=== PATIENT | male | born 1930 | race Caucasian/White ===

== ENCOUNTER 2016-08-09 13:00 | Emergency (ER) | payer MEDICARE, OTHER ==
--- NOTE | 2016-08-09 13:49 | EKG REPORT ---
SEVERITY:- ABNORMAL ECG - SINUS RHYTHM FIRST DEGREE AV BLOCK BORDERLINE LEFT AXIS DEVIATION BORDERLINE T ABNORMALITIES, ANT-LAT LEADS : Confirmed by: Annie Lazar 09-Aug-2016 13:49:11
--- NOTE | 2016-08-09 14:48 | ER Document Report ---
ED General - General Chief Complaint: Black/Tarry Stools Stated Complaint: FLANK PAIN Mode of Arrival: Medic Information source: Patient, Emergency Med Personnel Notes: 86-year-old male presents with complaints of left lower quadrant abdominal pain as well as dorsal wrist. Patient notes the dorsal segment been ongoing now for 3 weeks. Denies any nausea vomiting. Patient notes he had a history of a GI bleed a few years ago. Denies any fevers chills TRAVEL OUTSIDE OF THE [place] IN LAST 30 DAYS: No - HPI Onset: Other Onset/Duration: Persistent Quality of pain: Achy Severity: Mild Pain Level: 1 Associated symptoms: Other Exacerbated by: Denies Relieved by: Denies Similar symptoms previously: No Recently seen / treated by doctor: No - Related Data Allergies/Adverse Reactions: No Known Allergies Allergy (Verified 02/18/15 05:29) Past Medical History - Social History Smoking Status: Never Smoker Cigarette use (# per day): No Chew tobacco use (# tins/day): No Smoking Education Provided: No Family History: Reviewed & Not Pertinent - Past Medical History Cardiac Medical History: Reports: Hx Coronary Artery Disease, Hx Hypercholesterolemia Pulmonary Medical History: Reports: Hx COPD Neurological Medical History: Reports: Hx Seizures Musculoskeltal Medical History: Reports Hx Arthritis Psychiatric Medical History: Denies: Hx Depression Past Surgical History: Reports: Hx Cardiac Surgery - Triple Bypass 1999 - Immunizations Hx Diphtheria, Pertussis, Tetanus Vaccination: Yes Hx Pneumococcal Vaccination: 05/04/09 Review of Systems - Review of Systems Notes: REVIEW OF SYSTEMS: CONSTITUTIONAL : Denies fever, chills, or sweats. Denies recent illness. EENT: Denies eye, ear, throat, or mouth pain or symptoms. Denies nasal or sinus congestion or discharge. Denies throat, tongue, or mouth swelling or difficulty swallowing. CARDIOVASCULAR: Denies chest pain. Denies palpitations or racing or irregular heart beat. Denies ankle edema. RESPIRATORY: Denies cough, cold, or chest congestion. Denies shortness of breath, difficulty breathing, or wheezing. GASTROINTESTINAL: Admits to dark stools mild soreness in the left lower quadrant GENITOURINARY: Denies difficulty urinating, painful urination, burning, frequency, blood in urine, or discharge. MUSCULOSKELETAL: Denies back or neck pain or stiffness. Denies joint pain or swelling. SKIN: Denies rash, lesions or sores. HEMATOLOGIC : Denies easy bruising or bleeding. LYMPHATIC: Denies swollen, enlarged glands. NEUROLOGICAL: Denies confusion or altered mental status. Denies passing out or loss of consciousness. Denies dizziness or lightheadedness. Denies headache. Denies weakness or paralysis or loss of use of either side. Denies problems with gait or speech. Denies sensory loss, numbness, or tingling. Denies seizures. PSYCHIATRIC: Denies anxiety or stress. Denies depression, suicidal ideation, or homicidal ideation. ALL OTHER SYSTEMS REVIEWED AND NEGATIVE. Dictation was performed using [employer] recognition software PHYSICAL EXAMINATION: GENERAL: Well-appearing, well-nourished and in no acute distress. HEAD: Atraumatic, normocephalic. EYES: Pupils equal round and reactive to light, extraocular movements intact, sclera anicteric, conjunctiva are normal. ENT: Nares patent, oropharynx clear without exudates. Moist mucous membranes. NECK: Normal range of motion, supple without lymphadenopathy LUNGS: Breath sounds clear to auscultation bilaterally and equal. No wheezes rales or rhonchi. HEART: Regular rate and rhythm without murmurs ABDOMEN: Soft, tender left lower quadrant no rebound or guarding noted patient notes it is only sore to touch black tarry stool Musculoskeletal: Normal range of motion, no pitting or edema. No cyanosis. NEUROLOGICAL: Cranial nerves grossly intact. Normal speech, normal gait. Normal sensory, motor exams PSYCH: Normal mood, normal affect. SKIN: Warm, Dry, normal turgor, no rashes or lesions noted. Physical Exam - Vital signs Vitals: Resp 15 08/09/16 13:16 Course - Re-evaluation Re-evalutation: 08/09/16 14:48 Patient has probable GI bleed, he has been type and screen lab work is pending at this time 08/09/16 20:00 Patient was evaluated by , he decompacted patient , noted large prostate but no concerns for gi bleed I spoke cal cano who will have the patient follolw up in his office for further testing for evaluation Given the patient now denies any complaints denies any abdominal pain I believe he is stable for discharge After performing a Medical Screening Examination, I estimate there is LOW risk for ACUTE APPENDICITIS, BOWEL OBSTRUCTION, ACUTE CHOLECYSTITIS, PERFORATED DIVERTICULITIS, INCARCERATED HERNIA, PANCREATITIS, or PERFORATED ULCER, thus I consider the discharge disposition reasonable. Also, there is no evidence or peritonitis, sepsis, or toxicity. The patient and I have discussed the diagnosis and risks, and we agree with discharging home with close follow-up with the understanding that symptoms and presentations can change. We also discussed returning to the Emergency Department immediately if new or worsening symptoms occur. We have discussed the symptoms which are most concerning (e.g., bloody stool, fever, changing or worsening pain, intractable vomiting - standard verbal up date) that necessitate immediate return. - Vital Signs Vital signs: Temp Pulse Resp BP Pulse Ox 98.2 F 14 151/69 H 99 08/09/16 13:41 08/09/16 19:01 08/09/16 19:01 08/09/16 19:01 - Laboratory Result Diagrams: 08/09/16 13:20 08/09/16 13:20 Laboratory results interpreted by me: 08/09/16 08/09/16 13:20 13:20 RBC 4.34 L Hgb 13.0 L RDW 14.9 H Plt Count 144 L Eosinophils % 6.4 H BUN 29 H Total Protein 5.6 L Albumin 3.4 L - Diagnostic Test Radiology reviewed: Image reviewed, Reports reviewed Discharge - Discharge Clinical Impression: SMA stenosis Abdominal pain Qualifiers: Abdominal location: left lower quadrant Qualified Code(s): R10.32 - Left lower quadrant pain Condition: Stable Disposition: HOME, SELF-CARE Instructions: Abdominal Pain ([facility]) Additional Instructions: Please follow-up with the specialist at [facility], they will be contacting you for an appointment Referrals: ARON FRAUSTO DO [Primary Care Provider] - Follow up tomorrow
[2016-08-09 14:51] LABS: ABSOLUTE BASOPHILS # (AUTO) 0.1 10^3/uL (0.0-0.2); ABSOLUTE EOSINOPHILS # (AUTO) 0.5 10^3/uL (0.0-0.6); ABSOLUTE LYMPHOCYTES (AUTO) 1.1 10^3/uL (0.5-4.7); ABSOLUTE MONOCYTES (AUTO) 0.6 10^3/uL (0.1-1.4); ABSOLUTE NEUT (AUTO) 4.8 10^3/uL (1.7-8.2); BASOPHILS % (AUTO) 0.8 % (0-2); EOSINOPHILS % (AUTO) 6.4 % (0-6); HEMATOCRIT 38.6 % (37.9-51.0); HGB HCT DIFFERENCE 0.4; LYMPHOCYTES % (AUTO) 16.2 % (13-45); MEAN CORPUSCULAR HEMOGLOBIN 30.1 pg (27.0-33.4); MEAN CORPUSCULAR HGB CONC 33.8 g/dL (32.0-36.0); MEAN CORPUSCULAR VOLUME 89 fl (80-97); MONOCYTES % (AUTO) 8.4 % (3-13); RED BLOOD COUNT 4.34 10^6/uL (4.35-5.55); RED CELL DISTRIBUTION WIDTH 14.9 % (11.5-14.0); SEGMENTED NEUTROPHILS % (AUTO) 68.2 % (42-78)
[2016-08-09 14:53] LABS: ALANINE AMINOTRANSFERASE 37 U/L (21-72); ALBUMIN 3.4 g/dL (3.5-5.0); ALKALINE PHOSPHATASE 73 U/L (38-126); ANION GAP 10 (5-19); ASPARTATE AMINO TRANSFERASE 19 U/L (17-59); BILIRUBIN,TOTAL 0.5 mg/dL (0.2-1.3); BLOOD UREA NITROGEN 29 mg/dL (7-20); CALCIUM 9.3 mg/dL (8.4-10.2); CARBON DIOXIDE 30 mmol/L (22-30); CHLORIDE 105 mmol/L (98-107); GLUCOSE 98 mg/dL (75-110); POTASSIUM 3.9 mmol/L (3.6-5.0); SODIUM 144.8 mmol/L (137-145); TOTAL PROTEIN 5.6 g/dL (6.3-8.2)
[2016-08-09 15:17] LABS: APPEARANCE,URINE CLEAR; BILIRUBIN,URINE NEGATIVE (NEGATIVE); GLUCOSE, URINE NEGATIVE (NEGATIVE); KETONES,URINE NEGATIVE (NEGATIVE); LEUKOCYTE ESTERASE,URINE NEGATIVE (NEGATIVE); NITRITE,URINE NEGATIVE (NEGATIVE); PROTEIN,URINE NEGATIVE (NEGATIVE); URINE SPECIFIC GRAVITY 1.019; UROBILINOGEN,URINE NEGATIVE mg/dL (<2.0)
[2016-08-09] MEDS ORDERED: NORMAL SALINE 1000 ML 1,000 ML IV ONE (16:08)
[2016-08-09 21:49] VITALS: BP 133/63
--- NOTE | 2016-08-10 11:52 | PDOC CONSULTATION ---
Consultation Consult Date: 08/09/16 Consult reason:: Dark stools History of Present Illness Admission Date/PCP: ARON FRAUSTO DO History of Present Illness: MARISSA DAVID is a 86 year old male with multiple comorbidities. Patient currently lives in a senior living. Patient is unable to provide a history so the history is entirely from the nurse and the medical record. The patient, per the chart, was living with his until May 2016. He has a history of neurological deficits including left-sided weakness, instability and innumerable falls since surgery for a brain tumor in 2005. He also has coronary artery disease with a coronary artery bypass graft, 3 vessel in 1999. Other comorbidities include anemia, chronic kidney disease, atrial fibrillation , glaucoma, hyperlipidemia, seizures, arthritis. Per the senior living staff the patient had multiple dark stools and left lower quadrant pain. The occult blood stool test done by the emergency room provider was negative. Surgery was consulted. A CT scan of the abdomen and pelvis was done which showed a large prostate, thickened bladder castaneda, stenosis of the SMA and celiac arteries. I reviewed the scans as well as the radiologist reports. Although there is stenosis at the ostia of both the celiac trunk and the SMA, there is good flow of contrast distal to these areas of stenosis. Past Medical History Cardiac Medical History: Reports: Atrial Fibrillation, Coronary Artery Disease, Hyperlipidema EENT Medical History: Reports: Eyes - Glaucoma Neurological Medical History: Reports: Seizures, Other - Brain tumor removal in 2005. Now with dementia, instability, left-sided weakness, multiple falls. Renal/ Medical History: Reports: Chronic Kidney Disease Musculoskeltal Medical History: Reports: Arthritis Psychiatric Medical History: Denies: Depression Hematology: Reports: Anemia Past Surgical History Past Surgical History: Reports: Coronary Artery Bypass Graft - Three-vessel, 1999., Other - Brain surgery, 2005. Social History Information Source: [facility] Records Lives with: [facility] Smoking Status: Never Smoker Frequency of Alcohol Use: None Hx Recreational Drug Use: No Hx Prescription Drug Abuse: No Family History Family History: Reviewed & Not Pertinent Parental Family History Reviewed: No Children Family History Reviewed: No Sibling(s) Family History Reviewed.: No Medication/Allergy Home Medications: Levetiracetam [Keppra] 750 mg PO BID 09/04/11 Rosuvastatin Calcium [Crestor 20 mg Tablet] 20 mg PO DAILY 01/04/15 Brimonidine Tartrate/Timolol [Combigan 0.2%-0.5% Eye Drops] 1 drop OS Q12 Latanoprost [Xalatan 0.005% Oph Soln 2.5 ml] 1 drop OS QHS 08/08/14 Ranolazine [Ranexa 500 mg Tab.sr] 500 mg PO BID 08/08/14 Cyclosporine 0.05% Oph Emulsio [Restasis 0.05% Oph Emulsion Pf 0.4 ml] 1 drop OU BID PRN 03/13/16 Fluticasone/Salmeterol [Advair 100-50 Diskus] 1 puff PO BID 03/13/16 Mirabegron [Myrbetriq] 50 mg PO DAILY 03/13/16 Montelukast Sodium 10 mg PO DAILY 03/13/16 Tamsulosin HCl 0.4 mg PO DAILY 03/13/16 Alprazolam [Xanax 0.5 mg Tablet] 0.5 mg PO Q6HP PRN #30 tablet 03/19/16 Aspirin/Dipyridamole [Aggrenox 25 mg/200 mg Capsule SA] 1 cap.sr PO Q12 #60 cpmp.12hr 03/19/16 Fluticasone Propionate [Flonase Nasal [place] 50 Mcg/[place] 16 gm] 2 spray NASL DAILY@1200 30 Days 03/19/16 Furosemide [Lasix 40 mg Tablet] 40 mg PO DAILY #30 tablet 03/19/16 Ipratropium Ethel [Atrovent 0.02% Neb 0.5 mg/2.5 ml Ampul] 0.5 mg NEB RTQ4 30 Days 03/19/16 Levalbuterol HCl [Xopenex Neb 1.25 mg/3 ml Ampul] 1.25 mg NEB RTQ4 30 Days 03/19 Metoprolol Tartrate [Lopressor 50 mg Tablet] 75 mg PO Q12 30 Days 03/19/16 Prednisone [Deltasone 20 mg Tablet] 40 mg PO DAILY #21 tablet 03/19/16 Ramipril [Altace 2.5 mg Capsule] 2.5 mg PO Q12 #30 capsule 03/19/16 Allergies/Adverse Reactions: No Known Allergies Allergy (Verified 02/18/15 05:29) Review of Systems ROS unobtainable: Due to mental status Physical Exam Vital Signs: Temp Pulse Resp BP Pulse Ox 98.2 F 16 133/63 H 100 08/09/16 13:41 08/09/16 21:01 08/09/16 21:01 08/09/16 20:02 Intake & Output 08/09/16 08/10/16 08/11/16 06:59 06:59 06:59 Weight 101.605 kg General appearance: PRESENT: no acute distress Head exam: PRESENT: normocephalic Eye exam: PRESENT: EOMI Mouth exam: PRESENT: tongue midline Neck exam: ABSENT: JVD, lymphadenopathy, tenderness, thyromegaly Respiratory exam: PRESENT: unlabored GI/Abdominal exam: PRESENT: normal bowel sounds, soft. ABSENT: distended, guarding, rebound, tenderness Rectal exam: PRESENT: prostate enlargement, other - Patient was disimpacted of a large volume of very dark, blue-black, but nonbloody stool. The stool had no maroon color, no tarry-ness, no classic odor. It was very dark, bluish black but clearly fecal and not bloody material. The prostate was extremely large and seemed nodular.. ABSENT: bloody stool, mass Gentrourinary exam: PRESENT: other - Bloody urethral discharge Extremities exam: ABSENT: tenderness Musculoskeletal exam: ABSENT: deformity Neurological exam: PRESENT: awake, motor sensory deficit. ABSENT: CN II-XII grossly intact Skin exam: PRESENT: normal color. ABSENT: jaundice, pallor, rash Results Laboratory Results: 08/09/16 13:20 08/09/16 13:20 08/09/16 08/09/16 08/09/16 13:20 13:20 14:20 WBC 7.0 RBC 4.34 L Hgb 13.0 L Hct 38.6 MCV 89 MCH 30.1 MCHC 33.8 RDW 14.9 H Plt Count 144 L Seg Neutrophils % 68.2 Lymphocytes % 16.2 Monocytes % 8.4 Eosinophils % 6.4 H Basophils % 0.8 Absolute Neutrophils 4.8 Absolute Lymphocytes 1.1 Absolute Monocytes 0.6 Absolute Eosinophils 0.5 Absolute Basophils 0.1 Sodium 144.8 Potassium 3.9 Chloride 105 Carbon Dioxide 30 Anion Gap 10 BUN 29 H Creatinine 0.90 Est GFR ( Amer) > 60 Est GFR (Non-Af Amer) > 60 Glucose 98 Calcium 9.3 Total Bilirubin 0.5 AST 19 ALT 37 Alkaline Phosphatase 73 Total Protein 5.6 L Albumin 3.4 L Urine Color Urine Appearance Urine pH Ur Specific [place] Urine Protein Urine Glucose (UA) Urine Ketones Urine Blood Urine Nitrite Ur Leukocyte Esterase Urine WBC (Auto) Urine RBC (Auto) Stool Occult Blood NEGATIVE Blood Type Antibody Screen 08/09/16 08/09/16 14:40 15:00 WBC RBC Hgb Hct MCV MCH MCHC RDW Plt Count Seg Neutrophils % Lymphocytes % Monocytes % Eosinophils % Basophils % Absolute Neutrophils Absolute Lymphocytes Absolute Monocytes Absolute Eosinophils Absolute Basophils Sodium Potassium Chloride Carbon Dioxide Anion Gap BUN Creatinine Est GFR ( Amer) Est GFR (Non-Af Amer) Glucose Calcium Total Bilirubin AST ALT Alkaline Phosphatase Total Protein Albumin Urine Color YELLOW Urine Appearance CLEAR Urine pH 5.0 Ur Specific [place] 1.019 Urine Protein NEGATIVE Urine Glucose (UA) NEGATIVE Urine Ketones NEGATIVE Urine Blood NEGATIVE Urine Nitrite NEGATIVE Ur Leukocyte Esterase NEGATIVE Urine WBC (Auto) 2 Urine RBC (Auto) 2 Stool Occult Blood Blood Type B POSITIVE Antibody Screen NEGATIVE Impressions: Abdomen/Pelvis CT 08/09/16 14:57 IMPRESSION: No free intraperitoneal air or fluid. No CT signs of bowel obstruction or acute diverticular disease. There is significant SMA stenosis at its origin from atherosclerotic disease. Status: Image reviewed by me Assessment & Plan - Diagnosis (1) Bloody urethral discharge in male Is this a current diagnosis for this admission?: YesPlan: Bloody urethral discharge. Large nodular prostate. Prostate enlarged on CT with thickened bladder wall on CT as well. Recommended urology consultation. Discussed recommendations with the ER doctor. (2) Fecal impaction in rectum Is this a current diagnosis for this admission?: YesPlan: Patient was disimpacted. No bloody stools. No abdominal pain. No clear reason for dark, bluish black stools. Stable vitals. Good labs. Recommend outpatient GI workup. Discussed recommendations with ER provider. (3) H/O craniotomy Is this a current diagnosis for this admission?: Yes (4) Hemiparesis, left Is this a current diagnosis for this admission?: Yes (5) SMA stenosis Is this a current diagnosis for this admission?: YesPlan: SMA and celiac trunk stenosis at the origins. Good flow of contrast distal to the stenosis. No abdominal pain. No GI bleed. No indication or history of food fear or weight loss. Recommend outpatient GI/vascular follow-up. Discussed with ER doctor. (6) CAD (coronary artery disease) Qualifiers: Coronary Disease-Associated Artery/Lesion type: bypass graft [place] vs. transplanted heart: [place] heart Is this a current diagnosis for this admission?: Yes
== END 2016-08-09 21:49 | disposition home or self-care (01) ==
LOC: ER 13:00
DX: K55.1 Chronic vascular disorders of intestine (principal); N40.0 Benign prostatic hyperplasia without lower urinary tract symptoms; R10.32 Left lower quadrant pain; M25.539 Pain in unspecified wrist; I25.10 Atherosclerotic heart disease of native coronary artery without angina pectoris; J44.9 Chronic obstructive pulmonary disease, unspecified; Z95.1 Presence of aortocoronary bypass graft; Z87.19 Personal history of other diseases of the digestive system
CPT/HCPCS: 93005; 99284; 96360; 86900; 86901; 36415; 86850; 85025; 82272; 80053; 81001; 74177; 93010; J7030

== ENCOUNTER 2016-09-02 11:36 | Inpatient (IN) | payer MEDICARE, OTHER ==
[2016-09-02 12:37] LABS: ABSOLUTE EOSINOPHILS # (AUTO) 0.1 10^3/uL (0.0-0.6); ABSOLUTE LYMPHOCYTES (AUTO) 0.9 10^3/uL (0.5-4.7); ABSOLUTE NEUT (AUTO) 4.7 10^3/uL (1.7-8.2); BASOPHILS % (AUTO) 0.4 % (0-2); EOSINOPHILS % (AUTO) 1.7 % (0-6); HEMOGLOBIN 12.6 g/dL (13.5-17.0); HGB HCT DIFFERENCE -0.2; LYMPHOCYTES % (AUTO) 13.5 % (13-45); MEAN CORPUSCULAR HEMOGLOBIN 30.1 pg (27.0-33.4); MEAN CORPUSCULAR HGB CONC 33.3 g/dL (32.0-36.0); MEAN CORPUSCULAR VOLUME 90 fl (80-97); MONOCYTES % (AUTO) 14.2 % (3-13); RED CELL DISTRIBUTION WIDTH 15.4 % (11.5-14.0); SEGMENTED NEUTROPHILS % (AUTO) 70.2 % (42-78); WHITE BLOOD COUNT 6.7 10^3/uL (4.0-10.5)
[2016-09-02 12:43] LABS: ALANINE AMINOTRANSFERASE 23 U/L (21-72); ALBUMIN 3.5 g/dL (3.5-5.0); ALKALINE PHOSPHATASE 78 U/L (38-126); ANION GAP 10 (5-19); ASPARTATE AMINO TRANSFERASE 19 U/L (17-59); BILIRUBIN,TOTAL 0.7 mg/dL (0.2-1.3); BLOOD UREA NITROGEN 35 mg/dL (7-20); CALCIUM 8.9 mg/dL (8.4-10.2); CARBON DIOXIDE 27 mmol/L (22-30); CHLORIDE 107 mmol/L (98-107); CREATINE KINASE 29 U/L (55-170); CREATININE RESULT 1.02 mg/dL (0.52-1.25); GLUCOSE 86 mg/dL (75-110); POTASSIUM 3.9 mmol/L (3.6-5.0); SODIUM 143.8 mmol/L (137-145); TOTAL PROTEIN 5.7 g/dL (6.3-8.2)
[2016-09-02 12:54] LABS: CREATINE KINASE MB 0.63 ng/mL (<4.55); TROPONIN I < 0.012 ng/mL
--- NOTE | 2016-09-02 13:58 | ER Document Report ---
ED General - General Chief Complaint: Shortness Of Breath Stated Complaint: DIFFICULTY BREATHING Time seen by provider: 13:57 Mode of Arrival: Ambulatory Information source: Patient Notes: This is an 86-year-old man with a history of CVA (left-sided weakness), coronary artery disease, COPD, peripheral vascular disease, chronic kidney disease. Patient presents to the emergency room with shortness of breath for the past week, dyspnea on exertion, nonproductive cough. TRAVEL OUTSIDE OF THE [place] IN LAST 30 DAYS: No - HPI Onset: Last week Onset/Duration: Gradual Quality of pain: No pain Severity: None Pain Level: Denies Associated symptoms: Productive cough, Shortness of breath. denies: Chills, Fever Exacerbated by: Denies Relieved by: Denies Similar symptoms previously: Yes Recently seen / treated by doctor: Yes - Related Data Allergies/Adverse Reactions: No Known Allergies Allergy (Verified 02/18/15 05:29) Home Medications: Current Home Medications Aspirin [Aspirin EC] 81 mg PO DAILY 09/02/16 [History] Cholecalciferol (Vitamin D3) [Vitamin D3 5000 unit Capsule] 5,000 unit PO DAILY 09/02/16 [History] Levetiracetam [Keppra 500 mg Tablet] 500 mg PO Q12 09/02/16 [History] Metoprolol Tartrate [Lopressor 50 mg Tablet] 50 mg PO Q12 09/02/16 [History] Mirabegron [Myrbetriq] 50 mg PO DAILY 09/02/16 [History] Montelukast Sodium [Singulair 10 mg Tablet] 10 mg PO DAILY 09/02/16 [History] Ranolazine [Ranexa] 500 mg PO Q12 09/02/16 [History] Rosuvastatin Calcium [Crestor 20 mg Tablet] 20 mg PO DAILY 09/02/16 [History] Tamsulosin HCl [Flomax 0.4 mg Cap.sr] 0.4 mg PO DAILY 09/02/16 [History] Past Medical History - General Information source: Patient - Social History Smoking Status: Never Smoker Chew tobacco use (# tins/day): No Frequency of alcohol use: None Drug Abuse: None Lives with: Family Family History: Reviewed & Not Pertinent Patient has suicidal ideation: No Patient has homicidal ideation: No - Past Medical History Cardiac Medical History: Reports: Hx Atrial Fibrillation, Hx Coronary Artery Disease, Hx Hypercholesterolemia Pulmonary Medical History: Reports: Hx COPD Neurological Medical History: Reports: Hx Seizures Renal/ Medical History: Denies: Hx Peritoneal Dialysis Musculoskeltal Medical History: Reports Hx Arthritis Psychiatric Medical History: Denies: Hx Depression Past Surgical History: Reports: Hx Cardiac Surgery - Triple Bypass 1999, Hx Coronary Artery Bypass Graft - Three-vessel, 1999., Other - Brain surgery, 2005. - Immunizations Hx Diphtheria, Pertussis, Tetanus Vaccination: Yes Hx Pneumococcal Vaccination: 05/04/09 Review of Systems - Review of Systems Constitutional: denies: Chills, Fever EENT: No symptoms reported Cardiovascular: No symptoms reported Respiratory: See HPI Gastrointestinal: No symptoms reported Genitourinary: No symptoms reported Male Genitourinary: No symptoms reported Musculoskeletal: No symptoms reported Skin: No symptoms reported Hematologic/Lymphatic: No symptoms reported Neurological/Psychological: No symptoms reported Physical Exam - Vital signs Vitals: Resp Pulse Ox 16 96 09/02/16 11:52 09/02/16 11:52 Notes: Physical exam: GENERAL: 86-year-old man, alert and oriented 3, mild respiratory distress HEAD: Atraumatic, normocephalic. EYES: Pupils equal round and reactive to light, extraocular movements intact, sclera anicteric, conjunctiva are normal. ENT: TMs normal, nares patent, oropharynx clear without exudates. Dry mucous membranes. NECK: Normal range of motion, supple without lymphadenopathy or JVD. LUNGS: Bilateral wheezing and rhonchi, decreased breath sounds at the bases. HEART: Regular rate and rhythm without murmurs, rubs or gallops. ABDOMEN: Soft, nontender, normoactive bowel sounds. No guarding, no rebound. No masses appreciated. EXTREMITIES: Normal range of motion, no pitting or edema. No clubbing or cyanosis. NEUROLOGICAL: Cranial nerves II through XII grossly intact. Normal speech, moving all extremities, gait not assessed. PSYCH: Normal mood, normal affect. SKIN: Warm, Dry, normal turgor, no rashes or lesions noted. Course - Vital Signs Vital signs: Temp Pulse Resp BP Pulse Ox 97.5 F 70 16 142/55 H 94 09/02/16 18:14 09/02/16 18:14 09/02/16 18:14 09/02/16 18:14 01/30/17 18:14 - Laboratory Result Diagrams: 09/02/16 12:00 09/02/16 12:00 Laboratory results interpreted by me: 09/02/16 09/02/16 09/02/16 12:00 12:00 12:00 RBC 4.20 L Hgb 12.6 L RDW 15.4 H Plt Count 112 L Monocytes % 14.2 H BUN 35 H Creatine Kinase 29 L NT-Pro-B Natriuret Pep 2040 H Total Protein 5.7 L - Diagnostic Test Radiology reviewed: Image reviewed, Reports reviewed - No obvious infiltrates - EKG Interpretation by Me Rate: Normal - EKG shows normal sinus rhythm with a ventricular rate of 67, nonspecific T changes. Rhythm: NSR Discharge - Discharge Clinical Impression: acute COPD exacerbation Condition: Stable Disposition: ADMITTED INPATIENT Admitting Provider: Hospitalist - Dr. Segovia on Unit Admitted: Telemetry
[2016-09-02] MEDS ORDERED: IPRATROPIUM/ALBUTEROL 0.5-2.5 MG/3 ML AMPUL NEB ONE (13:59)
[2016-09-02] MEDS ORDERED: LEVOFLOXACIN 500 MG/D5W RTU 100 ML IV ONE (14:00)
[2016-09-02] MEDS ORDERED: METHYLPREDNISOLONE INJ 125 MG/2 ML SDV IV ONE (14:00)
[2016-09-02] MEDS ORDERED: CYCLOSPORINE 0.05% OPH EMULSIO 0.4 ML DROPERETTE OU PRN (15:53)
[2016-09-02] MEDS ORDERED: ALPRAZOLAM 0.5 MG TABLET PO PRN (15:53)
[2016-09-02] MEDS ORDERED: ACETAMINOPHEN 325 MG TABLET PO PRN (15:56)
[2016-09-02] MEDS ORDERED: ALBUTEROL SULFATE 0.083% NEB 2.5 MG/3 ML AMPUL NEB PRN (15:56)
[2016-09-02] MEDS ORDERED: ONDANSETRON HCL INJ/PF 4 MG/2 ML SDV IV PRN (15:56)
--- NOTE | 2016-09-02 16:22 | PDOC H&P ---
[id number]: Shortness of breath and wheezing History of Present Illness: MARISSA DAVID is a 86 year old male, with underlying COPD, coronary artery disease, seizure disorder, atrial fibrillation, prior stroke, bedbound brought to the emergency room because of one day duration of increasing shortness of breath and wheezing. There is associated coughing with scanty phlegm. No chills or fever reported. Patient denies any sinus congestion or sore throat. However he denies feeling short of breath. He is a very poor historian. The patient has been dealing with debility probably quite a while. He has difficulty getting up in bed and trying to move around. He was noted by the caregiver to be coughing a lot last night with increasing shortness of breath and wheezing. His noted it this morning as well. He was then brought to the emergency room for evaluation. He was then referred for admission. The patient is unreliable due to underlying dementia. Information provided by the family who is at bedside. Past Medical History Past Medical History: Medication reconciliation pending verification from the patient's pharmacist. Cardiac Medical History: Reports: Atrial Fibrillation, Coronary Artery Disease, Hyperlipidema Pulmonary Medical History: Reports: Chronic Obstructive Pulmonary Disease (COPD) Neurological Medical History: Reports: Seizures Musculoskeltal Medical History: Reports: Arthritis Psychiatric Medical History: Denies: Depression Hematology: Reports: Anemia Past Surgical History Past Surgical History: Reports: Coronary Artery Bypass Graft - Three-vessel, 1999., Other - Brain surgery, 2005. Social History Information Source: Relative Lives with: Family Smoking Status: Never Smoker Frequency of Alcohol Use: None Hx Recreational Drug Use: No Drugs: None Hx Prescription Drug Abuse: No Family History Family History: CAD, Hypertension Parental Family History Reviewed: Yes Children Family History Reviewed: Yes Sibling(s) Family History Reviewed.: Yes Medication/Allergy Home Medications: Aspirin [Aspirin EC] 81 mg PO DAILY 09/02/16 Cholecalciferol (Vitamin D3) [Vitamin D3 5000 unit Capsule] 5,000 unit PO DAILY 09/02/16 Levetiracetam [Keppra 500 mg Tablet] 500 mg PO Q12 09/02/16 Metoprolol Tartrate [Lopressor 50 mg Tablet] 50 mg PO Q12 09/02/16 Mirabegron [Myrbetriq] 50 mg PO DAILY 09/02/16 Montelukast Sodium [Singulair 10 mg Tablet] 10 mg PO DAILY 09/02/16 Ranolazine [Ranexa] 500 mg PO Q12 09/02/16 Rosuvastatin Calcium [Crestor 20 mg Tablet] 20 mg PO DAILY 09/02/16 Tamsulosin HCl [Flomax 0.4 mg Cap.sr] 0.4 mg PO DAILY 09/02/16 Allergies/Adverse Reactions: No Known Allergies Allergy (Verified 02/18/15 05:29) Review of Systems ROS unobtainable: Due to mental status - Other than stated by the spouse on the history, no other reported symptoms. Physical Exam Vital Signs: Temp Pulse Resp BP Pulse Ox 98.8 F 64 25 H 132/81 H 95 09/02/16 12:26 09/02/16 12:26 09/02/16 12:26 09/02/16 12:26 09/02/16 12:26 General appearance: PRESENT: no acute distress, cooperative, obese Head exam: PRESENT: atraumatic, normocephalic Eye exam: PRESENT: conjunctiva pink, EOMI, PERRLA - Sluggish. ABSENT: scleral icterus Ear exam: PRESENT: normal external ear exam. ABSENT: drainage Mouth exam: PRESENT: moist, neck supple, tongue midline Throat exam: ABSENT: post pharyngeal erythema, tonsillar erythema Neck exam: ABSENT: carotid bruit, JVD, lymphadenopathy, thyromegaly Respiratory exam: PRESENT: rhonchi - Few bilateral, unlabored, wheezes - Mild bilateral Cardiovascular exam: PRESENT: irregular rhythm, +S1, +S2. ABSENT: diastolic murmur, gallop, rubs, systolic murmur Pulses: PRESENT: normal dorsalis pedis pul Vascular exam: PRESENT: normal capillary refill GI/Abdominal exam: PRESENT: normal bowel sounds, soft. ABSENT: distended, guarding, mass, organolmegaly, rebound, tenderness Rectal exam: PRESENT: deferred Extremities exam: PRESENT: full ROM. ABSENT: calf tenderness, clubbing, pedal edema Neurological exam: PRESENT: alert, awake, oriented to person, other - Left- sided weakness 4 -/5, 4+/5 on R Psychiatric exam: PRESENT: appropriate affect, normal mood. ABSENT: agitated, homicidal ideation, suicidal ideation Focused psych exam: ABSENT: restlessness Skin exam: PRESENT: dry, warm. ABSENT: cyanosis, rash Results Impressions: Chest X-Ray 09/02/16 12:27 IMPRESSION: Cardiomegaly. Clearing of the lung manzano since prior study. Assessment & Plan - Diagnosis (1) COPD exacerbation Is this a current diagnosis for this admission?: Yes (2) Hyperlipidemia Qualifiers: Hyperlipidemia type: unspecified Qualified Code(s): E78.5 - Hyperlipidemia, unspecified Is this a current diagnosis for this admission?: Yes (3) CAD (coronary artery disease) Qualifiers: Coronary Disease-Associated Artery/Lesion type: unspecified vessel or lesion type [place] vs. transplanted heart: [place] heart Associated angina: without angina Qualified Code(s): I25.10 - Atherosclerotic heart disease of [place] coronary artery without angina pectoris Is this a current diagnosis for this admission?: Yes (4) Stroke Qualifiers: CVA mechanism: unspecified Qualified Code(s): I63.9 - Cerebral infarction, unspecified Is this a current diagnosis for this admission?: Yes (5) Carotid stenosis Qualifiers: Laterality: bilateral Qualified Code(s): I65.23 - Occlusion and stenosis of bilateral carotid arteries Is this a current diagnosis for this admission?: Yes (6) Glaucoma Qualifiers: Glaucoma type: unspecified type Laterality: unspecified laterality Qualified Code(s): H40.9 - Unspecified glaucoma Is this a current diagnosis for this admission?: Yes (7) Chronic kidney disease, stage II (mild) Is this a current diagnosis for this admission?: Yes (8) Seizure Is this a current diagnosis for this admission?: Yes (9) Encephalomalacia Is this a current diagnosis for this admission?: Yes (10) Dementia Qualifiers: Dementia type: unspecified type Dementia behavioral disturbance: without behavioral disturbance Qualified Code(s): F03.90 - Unspecified dementia without behavioral disturbance Is this a current diagnosis for this admission?: Yes (11) Atrial fibrillation Qualifiers: Atrial fibrillation type: chronic Qualified Code(s): I48.2 - Chronic atrial fibrillation Is this a current diagnosis for this admission?: Yes - Time Time Spent: 30 to 50 Minutes Anticipated discharge: Home with Homehealth Within: within 72 hours - Inpatient Certification Based on my medical assessment, after consideration of the patient's comorbidities, presenting symptoms, or acuity I expect that the services needed warrant INPATIENT care.: Yes I certify that my determination is in accordance with my understanding of Medicare's requirements for reasonable and necessary INPATIENT services [42 CFR 412.3e].: Yes Medical Necessity: Significant Comorbidiites Make Outpatient Treatment Too Risky , Need Close Monitoring Due to Risk of Patient Decompensation, Need for Nebulizer Therapy and Monitoring of Response 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 I am going to gently hydrate the patient with saline and consult physical therapy. Give supplemental oxygen. DVT prophylaxis with Lovenox. Start scheduled and as needed bronchodilators and intravenous steroids. I will continue his antiplatelet therapy. Further testing depends on initial evaluation and response to treatment as outlined above.
[2016-09-02] MEDS ORDERED: RANOLAZINE 500 MG TAB.SR.12H PO SCH (18:00)
[2016-09-02] MEDS ORDERED: (PENDING PHARMACY ID) (Levetiracetam [Keppra] 750 MG) PO SCH (18:00)
[2016-09-02] MEDS ORDERED: TAMSULOSIN HCL 0.4 MG CAP.SR.24H PO SCH (18:00)
[2016-09-02] MEDS ORDERED: LEVETIRACETAM 500 MG TABLET PO SCH (18:00)
[2016-09-02] MEDS: NORMAL SALINE 1000 ML 1,000 ML IV PRN (20:13)
[2016-09-02] MEDS: IPRATROPIUM/ALBUTEROL 0.5-2.5 MG/3 ML AMPUL NEB SCH (20:21)
[2016-09-02] MEDS: METHYLPREDNISOLONE INJ 125 MG/2 ML SDV IV SCH (21:37)
[2016-09-02] MEDS: ASPIRIN/DIPYRIDAMOLE 25-200 MG 1 CAP.SR CPMP.12HR PO SCH (21:38)
[2016-09-02] MEDS ORDERED: ATORVASTATIN CALCIUM 40 MG TABLET PO SCH (22:00)
[2016-09-02] MEDS ORDERED: RAMIPRIL 2.5 MG CAPSULE PO SCH (22:00)
[2016-09-02] MEDS ORDERED: LATANOPROST 0.005% OPH SOLN 2.5 ML OS SCH (22:00)
[2016-09-02] MEDS ORDERED: METOPROLOL TARTRATE 50 MG TABLET PO SCH (22:00)
[2016-09-02] MEDS ORDERED: INFLUENZA ADLT QUAD (36MOS+) 2016-17 VAC 0.5 ML SYR IM PRN (23:41)
--- NOTE | 2016-09-03 00:07 | EKG REPORT ---
SEVERITY:- ABNORMAL ECG - SINUS RHYTHM ATRIAL PREMATURE COMPLEX ABNRM R PROG, CONSIDER ASMI OR LEAD PLACEMENT : Confirmed by: Annie Lazar 03-Sep-2016 00:07:06
[2016-09-03] MEDS: IPRATROPIUM/ALBUTEROL 0.5-2.5 MG/3 ML AMPUL NEB SCH ×4 (01:43→21:15)
[2016-09-03] MEDS: LANSOPRAZOLE 30 MG TAB.RAP.DR PO SCH (05:30)
[2016-09-03] MEDS: METHYLPREDNISOLONE INJ 125 MG/2 ML SDV IV SCH ×3 (05:54→22:21)
[2016-09-03 07:19] LABS: ANION GAP 11 (5-19); BLOOD UREA NITROGEN 38 mg/dL (7-20); CALCIUM 8.8 mg/dL (8.4-10.2); CARBON DIOXIDE 25 mmol/L (22-30); CHLORIDE 107 mmol/L (98-107); CREATININE RESULT 0.85 mg/dL (0.52-1.25); GLUCOSE 156 mg/dL (75-110); MAGNESIUM 1.7 mg/dL (1.6-2.3); PHOSPHORUS 3.1 mg/dL (2.5-4.5); POTASSIUM 3.8 mmol/L (3.6-5.0); SODIUM 143.4 mmol/L (137-145)
[2016-09-03] MEDS: ENOXAPARIN SODIUM INJ 40 MG/0.4 ML DISP.SYRIN SUBCUT SCH (07:42)
[2016-09-03] MEDS: ASPIRIN/DIPYRIDAMOLE 25-200 MG 1 CAP.SR CPMP.12HR PO SCH ×2 (09:42→22:21)
[2016-09-03] MEDS ORDERED: FUROSEMIDE 40 MG TABLET PO SCH (10:00)
[2016-09-03] MEDS ORDERED: (PENDING PHARMACY ID) (Rosuvastatin Calcium [Crestor 20 Mg Tablet] 20 MG) PO SCH (10:00)
[2016-09-03] MEDS ORDERED: (PENDING PHARMACY ID) (Mirabegron [Myrbetriq] 50 MG) PO SCH (10:00)
[2016-09-03] MEDS: NORMAL SALINE 1000 ML 1,000 ML IV PRN (11:41)
--- NOTE | 2016-09-03 12:15 | Physician Advisory Note ---
Physician Advisor ProgressNote .: [facility], I have reviewed the medical record for this patient. Physician Advisor Statement: Great job documenting Afib is chronic Afib. Possible documentation opportunities if attending agrees: 1. "chronic Lt hemiparesis due to ____" [CVA? or brain surg for mass?] 2. "Dementia of ____ type" [?multi-infarct, Alzheimer's, ...?] 3. Medical necessity - see bolded points below. 4. ? developing "Acute Hypoxemic Resp Failure"? (can call it if pt with increased work of breathing at same time as hypoxemia) As always, if concerned about any unstable VS or abnormal labs, please comment on them & note what doing about them, & please document each day the potential clinical problems you are concerned could occur if pt not kept in hospital for tx at this time. 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 note but no home O2 - presented 1/30 PM to ED w/SOB, ROPER, cough, "mild respiratory distress", bilat wheezing/rhonchi, dcreased breath sounds in bases. ED gave Levaquin IV x1. (+) RR16-25, NJ54w-253g, BP 142/55, O2 sat 96%, 94% on RA initially, WBC 6.7, Hgb 12.8, BUN 35, Cr 1.02, BNP 0 (was 1730 in 03/2016) Attending ordered tele, cardiac enzymes, IVF @65, PT eval, O2, nebs q6h + PRN, IV Solumedrol 125 q8h, continued antiplt tx. Status: COPD exacerbation pts are most appropriately brought in as Outpt Obs initially, until they show they don't improve sufficiently for safe d/c the next day - unless the H&P clearly & explicitly states why THIS pt is fully expected to require >1MN of hospital care & monitoring (& clicking on generic phrases for medical necessity is not sufficient - need to 'paint the picture' for non- physician reviewers). However, if this pt is not yet clinically safe for d/c today, please document reasons why ongoing tx in inpatient hospital setting is medically reasonable & necessary to protect pt's health, safety, & medical condition, & then may keep Inpatient status appropriately. Points worth documenting if attending agrees they are accurate in this case: This AM, pt has documented O2 sat of 87% on RA, then only 92% on 1L O2, then 100 % on 1L, with HR 45 & RR19. At 06:30, he has still not voided overnight, with bladder scan finding 309ml urine in bladder. BUN remains elevated, & even more so, concerning for continued intravascular volume depletion, despite IVF given. IVF need to be given cautiously given underlying diastolic dysfunction noted on ECHO in March (with EF >60%, mild-mod pulm HTN). This AM, despite aggressive tx with IV steroids & nebs, pt still quite SOB with sitting up & walking 10ft w/PT assistance, needing to pursed-lip breathe. He is currently unable to fully sit up straight, which will make it harder for him to clear his lungs of secretions & oxygenate well. Hypoxemia is certainly likely to stress his heart & brain, which already have impaired blood supply of O2, increasing risks of further cerebral ischemia/infarction & cardiac morbidity. Thanks for your help with documentation accuracy/specificity improvement! Hailey Mcconnell MD [facility] Physician Advisor, Fellow of Hospital Medicine
--- NOTE | 2016-09-03 14:19 | PDOC PROGRESS REPORT ---
Subjective Progress Note for:: 09/03/16 Subjective:: Continues to complain of shortness of breath but feels slightly improved. His oxygen saturations were 87% this morning on room air. Physical Exam Vital Signs: Temp Pulse Resp BP Pulse Ox 98.1 F 78 22 H 139/66 H 95 09/03/16 12:00 09/03/16 12:00 09/03/16 12:00 09/03/16 12:00 09/03/16 12:00 Intake & Output 09/02/16 09/03/16 09/04/16 06:59 06:59 06:59 Intake Total 870 Output Total 0 Balance 870 Weight 103.6 kg General appearance: PRESENT: no acute distress Eye exam: PRESENT: conjunctiva pink. ABSENT: scleral icterus Ear exam: PRESENT: normal external ear exam Mouth exam: PRESENT: moist, tongue midline Neck exam: ABSENT: JVD Respiratory exam: PRESENT: wheezes - Bilateral expiratory wheezes. GI/Abdominal exam: PRESENT: normal bowel sounds, soft. ABSENT: distended, guarding, mass, organolmegaly, rebound, tenderness Extremities exam: ABSENT: calf tenderness, clubbing, pedal edema Neurological exam: PRESENT: alert, awake, oriented to person, oriented to place , oriented to time, oriented to situation, CN II-XII grossly intact. ABSENT: motor sensory deficit Psychiatric exam: PRESENT: appropriate affect Skin exam: PRESENT: dry, intact, warm. ABSENT: cyanosis, rash Results Laboratory Results: 09/03/16 06:30 09/03/16 06:30 Sodium 143.4 Potassium 3.8 Chloride 107 Carbon Dioxide 25 Anion Gap 11 BUN 38 H Creatinine 0.85 Est GFR ( Amer) > 60 Est GFR (Non-Af Amer) > 60 Glucose 156 H Calcium 8.8 Phosphorus 3.1 Magnesium 1.7 09/02/16 16:28 Troponin I < 0.012 Impressions: Chest X-Ray 09/02/16 12:27 IMPRESSION: Cardiomegaly. Clearing of the lung manzano since prior study. Assessment & Plan - Diagnosis (1) COPD exacerbation Is this a current diagnosis for this admission?: YesPlan: Patient has improved but still has wheezing and needs continued IV steroids for at least another 24 hours. Patient does have a component of acute respiratory failure given his hypoxia with O2 sat of 87%. (2) Atrial fibrillation Qualifiers: Atrial fibrillation type: chronic Qualified Code(s): I48.2 - Chronic atrial fibrillation Is this a current diagnosis for this admission?: YesPlan: Patient is rate controlled at this time. (3) Chronic kidney disease, stage II (mild) Is this a current diagnosis for this admission?: YesPlan: Stable (4) Dementia Qualifiers: Dementia type: unspecified type Dementia behavioral disturbance: without behavioral disturbance Qualified Code(s): F03.90 - Unspecified dementia without behavioral disturbance Is this a current diagnosis for this admission?: Yes (5) Encephalomalacia Is this a current diagnosis for this admission?: Yes (6) Hyperlipidemia Qualifiers: Hyperlipidemia type: unspecified Qualified Code(s): E78.5 - Hyperlipidemia, unspecified Is this a current diagnosis for this admission?: Yes (7) SHARON (obstructive sleep apnea) Is this a current diagnosis for this admission?: Yes (8) CAD (coronary artery disease) Qualifiers: Coronary Disease-Associated Artery/Lesion type: unspecified vessel or lesion type [place] vs. transplanted heart: [place] heart Associated angina: without angina Qualified Code(s): I25.10 - Atherosclerotic heart disease of [place] coronary artery without angina pectoris Is this a current diagnosis for this admission?: YesPlan: Denies any chest pain - Time Time Spent with patient: 25-34 minutes - Inpatient Certification Medical Necessity: Need for Nebulizer Therapy and Monitoring of Response - Plan Summary Plan Summary: Patient needs continued hospitalization because of the need for IV steroids. If he continues to improve hopefully we can discharge home tomorrow.
[2016-09-03] MEDS ORDERED: (PENDING PHARMACY ID) (Ketotifen Fumarate [Refresh] 5 ML) OU PRN ×2 (17:03→20:15)
[2016-09-03] MEDS ORDERED: METOPROLOL TARTRATE 25 MG TABLET PO SCH (22:15)
[2016-09-03] MEDS: CYCLOSPORINE 0.05% OPH EMULSIO 0.4 ML DROPERETTE OU SCH (22:21)
[2016-09-03 22:31] LABS: ANION GAP 14 (5-19); BLOOD UREA NITROGEN 41 mg/dL (7-20); CALCIUM 9.2 mg/dL (8.4-10.2); CARBON DIOXIDE 22 mmol/L (22-30); CHLORIDE 108 mmol/L (98-107); CREATININE RESULT 1.18 mg/dL (0.52-1.25); GLUCOSE 208 mg/dL (75-110); MAGNESIUM 1.8 mg/dL (1.6-2.3); POTASSIUM 3.4 mmol/L (3.6-5.0); SODIUM 144.2 mmol/L (137-145)
[2016-09-03] MEDS ORDERED: METOPROLOL TARTRATE 25 MG TABLET PO ONE (23:00)
[2016-09-04] MEDS: POTASSI CL 20 MEQ/50 ML RIDER 50 ML IV SCH ×2 (00:12→04:28)
[2016-09-04] MEDS: IPRATROPIUM/ALBUTEROL 0.5-2.5 MG/3 ML AMPUL NEB SCH ×4 (02:07→19:56)
[2016-09-04] MEDS ORDERED: METOPROLOL TARTRATE PF/INJ 5 MG/5 ML SDV IV ONE (03:09)
[2016-09-04] MEDS ORDERED: NORMAL SALINE 1000 ML 1,000 ML IV ONE (03:16)
[2016-09-04] MEDS ORDERED: MAGNESIUM SULFATE/D5W 100 ML IV SCH (03:30)
[2016-09-04 04:37] LABS: CREATINE KINASE MB 7.48 ng/mL (<4.55); TROPONIN I 0.022 ng/mL
[2016-09-04] MEDS: LANSOPRAZOLE 30 MG TAB.RAP.DR PO SCH (06:03)
[2016-09-04] MEDS: METHYLPREDNISOLONE INJ 125 MG/2 ML SDV IV SCH ×3 (06:03→22:10)
[2016-09-04] MEDS ORDERED: MAGNESIUM SULFATE/D5W 1 GM/100 ML RTUPB IV SCH (07:00)
[2016-09-04] MEDS ORDERED: CARBOXYMETHYLCELLULOSE SOD 0.5% 0.4 ML DROPERETTE OU PRN (07:59)
[2016-09-04] MEDS: ENOXAPARIN SODIUM INJ 40 MG/0.4 ML DISP.SYRIN SUBCUT SCH (09:09)
[2016-09-04] MEDS: CYCLOSPORINE 0.05% OPH EMULSIO 0.4 ML DROPERETTE OU SCH ×2 (09:09→22:13)
[2016-09-04] MEDS: METOPROLOL TARTRATE 25 MG TABLET PO SCH ×2 (09:09→22:31)
[2016-09-04] MEDS: ASPIRIN/DIPYRIDAMOLE 25-200 MG 1 CAP.SR CPMP.12HR PO SCH ×2 (09:09→22:09)
--- NOTE | 2016-09-04 09:24 | EKG REPORT ---
SEVERITY:- OTHERWISE NORMAL ECG - SINUS RHYTHM BORDERLINE LEFT AXIS DEVIATION : Confirmed by: Annie Lazar 04-Sep-2016 09:22:28
--- NOTE | 2016-09-04 11:02 | PDOC PROGRESS REPORT ---
Subjective Progress Note for:: 09/04/16 Subjective:: Denies any complaints currently. Last night he had an episode of wide-complex tachycardia concerning for ventricular tachycardia. He also has had what appears to be atrial fibrillation with episodes of tachycardia and bradycardia. Physical Exam Vital Signs: Temp Pulse Resp BP Pulse Ox 97.7 F 61 18 119/74 97 09/04/16 03:06 09/04/16 07:59 09/04/16 07:59 09/04/16 07:25 09/04/16 07:25 Intake & Output 09/03/16 09/04/16 09/05/16 06:59 06:59 06:59 Intake Total 870 3619 Output Total 0 Balance 870 3619 Weight 103.6 kg 106.3 kg General appearance: PRESENT: no acute distress Eye exam: PRESENT: conjunctiva pink. ABSENT: scleral icterus Mouth exam: PRESENT: moist, tongue midline Neck exam: ABSENT: JVD Respiratory exam: PRESENT: clear to auscultation charu. ABSENT: rales, rhonchi, wheezes Cardiovascular exam: PRESENT: irregular rhythm GI/Abdominal exam: PRESENT: normal bowel sounds, soft. ABSENT: distended, guarding, mass, organolmegaly, rebound, tenderness Extremities exam: PRESENT: pedal edema - Trace pedal edema.. ABSENT: calf tenderness, clubbing Neurological exam: PRESENT: alert, awake, oriented to person, oriented to place , oriented to time Psychiatric exam: PRESENT: appropriate affect Skin exam: PRESENT: dry, intact, warm. ABSENT: cyanosis, rash Results Laboratory Results: 09/03/16 22:10 09/03/16 22:10 Sodium 144.2 Potassium 3.4 L Chloride 108 H Carbon Dioxide 22 Anion Gap 14 BUN 41 H Creatinine 1.18 Est GFR ( Amer) > 60 Est GFR (Non-Af Amer) 59 L Glucose 208 H Calcium 9.2 Magnesium 1.8 09/03/16 00:00 Nasophary (Mrsa Only) MRSA Surveillance Culture - Final NO MRSA RECOVERED 09/02/16 09/04/16 09/04/16 16:28 03:36 03:36 Creatine Kinase 149 CK-MB (CK-2) 7.48 H Troponin I < 0.012 0.022 Impressions: Chest X-Ray 09/02/16 12:27 IMPRESSION: Cardiomegaly. Clearing of the lung manzano since prior study. Assessment & Plan - Diagnosis (1) COPD exacerbation Is this a current diagnosis for this admission?: YesPlan: Patient has improved from COPD point of view. We will change him to by mouth steroids. Patient does have a component of acute respiratory failure given his hypoxia with O2 sat of 87%. (2) Atrial fibrillation Qualifiers: Atrial fibrillation type: chronic Qualified Code(s): I48.2 - Chronic atrial fibrillation Is this a current diagnosis for this admission?: YesPlan: Last evening the patient had an episode of wide-complex tachycardia. This is concerning for the possibility of ventricular tachycardia. He was given an extra dose of beta birgit last night. Patient also was having episodes of tachycardia and bradycardia concerning for the possibility of sick sinus syndrome. Will consult cardiology for their evaluation and consideration of whether this patient needs a pacemaker and an electrophysiology study. (3) Chronic kidney disease, stage II (mild) Is this a current diagnosis for this admission?: YesPlan: Stable (4) Dementia Qualifiers: Dementia type: unspecified type Dementia behavioral disturbance: without behavioral disturbance Qualified Code(s): F03.90 - Unspecified dementia without behavioral disturbance Is this a current diagnosis for this admission?: Yes (5) Encephalomalacia Is this a current diagnosis for this admission?: Yes (6) Hyperlipidemia Qualifiers: Hyperlipidemia type: unspecified Qualified Code(s): E78.5 - Hyperlipidemia, unspecified Is this a current diagnosis for this admission?: Yes (7) SHARON (obstructive sleep apnea) Is this a current diagnosis for this admission?: Yes (8) CAD (coronary artery disease) Qualifiers: Coronary Disease-Associated Artery/Lesion type: unspecified vessel or lesion type [place] vs. transplanted heart: [place] heart Associated angina: without angina Qualified Code(s): I25.10 - Atherosclerotic heart disease of [place] coronary artery without angina pectoris Is this a current diagnosis for this admission?: YesPlan: Denies any chest pain - Time Time Spent with patient: 25-34 minutes - Inpatient Certification Medical Necessity: Need Close Monitoring Due to Risk of Patient Decompensation - Plan Summary Plan Summary: Will await cardiology evaluation regarding decision of whether the patient is to be transferred or not.
[2016-09-04 11:54] LABS: CREATINE KINASE MB 6.63 ng/mL (<4.55)
[2016-09-04 11:58] LABS: TROPONIN I 0.042 ng/mL
--- NOTE | 2016-09-04 18:07 | PDOC CONSULTATION ---
Consultation Consult Date: 09/04/16 Attending physician:: ARPIT CÁRDENAS Consult reason:: Cardiac dysrhythmia History of Present Illness Admission Date/PCP: 09/02/16 15:56 Patient complains of: Shortness of breath History of Present Illness: MARISSA DAVID is a 86 year old male, with underlying COPD, coronary artery disease, seizure disorder, atrial fibrillation, prior stroke, bedbound brought to the emergency room because of one day duration of increasing shortness of breath and wheezing. There is associated coughing with scanty phlegm. No chills or fever reported. Patient denies any sinus congestion or sore throat. He is a very poor historian. The patient has been dealing with debility probably quite a while. He has difficulty getting up in bed and trying to move around. He was noted by the caregiver to be coughing a lot last night with increasing shortness of breath and wheezing. His noted it this morning as well. He was then brought to the emergency room for evaluation. He was then referred for admission. The patient is unreliable due to underlying dementia. Information provided by the family who is at bedside. While patient being treated as an inpatient, he was placed on director advanced. He was noted to have bradycardia, a short run of wide-complex tachycardia. Review of rhythm strips show significant artifacts. Patient on questioning denied any overt syncope or near syncope. As noted above, patient is a poor historian. Past Medical History Cardiac Medical History: Reports: Atrial Fibrillation, Coronary Artery Disease, Hyperlipidema Pulmonary Medical History: Reports: Chronic Obstructive Pulmonary Disease (COPD) Neurological Medical History: Reports: Seizures Musculoskeltal Medical History: Reports: Arthritis Psychiatric Medical History: Denies: Depression Hematology: Reports: Anemia Past Surgical History Past Surgical History: Reports: Coronary Artery Bypass Graft - Three-vessel, 1999., Other - Brain surgery, 2005. Social History Information Source: [facility] Records Lives with: Family Smoking Status: Never Smoker Frequency of Alcohol Use: None Hx Recreational Drug Use: No Drugs: None Hx Prescription Drug Abuse: No - Advance Directive Resuscitation Status: Full Code Family History Family History: Reviewed & Not Pertinent Parental Family History Reviewed: Yes Children Family History Reviewed: Yes Sibling(s) Family History Reviewed.: Yes Medication/Allergy Home Medications: Aspirin [Aspirin EC] 81 mg PO DAILY 09/02/16 Cholecalciferol (Vitamin D3) [Vitamin D3 5000 unit Capsule] 5,000 unit PO DAILY 09/02/16 Levetiracetam [Keppra 500 mg Tablet] 500 mg PO Q12 09/02/16 Metoprolol Tartrate [Lopressor 50 mg Tablet] 50 mg PO Q12 09/02/16 Mirabegron [Myrbetriq] 50 mg PO DAILY 09/02/16 Montelukast Sodium [Singulair 10 mg Tablet] 10 mg PO DAILY 09/02/16 Ranolazine [Ranexa] 500 mg PO Q12 09/02/16 Rosuvastatin Calcium [Crestor 20 mg Tablet] 20 mg PO DAILY 09/02/16 Tamsulosin HCl [Flomax 0.4 mg Cap.sr] 0.4 mg PO DAILY 09/02/16 Brimonidine Tartrate/Timolol [Combigan 0.2%-0.5% Eye Drops] 1 drop OS BID Cyclosporine 0.05% Oph Emulsio [Restasis 0.05% Opthalmic Droperette] 1 drop OU BID 09/03/16 Ketotifen Fumarate [Refresh] 5 ml OU DAILY PRN 09/03/16 Allergies/Adverse Reactions: No Known Allergies Allergy (Verified 02/18/15 05:29) Review of Systems Review of Systems: Patient noted to be confused. System review is therefore limited. Patient on questioning denied any chest pain, syncope, near syncope. He denied shortness of breath but is noted to be somewhat dyspneic. Patient noted to be currently nonambulatory. Physical Exam Vital Signs: Temp Pulse Resp BP Pulse Ox 97.8 F 65 20 127/58 H 99 09/04/16 15:16 09/04/16 15:16 09/04/16 15:16 09/04/16 15:16 09/04/16 15:16 Intake & Output 09/03/16 09/04/16 09/05/16 06:59 06:59 06:59 Intake Total 870 3619 700 Output Total 0 Balance 870 3619 700 Weight 103.6 kg 106.3 kg Exam: GENERAL: well-nourished and in no acute distress. Patient is alert but not oriented to time but seems oriented to place and person. HEAD: Atraumatic, normocephalic. EYES: Pupils equal round and reactive to light, extraocular movements intact, sclera anicteric, conjunctiva are normal. ENT: TMs normal, nares patent, oropharynx clear without exudates. Moist mucous membranes. No oral ulcerations or bleeding gums noted NECK: supple without lymphadenopathy or JVD. Trachea is central. No cervical or axillary lymphadenopathy noted. Carotids are 2+ LUNGS: Breath sounds bibasilar fine crackles at bases. Mild bilateral wheezing noted. No significant dullness noted. CHEST: Palpation of chest wall shows no significant chest wall tenderness. 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 ABDOMEN: Soft, no significant tenderness appreciated, normoactive bowel sounds. No guarding, no rebound. No rigidity noted . No masses appreciated. EXTREMITIES: Pedal pulses are 1-2+, no calf tenderness noted, 1+ pedal edema noted. No clubbing or cyanosis. NEUROLOGICAL: Patient is alert but is not able to fully participate in neurological exam. Patient follows commands rather poorly. He is able to move all 4 extremities but seems generally very weak. PSYCH: Patient cannot participate in a neurologic and psych exam because of the patient's current mental status and being not able to comprehend very well. SKIN: No significant ecchymosis, rash, ulcerations or signs of pruritus noted. MUSCULOSKELETAL EXAM: No significant joint swelling noted. Results Laboratory Results: 09/03/16 22:10 09/03/16 22:10 Sodium 144.2 Potassium 3.4 L Chloride 108 H Carbon Dioxide 22 Anion Gap 14 BUN 41 H Creatinine 1.18 Est GFR ( Amer) > 60 Est GFR (Non-Af Amer) 59 L Glucose 208 H Calcium 9.2 Magnesium 1.8 09/03/16 00:00 Nasophary (Mrsa Only) MRSA Surveillance Culture - Final NO MRSA RECOVERED 09/02/16 09/04/16 09/04/16 16:28 03:36 03:36 Creatine Kinase 149 CK-MB (CK-2) 7.48 H Troponin I < 0.012 0.022 09/04/16 09/04/16 11:20 11:20 Creatine Kinase 137 CK-MB (CK-2) 6.63 H Troponin I 0.042 EKG Comments: Sinus rhythm, APCs, no acute ST-T wave changes noted Impressions: Chest X-Ray 09/02/16 12:27 IMPRESSION: Cardiomegaly. Clearing of the lung manzano since prior study. Assessment & Plan - Diagnosis (1) Paroxysmal atrial fibrillation Is this a current diagnosis for this admission?: Yes (2) Diastolic CHF Is this a current diagnosis for this admission?: Yes (3) Hyperlipidemia Qualifiers: Hyperlipidemia type: unspecified Qualified Code(s): E78.5 - Hyperlipidemia, unspecified Is this a current diagnosis for this admission?: Yes (4) SHARON (obstructive sleep apnea) Is this a current diagnosis for this admission?: Yes (5) CAD (coronary artery disease) Qualifiers: Coronary Disease-Associated Artery/Lesion type: unspecified vessel or lesion type [place] vs. transplanted heart: [place] heart Associated angina: without angina Qualified Code(s): I25.10 - Atherosclerotic heart disease of [place] coronary artery without angina pectoris Is this a current diagnosis for this admission?: Yes (6) Bradycardia Is this a current diagnosis for this admission?: Yes (7) Cardiac dysrhythmia, unspecified Qualifiers: Arrhythmia type: unspecified cardiac arrhythmia Qualified Code(s): I49.9 - Cardiac arrhythmia, unspecified Is this a current diagnosis for this admission?: Yes (8) COPD exacerbation Is this a current diagnosis for this admission?: Yes - Notes Notes: Cardiac dysrhythmia: Rhythm strips were reviewed. Patient is noted to have intermittent sinus bradycardia but on talking to the nurses, patient has been noted to be rather asymptomatic when these rhythm abnormalities are happening. I have looked through the rhythm strips. I noted significant artifacts. Doubt patient having any ventricular tachycardia episodes. Previous echocardiogram report was reviewed. At this point would recommend maintaining electrolytes within normal range. Check TSH. Agree with holding beta birgit in view of predominantly bradycardic rhythm. COPD with acute exacervation: Patient seems to be mainly having COPD exacervation. Continue treatment of this condition. As regards coronary artery disease: Patient seems stable. Patient seems to have obstructive sleep apnea: However benefit at patient age with therapy for this condition is probably limited. Congestive heart failure: Clinically seems compensated. Continue baseline diuretic therapy. BNP was noted to be mildly elevated but chest x-ray shows no pulmonary congestion. Sinus bradycardia: Mild sinus bradycardia noted. Possibly related to underlying sick sinus syndrome. Could be related to increased vagal tone from sleep apnea syndrome. Continue to observe. Document symptomatic episodes if noted. Paroxysmal atrial fibrillation: Currently maintaining sinus rhythm. Patient has prior history of stroke. Currently on Lovenox therapy. Benefit of chronic anticoagulation probably limited but would leave this decision to the primary care M.D. Dr. Jackman has seen the patient in the past and will be on case from tomorrow hopefully. - Time Time Spent: 30 to 50 Minutes - CODE STATUS was discussed, patient remains full code. Multiple medical problems were addressed.More than 50% of the time spent coordinating care, discussing management plans with involved caregivers. Management plans discussed with involved personnels. Medical decision making was of moderate complexity.
[2016-09-04 20:45] LABS: CREATINE KINASE MB 5.26 ng/mL (<4.55); TROPONIN I 0.042 ng/mL
[2016-09-04] MEDS: NORMAL SALINE 1000 ML 1,000 ML IV PRN (22:07)
[2016-09-05] MEDS: IPRATROPIUM/ALBUTEROL 0.5-2.5 MG/3 ML AMPUL NEB SCH ×3 (01:48→14:08)
[2016-09-05] MEDS: METHYLPREDNISOLONE INJ 125 MG/2 ML SDV IV SCH (05:18)
[2016-09-05] MEDS: LANSOPRAZOLE 30 MG TAB.RAP.DR PO SCH (05:19)
[2016-09-05 06:21] LABS: HEMATOCRIT 32.6 % (37.9-51.0); HEMOGLOBIN 11.1 g/dL (13.5-17.0); HGB HCT DIFFERENCE 0.7; MEAN CORPUSCULAR HEMOGLOBIN 30.5 pg (27.0-33.4); MEAN CORPUSCULAR HGB CONC 34.1 g/dL (32.0-36.0); MEAN CORPUSCULAR VOLUME 90 fl (80-97); RED BLOOD COUNT 3.64 10^6/uL (4.35-5.55); RED CELL DISTRIBUTION WIDTH 15.3 % (11.5-14.0)
[2016-09-05 06:38] LABS: ANION GAP 10 (5-19); BLOOD UREA NITROGEN 43 mg/dL (7-20); CALCIUM 8.9 mg/dL (8.4-10.2); CARBON DIOXIDE 22 mmol/L (22-30); CHLORIDE 112 mmol/L (98-107); CREATININE RESULT 0.95 mg/dL (0.52-1.25); GLUCOSE 165 mg/dL (75-110); MAGNESIUM 2.2 mg/dL (1.6-2.3); POTASSIUM 4.4 mmol/L (3.6-5.0); SODIUM 143.6 mmol/L (137-145)
[2016-09-05 06:39] LABS: BASOPHILS % (MANUAL) 0 % (0-2); EOSINOPHILS % (MANUAL) 0 % (0-6); LYMPHOCYTES % (MANUAL) 4 % (13-45); TOTAL CELLS COUNTED 100
[2016-09-05 06:48] LABS: ANISOCYTOSIS 1+; BURR CELLS SLIGHT; OVALOCYTES SLIGHT; POIKILOCYTOSIS 1+; POLYCHROMASIA SLIGHT; TEAR DROP CELLS SLIGHT; TOXIC GRANULATION SLIGHT
[2016-09-05] MEDS: ENOXAPARIN SODIUM INJ 40 MG/0.4 ML DISP.SYRIN SUBCUT SCH (08:03)
[2016-09-05] MEDS: CYCLOSPORINE 0.05% OPH EMULSIO 0.4 ML DROPERETTE OU SCH (09:39)
[2016-09-05] MEDS: ASPIRIN/DIPYRIDAMOLE 25-200 MG 1 CAP.SR CPMP.12HR PO SCH (09:41)
[2016-09-05] MEDS: METOPROLOL TARTRATE 25 MG TABLET PO SCH (09:42)
[2016-09-05] MEDS ORDERED: TIMOLOL MALEATE 0.5% OPH SOLN 5 ML OS SCH (10:00)
[2016-09-05] MEDS ORDERED: BRIMONIDINE TARTRATE 0.2% OPH SOLN 5 ML OS SCH (10:00)
--- NOTE | 2016-09-05 11:26 | EKG REPORT ---
SEVERITY:- OTHERWISE NORMAL ECG - SINUS RHYTHM ATRIAL PREMATURE COMPLEX : Confirmed by: Annie Lazar 05-Sep-2016 11:25:14
[2016-09-05 14:38] VITALS: BP 124/61
--- NOTE | 2016-09-05 15:01 | PDOC DISCHARGE SUMMARY ---
General - Admit/Disc Date/PCP Admission Date/Primary Care Provider: 09/02/16 15:56 Discharge Date: 09/05/16 - Discharge Diagnosis (1) COPD exacerbation Is this a current diagnosis for this admission?: Yes (2) Atrial fibrillation Is this a current diagnosis for this admission?: YesSummary: Patient had episodes of tachycardia rate of 110 and low down to into the 30s. His beta birgit dose was decreased. Was concerned that he may have had an episode of ventricular tachycardia given the wide complex tachycardia. Patient was asymptomatic with this and he was evaluated by cardiology who felt this did not represent ventricular tachycardia. (3) Chronic kidney disease, stage II (mild) Is this a current diagnosis for this admission?: Yes (4) Dementia Is this a current diagnosis for this admission?: Yes (5) Encephalomalacia Is this a current diagnosis for this admission?: Yes (6) Hyperlipidemia Is this a current diagnosis for this admission?: Yes (7) SHARON (obstructive sleep apnea) Is this a current diagnosis for this admission?: Yes (8) CAD (coronary artery disease) Is this a current diagnosis for this admission?: Yes - Additional Information Resuscitation Status: Full Code Discharge Diet: Cardiac Discharge Activity: Activity As Tolerated Home Medications: Aspirin [Aspirin EC] 81 mg PO DAILY 09/02/16 Cholecalciferol (Vitamin D3) [Vitamin D3 5000 unit Capsule] 5,000 unit PO DAILY 09/02/16 Levetiracetam [Keppra 500 mg Tablet] 500 mg PO Q12 09/02/16 Mirabegron [Myrbetriq] 50 mg PO DAILY 09/02/16 Montelukast Sodium [Singulair 10 mg Tablet] 10 mg PO DAILY 09/02/16 Ranolazine [Ranexa] 500 mg PO Q12 09/02/16 Rosuvastatin Calcium [Crestor 20 mg Tablet] 20 mg PO DAILY 09/02/16 Tamsulosin HCl [Flomax 0.4 mg Cap.sr] 0.4 mg PO DAILY 09/02/16 Brimonidine Tartrate/Timolol [Combigan 0.2%-0.5% Eye Drops] 1 drop OS BID Cyclosporine 0.05% Oph Emulsio [Restasis 0.05% Oph Emulsion Pf 0.4 ml] 1 drop OU BID 09/03/16 Ketotifen Fumarate [Refresh] 5 ml OU DAILY PRN 09/03/16 Aspirin/Dipyridamole [Aggrenox 25 mg/200 mg Capsule SA] 1 cap.sr PO Q12 #60 cpmp.12hr 09/05/16 Metoprolol Tartrate [Lopressor 25 mg Tablet] 25 mg PO Q12 #60 tablet 09/05/16 Prednisone 10 mg PO DAILY #39 tablet 09/05/16 History of Present Illness History of Present Illness: MARISSA DAVID is a 86 year old male who presented to emergency room with a 2 day history of shortness of breath cough and wheezing. The patient has had worsening dyspnea on exertion. Patient however did not have any fevers or chills. He was found to have an acute COPD exacerbation. Hospital Course Hospital Course: 86-year-old gentleman who presented with an acute COPD exacerbation treated with IV steroids and nebulizers. The patient had improvement in his respiratory status and the day of discharge he was no longer having wheezing. He does have some upper airway stridor occasionally but no evidence for any wheezing. He has been on IV steroids and was switched over to oral steroids for home taper. While hospitalized the patient had episodes of bradycardia and tachycardia. His heart rate dropped into the 30s and he went up to size 110. The patient did have one episode of wide-complex tachycardia. He was evaluated by cardiology and this was felt not to be ventricular tachycardia. The patient' s beta birgit dose was decreased because the bradycardia and he can follow-up as outpatient he continues to have problems. His other medical problems all were stable during this hospitalization. Physical Exam Vital Signs: Temp Pulse Resp BP Pulse Ox 97.8 F 65 20 124/61 92 09/05/16 14:04 09/05/16 14:10 09/05/16 14:10 09/05/16 14:04 09/05/16 14:10 Intake & Output 09/04/16 09/05/16 09/06/16 06:59 06:59 06:59 Intake Total 3616 7300 Balance 3612 2470 Weight 106.3 kg 106.5 kg General appearance: PRESENT: no acute distress Eye exam: PRESENT: conjunctiva pink. ABSENT: scleral icterus Neck exam: ABSENT: JVD Respiratory exam: PRESENT: clear to auscultation charu. ABSENT: rales, rhonchi, wheezes Cardiovascular exam: PRESENT: irregular rhythm. ABSENT: diastolic murmur, rubs , systolic murmur GI/Abdominal exam: PRESENT: normal bowel sounds, soft. ABSENT: distended, guarding, mass, organolmegaly, rebound, tenderness Extremities exam: ABSENT: calf tenderness, clubbing, pedal edema Neurological exam: PRESENT: awake, oriented to person, oriented to place. ABSENT: oriented to time, oriented to situation Psychiatric exam: PRESENT: appropriate affect Skin exam: PRESENT: dry, intact, warm. ABSENT: cyanosis, rash Results Laboratory Results: 09/05/16 06:00 09/05/16 06:00 09/05/16 09/05/16 06:00 06:00 WBC 11.0 H RBC 3.64 L Hgb 11.1 L Hct 32.6 L MCV 90 MCH 30.5 MCHC 34.1 RDW 15.3 H Plt Count 122 L Seg Neutrophils % Not Reportable Lymphocytes % Not Reportable Monocytes % Not Reportable Eosinophils % Not Reportable Basophils % Not Reportable Absolute Neutrophils Not Reportable Absolute Lymphocytes Not Reportable Absolute Monocytes Not Reportable Absolute Eosinophils Not Reportable Absolute Basophils Not Reportable Sodium 143.6 Potassium 4.4 Chloride 112 H Carbon Dioxide 22 Anion Gap 10 BUN 43 H Creatinine 0.95 Est GFR ( Amer) > 60 Est GFR (Non-Af Amer) > 60 Glucose 165 H Calcium 8.9 Magnesium 2.2 09/03/16 00:00 Nasophary (Mrsa Only) MRSA Surveillance Culture - Final NO MRSA RECOVERED 09/02/16 09/04/16 09/04/16 16:28 03:36 03:36 Creatine Kinase 149 CK-MB (CK-2) 7.48 H Troponin I < 0.012 0.022 09/04/16 09/04/16 09/04/16 11:20 11:20 20:13 Creatine Kinase 137 81 CK-MB (CK-2) 6.63 H Troponin I 0.042 09/04/16 20:13 Creatine Kinase CK-MB (CK-2) 5.26 H Troponin I 0.042 Impressions: Chest X-Ray 09/02/16 12:27 IMPRESSION: Cardiomegaly. Clearing of the lung manzano since prior study. Qualifiers PATEINT BEING DISCHARGED WITH ANY OF THE FOLLOWING DIAGNOSIS?: No Plan Discharge Plan: Patient was discharged home in stable condition. Time Spent: Greater than 30 Minutes
--- NOTE | 2016-09-06 12:47 | PDOC PROGRESS REPORT ---
Subjective Progress Note for:: 09/05/16 Subjective:: Patient seems to be doing better with gradual improvement. Patient is more alert today. Pt is denying any chest arm or neck discomfort. Patient denying any PND, orthopnea. Patient denied any sustained palpitations, dizziness, syncope, near syncope. Patient denying any fever chills. Patient denying any other significant discomfort. Patient is maintaining sinus rhythm. The strip shows intermittent bradycardia but asymptomatic. 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 Review of systems: Rest review of systems negative. Medications: Medications have been reviewed. Physical Exam Vital Signs: Temp Pulse Resp BP Pulse Ox 97.8 F 65 20 124/61 92 09/05/16 14:04 09/05/16 14:10 09/05/16 14:10 09/05/16 14:04 09/05/16 14:10 Intake & Output 09/04/16 09/05/16 09/06/16 06:59 06:59 06:59 Intake Total 3619 2470 Balance 3619 2470 Weight 106.3 kg 106.5 kg Exam: GENERAL: well-nourished and in no acute distress. Alert and oriented 2 HEAD: Atraumatic, normocephalic. EYES: Pupils equal round and reactive to light, extraocular movements intact, sclera anicteric, conjunctiva are normal. ENT: TMs normal, nares patent, oropharynx clear without exudates. Moist mucous membranes. No oral ulcerations or bleeding gums noted NECK: supple without lymphadenopathy. Trachea is central. No cervical or axillary lymphadenopathy noted. Carotids are 2+, JVD WNL LUNGS: Respiration seems nonlabored, no significant accessory muscle action noted. Breath sounds clear to auscultation bilaterally and equal. No wheezes rales or rhonchi. No significant dullness noted on percussion. CHEST: Palpation of the chest wall shows no significant chest wall tenderness or abnormalities. 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 ABDOMEN: Soft, no significant tenderness appreciated, normoactive bowel sounds. No guarding, no rebound. No rigidity noted . No masses appreciated. EXTREMITIES: Pedal pulses are 1-2+, no calf tenderness noted. No clubbing or cyanosis.1+ pedal edema noted NEUROLOGICAL: Focused neurological exam showed no significant neurologic deficit. Normal speech, no focal weakness appreciated, except for generalized muscular weakness grade 4. PSYCH: Normal mood, normal affect. Judgment and insight could not be checked because of altered orientation. SKIN: No significant ecchymosis, rash, ulcerations or signs of pruritus noted. MUSCULOSKELETAL EXAM: No significant joint swelling noted. Results Laboratory Results: 09/05/16 06:00 09/05/16 06:00 09/05/16 09/05/16 06:00 06:00 WBC 11.0 H RBC 3.64 L Hgb 11.1 L Hct 32.6 L MCV 90 MCH 30.5 MCHC 34.1 RDW 15.3 H Plt Count 122 L Seg Neutrophils % Not Reportable Lymphocytes % Not Reportable Monocytes % Not Reportable Eosinophils % Not Reportable Basophils % Not Reportable Absolute Neutrophils Not Reportable Absolute Lymphocytes Not Reportable Absolute Monocytes Not Reportable Absolute Eosinophils Not Reportable Absolute Basophils Not Reportable Sodium 143.6 Potassium 4.4 Chloride 112 H Carbon Dioxide 22 Anion Gap 10 BUN 43 H Creatinine 0.95 Est GFR ( Amer) > 60 Est GFR (Non-Af Amer) > 60 Glucose 165 H Calcium 8.9 Magnesium 2.2 09/02/16 09/04/16 09/04/16 16:28 03:36 03:36 Creatine Kinase 149 CK-MB (CK-2) 7.48 H Troponin I < 0.012 0.022 09/04/16 09/04/16 09/04/16 11:20 11:20 20:13 Creatine Kinase 137 81 CK-MB (CK-2) 6.63 H Troponin I 0.042 09/04/16 20:13 Creatine Kinase CK-MB (CK-2) 5.26 H Troponin I 0.042 Impressions: Chest X-Ray 09/02/16 12:27 IMPRESSION: Cardiomegaly. Clearing of the lung manzano since prior study. Assessment & Plan - Diagnosis (1) Paroxysmal atrial fibrillation Is this a current diagnosis for this admission?: Yes (2) Diastolic CHF Is this a current diagnosis for this admission?: Yes (3) Hyperlipidemia Qualifiers: Hyperlipidemia type: unspecified Qualified Code(s): E78.5 - Hyperlipidemia, unspecified Is this a current diagnosis for this admission?: Yes (4) SHARON (obstructive sleep apnea) Is this a current diagnosis for this admission?: Yes (5) CAD (coronary artery disease) Qualifiers: Coronary Disease-Associated Artery/Lesion type: unspecified vessel or lesion type [place] vs. transplanted heart: [place] heart Associated angina: without angina Qualified Code(s): I25.10 - Atherosclerotic heart disease of [place] coronary artery without angina pectoris Is this a current diagnosis for this admission?: Yes (6) Bradycardia Is this a current diagnosis for this admission?: Yes (7) Cardiac dysrhythmia, unspecified Qualifiers: Arrhythmia type: unspecified cardiac arrhythmia Qualified Code(s): I49.9 - Cardiac arrhythmia, unspecified Is this a current diagnosis for this admission?: Yes (8) COPD exacerbation Is this a current diagnosis for this admission?: Yes - Notes Notes: Patient today more alert. He is maintaining sinus rhythm. Intermittent bradycardia noted. Patient without any significant symptoms of chest pain or shortness of breath. COPD exacerbation seems to be improving. Patient felt to be stable from cardiac standpoint. At this point agree to stopping the beta birgit. This is because of underlying sinus bradycardia. Would recommend a event monitor as an outpatient. Discussed with Dr. bell. - Time Time with patient: 15-25 minutes Medications reviewed and adjusted accordingly: Yes
== END 2016-09-05 14:40 | disposition home health service (06) | DRG 191 ==
LOC: ER 11:36 → EH 15:27 → UNDOADMIN 15:27 → EH 15:56 → 5 17:27
DX: J44.1 Chronic obstructive pulmonary disease with (acute) exacerbation (principal); I50.32 Chronic diastolic (congestive) heart failure; I25.10 Atherosclerotic heart disease of native coronary artery without angina pectoris; I48.2 Chronic atrial fibrillation; N18.2 Chronic kidney disease, stage 2 (mild); E78.5 Hyperlipidemia, unspecified; F03.90 Unspecified dementia, unspecified severity, without behavioral disturbance, psychotic disturbance, mood disturbance, and anxiety; I73.9 Peripheral vascular disease, unspecified; G93.89 Other specified disorders of brain; G47.33 Obstructive sleep apnea (adult) (pediatric); G40.909 Epilepsy, unspecified, not intractable, without status epilepticus; H40.9 Unspecified glaucoma; M19.90 Unspecified osteoarthritis, unspecified site
CPT/HCPCS: 36415; 71010; 80048; 80053; 82550; 82553; 83735; 83880; 84100; 84484; 85025; 87040; 87804; 93005; 93010; 94640; 96365; 96375; 99285; G8978-GP; G8979-GP; J1650; J1956; J2930; J3475; J3480; J3490; J7030; J7620

== ENCOUNTER 2017-04-02 09:46 | Observation (INO) | payer OTHER, MEDICARE ==
[2017-04-02] MEDS ORDERED: IPRATROPIUM/ALBUTEROL 0.5-2.5 MG/3 ML AMPUL NEB ONE (10:08)
[2017-04-02 10:25] LABS: ABSOLUTE EOSINOPHILS # (AUTO) 0.7 10^3/uL (0.0-0.6); ABSOLUTE LYMPHOCYTES (AUTO) 1.3 10^3/uL (0.5-4.7); ABSOLUTE MONOCYTES (AUTO) 0.5 10^3/uL (0.1-1.4); ABSOLUTE NEUT (AUTO) 5.6 10^3/uL (1.7-8.2); BASOPHILS % (AUTO) 0.5 % (0-2); EOSINOPHILS % (AUTO) 8.1 % (0-6); HEMATOCRIT 35.3 % (37.9-51.0); HEMOGLOBIN 12.1 g/dL (13.5-17.0); MEAN CORPUSCULAR HEMOGLOBIN 31.2 pg (27.0-33.4); MEAN CORPUSCULAR HGB CONC 34.4 g/dL (32.0-36.0); MEAN CORPUSCULAR VOLUME 91 fl (80-97); MONOCYTES % (AUTO) 6.6 % (3-13); RED BLOOD COUNT 3.89 10^6/uL (4.35-5.55); RED CELL DISTRIBUTION WIDTH 15.2 % (11.5-14.0); SEGMENTED NEUTROPHILS % (AUTO) 68.8 % (42-78); WHITE BLOOD COUNT 8.1 10^3/uL (4.0-10.5)
--- NOTE | 2017-04-02 10:41 | RADIOLOGY REPORT (SQ) ---
EXAM DESCRIPTION: CHEST SINGLE VIEW COMPLETED DATE/TIME: 04/02/2017 10:27 am REASON FOR STUDY: confusion, wheezing COMPARISON: 09/02/2016 NUMBER OF VIEWS: One view. TECHNIQUE: Single frontal radiographic view of the chest acquired. LIMITATIONS: None. FINDINGS: LUNGS AND PLEURA: No opacities, masses or pneumothorax. No pleural effusion. MEDIASTINUM AND HILAR STRUCTURES: Stable postoperative appearance. HEART AND VASCULAR STRUCTURES: Heart stable. No overt CHF. BONES: No acute findings. HARDWARE: Wire sutures mediastinum. OTHER: No other significant finding. IMPRESSION: Nothing acute. TECHNICAL DOCUMENTATION: JOB ID: [id number] [employer]- All Rights Reserved
[2017-04-02 10:43] LABS: PROTHROMBIN TIME 13.6 SEC (11.4-15.4)
[2017-04-02 10:44] LABS: PARTIAL THROMBOPLASTIN TIME 29.4 SEC (23.5-35.8)
[2017-04-02 10:45] LABS: ALANINE AMINOTRANSFERASE 20 U/L (21-72); ALBUMIN 3.1 g/dL (3.5-5.0); ALKALINE PHOSPHATASE 96 U/L (38-126); ANION GAP 9 (5-19); ASPARTATE AMINO TRANSFERASE 17 U/L (17-59); BILIRUBIN,DIRECT 0.4 mg/dL (0.0-0.4); BILIRUBIN,TOTAL 0.5 mg/dL (0.2-1.3); BLOOD UREA NITROGEN 28 mg/dL (7-20); CALCIUM 9.1 mg/dL (8.4-10.2); CARBON DIOXIDE 31 mmol/L (22-30); CHLORIDE 101 mmol/L (98-107); CREATININE RESULT 0.79 mg/dL (0.52-1.25); GLUCOSE 113 mg/dL (75-110); POTASSIUM 4.3 mmol/L (3.6-5.0); SODIUM 140.8 mmol/L (137-145); TOTAL PROTEIN 5.2 g/dL (6.3-8.2)
--- NOTE | 2017-04-02 10:46 | RADIOLOGY REPORT (SQ) ---
EXAM DESCRIPTION: CT HEAD WITHOUT COMPLETED DATE/TIME: 04/02/2017 10:21 am REASON FOR STUDY: confusion, wheezing COMPARISON: [address] brain exams since 01/04/2007, most recently 03/13/2016 MRI brain 03/13/2016 TECHNIQUE: Axial images acquired through the brain without intravenous contrast. Images reviewed wi th bone, brain and subdural windows. Images stored on PACS. All CT scanners at this facility use dose modulation, iterative reconstruction, and/or weight based d osing when appropriate to reduce radiation dose to as low as reasonably achievable (ALARA). [facility]: Dose Right [facility]: CareDose [facility]: Dose Right [facility]: Teradose 4D [facility]: [employer] Technologies RADIATION DOSE: Up-to-date CT equipment and radiation dose reduction techniques were employed. CTDIv ol: 64.3 mGy. DLP: 1163 mGy-cm. mGy. LIMITATIONS: Motion artifact FINDINGS: On images without motion artifact, there is no gross acute large territory ischemic change , intracranial hemorrhage, or mass effect/midline shift. Old lacunar infarcts in the bilateral basal ganglia. Old right posterior temporal cortical and subco rtical white matter infarct. Patient has had a right parietal/posterior frontal craniotomy with stable encephalomalacia in the pos terior right frontal lobe deep to the craniotomy flap. This is unchanged since 2006 IMPRESSION: Motion artifact. No acute findings COMMENT: Quality ID # [id number]: Final reports with documentation of one or more dose reduction techniques (e.g., Automated exposure control, adjustment of the mA and/or kV according to patient size, use of iterative reconstruction technique) TECHNICAL DOCUMENTATION: JOB ID: [id number] [employer]- All Rights Reserved
[2017-04-02 10:48] LABS: CREATINE KINASE < 20 U/L (55-170)
[2017-04-02 10:57] LABS: CREATINE KINASE MB 0.41 ng/mL (<4.55)
[2017-04-02 10:58] LABS: TROPONIN I < 0.012 ng/mL
[2017-04-02 11:09] LABS: APPEARANCE,URINE CLEAR; BILIRUBIN,URINE NEGATIVE (NEGATIVE); GLUCOSE, URINE NEGATIVE (NEGATIVE); KETONES,URINE NEGATIVE (NEGATIVE); LEUKOCYTE ESTERASE,URINE NEGATIVE (NEGATIVE); NITRITE,URINE NEGATIVE (NEGATIVE); PROTEIN,URINE NEGATIVE (NEGATIVE); URINE SPECIFIC GRAVITY 1.018; UROBILINOGEN,URINE NEGATIVE mg/dL (<2.0)
--- NOTE | 2017-04-02 11:51 | EKG REPORT ---
SEVERITY:- ABNORMAL ECG - SINUS RHYTHM FIRST DEGREE AV BLOCK LOW VOLTAGE IN FRONTAL LEADS : Confirmed by: Annie Lazar 02-Apr-2017 11:50:34
--- NOTE | 2017-04-02 12:18 | ER Document Report ---
ED Neuro Symptoms/Deficit - General Chief Complaint: Altered Mental Status Stated Complaint: ALTERED MENTAL STATUS Time Seen by Provider: 04/02/17 10:01 Mode of Arrival: Medic Information source: Patient Notes: Patient is an 86-year-old male with a history of a brain tumor, craniotomy and stroke with left-sided weakness who presents to the ER today via EMS after waking up confused per . Patient did not know who he was or where he was, stating that he was chasing a dog whenever he woke up this morning. Patient thought it was 2 PM when he woke up. states that this is abnormal. He is on aspirin and EMS states that he had it this morning. He denies any symptoms at this time and is now able to tell us who he is, where he is and what day it is appropriately. TRAVEL OUTSIDE OF THE [place] IN LAST 30 DAYS: No - Related Data Allergies/Adverse Reactions: No Known Allergies Allergy (Verified 04/02/17 09:58) Past Medical History - General Information source: Patient, Emergency Med Personnel - Social History Smoking Status: Never Smoker Chew tobacco use (# tins/day): No Frequency of alcohol use: None Drug Abuse: None Family History: Reviewed & Not Pertinent - Past Medical History Cardiac Medical History: Reports: Hx Atrial Fibrillation, Hx Coronary Artery Disease, Hx Hypercholesterolemia Pulmonary Medical History: Reports: Hx COPD Neurological Medical History: Reports: Hx Seizures Renal/ Medical History: Denies: Hx Peritoneal Dialysis Musculoskeltal Medical History: Reports Hx Arthritis Psychiatric Medical History: Denies: Hx Depression Past Surgical History: Reports: Hx Cardiac Surgery - Triple Bypass 1999, Hx Coronary Artery Bypass Graft - Three-vessel, 1999., Other - Brain surgery, 2005. - Immunizations Hx Diphtheria, Pertussis, Tetanus Vaccination: Yes Hx Pneumococcal Vaccination: 05/04/09 Review of Systems - Review of Systems Constitutional: No symptoms reported EENT: No symptoms reported Cardiovascular: No symptoms reported Respiratory: No symptoms reported Gastrointestinal: No symptoms reported Genitourinary: No symptoms reported Male Genitourinary: No symptoms reported Musculoskeletal: No symptoms reported Skin: No symptoms reported Hematologic/Lymphatic: No symptoms reported Neurological/Psychological: See HPI Physical Exam - Vital signs Vitals: Resp 20 04/02/17 09:59 - Notes Notes: PHYSICAL EXAMINATION: GENERAL: Chronically ill-appearing, but in no acute distress. HEAD: Atraumatic, normocephalic. EYES: Pupils equal round and reactive to light, extraocular movements intact, sclera anicteric, conjunctiva are normal. ENT: ear canals without erythema or foreign body, TMs pearly rosales with good bony landmarks, nares patent, oropharynx clear without exudates. Moist mucous membranes. Airway patent NECK: Normal range of motion, supple without lymphadenopathy LUNGS: Moderate in all lung manzano, no wheezes rales or rhonchi. HEART: Regular rate and rhythm without murmurs ABDOMEN: Soft, no tenderness. No guarding, no rebound BACK: no vertebral tenderness, normal ROM GI/: no CVA tenderness EXTREMITIES: Normal range of motion, no pitting edema. No cyanosis. NEUROLOGICAL: Left-sided weakness, consistent with chronic history, no new weakness PSYCH: Normal mood, normal affect. SKIN: Warm, Dry, normal turgor, no rashes or lesions noted Course - Re-evaluation Re-evalutation: 04/02/17 12:23 Lab work is unremarkable including normal cardiac enzymes, CT of the head and chest x-ray were also normal. Patient was giving 1 of his breathing treatments here as he does have COPD and was quite wheezy. He usually takes DuoNeb at home. Patient is back to his baseline and states that he feels fine now. Dr. Peters, hospitalist accepts admission for probable TIA at this time. - Vital Signs Vital signs: Temp Pulse Resp BP Pulse Ox 98.2 F 85 21 H 122/54 L 93 04/02/17 10:16 04/02/17 10:16 04/02/17 11:01 04/02/17 11:01 04/02/17 11:00 - Laboratory Result Diagrams: 04/02/17 10:15 04/02/17 10:15 Laboratory results interpreted by me: 04/02/17 04/02/17 10:15 10:15 RBC 3.89 L Hgb 12.1 L Hct 35.3 L RDW 15.2 H Plt Count 138 L Eosinophils % 8.1 H Absolute Eosinophils 0.7 H Carbon Dioxide 31 H BUN 28 H Glucose 113 H ALT 20 L Creatine Kinase < 20 L Total Protein 5.2 L Albumin 3.1 L Discharge - Discharge Clinical Impression: TIA (transient ischemic attack) Qualifiers: Transient cerebral ischemia type: unspecified Qualified Code(s): G45.9 - Transient cerebral ischemic attack, unspecified Condition: Stable Disposition: ADMITTED OBSERVATION Admitting Provider: Hospitalist Unit Admitted: IMCU Referrals: ARON FRAUSTO DO [Primary Care Provider] - Follow up as needed
[2017-04-02] MEDS ORDERED: ACETAMINOPHEN 325 MG TABLET PO PRN (12:50)
[2017-04-02] MEDS ORDERED: LABETALOL HCL INJ 20 MG/4 ML DISP.SYRIN IV PRN (12:50)
[2017-04-02] MEDS ORDERED: DOCUSATE SODIUM 100 MG CAPSULE PO PRN (12:50)
[2017-04-02] MEDS ORDERED: ASPIRIN 81 MG TABLET, CHEWABLE PO ONE (12:50)
[2017-04-02] MEDS ORDERED: ASPIRIN 300 MG SUPP, RECTAL PR ONE ×2 (14:00→17:00)
[2017-04-02] MEDS ORDERED: DEXTROSE 40% GEL 15 GM TUBE PO PRN ×2 (14:13)
[2017-04-02] MEDS ORDERED: DEXTROSE 50%-WATER 25 GM/50 ML DISP.SYRIN IV PRN ×2 (14:13)
[2017-04-02] MEDS ORDERED: GLUCAGON,HUMAN RECOMB 1 MG INJ SUBCUT PRN (14:13)
[2017-04-02] MEDS ORDERED: DEXTROSE 5%-1/2 NORMAL SALINE 1,000 ML IV PRN (14:14)
[2017-04-02] MEDS ORDERED: LEVETIRACETAM 500 MG/NACL-ISO 500 MG/100 ML RTUPB IV ONE ×2 (14:30→17:00)
--- NOTE | 2017-04-02 14:41 | PDOC H&P ---
History of Present Illness Admission Date/PCP: 04/02/17 12:50 ARON FRAUSTO DO History of Present Illness: MARISSA DAVID is a 86 year old male with past medical history of coronary artery disease, previous CVA with left hemiparesis, prior brain tumor with resection, seizure disorder, atrial fibrillation paroxysmal, hypertension, hyperlipidemia, COPD, obstructive sleep apnea on CPAP who presents to the emergency department in the company of his with complaints of confusion and slurred speech. She reports that after their paid caregiver left this morning at around 5 AM that he had his right arm up and was shaking his hand and had some slurred speech. She reports that he was weak on this side and not making any sense. Patient did wake up this way. She also reports he has been more forgetful lately than normal. He does admit to having a cough but denies that it is productive of any sputum. Patient is nonambulatory at baseline and therefore shortness of breath is difficult to ascertain. He reports that he is currently not dyspneic. He is referred to hospital service for TIA Past Medical History Cardiac Medical History: Reports: Atrial Fibrillation, Coronary Artery Disease, Myocardial Infarction, Hyperlipidema, Hypertension Pulmonary Medical History: Reports: Chronic Obstructive Pulmonary Disease (COPD) , Sleep Apnea EENT Medical History: Reports: Cataracts Neurological Medical History: Reports: Ischemic CVA, Seizures Endocrine Medical History: Reports: Obesity Malignancy Medical History: Reports: Brain Cancer Musculoskeltal Medical History: Reports: Arthritis Psychiatric Medical History: Denies: Depression Hematology: Reports: Anemia Past Surgical History Past Surgical History: Reports: Coronary Artery Bypass Graft - Three-vessel, 1999., Other - Brain surgery, 2005. Social History Smoking Status: Former Smoker Frequency of Alcohol Use: None Hx Recreational Drug Use: No Drugs: None Hx Prescription Drug Abuse: No - Advance Directive Resuscitation Status: Full Code Surrogate healthcare decision maker:: Family History Family History: CAD Parental Family History Reviewed: Yes Children Family History Reviewed: Yes Sibling(s) Family History Reviewed.: Yes Medication/Allergy Home Medications: Aspirin [Aspirin EC] 81 mg PO DAILY 09/02/16 Cholecalciferol (Vitamin D3) [Vitamin D3 5000 unit Capsule] 5,000 unit PO DAILY 09/02/16 Levetiracetam [Keppra 500 mg Tablet] 500 mg PO Q12 09/02/16 Montelukast Sodium [Singulair 10 mg Tablet] 10 mg PO DAILY 09/02/16 Ranolazine [Ranexa] 500 mg PO Q12 09/02/16 Rosuvastatin Calcium [Crestor 20 mg Tablet] 20 mg PO DAILY 09/02/16 Tamsulosin HCl [Flomax 0.4 mg Cap.sr] 0.4 mg PO DAILY 09/02/16 Metoprolol Tartrate [Lopressor 25 mg Tablet] 25 mg PO Q12 #60 tablet 09/05/16 Allergies/Adverse Reactions: No Known Allergies Allergy (Verified 04/02/17 09:58) Review of Systems ROS unobtainable: Other - obtained from at bedside Constitutional: ABSENT: chills, fever(s), headache(s), weight gain, weight loss Eyes: PRESENT: visual disturbances - chronic vision loss R eye Ears: PRESENT: hearing changes - FALSE PASS Cardiovascular: ABSENT: chest pain, dyspnea on exertion, edema, orthropnea, palpitations Respiratory: PRESENT: cough, dyspnea. ABSENT: hemoptysis Gastrointestinal: ABSENT: abdominal pain, constipation, diarrhea, hematemesis, hematochezia, melena, nausea, vomiting Genitourinary: ABSENT: dysuria, hematuria Musculoskeletal: ABSENT: joint swelling Integumentary: ABSENT: rash, wounds Neurological: PRESENT: abnormal speech, confusion, focal weakness - chronic L sdied hemiparesis, memory loss, paresthesias. ABSENT: abnormal gait, dizziness , syncope Psychiatric: ABSENT: anxiety, depression, homidical ideation, suicidal ideation Endocrine: ABSENT: cold intolerance, heat intolerance, polydipsia, polyuria Hematologic/Lymphatic: ABSENT: easy bleeding, easy bruising Physical Exam Vital Signs: Temp Pulse Resp BP Pulse Ox 98.2 F 85 22 H 123/58 L 94 04/02/17 10:16 04/02/17 10:16 04/02/17 13:01 04/02/17 13:01 04/02/17 13:01 General appearance: PRESENT: no acute distress, morbidly obese, well-developed, well-nourished Head exam: PRESENT: other - Prior craniotomy scar Eye exam: PRESENT: conjunctival injection, conjunctiva pink, PERRLA. ABSENT: EOMI - Unable to look inferiorly, difficulty seeing out of right eye, scleral icterus Ear exam: PRESENT: normal external ear exam Mouth exam: PRESENT: dry mucosa, tongue midline Neck exam: ABSENT: carotid bruit, JVD, lymphadenopathy, thyromegaly, tracheal deviation Respiratory exam: PRESENT: clear to auscultation charu, symmetrical, unlabored. ABSENT: accessory muscle use, prolonged expiratory phas, rales, rhonchi, tachypnea, wheezes Cardiovascular exam: PRESENT: RRR, +S1, +S2. ABSENT: diastolic murmur, rubs, systolic murmur Pulses: PRESENT: normal dorsalis pedis pul Vascular exam: PRESENT: normal capillary refill GI/Abdominal exam: PRESENT: normal bowel sounds, soft. ABSENT: distended, firm , guarding, mass, Edwards's sign, organolmegaly, rebound, rigid, tenderness Rectal exam: PRESENT: deferred Extremities exam: PRESENT: full ROM. ABSENT: calf tenderness, clubbing, pedal edema Neurological exam: PRESENT: alert, awake, oriented to person, oriented to place , other - + FTN,. ABSENT: oriented to time, oriented to situation, abnormal gait - unable to assess, L hemiparesis, CN II-XII grossly intact, motor sensory deficit Psychiatric exam: PRESENT: appropriate affect, normal mood. ABSENT: homicidal ideation, suicidal ideation Skin exam: PRESENT: dry, intact, warm. ABSENT: cyanosis, rash Results Laboratory Results: 04/02/17 04/02/17 04/02/17 09:45 10:15 10:15 WBC 8.1 Hgb 12.1 L Hct 35.3 L Plt Count 138 L INR 0.97 Sodium Potassium Chloride Carbon Dioxide BUN Creatinine Glucose Calcium Total Bilirubin Direct Bilirubin AST ALT Alkaline Phosphatase Creatine Kinase Troponin I Total Protein Albumin Ur Specific [place] 1.018 Ur Leukocyte Esterase NEGATIVE Urine WBC (Auto) 1 Urine RBC (Auto) 2 Urine Mucus (Auto) RARE 04/02/17 04/02/17 10:15 10:15 WBC Hgb Hct Plt Count INR Sodium 140.8 Potassium 4.3 Chloride 101 Carbon Dioxide 31 H BUN 28 H Creatinine 0.79 Glucose 113 H Calcium 9.1 Total Bilirubin 0.5 Direct Bilirubin 0.4 AST 17 ALT 20 L Alkaline Phosphatase 96 Creatine Kinase < 20 L Troponin I < 0.012 Total Protein 5.2 L Albumin 3.1 L Ur Specific [place] Ur Leukocyte Esterase Urine WBC (Auto) Urine RBC (Auto) Urine Mucus (Auto) Impressions: Chest X-Ray 04/02/17 10:08 IMPRESSION: Nothing acute. Head CT 04/02/17 10:08 IMPRESSION: Motion artifact. No acute findings Status: Imported from PACS Assessment & Plan - Diagnosis (1) CVA (cerebral infarction) Qualifiers: Cerebral infarction mechanism: unspecified mechanism Qualified Code(s): I63.9 - Cerebral infarction, unspecified Is this a current diagnosis for this admission?: Yes Plan: Patient had prior CVA with residual hemiparesis. Currently with TIA. Place patient on aspirin, and allow for permissive hypertension for the first 24 hours. Concern for recurrence of CVA. Consult physical therapy and Occupational Therapy. Patient failed nursing swallow evaluation. Will consult speech therapy. Allow for permissive hypertension. Labetalol for SBP greater than 180. Due to patient's profound comorbidities I would recommend that he is a DNR. I have discussed this with at length and she will consider it. (2) Acute focal neurological deficit Is this a current diagnosis for this admission?: Yes Plan: Concern for new CVA. Patient is a poor candidate for any intervention. PTOT (3) Carotid stenosis Qualifiers: Laterality: bilateral Qualified Code(s): I65.23 - Occlusion and stenosis of bilateral carotid arteries Is this a current diagnosis for this admission?: Yes Plan: Repeat carotid Doppler (4) Chronic kidney disease, stage II (mild) Is this a current diagnosis for this admission?: Yes (5) Dementia Qualifiers: Dementia type: vascular dementia Dementia behavioral disturbance: without behavioral disturbance Qualified Code(s): F01.50 - Vascular dementia without behavioral disturbance Is this a current diagnosis for this admission?: Yes (6) Encephalomalacia Is this a current diagnosis for this admission?: Yes (7) Glaucoma Qualifiers: Glaucoma type: unspecified Laterality: right Qualified Code(s): H40.9 - Unspecified glaucoma Is this a current diagnosis for this admission?: Yes Plan: Patient reports losing vision in his right eye secondary to this (8) Paroxysmal atrial fibrillation Is this a current diagnosis for this admission?: Yes Plan: Currently in sinus. On metoprolol and aspirin daily. Will consult patient's radio talk show host for clarification on his anticoagulation regimen (9) Seizure Is this a current diagnosis for this admission?: Yes Plan: Keppra IV twice daily until he is able to take p.o. seizure precautions (10) CAD (coronary artery disease) Qualifiers: Coronary Disease-Associated Artery/Lesion type: unspecified vessel or lesion type [place] vs. transplanted heart: [place] heart Associated angina: without angina Qualified Code(s): I25.10 - Atherosclerotic heart disease of [place] coronary artery without angina pectoris Is this a current diagnosis for this admission?: Yes Plan: Patient has had prior CABG. He is seen regularly by Dr. Jackman cardiology we will ask for clarification on some medications. (11) Diastolic CHF Qualifiers: Congestive heart failure chronicity: chronic Qualified Code(s): I50.32 - Chronic diastolic (congestive) heart failure Is this a current diagnosis for this admission?: Yes (12) H/O craniotomy Is this a current diagnosis for this admission?: Yes (13) Hemiparesis, left Is this a current diagnosis for this admission?: Yes Plan: This is chronic from prior CVA (14) Hyperlipidemia Qualifiers: Hyperlipidemia type: unspecified Qualified Code(s): E78.5 - Hyperlipidemia , unspecified Is this a current diagnosis for this admission?: Yes (15) SHARON (obstructive sleep apnea) Is this a current diagnosis for this admission?: Yes Plan: May use home CPAP - Time Time Spent: 50 to 70 Minutes Medications reviewed and adjusted accordingly: Yes - Inpatient Certification Based on my medical assessment, after consideration of the patient's comorbidities, presenting symptoms, or acuity I expect that the services needed warrant INPATIENT care.: No I certify that my determination is in accordance with my understanding of Medicare's requirements for reasonable and necessary INPATIENT services [42 CFR 412.3e].: No Medical Necessity: Need For Continuous Telemetry Monitoring Post Hospital Care: D/C Color Card Maker Documentation
--- NOTE | 2017-04-02 15:58 | RADIOLOGY REPORT (SQ) ---
EXAM DESCRIPTION: CAROTID DOPPLER COMPLETED DATE/TIME: 04/02/2017 2:39 pm REASON FOR STUDY: tia COMPARISON: Carotid Doppler 03/13/2016, 08/08/2014 CT brain 04/02/2017 TECHNIQUE: Grayscale ultrasound, Doppler velocity and spectra, and color Doppler images acquired of the extra-cranial carotid and vertebral arteries. Images stored on PACS. LIMITATIONS: None. FINDINGS: RIGHT CAROTID CCA Velocities: Within normal limits. ICA Velocities Peak systolic: 2.2 m/s. End diastolic 0.52 m/s. Proximal ICA/CCA peak systolic ratio 4.1. Calcific plaque at the right carotid bifurcation. This partly shadows the proximal right ICA. By ve locity criteria, greater than 70% diameter stenosis of the proximal right ICA is suspected. Turbulen t flow. LEFT CAROTID CCA Velocities: Within normal limits. ICA Velocities Peak systolic 2.95 m/s. End diastolic 0.83 m/s. Proximal ICA/CCA peak systolic ratio 5.4. Calcific plaque at the left carotid bifurcation. This partly shadows the origin of the left ICA. By velocity criteria, greater than 70% diameter stenosis of the proximal left ICA is suspected. Turbul ent flow VERTEBRAL ARTERIES: Antegrade flow. Normal waveforms. SUBCLAVIAN ARTERIES: Not evaluated. OTHER: No other significant finding. IMPRESSION: Bilateral flow significant stenosis, with greater than 70% stenosis of the right and lef t proximal internal carotid artery. These findings are similar compared to carotid Doppler 03/13/2016 COMMENT: Quality ID #[id number]: Velocity criteria are extrapolated from the diameter data as defined by [place] [employer] in Ultrasound Consensus Conference. Radiology 2003: 229; 340-346. TECHNICAL DOCUMENTATION: JOB ID: [id number] [employer]- All Rights Reserved
[2017-04-02 16:30] LABS: CREATINE KINASE MB 0.34 ng/mL (<4.55)
[2017-04-02] MEDS: HEPARIN SOD (PORCINE) 5,000 UNIT/ML 1 ML SYRINGE SUBCUT SCH ×2 (16:30→22:05)
[2017-04-02 16:34] LABS: TROPONIN I < 0.012 ng/mL
--- NOTE | 2017-04-02 18:25 | RADIOLOGY REPORT (SQ) ---
EXAM DESCRIPTION: MRI HEAD WITHOUT COMPLETED DATE/TIME: 04/02/2017 6:04 pm REASON FOR STUDY: tia COMPARISON: 03/13/2016 TECHNIQUE: Multiplanar imaging includes non-contrasted T1, T2, FLAIR, and diffusion with ADC map seq uences. Images stored on PACS. LIMITATIONS: None. FINDINGS: ANATOMY: No anomalies. Normal vascular flow voids. Pituitary fossa normal. CSF SPACES: Atrophy induced prominence of ventricles and CSF spaces. CEREBRUM: High signal intensity lesions scattered throughout the white matter on FLAIR imaging with d istribution consistent with prior ischemic changes. No evidence of hemorrhage, mass, or extraaxial f luid collection. POSTERIOR FOSSA: No signal alteration. No hemorrhage. No edema, masses or mass effect. Internal rea tory canals, cerebello-pontine angles, mastoids normal. DIFFUSION IMAGING: Negative for acute or sub-acute infarction. ORBITS: No masses. Globes normal. PARANASAL SINUSES: No fluid levels. Mucosa normal. OTHER: No other significant finding. IMPRESSION: Negative for acute or sub-acute infarction.ATROPHY AND CHRONIC MICRO-VASCULAR ISCHEMIC C HANGES. EVIDENCE OF ACUTE STROKE: NO. TECHNICAL DOCUMENTATION: JOB ID: [id number] [employer]- All Rights Reserved
--- NOTE | 2017-04-02 20:00 | PDOC CONSULTATION ---
Consultation Consult Date: 04/02/17 Attending physician:: JOELLE RAJAN Consult reason:: Cerebrovascular accident versus TIA History of Present Illness Admission Date/PCP: 04/02/17 12:50 ARON FRAUSTO DO Patient complains of: Left-sided weakness and new stroke affecting left side History of Present Illness: MARISSA DAVID is a 86 year old male with past medical history of coronary artery disease, previous CVA with left hemiparesis, prior brain tumor with resection, seizure disorder, atrial fibrillation paroxysmal, hypertension, hyperlipidemia, COPD, obstructive sleep apnea on CPAP who presents to the emergency department in the company of his with complaints of confusion and slurred speech. She reports that after their paid caregiver left this morning at around 5 AM that he had his right arm up and was shaking his hand and had some slurred speech. She reports that he was weak on this side and not making any sense. Patient did wake up this way. She also reports he has been more forgetful lately than normal. He does admit to having a cough but denies that it is productive of any sputum. Patient is nonambulatory at baseline and therefore shortness of breath is difficult to ascertain. He reports that he is currently not dyspneic. He is referred to hospital service for TIA. This history was confirmed. Patient's and daughter in the in the room. Patient does have bilateral carotid stenosis but apparently they have seen a neurologist in [place] and medical management was advised at that time. Patient not on chronic anticoagulation. He does have history of atrial fibrillation. But EKG this morning shows sinus rhythm with sinus bradycardia. Past Medical History Cardiac Medical History: Reports: Atrial Fibrillation, Coronary Artery Disease, Myocardial Infarction, Hyperlipidema, Hypertension Pulmonary Medical History: Reports: Chronic Obstructive Pulmonary Disease (COPD) , Sleep Apnea EENT Medical History: Reports: Cataracts Neurological Medical History: Reports: Ischemic CVA, Seizures Endocrine Medical History: Reports: Obesity Malignancy Medical History: Reports: Brain Cancer Musculoskeltal Medical History: Reports: Arthritis Psychiatric Medical History: Denies: Depression Hematology: Reports: Anemia Past Surgical History Past Surgical History: Reports: Coronary Artery Bypass Graft - Three-vessel, 1999., Other - Brain surgery, 2005. Social History Information Source: Patient Smoking Status: Former Smoker Frequency of Alcohol Use: None Hx Recreational Drug Use: No Drugs: None Hx Prescription Drug Abuse: No - Advance Directive Resuscitation Status: Full Code Surrogate healthcare decision maker:: Patient is the surrogate decision-maker Family History Family History: CAD Parental Family History Reviewed: Yes Children Family History Reviewed: Yes Sibling(s) Family History Reviewed.: Yes Medication/Allergy Home Medications: Aspirin [Aspirin EC] 81 mg PO DAILY 09/02/16 Cholecalciferol (Vitamin D3) [Vitamin D3 5000 unit Capsule] 5,000 unit PO DAILY 09/02/16 Levetiracetam [Keppra 500 mg Tablet] 500 mg PO Q12 09/02/16 Montelukast Sodium [Singulair 10 mg Tablet] 10 mg PO DAILY 09/02/16 Ranolazine [Ranexa] 500 mg PO Q12 09/02/16 Rosuvastatin Calcium [Crestor 20 mg Tablet] 20 mg PO DAILY 09/02/16 Tamsulosin HCl [Flomax 0.4 mg Cap.sr] 0.4 mg PO DAILY 09/02/16 Metoprolol Tartrate [Lopressor 25 mg Tablet] 25 mg PO Q12 #60 tablet 09/05/16 Allergies/Adverse Reactions: No Known Allergies Allergy (Verified 04/02/17 09:58) Review of Systems Review of Systems: Please see history of present illness and past medical history as wall. Constitutional: No fever or chills reported. Head : No recent chronic headaches, recent head injury. Eyes: No recent eye pain, diplopia, redness, discharge, acute visual changes. Ears: No recent chronic ear pain, acute hearing loss, ear discharge. Oral cavity: No recent ulcerations, bleeding, oral cavity discomfort. Neck: No recent acute neck pain reported. Hematologic: No recent easy bruising or bleeding or hematologic malignancy reported. Lymphatic: No recent lymphatic malignancy, chronic lymphadenopathy reported yet Cardiovascular system review: See history of present illness. Respiratory system review: No recent chronic cough, hemoptysis, blood clots in the lungs reported. Mild Shortness of breath on exertion Gastrointestinal system review: Negative for any recent acute or chronic abdominal pain, hematemesis, melena, recent change in bowel habits. Genitourinary system review: No recent acute or chronic hematuria, flank pain, UTI etc. reported. Skin system review: Negative for any recent abnormal bruising, no rash, no pruritus reported. Neurologic: History of left-sided weakness and seizure disorder. Psychologic: No history of major psychosis or major depression reported. Musculoskeletal: Minor aches and pains reported. No acute joint swelling reported. Endocrine: No recent polyuria, polydipsia, recent heat or cold intolerance. Physical Exam Vital Signs: Temp Pulse Resp BP Pulse Ox 97.6 F 57 L 18 129/64 H 98 04/02/17 15:18 04/02/17 16:00 04/02/17 16:00 04/02/17 16:00 04/02/17 16:00 Intake & Output 04/01/17 04/02/17 04/03/17 06:59 06:59 06:59 Intake Total 500 Balance 500 Weight 99 kg Exam: GENERAL: well-nourished and in no acute distress. Alert and oriented x3 HEAD: Atraumatic, normocephalic. EYES: Pupils equal round and reactive to light, extraocular movements intact, sclera anicteric, conjunctiva are normal. ENT: TMs normal, nares patent, oropharynx clear without exudates. Moist mucous membranes. No oral ulcerations or bleeding gums noted NECK: supple without lymphadenopathy. Trachea is central. No cervical or axillary lymphadenopathy noted. Carotids are 2+, JVD WNL LUNGS: Respiration seems nonlabored, no significant accessory muscle action noted. Breath sounds clear to auscultation bilaterally and equal noted. No wheezes rales or rhonchi noted. No significant dullness noted on percussion. CHEST: Palpation of the chest wall shows no significant chest wall tenderness. No other significant abnormalities noted. 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 ABDOMEN: Soft, no significant tenderness appreciated, normoactive bowel sounds. No guarding, no rebound. No rigidity noted . No masses appreciated. EXTREMITIES: Pedal pulses are 1-2+, no calf tenderness noted. No clubbing or cyanosis.trace to 1+ pedal edema noted NEUROLOGICAL: Focused neurological exam showed chronic left-sided weakness. PSYCH: Normal mood, normal affect. Judgment and insight within normal limits. SKIN: No significant ecchymosis, rash, ulcerations or signs of pruritus noted. MUSCULOSKELETAL EXAM: No significant joint swelling noted. Results Laboratory Results: 04/02/17 04/02/17 15:52 15:52 Creatine Kinase < 20 L CK-MB (CK-2) 0.34 Troponin I < 0.012 EKG Comments: Sinus bradycardia, no acute ST-T wave changes noted. Impressions: Head MRI 04/02/17 00:00 IMPRESSION: Negative for acute or sub-acute infarction.ATROPHY AND CHRONIC MICRO-VASCULAR ISCHEMIC CHANGES. EVIDENCE OF ACUTE STROKE: NO. Chest X-Ray 04/02/17 10:08 IMPRESSION: Nothing acute. Head CT 04/02/17 10:08 IMPRESSION: Motion artifact. No acute findings Carotid Doppler Study 04/02/17 12:53 IMPRESSION: Bilateral flow significant stenosis, with greater than 70% stenosis of the right and left proximal internal carotid artery. These findings are similar compared to carotid Doppler 03/13/2016 Assessment & Plan - Diagnosis (1) TIA (transient ischemic attack) Qualifiers: Transient cerebral ischemia type: unspecified Qualified Code(s): G45.9 - Transient cerebral ischemic attack, unspecified Is this a current diagnosis for this admission?: Yes (2) Paroxysmal atrial fibrillation Is this a current diagnosis for this admission?: Yes (3) CAD (coronary artery disease) Qualifiers: Coronary Disease-Associated Artery/Lesion type: unspecified vessel or lesion type [place] vs. transplanted heart: [place] heart Associated angina: without angina Qualified Code(s): I25.10 - Atherosclerotic heart disease of [place] coronary artery without angina pectoris Is this a current diagnosis for this admission?: Yes (4) SHARON (obstructive sleep apnea) Is this a current diagnosis for this admission?: Yes - Notes Notes: Transient ischemic attack: Cannot rule out seizure. Patient has bilateral carotid artery stenosis at approximately 70%. Would recommend switch from aspirin to Plavix as Plavix has better data. Other option would be to switch to Aggrenox. Paroxysmal atrial fibrillation: Currently patient is maintaining sinus rhythm. Patient has not been on chronic anticoagulation. Patient advised to talk with primary care finish repairer, Dr. Brody/Gasper Reyna regarding feasibility of being on chronic anticoagulation. Coronary artery disease: Patient is status post CABG in the past. Currently stable without any angina or angina equivalent symptom. Obstructive sleep apnea: I believe patient follows up with me for that, will check my outpatient records. Patient did bring his CPAP machine therefore was advised to continue with CPAP therapy while in hospital at home setting. Patient may benefit from physical therapy. - Time Time Spent: 50 to 70 Minutes - CODE STATUS was discussed, patient remains full code. Surrogate decision-maker unchanged. Multiple medical problems were addressed. More than 50% of the time spent coordinating care, discussing management plans with involved caregivers. Management plans discussed with involved personnels. Medical decision making was of moderate to high complexity , patient's has multiple comorbidities. Medications reviewed and adjusted accordingly: Yes
[2017-04-02] MEDS ORDERED: CARBOXYMETHYLCELLULOSE SOD 0.5% 0.4 ML DROPERETTE OU PRN (21:18)
[2017-04-02] MEDS ORDERED: LEVETIRACETAM 500 MG TABLET PO SCH (22:00)
[2017-04-02] MEDS ORDERED: LEVETIRACETAM 500 MG/NACL-ISO 500 MG/100 ML RTUPB IV SCH (22:00)
[2017-04-02] MEDS ORDERED: ATORVASTATIN CALCIUM 80 MG TABLET PO SCH (22:00)
[2017-04-02] MEDS: LEVETIRACETAM 500 MG/NACL-ISO 500 MG/100 ML RTUPB IV SCH (22:02)
[2017-04-02] MEDS: METOPROLOL TARTRATE 25 MG TABLET PO SCH (22:05)
[2017-04-02] MEDS: RANOLAZINE 500 MG TAB.SR.12H PO SCH (22:05)
[2017-04-02 22:48] LABS: TROPONIN I < 0.012 ng/mL
[2017-04-03 05:22] LABS: CHOLESTEROL 147.44 mg/dL (0-200); Direct HDL 29 mg/dL (>40); TRIGLYCERIDES 144 mg/dL (<150)
[2017-04-03 05:33] LABS: DIRECT LDL 88 mg/dL (<100)
[2017-04-03 05:34] LABS: CREATINE KINASE MB 0.33 ng/mL (<4.55)
[2017-04-03 05:53] LABS: TROPONIN I < 0.012 ng/mL
[2017-04-03] MEDS: HEPARIN SOD (PORCINE) 5,000 UNIT/ML 1 ML SYRINGE SUBCUT SCH (05:54)
[2017-04-03] MEDS ORDERED: (PENDING PHARMACY ID) (Polyvinyl Alcohol/Povidone/Pf [Refresh Classic Eye Drops] 1 DROP) BTH_EYE PRN (07:21)
[2017-04-03] MEDS ORDERED: CHOLECALCIFEROL (D3) 1,000 UNIT TABLET PO SCH (10:00)
[2017-04-03] MEDS ORDERED: ASPIRIN 325 MG TABLET, ENT COATED PO SCH (10:00)
[2017-04-03] MEDS ORDERED: TAMSULOSIN HCL 0.4 MG CAP.SR.24H PO SCH (10:00)
[2017-04-03] MEDS ORDERED: MONTELUKAST SODIUM 10 MG TABLET PO SCH (10:00)
[2017-04-03] MEDS: METOPROLOL TARTRATE 25 MG TABLET PO SCH (10:30)
[2017-04-03] MEDS: RANOLAZINE 500 MG TAB.SR.12H PO SCH (10:30)
[2017-04-03] MEDS: LEVETIRACETAM 500 MG/NACL-ISO 500 MG/100 ML RTUPB IV SCH (10:31)
[2017-04-03 13:10] VITALS: BP 146/64
--- NOTE | 2017-04-03 13:17 | PDOC DISCHARGE SUMMARY ---
General - Admit/Disc Date/PCP Admission Date/Primary Care Provider: 04/02/17 12:50 ARON FRAUSTO, Discharge Date: 04/03/17 - Discharge Diagnosis (1) TIA (transient ischemic attack) Is this a current diagnosis for this admission?: Yes (2) CVA (cerebral infarction) Is this a current diagnosis for this admission?: Yes (3) Acute focal neurological deficit Is this a current diagnosis for this admission?: Yes (4) Carotid stenosis Is this a current diagnosis for this admission?: Yes (5) Chronic kidney disease, stage II (mild) Is this a current diagnosis for this admission?: Yes (6) Dementia Is this a current diagnosis for this admission?: Yes (7) Encephalomalacia Is this a current diagnosis for this admission?: Yes (8) Glaucoma Is this a current diagnosis for this admission?: Yes (9) Paroxysmal atrial fibrillation Is this a current diagnosis for this admission?: Yes (10) Seizure Is this a current diagnosis for this admission?: Yes (11) CAD (coronary artery disease) Is this a current diagnosis for this admission?: Yes (12) Diastolic CHF Is this a current diagnosis for this admission?: Yes (13) H/O craniotomy Is this a current diagnosis for this admission?: Yes (14) Hemiparesis, left Is this a current diagnosis for this admission?: Yes (15) Hyperlipidemia Is this a current diagnosis for this admission?: Yes (16) SHARON (obstructive sleep apnea) Is this a current diagnosis for this admission?: Yes - Additional Information Resuscitation Status: Full Code Discharge Diet: Other (Comments) - honey thickened liquids, mechanical soft ground meats Discharge Activity: Activity As Tolerated, Balance Activity w/Rest, Supervised Activity Home Medications: Cholecalciferol (Vitamin D3) [Vitamin D3 5000 unit Capsule] 5,000 unit PO DAILY 09/02/16 Levetiracetam [Keppra 500 mg Tablet] 500 mg PO Q12 09/02/16 Montelukast Sodium [Singulair 10 mg Tablet] 10 mg PO DAILY 09/02/16 Ranolazine [Ranexa] 500 mg PO Q12 09/02/16 Rosuvastatin Calcium [Crestor 20 mg Tablet] 20 mg PO DAILY 09/02/16 Tamsulosin HCl [Flomax 0.4 mg Cap.sr] 0.4 mg PO DAILY 09/02/16 Metoprolol Tartrate [Lopressor 25 mg Tablet] 25 mg PO Q12 #60 tablet 09/05/16 Polyvinyl Alcohol/Povidone/Pf [Refresh Classic Eye Drops] 1 drop BTH_EYE Q4 PRN 04/02/17 Aspirin [Ecotrin 325 mg EC Tablet] 325 mg PO DAILY #90 tabec 04/03/17 Clopidogrel Bisulfate [Plavix 75 mg Tablet] 75 mg PO DAILY #30 tablet 04/03/17 Maltodextrin/Xanthan Gum [Thicken Up Clear Powder] 125 gm PO ASDIR PRN #1 pkg History of Present Illness History of Present Illness: MARISSA DAVID is a 86 year old male with past medical history of coronary artery disease, previous CVA with left hemiparesis, prior brain tumor with resection, seizure disorder, atrial fibrillation paroxysmal, hypertension, hyperlipidemia, COPD, obstructive sleep apnea on CPAP who presents to the emergency department in the company of his with complaints of confusion and slurred speech. She reports that after their paid caregiver left this morning at around 5 AM that he had his right arm up and was shaking his hand and had some slurred speech. She reports that he was weak on this side and not making any sense. Patient did wake up this way. She also reports he has been more forgetful lately than normal. He does admit to having a cough but denies that it is productive of any sputum. Patient is nonambulatory at baseline and therefore shortness of breath is difficult to ascertain. He reports that he is currently not dyspneic. He is referred to hospital service for TIA Hospital Course Hospital Course: Patient was observed on telemetry and no arrhythmia was seen. Patient continued to improve symptomatically. He was seen by speech, physical therapy, and occupational therapy and speech recommended a modified diet of mechanical soft with ground meats and honey thickened liquids. Patient underwent an MRI which did not reveal any acute CVA. Patient underwent carotid Doppler which revealed a 70% stenosis of both bilateral internal carotids. This is unchanged from prior carotid Doppler. Patient's family was informed of these results. Cardiology was consulted for his paroxysmal atrial fibrillation and lack of anticoagulation as he was their primary patient, and they agreed to aspirin and Plavix. Family was unable to recall why he was not on any blood thinners. At this time, after discussion with them they do agree to a DNR. A portable DNR is provided and a palliative care consultation is recommended as an outpatient. The remainder of his course is unremarkable patient is feeling well. Patient is to be discharged in stable condition. The remainder of his course is unremarkable. All questions were answered to the best of my ability and patient family satisfaction. Physical Exam Vital Signs: Temp Pulse Resp BP Pulse Ox 97.7 F 59 L 16 142/57 H 92 04/03/17 11:06 04/03/17 11:06 04/03/17 11:06 04/03/17 11:06 04/03/17 11:06 Intake & Output 04/02/17 04/03/17 04/04/17 06:59 06:59 06:59 Intake Total 1216 Balance 1216 Weight 99 kg Exam: General: Awake alert and oriented x3, no acute respiratory distress HEENT: AT/NC, PERRL, EOMI, oropharynx is moist, pink, no scleral icterus, no conjunctival injection Neck: No JVD, trachea midline Chest: Clear to auscultation bilaterally, no wheezes rhonchi or rales CV: Regular rate and rhythm, normal S1 and S2, no rub, or gallop Abdomen: Soft, nontender to palpation, nondistended, active bowel sounds; no rebound, rigidity, or guarding Extremities: No cyanosis, clubbing or edema Neuro: mild left facial droop, left hemiparesis, RUE 4+/5 RLE 4/5 Psych: Normal mood and affect Results Laboratory Results: 04/03/17 04:04 Triglycerides 144 Cholesterol 147.44 LDL Cholesterol Direct 88 VLDL Cholesterol 29.0 HDL Cholesterol 29 L 04/02/17 04/02/17 04/02/17 15:52 15:52 21:55 Creatine Kinase < 20 L < 20 L CK-MB (CK-2) 0.34 Troponin I < 0.012 04/02/17 04/03/17 04/03/17 21:55 04:04 04:04 Creatine Kinase < 20 L CK-MB (CK-2) 0.40 0.33 Troponin I < 0.012 < 0.012 Impressions: Head MRI 04/02/17 00:00 IMPRESSION: Negative for acute or sub-acute infarction.ATROPHY AND CHRONIC MICRO-VASCULAR ISCHEMIC CHANGES. EVIDENCE OF ACUTE STROKE: NO. Chest X-Ray 04/02/17 10:08 IMPRESSION: Nothing acute. Head CT 04/02/17 10:08 IMPRESSION: Motion artifact. No acute findings Carotid Doppler Study 04/02/17 12:53 IMPRESSION: Bilateral flow significant stenosis, with greater than 70% stenosis of the right and left proximal internal carotid artery. These findings are similar compared to carotid Doppler 03/13/2016 Qualifiers PATEINT BEING DISCHARGED WITH ANY OF THE FOLLOWING DIAGNOSIS?: No Plan Time Spent: Less than 30 Minutes
--- NOTE | 2017-04-03 15:38 | EKG REPORT ---
SEVERITY:- ABNORMAL ECG - SINUS BRADYCARDIA RHYTHM : Confirmed by: Annie Lazar 03-Apr-2017 15:37:06
--- NOTE | 2017-04-03 20:42 | PDOC PROGRESS REPORT ---
Subjective Progress Note for:: 04/03/17 Subjective:: stable Physical Exam Vital Signs: Temp Pulse Resp BP Pulse Ox 97.7 F 59 L 16 146/64 H 92 04/03/17 13:08 04/03/17 13:08 04/03/17 13:08 04/03/17 13:08 04/03/17 13:08 Intake & Output 04/02/17 04/03/17 04/04/17 06:59 06:59 06:59 Intake Total 1216 0 Balance 1216 0 Weight 99 kg Results Laboratory Results: 04/03/17 04:04 Triglycerides 144 Cholesterol 147.44 LDL Cholesterol Direct 88 VLDL Cholesterol 29.0 HDL Cholesterol 29 L 04/02/17 04/02/17 04/02/17 15:52 15:52 21:55 Creatine Kinase < 20 L < 20 L CK-MB (CK-2) 0.34 Troponin I < 0.012 04/02/17 04/03/17 04/03/17 21:55 04:04 04:04 Creatine Kinase < 20 L CK-MB (CK-2) 0.40 0.33 Troponin I < 0.012 < 0.012 Impressions: Head MRI 04/02/17 00:00 IMPRESSION: Negative for acute or sub-acute infarction.ATROPHY AND CHRONIC MICRO-VASCULAR ISCHEMIC CHANGES. EVIDENCE OF ACUTE STROKE: NO. Chest X-Ray 04/02/17 10:08 IMPRESSION: Nothing acute. Head CT 04/02/17 10:08 IMPRESSION: Motion artifact. No acute findings Carotid Doppler Study 04/02/17 12:53 IMPRESSION: Bilateral flow significant stenosis, with greater than 70% stenosis of the right and left proximal internal carotid artery. These findings are similar compared to carotid Doppler 03/13/2016 Assessment & Plan - Diagnosis (1) TIA (transient ischemic attack) Qualifiers: Transient cerebral ischemia type: unspecified Qualified Code(s): G45.9 - Transient cerebral ischemic attack, unspecified Is this a current diagnosis for this admission?: Yes (2) Paroxysmal atrial fibrillation Is this a current diagnosis for this admission?: Yes (3) CAD (coronary artery disease) Qualifiers: Coronary Disease-Associated Artery/Lesion type: unspecified vessel or lesion type [place] vs. transplanted heart: [place] heart Associated angina: without angina Qualified Code(s): I25.10 - Atherosclerotic heart disease of [place] coronary artery without angina pectoris Is this a current diagnosis for this admission?: Yes (4) SHARON (obstructive sleep apnea) Is this a current diagnosis for this admission?: Yes
== END 2017-04-03 13:52 | disposition home health service (06) ==
LOC: ER 09:46 → EH 12:50 → UNDOADMOB 12:53 → 3W 14:53
PROVIDERS: ADMIT Family Medicine; ATTEND Family Medicine
PROC: 3E0F7GC Introduction of Other Therapeutic Substance into Respiratory Tract, Via Natural or Artificial Opening (ICD-10-PCS; principal; 2017-04-02)
PROC: 5A09357 Assistance with Respiratory Ventilation, Less than 24 Consecutive Hours, Continuous Positive Airway Pressure (ICD-10-PCS; 2017-04-02)
DX: G45.9 Transient cerebral ischemic attack, unspecified (principal); R29.818 Other symptoms and signs involving the nervous system; I69.354 Hemiplegia and hemiparesis following cerebral infarction affecting left non-dominant side; I65.23 Occlusion and stenosis of bilateral carotid arteries; J44.9 Chronic obstructive pulmonary disease, unspecified; G47.33 Obstructive sleep apnea (adult) (pediatric); G40.909 Epilepsy, unspecified, not intractable, without status epilepticus; I13.0 Hypertensive heart and chronic kidney disease with heart failure and stage 1 through stage 4 chronic kidney disease, or unspecified chronic kidney disease; N18.2 Chronic kidney disease, stage 2 (mild); I50.32 Chronic diastolic (congestive) heart failure; E78.5 Hyperlipidemia, unspecified; I25.10 Atherosclerotic heart disease of native coronary artery without angina pectoris; I48.0 Paroxysmal atrial fibrillation; F01.50 Vascular dementia, unspecified severity, without behavioral disturbance, psychotic disturbance, mood disturbance, and anxiety; H40.9 Unspecified glaucoma; H54.61 Unqualified visual loss, right eye, normal vision left eye; G93.89 Other specified disorders of brain; E66.01 Morbid (severe) obesity due to excess calories; I25.2 Old myocardial infarction; R00.1 Bradycardia, unspecified; R05 Cough; R29.810 Facial weakness; Z66 Do not resuscitate; Z95.1 Presence of aortocoronary bypass graft; Z85.841 Personal history of malignant neoplasm of brain; Z98.890 Other specified postprocedural states; Z79.82 Long term (current) use of aspirin; Z82.49 Family history of ischemic heart disease and other diseases of the circulatory system; Z87.891 Personal history of nicotine dependence; Z68.35 Body mass index [BMI] 35.0-35.9, adult
CPT/HCPCS: 93005 ×2; 94640; 99285; 36415 ×2; 82553 ×2; 82962 ×2; 82550 ×2; 85025; 85610; 85730; 80053; 81001; 84484 ×2; 80061; 93880; 70551; 71010; 70450; 93010 ×2; 94660 ×2; 97163; 92610; 97167; G0378 ×3; J3490 ×2; J1644 ×2; J1953 ×2; J7620; G8978; G8979; G8980; G8996; G8997; G8987; G8988; G8989

== ENCOUNTER 2017-06-25 15:00 | Inpatient (IN) | payer OTHER, MEDICARE ==
[2017-06-25] MEDS ORDERED: IPRATROPIUM/ALBUTEROL 0.5-2.5 MG/3 ML AMPUL NEB ONE (15:12)
[2017-06-25] MEDS ORDERED: NORMAL SALINE 1000 ML 1,000 ML IV ONE (15:12)
[2017-06-25 15:38] LABS: ABSOLUTE EOSINOPHILS # (AUTO) 0.3 10^3/uL (0.0-0.6); ABSOLUTE LYMPHOCYTES (AUTO) 1.1 10^3/uL (0.5-4.7); ABSOLUTE MONOCYTES (AUTO) 0.7 10^3/uL (0.1-1.4); ABSOLUTE NEUT (AUTO) 4.5 10^3/uL (1.7-8.2); BASOPHILS % (AUTO) 0.6 % (0-2); EOSINOPHILS % (AUTO) 3.8 % (0-6); HEMOGLOBIN 11.4 g/dL (13.5-17.0); HGB HCT DIFFERENCE 1.2; LYMPHOCYTES % (AUTO) 16.6 % (13-45); MEAN CORPUSCULAR HEMOGLOBIN 30.7 pg (27.0-33.4); MEAN CORPUSCULAR HGB CONC 34.7 g/dL (32.0-36.0); MEAN CORPUSCULAR VOLUME 89 fl (80-97); MONOCYTES % (AUTO) 10.9 % (3-13); RED BLOOD COUNT 3.73 10^6/uL (4.35-5.55); RED CELL DISTRIBUTION WIDTH 15.3 % (11.5-14.0); SEGMENTED NEUTROPHILS % (AUTO) 68.1 % (42-78); VENOUS BLOOD BASE EXCESS 3.5 mmol/L; VENOUS BLOOD HCO3 30.8 mmol/L (20-32); VENOUS BLOOD PCO2 59.1 mmHg (35-63); VENOUS BLOOD PH 7.34 (7.30-7.42); WHITE BLOOD COUNT 6.6 10^3/uL (4.0-10.5)
[2017-06-25 15:44] LABS: PROTHROMBIN TIME 14.9 SEC (11.4-15.4)
[2017-06-25 15:58] LABS: ALBUMIN 2.7 g/dL (3.5-5.0); ANION GAP 8 (5-19); BLOOD UREA NITROGEN 26 mg/dL (7-20); CALCIUM 8.5 mg/dL (8.4-10.2); CARBON DIOXIDE 32 mmol/L (22-30); CHLORIDE 103 mmol/L (98-107); CREATININE RESULT 0.74 mg/dL (0.52-1.25); GLUCOSE 108 mg/dL (75-110); POTASSIUM 3.7 mmol/L (3.6-5.0); SODIUM 142.7 mmol/L (137-145); TOTAL PROTEIN 4.9 g/dL (6.3-8.2)
[2017-06-25 15:59] LABS: ALANINE AMINOTRANSFERASE 33 U/L (21-72); ALKALINE PHOSPHATASE 73 U/L (38-126); ASPARTATE AMINO TRANSFERASE 17 U/L (17-59); BILIRUBIN,DIRECT 0.7 mg/dL (0.0-0.4); BILIRUBIN,TOTAL 0.9 mg/dL (0.2-1.3); MAGNESIUM 1.4 mg/dL (1.6-2.3)
--- NOTE | 2017-06-25 16:19 | RADIOLOGY REPORT (SQ) ---
EXAM DESCRIPTION: CHEST SINGLE VIEW COMPLETED DATE/TIME: 06/25/2017 4:03 pm REASON FOR STUDY: sob COMPARISON: Chest films 09/02/2016, 04/02/2017, 05/16/2017, 05/22/2017 EXAM PARAMETERS: NUMBER OF VIEWS: One view. TECHNIQUE: Single frontal radiographic view of the chest acquired. RADIATION DOSE: NA LIMITATIONS: None. FINDINGS: LUNGS AND PLEURA: Patchy bilateral airspace disease is present, edema versus pneumonia. No pleural effusions. No pneumothorax. MEDIASTINUM AND HILAR STRUCTURES: No masses. Contour normal. HEART AND VASCULAR STRUCTURES: Old sternotomy for CABG. No cardiomegaly. BONES: No acute findings. HARDWARE: None in the chest. OTHER: No other significant finding. IMPRESSION: Patchy bilateral airspace disease, edema versus pneumonia. Old sternotomy and CABG. TECHNICAL DOCUMENTATION: JOB ID: [id number] [employer]- All Rights Reserved
[2017-06-25] MEDS ORDERED: LEVOFLOXACIN 500 MG/D5W RTU 500 MG/100 ML RTUPB IV ONE (16:30)
[2017-06-25] MEDS ORDERED: ONDANSETRON HCL INJ/PF 4 MG/2 ML SDV IV PRN (17:24)
[2017-06-25] MEDS ORDERED: ACETAMINOPHEN 325 MG TABLET PO PRN (17:24)
--- NOTE | 2017-06-25 17:26 | ER Document Report ---
ED General - General Chief Complaint: Flu Symptoms Stated Complaint: POSSIBLE RESPIRATORY DIFFICULTY Time Seen by Provider: 06/25/17 15:06 TRAVEL OUTSIDE OF THE [place] IN LAST 30 DAYS: No - HPI Patient complains to provider of: Shortness of breath difficulty breathing Notes: Patient coming in for evaluation shortness of breath difficulty breathing. Patient coming from home does have a history of dementia however is able to answer some simple questions. Patient states he has no pain has had shortness of breath report from EMS was that has been ongoing for the last 3 days patient reports for the last week. Denies any fever states productive cough. Patient has a history significant for coronary artery disease COPD. Patient upon my evaluation is hypoxic with SPO2 approximately 87. Patient was found with a room air saturation of 84. Patient was placed on 2 L nasal cannula. Otherwise patient is to be in no obvious distress. - Related Data Allergies/Adverse Reactions: No Known Allergies Allergy (Verified 04/02/17 09:58) Home Medications: Current Home Medications Albuterol Sulfate [Albuterol Sulfate 2.5mg/3 mL] 1 vial IH RTTIDP PRN 06/25/17 [ History] Aspirin [Ecotrin 325 mg EC Tablet] 325 mg PO DAILY 06/25/17 [History] Cetirizine HCl [Zyrtec 10 mg Tablet] 1 tab PO DAILY 06/25/17 [History] Cholecalciferol (Vitamin D3) [Vitamin D3 5000 unit Capsule] 5,000 unit PO DAILY 06/25/17 [History] Clopidogrel Bisulfate [Plavix 75 mg Tablet] 75 mg PO DAILY 06/25/17 [History] Esomeprazole Magnesium [Nexium] 20 mg PO Q6AM 06/25/17 [History] Fluticasone/Salmeterol [Advair 250-50 Diskus 28 dose] 1 inh IH Q12 06/25/17 [ History] Latanoprost [Xalatan 0.005% Oph Soln 2.5 ml] 1 drop OU QHS 06/25/17 [History] Levetiracetam [Keppra] 750 mg PO Q12 06/25/17 [History] Metoprolol Tartrate [Lopressor 50 mg Tablet] 50 mg PO Q12 06/25/17 [History] Montelukast Sodium [Singulair 10 mg Tablet] 10 mg PO QHS 06/25/17 [History] Polyvinyl Alcohol/Povidone/Pf [Refresh Classic Eye Drops] 1 each OU BID [History] Rosuvastatin Calcium [Crestor 10 mg Tablet] 10 mg PO DAILY 06/25/17 [History] Tamsulosin HCl [Flomax] 0.4 mg PO DAILY 06/25/17 [History] Past Medical History - Social History Smoking Status: Former Smoker Chew tobacco use (# tins/day): No Frequency of alcohol use: None Drug Abuse: None Family History: Reviewed & Not Pertinent Patient has suicidal ideation: No Patient has homicidal ideation: No - Past Medical History Cardiac Medical History: Reports: Hx Atrial Fibrillation, Hx Congestive Heart Failure, Hx Coronary Artery Disease, Hx Heart Attack, Hx Hypercholesterolemia, Hx Hypertension Pulmonary Medical History: Reports: Hx COPD - no o2, Bipap at night, Hx Sleep Apnea Neurological Medical History: Reports: Hx Seizures Renal/ Medical History: Denies: Hx Peritoneal Dialysis Malignancy Medical History: Reports Hx Brain Cancer Musculoskeltal Medical History: Reports Hx Arthritis Psychiatric Medical History: Reports: Hx Dementia Denies: Hx Depression Past Surgical History: Reports: Hx Cardiac Surgery - Triple Bypass 1999, Hx Coronary Artery Bypass Graft - Three-vessel, 1999., Other - Brain surgery, 2005. - Immunizations Hx Diphtheria, Pertussis, Tetanus Vaccination: Yes Hx Pneumococcal Vaccination: 05/04/09 Review of Systems - Review of Systems Constitutional: No symptoms reported EENT: No symptoms reported Cardiovascular: No symptoms reported Respiratory: Cough, Short of breath Gastrointestinal: No symptoms reported Genitourinary: No symptoms reported Male Genitourinary: No symptoms reported Musculoskeletal: No symptoms reported Skin: No symptoms reported Hematologic/Lymphatic: No symptoms reported Neurological/Psychological: No symptoms reported Physical Exam - Vital signs Vitals: Temp Resp BP Pulse Ox 99.1 F 22 H 153/72 H 89 L 06/25/17 15:09 06/25/17 15:09 06/25/17 15:09 06/25/17 15:09 Interpretation: Hypoxic - General General appearance: Appears well, Alert - HEENT Head: Normocephalic, Atraumatic Eyes: Normal Pupils: PERRL - Respiratory Respiratory status: No respiratory distress Chest status: Nontender Breath sounds: Wheezing Chest palpation: Normal - Cardiovascular Rhythm: Regular Heart sounds: Normal auscultation Murmur: No - Abdominal Inspection: Normal Distension: No distension Bowel sounds: Normal Tenderness: Nontender Organomegaly: No organomegaly - Back Back: Normal, Nontender - Extremities General upper extremity: Normal inspection, Nontender, Normal color General lower extremity: Normal inspection, Nontender, Normal color - Neurological Neuro grossly intact: Yes Cognition: Normal Orientation: AAOx4 Hankinson Coma Scale Eye Opening: Spontaneous Hankinson Coma Scale Verbal: Oriented Nikhil Coma Scale Motor: Obeys Commands Nikhil Coma Scale Total: 15 Speech: Normal Sensory: Normal - Psychological Associated symptoms: Normal affect, Normal mood - Skin Skin Temperature: Warm Skin Moisture: Dry Skin Color: Normal Course - Re-evaluation Re-evalutation: 06/25/17 20:32 Chest x-ray shows pneumonia. Oxygenation improved after nasal cannula and breathing treatment. Will start patient on Levaquin and referred to hospitalist for further evaluation - Vital Signs Vital signs: Temp Pulse Resp BP Pulse Ox 99.1 F 22 H 138/74 H 97 06/25/17 15:09 06/25/17 20:01 06/25/17 20:01 06/25/17 20:01 - Laboratory Result Diagrams: 06/25/17 15:21 06/25/17 15:21 Laboratory results interpreted by me: 06/25/17 06/25/17 15:21 15:21 RBC 3.73 L Hgb 11.4 L Hct 33.0 L RDW 15.3 H Plt Count 149 L Carbon Dioxide 32 H BUN 26 H Magnesium 1.4 L Direct Bilirubin 0.7 H Total Protein 4.9 L Albumin 2.7 L Discharge - Discharge Clinical Impression: COPD exacerbation, hypoxia resolved Pneumonia Qualifiers: Pneumonia type: due to unspecified organism Laterality: bilateral Lung location : unspecified part of lung Qualified Code(s): J18.9 - Pneumonia, unspecified organism Condition: Stable Disposition: ADMITTED INPATIENT Admitting Provider: Nikki [facility] Admitted: [facility]
[2017-06-25] MEDS ORDERED: PHARMACY COMMUNICATION ORDER MC SCH (17:30)
[2017-06-25] MEDS ORDERED: VANCOMYCIN HCL 0 MG in DEXTROSE 5%-WATER 250 ML IV NR (17:45)
--- NOTE | 2017-06-25 17:47 | PDOC H&P ---
History of Present Illness Admission Date/PCP: ARON FRAUSTO DO History of Present Illness: MARISSA DAVID is a 86 year old male with past medical history of coronary artery disease, previous CVA with left hemiparesis, prior brain tumor with resection, seizure disorder, atrial fibrillation paroxysmal, hypertension, hyperlipidemia, COPD, obstructive sleep apnea on CPAP who presents to the emergency department with a one-week history of difficulty breathing. Currently , he is unaccompanied. The history was obtained from the emergency department physician. Due to his cognitive impairment, he is not a very good historian. He reports having a cough, and what sounds like an upper respiratory tract infection. Past Medical History Cardiac Medical History: Reports: Atrial Fibrillation, Congestive Heart Failure , Coronary Artery Disease, Myocardial Infarction, Hyperlipidema, Hypertension Pulmonary Medical History: Reports: Chronic Obstructive Pulmonary Disease (COPD ) - no o2, Bipap at night, Sleep Apnea Neurological Medical History: Reports: Seizures Malignancy Medical History: Reports: Brain Cancer Musculoskeltal Medical History: Reports: Arthritis Psychiatric Medical History: Reports: Dementia Denies: Depression Hematology: Reports: Anemia Past Surgical History Past Surgical History: Reports: Coronary Artery Bypass Graft - Three-vessel, 1999., Other - Brain surgery, 2005. Social History Information Source: Emergency Med Personnel Lives with: Family Smoking Status: Former Smoker Frequency of Alcohol Use: None Hx Recreational Drug Use: No Drugs: None Hx Prescription Drug Abuse: No - Advance Directive Resuscitation Status: Do Not Resuscitate Family History Family History: Reviewed & Not Pertinent Parental Family History Reviewed: No Children Family History Reviewed: No Sibling(s) Family History Reviewed.: No Medication/Allergy Home Medications: Montelukast Sodium [Singulair 10 mg Tablet] 10 mg PO DAILY 09/02/16 Tamsulosin HCl [Flomax 0.4 mg Cap.sr] 0.4 mg PO DAILY 09/02/16 Polyvinyl Alcohol/Povidone/Pf [Refresh Classic Eye Drops] 1 drop OU Q12 Aspirin [Ecotrin 325 mg EC Tablet] 325 mg PO DAILY #90 tabec 04/03/17 Cetirizine HCl [Zyrtec] 10 mg PO DAILY 05/16/17 Cholecalciferol (Vitamin D3) [Vitamin D3 5000 unit Capsule] 1 tab PO DAILY 05/16 Clopidogrel Bisulfate [Plavix 75 mg Tablet] 75 mg PO DAILY 05/16/17 Latanoprost [Xalatan 0.005% Oph Soln 2.5 ml] 1 drop OU QHS 05/16/17 Levetiracetam [Keppra] 750 mg PO Q12 05/16/17 Metoprolol Tartrate [Lopressor 50 mg Tablet] 50 mg PO Q12 05/16/17 Ipratropium/Albuterol Sulfate [Duoneb 3 ml Ampul] 3 ml NEB [id number] PRN #60 vial.neb 05/26/17 Levofloxacin [Levaquin 750 mg Tablet] 750 mg PO DAILY #4 tablet 05/26/17 Prednisone [Sterapred Ds] 1 pkg PO ASDIR PRN 12 Days tab.ds.pk 05/26/17 Allergies/Adverse Reactions: No Known Allergies Allergy (Verified 04/02/17 09:58) Review of Systems ROS unobtainable: Due to mental status Physical Exam Vital Signs: Temp Pulse Resp BP Pulse Ox 99.1 F 28 H 137/63 H 94 06/25/17 15:09 06/25/17 16:01 06/25/17 16:01 06/25/17 16:01 General appearance: PRESENT: no acute distress, hard of hearing, morbidly obese Head exam: PRESENT: atraumatic, normocephalic Eye exam: PRESENT: conjunctiva pink, EOMI, PERRLA Mouth exam: PRESENT: dry mucosa, neck supple Teeth exam: PRESENT: edentulous - Partially Neck exam: PRESENT: full ROM Respiratory exam: PRESENT: decreased breath sounds, unlabored. ABSENT: accessory muscle use Cardiovascular exam: PRESENT: RRR. ABSENT: diastolic murmur, rubs, systolic murmur GI/Abdominal exam: PRESENT: normal bowel sounds, soft. ABSENT: distended, guarding, mass, organolmegaly, rebound, tenderness Extremities exam: ABSENT: pedal edema Musculoskeletal exam: ABSENT: ambulatory Neurological exam: PRESENT: awake, oriented to person Skin exam: PRESENT: dry, intact, warm. ABSENT: cyanosis, rash Results Laboratory Results: 06/25/17 15:21 06/25/17 15:21 06/25/17 06/25/17 06/25/17 15:21 15:21 15:21 WBC 6.6 RBC 3.73 L Hgb 11.4 L Hct 33.0 L MCV 89 MCH 30.7 MCHC 34.7 RDW 15.3 H Plt Count 149 L Seg Neutrophils % 68.1 Lymphocytes % 16.6 Monocytes % 10.9 Eosinophils % 3.8 Basophils % 0.6 Absolute Neutrophils 4.5 Absolute Lymphocytes 1.1 Absolute Monocytes 0.7 Absolute Eosinophils 0.3 Absolute Basophils 0.0 VBG pH VBG pCO2 VBG HCO3 VBG Base Excess Sodium 142.7 Potassium 3.7 Chloride 103 Carbon Dioxide 32 H Anion Gap 8 BUN 26 H Creatinine 0.74 Est GFR ( Amer) > 60 Est GFR (Non-Af Amer) > 60 Glucose 108 Lactic Acid 0.7 Calcium 8.5 Magnesium 1.4 L Total Bilirubin 0.9 AST 17 ALT 33 Alkaline Phosphatase 73 Total Protein 4.9 L Albumin 2.7 L 06/25/17 15:21 WBC RBC Hgb Hct MCV MCH MCHC RDW Plt Count Seg Neutrophils % Lymphocytes % Monocytes % Eosinophils % Basophils % Absolute Neutrophils Absolute Lymphocytes Absolute Monocytes Absolute Eosinophils Absolute Basophils VBG pH 7.34 VBG pCO2 59.1 VBG HCO3 30.8 VBG Base Excess 3.5 Sodium Potassium Chloride Carbon Dioxide Anion Gap BUN Creatinine Est GFR ( Amer) Est GFR (Non-Af Amer) Glucose Lactic Acid Calcium Magnesium Total Bilirubin AST ALT Alkaline Phosphatase Total Protein Albumin Impressions: Chest X-Ray 06/25/17 15:26 IMPRESSION: Patchy bilateral airspace disease, edema versus pneumonia. Old sternotomy and CABG. Assessment & Plan - Diagnosis (1) Pneumonia Qualifiers: Pneumonia type: due to unspecified organism Laterality: bilateral Lung location: unspecified part of lung Qualified Code(s): J18.9 - Pneumonia, unspecified organism Is this a current diagnosis for this admission?: Yes Plan: Since he was hospitalized within the last 90 days, I will treat him in for a hospital associated infection. Furthermore he has a history of MRSA, so I will cover him with vancomycin. There is a possibility that his chest x-ray represents interstitial edema, so IV Lasix has been ordered as well. A follow- up chest x-ray may be warranted. However, at this time I would watch him clinically. He has been DNR during the last 2 hospitalizations. I will continue that this time. (2) Paroxysmal atrial fibrillation Is this a current diagnosis for this admission?: Yes Plan: Currently, his rate is controlled. (3) CVA (cerebral infarction) Qualifiers: Cerebral infarction mechanism: unspecified mechanism Is this a current diagnosis for this admission?: Yes Plan: He has a history of a stroke with left-sided hemiparesis. He does not have any new neurologic findings. (4) Debility Is this a current diagnosis for this admission?: Yes Plan: He is bedbound. He requires total care. (5) SHARON (obstructive sleep apnea) Is this a current diagnosis for this admission?: Yes Plan: CPAP at bedtime, when sleeping (6) COPD (chronic obstructive pulmonary disease) Qualifiers: COPD type: unspecified COPD Qualified Code(s): J44.9 - Chronic obstructive pulmonary disease, unspecified Is this a current diagnosis for this admission?: Yes (7) DNR (do not resuscitate) Is this a current diagnosis for this admission?: Yes (8) Seizure Is this a current diagnosis for this admission?: Yes Plan: Currently he is seizure-free. - Time Time Spent: Greater than 70 Minutes Medications reviewed and adjusted accordingly: Yes Anticipated discharge: Home - Inpatient Certification Based on my medical assessment, after consideration of the patient's comorbidities, presenting symptoms, or acuity I expect that the services needed warrant INPATIENT care.: Yes I certify that my determination is in accordance with my understanding of Medicare's requirements for reasonable and necessary INPATIENT services [42 CFR 412.3e].: Yes Medical Necessity: Significant Comorbidiites Make Outpatient Treatment Too Risky , Need Close Monitoring Due to Risk of Patient Decompensation, Need for Nebulizer Therapy and Monitoring of Response, Need for IV Antibiotics
--- NOTE | 2017-06-25 19:40 | EKG REPORT ---
SEVERITY:- ABNORMAL ECG - SINUS RHYTHM SUPRAVENTRICULAR BIGEMINY : Confirmed by: Princess Jackman MD 25-Jun-2017 19:39:52
[2017-06-25] MEDS: MAGNESIUM SULFATE/D5W 1 GM/100 ML RTUPB IV SCH ×2 (19:56→23:05)
[2017-06-25] MEDS ORDERED: FUROSEMIDE INJ/PF 40 MG/4 ML SDV IV ONE (20:00)
[2017-06-25] MEDS ORDERED: VANCOMYCIN HCL 1,250 MG in DEXTROSE 5%-WATER 250 ML IV ONE (20:00)
[2017-06-25] MEDS: IPRATROPIUM/ALBUTEROL 0.5-2.5 MG/3 ML AMPUL NEB SCH (21:16)
[2017-06-25] MEDS: GUAIFENESIN 600 MG TABLET.SA PO SCH (21:36)
[2017-06-25] MEDS: DOCUSATE SODIUM 100 MG CAPSULE PO SCH (21:37)
[2017-06-26] MEDS: CEFEPIME 2 GM/D5W RTU 2 GM/50 ML RTUPB IV SCH ×3 (00:25→22:23)
[2017-06-26 04:14] LABS: APPEARANCE,URINE CLEAR; BILIRUBIN,URINE NEGATIVE (NEGATIVE); GLUCOSE, URINE NEGATIVE (NEGATIVE); KETONES,URINE NEGATIVE (NEGATIVE); LEUKOCYTE ESTERASE,URINE NEGATIVE (NEGATIVE); NITRITE,URINE NEGATIVE (NEGATIVE); PROTEIN,URINE NEGATIVE (NEGATIVE); URINE SPECIFIC GRAVITY 1.008; UROBILINOGEN,URINE NEGATIVE mg/dL (<2.0)
[2017-06-26] MEDS: VANCOMYCIN HCL 1,250 MG in DEXTROSE 5%-WATER 250 ML IV SCH ×2 (05:27→18:54)
[2017-06-26 06:20] LABS: HEMOGLOBIN 11.4 g/dL (13.5-17.0); HGB HCT DIFFERENCE 1.2; MEAN CORPUSCULAR HEMOGLOBIN 30.4 pg (27.0-33.4); MEAN CORPUSCULAR HGB CONC 34.6 g/dL (32.0-36.0); MEAN CORPUSCULAR VOLUME 88 fl (80-97); RED BLOOD COUNT 3.75 10^6/uL (4.35-5.55); RED CELL DISTRIBUTION WIDTH 15.3 % (11.5-14.0); WHITE BLOOD COUNT 7.3 10^3/uL (4.0-10.5)
[2017-06-26 06:38] LABS: ANION GAP 10 (5-19); BLOOD UREA NITROGEN 25 mg/dL (7-20); CALCIUM 8.5 mg/dL (8.4-10.2); CARBON DIOXIDE 30 mmol/L (22-30); CHLORIDE 100 mmol/L (98-107); CREATININE RESULT 0.67 mg/dL (0.52-1.25); GLUCOSE 102 mg/dL (75-110); MAGNESIUM 1.9 mg/dL (1.6-2.3); PHOSPHORUS 3.3 mg/dL (2.5-4.5); POTASSIUM 3.6 mmol/L (3.6-5.0); SODIUM 140.2 mmol/L (137-145)
[2017-06-26] MEDS: IPRATROPIUM/ALBUTEROL 0.5-2.5 MG/3 ML AMPUL NEB SCH ×3 (08:05→20:22)
[2017-06-26] MEDS: GUAIFENESIN 600 MG TABLET.SA PO SCH ×2 (09:40→22:23)
[2017-06-26] MEDS: ENOXAPARIN SODIUM INJ 40 MG/0.4 ML DISP.SYRIN SUBCUT SCH (09:41)
[2017-06-26] MEDS: DOCUSATE SODIUM 100 MG CAPSULE PO SCH ×2 (09:41→22:23)
--- NOTE | 2017-06-26 15:13 | PROGRESS NOTE E ---
Progress Note NAME: MARISSA DAVID : 1930 AGE: 86Y DATE: 06/26/2017 ROOM: 433 SUBJECTIVE: The patient is an 86-year-old male who has a past medical history of coronary artery disease, previous CVA, left hemiparesis, brain tumor status post resection, seizure disorder, COPD, hyperlipidemia. The patient admitted with pneumonia, getting IV antibiotics. He is feeling better. OBJECTIVE: GENERAL: The patient is lying in bed, comfortable, not in distress. VITAL SIGNS: Blood pressure 124/54, temperature 98.9, heart rate 72, respiratory rate 24. HEENT: Head normocephalic, atraumatic. Pupils round, reactive to light and accommodation bilaterally. Extraocular movements intact. Ears: Tympanic membranes intact bilaterally. No discharge from the ear. No discharge from the nose. NECK: Supple, no increased JVD, no thyromegaly, no lymphadenopathy. CARDIOVASCULAR: Normal S1, S2. Regular rate and rhythm. No murmur, no gallops. RESPIRATORY: Lungs clear. ABDOMEN: Soft, nontender. MUSCULOSKELETAL: No edema. NEUROLOGIC: Awake, alert. SKIN: No rash. LABORATORY DATA: White blood count 7.3, hemoglobin 11.4, hematocrit 33. Sodium 140, potassium 3.6, creatinine 0.6. ASSESSMENT: 1. PNEUMONIA. Continue IV antibiotics. 2. ATRIAL FIBRILLATION, RATE CONTROLLED. 3. CVA. 4. DEBILITY. 5. SEIZURE DISORDER. TIME SPENT: Twenty-five minutes. MEDICAL NECESSITY: The patient has a significant comorbidity and he will need rehabilitation and skilled nursing placement. DICTATING PHYSICIAN: RUBÉN CURTIS M.D. [id number] ALFRED#: [id number] ID: [id number] JOB#: [id number] ACCT: [id number] cc: >
[2017-06-26] MEDS: LEVOFLOXACIN 750 MG/D5W RTU 750 MG/150 ML RTUPB IV SCH (17:08)
[2017-06-26] MEDS ORDERED: POLYVINYL ALCOHOL 1.4% OPH SOLN 15 ML ONE (18:36)
[2017-06-26] MEDS: POLYVINYL ALCOHOL 1.4% OPH SOLN 15 ML OU SCH (22:23)
[2017-06-27] MEDS: VANCOMYCIN HCL 1,250 MG in DEXTROSE 5%-WATER 250 ML IV SCH ×2 (06:15→18:56)
[2017-06-27] MEDS: IPRATROPIUM/ALBUTEROL 0.5-2.5 MG/3 ML AMPUL NEB SCH ×3 (08:49→19:56)
[2017-06-27] MEDS: CEFEPIME 2 GM/D5W RTU 2 GM/50 ML RTUPB IV SCH ×2 (09:31→21:51)
[2017-06-27] MEDS: DOCUSATE SODIUM 100 MG CAPSULE PO SCH ×2 (09:32→21:51)
[2017-06-27] MEDS: GUAIFENESIN 600 MG TABLET.SA PO SCH ×2 (09:32→21:51)
[2017-06-27] MEDS: ENOXAPARIN SODIUM INJ 40 MG/0.4 ML DISP.SYRIN SUBCUT SCH (09:32)
[2017-06-27] MEDS: POLYVINYL ALCOHOL 1.4% OPH SOLN 15 ML OU SCH ×2 (09:33→21:51)
--- NOTE | 2017-06-27 10:58 | PROGRESS NOTE E ---
Progress Note NAME: MARISSA DAVID : 1930 AGE: 86Y DATE: 06/27/2017 ROOM: 433 SUBJECTIVE: The patient is an 86-year-old male who has a past medical history of coronary artery disease, previous CVA, left hemiparesis, brain tumor status post resection, seizure disorder, COPD, hyperlipidemia. He was admitted with pneumonia and getting IV antibiotics, cefepime and vancomycin. He has difficulty breathing today, complaining of more shortness of breath. OBJECTIVE: GENERAL: Patient lying in bed, comfortable, not in distress. VITAL SIGNS: Blood pressure is 132/73, saturation of 93% on CPAP, heart rate 93. HEENT: Head normocephalic, atraumatic. Pupils round, reactive to the light and accommodation bilaterally. Extraocular movements intact. Ears: Tympanic membranes intact bilaterally. No discharge from the ears. No discharge from the nose. NECK: Supple. No increased JVD. No thyromegaly. No lymphadenopathy. CARDIOVASCULAR: Normal S1, S2. Regular rate and rhythm. No murmur, no gallops. RESPIRATORY: Lungs clear, bilateral crackles. ABDOMEN: Soft, nontender. MUSCULOSKELETAL: No edema. NEUROLOGICAL EXAM: Awake, alert. SKIN: No rash. LABORATORY: White blood count 7.3, hemoglobin 11.4, hematocrit 33. Sodium 140, potassium 3.6. ASSESSMENT: 1. [id number] HYPOXIC RESPIRATORY FAILURE SECONDARY TO PNEUMONIA. 2. PNEUMONIA 3. ATRIAL FIBRILLATION, rate controlled. 4. CVA. 5. DEBILITY. 6. SEIZURE DISORDER. 7. VOLUME OVERLOAD. PLAN: 1. Will continue IV antibiotics. 2. Will start him on Lasix 40 mg p.o. b.i.d. MEDICAL NECESSITY: IV antibiotics. DICTATING PHYSICIAN: RUBÉN CURTIS M.D. [id number] PHY#: [id number] ID: [id number] JOB#: [id number] ACCT: [id number] cc: > MTDD
[2017-06-27] MEDS: LEVOFLOXACIN 750 MG/D5W RTU 750 MG/150 ML RTUPB IV SCH (17:29)
[2017-06-27] MEDS: FUROSEMIDE 40 MG TABLET PO SCH (17:29)
[2017-06-28] MEDS: VANCOMYCIN HCL 1,250 MG in DEXTROSE 5%-WATER 250 ML IV SCH ×2 (05:29→18:35)
[2017-06-28] MEDS: IPRATROPIUM/ALBUTEROL 0.5-2.5 MG/3 ML AMPUL NEB SCH ×3 (07:45→19:55)
--- NOTE | 2017-06-28 10:53 | PROGRESS NOTE E ---
Progress Note NAME: MARISSA DAVID : 1930 AGE: 86Y DATE: 06/28/2017 ROOM: 433 SUBJECTIVE: The patient is a pleasant 86-year-old male who has a past medical history of coronary artery disease, CVA with left hemiparesis, brain tumor status post resection, seizure disorder, COPD, hyperlipidemia. He was admitted with pneumonia, getting IV antibiotics, cefepime, vancomycin and Levaquin. He had difficulty breathing and he is doing better now. OBJECTIVE: GENERAL: Patient lying in bed, comfortable, not in distress. VITAL SIGNS: Temperature 99.3, heart rate 82, respiratory 18, blood pressure 131/51, saturation is 89% room air. HEENT: Head normocephalic, atraumatic. Pupils round, reactive to the light and accommodation bilaterally. Extraocular movements intact. Ears: Tympanic membranes intact bilaterally. No discharge from the ears. No discharge from the nose. NECK: Supple. No increased JVD. No thyromegaly. No lymphadenopathy. CARDIOVASCULAR: Normal S1, S2. Regular rate and rhythm. RESPIRATORY: Bilateral crackles. ABDOMEN: Soft, nontender, obese. MUSCULOSKELETAL: No edema. LABORATORY: White blood count 7.3, hemoglobin 11.4. Sodium 140, potassium 3.6, creatinine 0.6. ASSESSMENT: 1. [id number] HYPOXIC RESPIRATORY FAILURE SECONDARY TO PNEUMONIA. 2. PNEUMONIA. 3. ATRIAL FIBRILLATION. 4. CEREBROVASCULAR ACCIDENT. 5. DEBILITY. 6. SEIZURE DISORDER. 7. VOLUME OVERLOAD. PLAN: 1. Continue IV antibiotics. He is on Levaquin, cefepime and vancomycin. 2. Continue Lasix 40 mg p.o. twice a day. 3. We will petition care home. MEDICAL NECESSITY: He is on IV antibiotics and waiting for placement. DICTATING PHYSICIAN: RUBÉN CURTIS M.D. [id number] PHY#: [id number] ID: [id number] JOB#: [id number] ACCT: [id number] cc: >
[2017-06-28] MEDS: GUAIFENESIN 600 MG TABLET.SA PO SCH ×2 (11:02→21:55)
[2017-06-28] MEDS: ENOXAPARIN SODIUM INJ 40 MG/0.4 ML DISP.SYRIN SUBCUT SCH (11:03)
[2017-06-28] MEDS: FUROSEMIDE 40 MG TABLET PO SCH ×2 (11:03→17:25)
[2017-06-28] MEDS: POLYVINYL ALCOHOL 1.4% OPH SOLN 15 ML OU SCH ×2 (11:03→21:55)
[2017-06-28] MEDS: DOCUSATE SODIUM 100 MG CAPSULE PO SCH ×2 (11:04→21:55)
[2017-06-28] MEDS: CEFEPIME 2 GM/D5W RTU 2 GM/50 ML RTUPB IV SCH ×2 (11:04→21:55)
[2017-06-28] MEDS: LEVOFLOXACIN 750 MG/D5W RTU 750 MG/150 ML RTUPB IV SCH (17:25)
--- NOTE | 2017-06-28 17:33 | RADIOLOGY REPORT (SQ) ---
EXAM DESCRIPTION: CHEST SINGLE VIEW COMPLETED DATE/TIME: 06/28/2017 5:15 pm REASON FOR STUDY: central line placement COMPARISON: 06/25/2017 EXAM PARAMETERS: NUMBER OF VIEWS: One view. TECHNIQUE: Single frontal radiographic view of the chest acquired. RADIATION DOSE: NA LIMITATIONS: None. FINDINGS: LUNGS AND PLEURA: Re- demonstration of Wilmot a focal patchy airspace opacities involving pr edominantly the left lower lung. No new focal consolidation. No pneumothorax. A small left-sided p leural effusion may be present. MEDIASTINUM AND HILAR STRUCTURES: Stable. HEART AND VASCULAR STRUCTURES: Stable. BONES: No acute findings. HARDWARE: Interval placement of a right sided central vascular access catheter which terminates in th e region of the right atrium. Stable midline surgical changes. OTHER: No other significant finding. IMPRESSION: Interval placement of a right central vascular access catheter which terminates in the r egion of the right atrium. Otherwise stable radiographic appearance of the chest. TECHNICAL DOCUMENTATION: JOB ID: [id number] [employer]- All Rights Reserved
--- NOTE | 2017-06-28 17:43 | OPERATIVE REPORT E ---
Operative Report NAME: MARISSA DAVID : 1930 AGE: 86Y DATE OF SURGERY: 06/28/2017 ROOM: 433 PREOPERATIVE DIAGNOSIS: An 86-year-old gentleman in need of central venous access for monitoring and also for intravenous multiple medication administration due to the poor access and dehydration. PREOPERATIVE DIAGNOSIS: An 86-year-old gentleman in need of central venous access for monitoring and also for intravenous multiple medication administration due to the poor access and dehydration. OPERATION: Insertion of a triple lumen central venous catheter through the right internal jugular vein under ultrasound guidance. SURGEON: GAURI POOL M.D. ANESTHESIA: Local anesthesia 1% lidocaine. ESTIMATED BLOOD LOSS: Less than 10 mL. SPECIMENS: None. INDICATION: The patient is an elderly gentleman who needed to have this access because of the poor access ability and need for multiple medication administration. It was explained to the patient and the patient's family about indications, risks, benefits and complications including, but not limited to, infection, bleeding, pain, and possibility of pneumothorax. It was done at the bedside. DESCRIPTION OF PROCEDURE: The patient was placed in the Trendelenburg position. Anterior chest wall and neck cleaned and draped for a sterile field. Intraoperative ultrasound was performed with a sterile technique. The right internal jugular vein was accessed by using the Seldinger technique through the middle. A guidewire was passed into the superior vena cava without any resistance and then tract was dilated. Now over a guidewire, a triple-lumen catheter inserted over the guidewire into the superior vena cava. Excellent venous flow and then all the venous catheter lumens were flushed with heparin saline. Then the catheter was secured to the skin with stitches and dressings were applied. The patient tolerated the procedure very well. DICTATING PHYSICIAN: GAURI POOL M.D. [id number] PHY#: [id number] ID: [id number] JOB#: [id number] ACCT: [id number] cc:GAURI POOL M.D. > [facility]
[2017-06-28] MEDS: NORMAL SALINE INJ/PF 0.9% 10 ML SDV IV PRN (21:55)
[2017-06-29] MEDS: VANCOMYCIN HCL 1,250 MG in DEXTROSE 5%-WATER 250 ML IV SCH ×2 (05:58→18:22)
[2017-06-29] MEDS: NORMAL SALINE INJ/PF 0.9% 10 ML SDV IV PRN (05:58)
[2017-06-29 06:18] LABS: ABSOLUTE EOSINOPHILS # (AUTO) 0.3 10^3/uL (0.0-0.6); ABSOLUTE LYMPHOCYTES (AUTO) 1.1 10^3/uL (0.5-4.7); ABSOLUTE MONOCYTES (AUTO) 1.2 10^3/uL (0.1-1.4); ABSOLUTE NEUT (AUTO) 5.8 10^3/uL (1.7-8.2); BASOPHILS % (AUTO) 0.5 % (0-2); EOSINOPHILS % (AUTO) 3.7 % (0-6); HEMATOCRIT 30.4 % (37.9-51.0); HEMOGLOBIN 10.9 g/dL (13.5-17.0); HGB HCT DIFFERENCE 2.3; LYMPHOCYTES % (AUTO) 12.9 % (13-45); MEAN CORPUSCULAR HEMOGLOBIN 30.7 pg (27.0-33.4); MEAN CORPUSCULAR HGB CONC 35.7 g/dL (32.0-36.0); MEAN CORPUSCULAR VOLUME 86 fl (80-97); MONOCYTES % (AUTO) 14.5 % (3-13); RED BLOOD COUNT 3.54 10^6/uL (4.35-5.55); RED CELL DISTRIBUTION WIDTH 15.5 % (11.5-14.0); SEGMENTED NEUTROPHILS % (AUTO) 68.4 % (42-78); WHITE BLOOD COUNT 8.5 10^3/uL (4.0-10.5)
[2017-06-29 06:37] LABS: ALBUMIN 2.6 g/dL (3.5-5.0); ANION GAP 8 (5-19); BLOOD UREA NITROGEN 17 mg/dL (7-20); CALCIUM 8.3 mg/dL (8.4-10.2); CARBON DIOXIDE 37 mmol/L (22-30); CHLORIDE 92 mmol/L (98-107); GLUCOSE 126 mg/dL (75-110); PHOSPHORUS 2.9 mg/dL (2.5-4.5); SODIUM 136.6 mmol/L (137-145)
[2017-06-29] MEDS: IPRATROPIUM/ALBUTEROL 0.5-2.5 MG/3 ML AMPUL NEB SCH ×3 (07:46→19:48)
[2017-06-29] MEDS: DOCUSATE SODIUM 100 MG CAPSULE PO SCH ×2 (09:41→21:20)
[2017-06-29] MEDS: CEFEPIME 2 GM/D5W RTU 2 GM/50 ML RTUPB IV SCH ×2 (09:41→21:20)
[2017-06-29] MEDS: FUROSEMIDE 40 MG TABLET PO SCH (09:41)
[2017-06-29] MEDS: POLYVINYL ALCOHOL 1.4% OPH SOLN 15 ML OU SCH ×2 (09:41→21:20)
[2017-06-29] MEDS: ENOXAPARIN SODIUM INJ 40 MG/0.4 ML DISP.SYRIN SUBCUT SCH (09:41)
[2017-06-29] MEDS: GUAIFENESIN 600 MG TABLET.SA PO SCH ×2 (09:41→21:20)
[2017-06-29] MEDS ORDERED: FUROSEMIDE 40 MG TABLET PO SCH (10:44)
[2017-06-29] MEDS ORDERED: POTASSIUM CHLORIDE 10 MEQ TABLET.SA PO ONE (11:15)
--- NOTE | 2017-06-29 13:21 | PDOC PROGRESS REPORT ---
Subjective Progress Note for:: 06/29/17 Subjective:: f/u: pna, afib, prior CVA with residual def's, diastolic HF, hypokalemia admitted for pneumonia, has some underlying memory loss likely related to his stroke and no family around so ROS is suspect though he is in good spirits and reports his breathing better but not back to "where he wants it to be". ROS: suspect given his memory loss Physical Exam Vital Signs: Temp Pulse Resp BP Pulse Ox 98.8 F 108 H 18 111/69 97 06/29/17 07:59 06/29/17 07:59 06/29/17 07:59 06/29/17 07:59 06/29/17 07:59 Intake & Output 06/28/17 06/29/17 06/30/17 06:59 06:59 06:59 Intake Total 1080 1740 Balance 1080 1740 Weight 104.2 kg 104.6 kg General appearance: PRESENT: no acute distress, obese Head exam: PRESENT: atraumatic Eye exam: ABSENT: conjunctival injection, scleral icterus Mouth exam: PRESENT: moist, neck supple Neck exam: PRESENT: full ROM. ABSENT: tenderness, tracheal deviation Respiratory exam: PRESENT: crackles - bases, unlabored. ABSENT: accessory muscle use, wheezes Cardiovascular exam: PRESENT: irregular rhythm. ABSENT: systolic murmur, tachycardia GI/Abdominal exam: PRESENT: normal bowel sounds, soft. ABSENT: tenderness Extremities exam: PRESENT: pedal edema - trace bilat Neurological exam: PRESENT: alert, awake, oriented to person, oriented to place , other - left hemiparesis. ABSENT: oriented to time, oriented to situation Psychiatric exam: PRESENT: appropriate affect, normal mood Skin exam: PRESENT: dry, warm Results Laboratory Results: 06/29/17 05:58 06/29/17 05:58 06/29/17 06/29/17 05:58 05:58 WBC 8.5 RBC 3.54 L Hgb 10.9 L Hct 30.4 L MCV 86 MCH 30.7 MCHC 35.7 RDW 15.5 H Plt Count 199 Seg Neutrophils % 68.4 Lymphocytes % 12.9 L Monocytes % 14.5 H Eosinophils % 3.7 Basophils % 0.5 Absolute Neutrophils 5.8 Absolute Lymphocytes 1.1 Absolute Monocytes 1.2 Absolute Eosinophils 0.3 Absolute Basophils 0.0 Sodium 136.6 L Potassium 3.0 L* Chloride 92 L Carbon Dioxide 37 H Anion Gap 8 BUN 17 Creatinine 0.70 Est GFR ( Amer) > 60 Est GFR (Non-Af Amer) > 60 Glucose 126 H Calcium 8.3 L Phosphorus 2.9 Albumin 2.6 L 06/26/17 02:50 Clean Catch Midstream Urine Culture - Final NO GROWTH 2 DAYS Impressions: Chest X-Ray 06/28/17 00:00 IMPRESSION: Interval placement of a right central vascular access catheter which terminates in the region of the right atrium. Otherwise stable radiographic appearance of the chest. Assessment & Plan - Diagnosis (1) Pneumonia Qualifiers: Pneumonia type: due to unspecified organism Laterality: bilateral Lung location: unspecified part of lung Qualified Code(s): J18.9 - Pneumonia, unspecified organism Is this a current diagnosis for this admission?: Yes Plan: continue a longer than usual course of IV abx due to his overall condition and risks. improving (2) CVA (cerebral infarction) Qualifiers: Cerebral infarction mechanism: unspecified mechanism Is this a current diagnosis for this admission?: Yes Plan: chronic dense left hemiparesis (3) Paroxysmal atrial fibrillation Is this a current diagnosis for this admission?: Yes Plan: rate controlled; on plavix and ASA at home (4) Diastolic CHF Qualifiers: Congestive heart failure chronicity: acute on chronic Qualified Code(s): I50.33 - Acute on chronic diastolic (congestive) heart failure Is this a current diagnosis for this admission?: Yes Plan: improved with diuretic, will continue another day and monitor (5) Hemiparesis, left Is this a current diagnosis for this admission?: Yes Plan: stable - Time Time Spent with patient: 35 or more minutes Medications reviewed and adjusted accordingly: Yes - Plan Summary Plan Summary: may need placement for short course
[2017-06-29] MEDS: FUROSEMIDE 20 MG TABLET PO SCH (17:13)
[2017-06-29] MEDS: LEVOFLOXACIN 750 MG/D5W RTU 750 MG/150 ML RTUPB IV SCH (17:13)
[2017-06-29] MEDS: POTASSIUM CHLORIDE 10 MEQ TABLET.SA PO SCH (21:20)
[2017-06-30] MEDS: VANCOMYCIN HCL 1,250 MG in DEXTROSE 5%-WATER 250 ML IV SCH ×2 (05:33→17:19)
[2017-06-30 06:14] LABS: ANION GAP 8 (5-19); BLOOD UREA NITROGEN 19 mg/dL (7-20); CALCIUM 8.7 mg/dL (8.4-10.2); CARBON DIOXIDE 37 mmol/L (22-30); CHLORIDE 91 mmol/L (98-107); CREATININE RESULT 0.75 mg/dL (0.52-1.25); GLUCOSE 130 mg/dL (75-110); MAGNESIUM 1.5 mg/dL (1.6-2.3); POTASSIUM 3.6 mmol/L (3.6-5.0); SODIUM 135.8 mmol/L (137-145)
[2017-06-30] MEDS: IPRATROPIUM/ALBUTEROL 0.5-2.5 MG/3 ML AMPUL NEB SCH ×3 (08:11→21:01)
[2017-06-30] MEDS: MAGNESIUM SULFATE/D5W 1 GM/100 ML RTUPB IV SCH ×2 (09:18→11:41)
[2017-06-30] MEDS: ENOXAPARIN SODIUM INJ 40 MG/0.4 ML DISP.SYRIN SUBCUT SCH (09:19)
[2017-06-30] MEDS: POTASSIUM CHLORIDE 10 MEQ TABLET.SA PO SCH ×2 (09:19→23:00)
[2017-06-30] MEDS: DOCUSATE SODIUM 100 MG CAPSULE PO SCH ×2 (09:19→23:00)
[2017-06-30] MEDS: FUROSEMIDE 20 MG TABLET PO SCH ×2 (09:19→17:20)
[2017-06-30] MEDS: GUAIFENESIN 600 MG TABLET.SA PO SCH ×2 (09:20→23:01)
[2017-06-30] MEDS: POLYVINYL ALCOHOL 1.4% OPH SOLN 15 ML OU SCH ×2 (09:20→22:59)
[2017-06-30] MEDS: CEFEPIME 2 GM/D5W RTU 2 GM/50 ML RTUPB IV SCH ×2 (09:20→23:09)
--- NOTE | 2017-06-30 12:00 | PDOC PROGRESS REPORT ---
Subjective Subjective:: f/u: pna, afib, prior CVA with residual def's, diastolic HF, hypokalemia admitted for pneumonia, has some underlying memory loss likely related to his stroke and no family around so ROS is suspect though he is in good spirits and reports his breathing better but not back to "where he wants it to be". ROS: suspect given his memory loss Physical Exam Vital Signs: Temp Pulse Resp BP Pulse Ox 97.3 F 98 16 113/65 90 L 06/30/17 07:48 06/30/17 08:10 06/30/17 08:10 06/30/17 07:48 06/30/17 08:10 Intake & Output 06/29/17 06/30/17 07/01/17 06:59 06:59 06:59 Intake Total 1739 1959 Balance 1739 1959 Weight 104.6 kg 104.6 kg General appearance: PRESENT: no acute distress, obese Head exam: PRESENT: atraumatic Eye exam: ABSENT: conjunctival injection, scleral icterus Mouth exam: PRESENT: moist, neck supple Neck exam: PRESENT: full ROM. RIJ central line in place, c/d/i ABSENT: tenderness, tracheal deviation Respiratory exam: PRESENT: crackles - bases, unlabored, faint end exp wheezes bilat ABSENT: accessory muscle use Cardiovascular exam: PRESENT: irregular rhythm. ABSENT: systolic murmur, tachycardia GI/Abdominal exam: PRESENT: normal bowel sounds, soft. ABSENT: tenderness Extremities exam: PRESENT: pedal edema - trace bilat Neurological exam: PRESENT: alert, awake, oriented to person, oriented to place , other - left hemiparesis persists ABSENT: oriented to time, oriented to situation Psychiatric exam: PRESENT: appropriate affect, normal mood Skin exam: PRESENT: dry, warm Results Laboratory Results: 06/29/17 05:58 06/30/17 05:20 06/30/17 05:20 Sodium 135.8 L Potassium 3.6 Chloride 91 L Carbon Dioxide 37 H Anion Gap 8 BUN 19 Creatinine 0.75 Est GFR ( Amer) > 60 Est GFR (Non-Af Amer) > 60 Glucose 130 H Calcium 8.7 Magnesium 1.5 L Assessment & Plan - Diagnosis (1) Pneumonia Qualifiers: Pneumonia type: due to unspecified organism Laterality: bilateral Lung location: unspecified part of lung Qualified Code(s): J18.9 - Pneumonia, unspecified organism Is this a current diagnosis for this admission?: Yes Plan: continue a longer than usual course of IV abx due to his overall condition and risks. improving (2) CVA (cerebral infarction) Qualifiers: Cerebral infarction mechanism: unspecified mechanism Is this a current diagnosis for this admission?: Yes Plan: chronic dense left hemiparesis (3) Paroxysmal atrial fibrillation Is this a current diagnosis for this admission?: Yes Plan: rate controlled; on plavix and ASA at home (4) Diastolic CHF Qualifiers: Congestive heart failure chronicity: acute on chronic Qualified Code(s): I50.33 - Acute on chronic diastolic (congestive) heart failure Is this a current diagnosis for this admission?: Yes Plan: improved with diuretic, will continue another day and monitor (5) Hemiparesis, left Is this a current diagnosis for this admission?: Yes Plan: stable - Time Time Spent with patient: 35 or more minutes Medications reviewed and adjusted accordingly: Yes
[2017-06-30] MEDS ORDERED: ONDANSETRON HCL INJ/PF 4 MG/2 ML SDV IV PRN (15:30)
[2017-06-30] MEDS: LEVOFLOXACIN 750 MG/D5W RTU 750 MG/150 ML RTUPB IV SCH (17:20)
[2017-07-01] MEDS: VANCOMYCIN HCL 1,250 MG in DEXTROSE 5%-WATER 250 ML IV SCH ×2 (05:08→18:38)
[2017-07-01 07:35] LABS: ANION GAP 8 (5-19); BLOOD UREA NITROGEN 23 mg/dL (7-20); CALCIUM 8.8 mg/dL (8.4-10.2); CARBON DIOXIDE 36 mmol/L (22-30); CHLORIDE 91 mmol/L (98-107); CREATININE RESULT 0.78 mg/dL (0.52-1.25); GLUCOSE 152 mg/dL (75-110); MAGNESIUM 1.9 mg/dL (1.6-2.3); POTASSIUM 3.7 mmol/L (3.6-5.0); SODIUM 134.9 mmol/L (137-145)
[2017-07-01] MEDS: IPRATROPIUM/ALBUTEROL 0.5-2.5 MG/3 ML AMPUL NEB SCH ×3 (07:44→20:42)
[2017-07-01] MEDS: FUROSEMIDE 20 MG TABLET PO SCH ×2 (09:48→18:37)
[2017-07-01] MEDS: POTASSIUM CHLORIDE 10 MEQ TABLET.SA PO SCH ×2 (09:48→22:08)
[2017-07-01] MEDS: GUAIFENESIN 600 MG TABLET.SA PO SCH ×2 (09:49→22:08)
[2017-07-01] MEDS: CEFEPIME 2 GM/D5W RTU 2 GM/50 ML RTUPB IV SCH ×2 (09:49→22:08)
[2017-07-01] MEDS: DOCUSATE SODIUM 100 MG CAPSULE PO SCH ×2 (09:49→22:08)
[2017-07-01] MEDS: POLYVINYL ALCOHOL 1.4% OPH SOLN 15 ML OU SCH ×2 (09:50→22:08)
[2017-07-01] MEDS: ENOXAPARIN SODIUM INJ 40 MG/0.4 ML DISP.SYRIN SUBCUT SCH (09:51)
[2017-07-01] MEDS: LEVOFLOXACIN 750 MG TABLET PO SCH (18:38)
--- NOTE | 2017-07-01 19:18 | PDOC PROGRESS REPORT ---
Subjective Progress Note for:: 07/01/17 Subjective:: He feels his bretaing is better, close to normal. No CP, no nausea vomiting and no diarrhea, no fever or chills. He is coughing but not coughing up any sputum. No hemoptysis. Eating and drinking well. Feeling weak but that is improving. Reason For Visit: PNEUMONIA Physical Exam Vital Signs: Temp Pulse Resp BP Pulse Ox 98.3 F 79 18 114/79 98 07/01/17 11:35 07/01/17 14:39 07/01/17 14:39 07/01/17 11:35 07/01/17 14:39 Intake & Output 06/30/17 07/01/17 07/02/17 06:59 06:59 06:59 Intake Total 1960 1400 Balance 1960 1400 Weight 104.6 kg 105.3 kg General appearance: PRESENT: no acute distress, obese Head exam: PRESENT: atraumatic, normocephalic Ear exam: PRESENT: normal external ear exam Mouth exam: PRESENT: dry mucosa Neck exam: ABSENT: lymphadenopathy Respiratory exam: PRESENT: decreased breath sounds. ABSENT: accessory muscle use, rales, tachypnea, unlabored, wheezes Cardiovascular exam: PRESENT: RRR GI/Abdominal exam: PRESENT: normal bowel sounds, soft. ABSENT: distended, guarding, mass, organolmegaly, rebound, tenderness Extremities exam: PRESENT: +1 edema Musculoskeletal exam: ABSENT: deformity Neurological exam: PRESENT: alert, awake, oriented to person, oriented to place , oriented to situation Psychiatric exam: PRESENT: appropriate affect, normal mood Skin exam: PRESENT: other - Chronic venous stasis changes distal legs Results Laboratory Results: 06/29/17 05:58 07/01/17 06:45 07/01/17 06:45 Sodium 134.9 L Potassium 3.7 Chloride 91 L Carbon Dioxide 36 H Anion Gap 8 BUN 23 H Creatinine 0.78 Est GFR ( Amer) > 60 Est GFR (Non-Af Amer) > 60 Glucose 152 H Calcium 8.8 Magnesium 1.9 Impressions: Chest X-Ray 06/28/17 00:00 IMPRESSION: Interval placement of a right central vascular access catheter which terminates in the region of the right atrium. Otherwise stable radiographic appearance of the chest. Assessment & Plan - Diagnosis (1) Pneumonia Qualifiers: Pneumonia type: due to unspecified organism Laterality: bilateral Lung location: unspecified part of lung Qualified Code(s): J18.9 - Pneumonia, unspecified organism Is this a current diagnosis for this admission?: Yes Plan: Cefepime Levaquin and Vanco continue, recent hospitalization qualifying him for healthcare associated pneumonia. Patient is overall improving on this regimen. (2) Atrial fibrillation Qualifiers: Atrial fibrillation type: chronic Qualified Code(s): I48.2 - Chronic atrial fibrillation Plan: Stable, rate controlled (3) CVA (cerebral infarction) Qualifiers: Cerebral infarction mechanism: unspecified mechanism Qualified Code(s): I63.9 - Cerebral infarction, unspecified Is this a current diagnosis for this admission?: Yes (4) Diastolic CHF Qualifiers: Congestive heart failure chronicity: acute on chronic Qualified Code(s): I50.33 - Acute on chronic diastolic (congestive) heart failure Is this a current diagnosis for this admission?: Yes Plan: Stable, improved with diuresis, continue to monitor electrolytes while diuresing (5) Hemiparesis, left Is this a current diagnosis for this admission?: Yes - Time Time Spent with patient: 25-34 minutes
[2017-07-01 20:13] LABS: ANION GAP 7 (5-19); BLOOD UREA NITROGEN 25 mg/dL (7-20); CALCIUM 8.4 mg/dL (8.4-10.2); CARBON DIOXIDE 35 mmol/L (22-30); CHLORIDE 92 mmol/L (98-107); CREATININE RESULT 1.08 mg/dL (0.52-1.25); GLUCOSE 191 mg/dL (75-110); POTASSIUM 3.8 mmol/L (3.6-5.0); SODIUM 133.9 mmol/L (137-145)
[2017-07-01] MEDS: NORMAL SALINE INJ/PF 0.9% 10 ML SDV IV PRN (22:08)
[2017-07-02 05:04] LABS: CREATININE RESULT 0.98 mg/dL (0.52-1.25)
[2017-07-02 06:27] LABS: ANION GAP 8 (5-19); BLOOD UREA NITROGEN 25 mg/dL (7-20); CALCIUM 8.9 mg/dL (8.4-10.2); CARBON DIOXIDE 35 mmol/L (22-30); CHLORIDE 92 mmol/L (98-107); CREATININE RESULT 1.02 mg/dL (0.52-1.25); GLUCOSE 121 mg/dL (75-110); SODIUM 135.4 mmol/L (137-145)
[2017-07-02] MEDS: NORMAL SALINE INJ/PF 0.9% 10 ML SDV IV PRN ×2 (06:48→22:18)
[2017-07-02] MEDS: IPRATROPIUM/ALBUTEROL 0.5-2.5 MG/3 ML AMPUL NEB SCH ×3 (07:47→20:16)
[2017-07-02] MEDS: VANCOMYCIN HCL 1,250 MG in DEXTROSE 5%-WATER 250 ML IV SCH (08:58)
[2017-07-02] MEDS: ENOXAPARIN SODIUM INJ 40 MG/0.4 ML DISP.SYRIN SUBCUT SCH (11:10)
[2017-07-02] MEDS: DOCUSATE SODIUM 100 MG CAPSULE PO SCH ×2 (11:11→22:17)
[2017-07-02] MEDS: GUAIFENESIN 600 MG TABLET.SA PO SCH ×2 (11:11→22:18)
[2017-07-02] MEDS: POTASSIUM CHLORIDE 10 MEQ TABLET.SA PO SCH ×2 (11:11→22:17)
[2017-07-02] MEDS: CEFEPIME 2 GM/D5W RTU 2 GM/50 ML RTUPB IV SCH (11:11)
[2017-07-02] MEDS: FUROSEMIDE 20 MG TABLET PO SCH ×2 (11:12→17:08)
[2017-07-02] MEDS: POLYVINYL ALCOHOL 1.4% OPH SOLN 15 ML OU SCH ×2 (11:12→22:18)
[2017-07-02] MEDS: LEVOFLOXACIN 750 MG TABLET PO SCH (17:07)
--- NOTE | 2017-07-02 19:51 | PDOC PROGRESS REPORT ---
Subjective Progress Note for:: 07/02/17 Subjective:: Patient is feeling better today. He is coughing but does not remember if he is producing sputum. He does not think he has had a fever. He thinks he is eating and drinking well. He has not gotten out of bed today. Is expecting his to visit soon looks forward to that. Patient clearly has memory impairment and some degree of dementia. Do not know how accurate this subjective part of the exam is. Reason For Visit: PNEUMONIA Physical Exam Vital Signs: Temp Pulse Resp BP Pulse Ox 98.7 F 81 20 109/84 97 07/02/17 16:00 07/02/17 16:00 07/02/17 16:00 07/02/17 16:00 07/02/17 16:00 Intake & Output 07/01/17 07/02/17 07/03/17 06:59 06:59 06:59 Intake Total 1400 910 290 Balance 1400 910 290 Weight 105.3 kg 106.5 kg General appearance: PRESENT: no acute distress, cooperative, disheveled, obese Eye exam: PRESENT: conjunctiva pink. ABSENT: scleral icterus Ear exam: PRESENT: normal external ear exam Mouth exam: PRESENT: neck supple Respiratory exam: PRESENT: clear to auscultation charu. ABSENT: rales, rhonchi, wheezes Cardiovascular exam: PRESENT: RRR, systolic murmur Pulses: PRESENT: normal radial pulses GI/Abdominal exam: PRESENT: normal bowel sounds, soft. ABSENT: distended, guarding, mass, organolmegaly, rebound, tenderness Rectal exam: PRESENT: deferred Psychiatric exam: PRESENT: appropriate affect Skin exam: PRESENT: dry, warm. ABSENT: rash, skin tears Results Laboratory Results: 06/29/17 05:58 07/02/17 04:36 07/01/17 07/02/17 07/02/17 19:40 04:36 04:36 Sodium 133.9 L 135.4 L Potassium 3.8 4.0 Chloride 92 L 92 L Carbon Dioxide 35 H 35 H Anion Gap 7 8 BUN 25 H 25 H Creatinine 1.08 0.98 1.02 Est GFR ( Amer) > 60 > 60 > 60 Est GFR (Non-Af Amer) > 60 > 60 > 60 Glucose 191 H 121 H Calcium 8.4 8.9 Impressions: Chest X-Ray 06/28/17 00:00 IMPRESSION: Interval placement of a right central vascular access catheter which terminates in the region of the right atrium. Otherwise stable radiographic appearance of the chest. Assessment & Plan - Diagnosis (1) Pneumonia Qualifiers: Pneumonia type: due to unspecified organism Laterality: bilateral Lung location: unspecified part of lung Qualified Code(s): J18.9 - Pneumonia, unspecified organism Is this a current diagnosis for this admission?: Yes Plan: Patient has been on Vanco cefepime and Levaquin since admission on 112. There is no evidence of staph infection at this time and today Vanco trough was high in the 30s so I will go ahead and discontinue the vancomycin. Continue remainder of the antibiotics for a total of 10 days repeat chest x-ray tomorrow. Patient is improving. (2) Atrial fibrillation Qualifiers: Atrial fibrillation type: chronic Qualified Code(s): I48.2 - Chronic atrial fibrillation Plan: Stable, no changes (3) CVA (cerebral infarction) Qualifiers: Cerebral infarction mechanism: unspecified mechanism Qualified Code(s): I63.9 - Cerebral infarction, unspecified Is this a current diagnosis for this admission?: Yes (4) Diastolic CHF Qualifiers: Congestive heart failure chronicity: acute on chronic Qualified Code(s): I50.33 - Acute on chronic diastolic (congestive) heart failure Is this a current diagnosis for this admission?: Yes Plan: Stable, no changes (5) Hemiparesis, left Is this a current diagnosis for this admission?: Yes - Time Time Spent with patient: 15-24 minutes
[2017-07-03] MEDS: NORMAL SALINE INJ/PF 0.9% 10 ML SDV IV PRN ×2 (05:50→22:52)
[2017-07-03] MEDS ORDERED: VANCOMYCIN HCL 1,500 MG in DEXTROSE 5%-WATER 250 ML IV SCH (06:00)
--- NOTE | 2017-07-03 08:18 | RADIOLOGY REPORT (SQ) ---
EXAM DESCRIPTION: CHEST PA/LAT COMPLETED DATE/TIME: 07/03/2017 7:56 am REASON FOR STUDY: pneumonia COMPARISON: 06/28/2017 EXAM PARAMETERS: NUMBER OF VIEWS: two views TECHNIQUE: Digital Frontal and Lateral radiographic views of the chest acquired. RADIATION DOSE: NA LIMITATIONS: none FINDINGS: LUNGS AND PLEURA: There is some minimal increased density in the left perihilar region whi ch I cannot exclude as a minimal infiltrate. Remaining lung manzano are clear. No pleural effusions are identified. MEDIASTINUM AND HILAR STRUCTURES: No masses or contour abnormalities. HEART AND VASCULAR STRUCTURES: Cardiac silhouette remains enlarged and is unchanged in configuration. BONES: No acute findings. HARDWARE: Patient is status post median sternotomy. Central line is seen with its tip at the approxi mate junction of SVC and right atrium. OTHER: Intramedullary calcifications are identified in the proximal left humerus. IMPRESSION: Minimal increased density in the left perihilar region which I cannot exclude as a minim al infiltrate. Other findings as noted above TECHNICAL DOCUMENTATION: JOB ID: [id number] [employer]- All Rights Reserved
[2017-07-03] MEDS: IPRATROPIUM/ALBUTEROL 0.5-2.5 MG/3 ML AMPUL NEB SCH ×3 (09:06→20:22)
[2017-07-03] MEDS: ENOXAPARIN SODIUM INJ 40 MG/0.4 ML DISP.SYRIN SUBCUT SCH (09:35)
[2017-07-03] MEDS: POTASSIUM CHLORIDE 10 MEQ TABLET.SA PO SCH ×2 (09:38→22:51)
[2017-07-03] MEDS: GUAIFENESIN 600 MG TABLET.SA PO SCH ×2 (09:38→22:51)
[2017-07-03] MEDS: FUROSEMIDE 20 MG TABLET PO SCH ×2 (09:39→20:15)
[2017-07-03] MEDS: DOCUSATE SODIUM 100 MG CAPSULE PO SCH ×2 (09:39→22:51)
[2017-07-03] MEDS: POLYVINYL ALCOHOL 1.4% OPH SOLN 15 ML OU SCH ×2 (09:40→22:52)
--- NOTE | 2017-07-03 17:22 | PDOC PROGRESS REPORT ---
Subjective Progress Note for:: 07/03/17 Subjective:: Patient is demented. He tells me that he feels fine today. Pro positive review of systems. No pain no difficulty breathing no bowel or bladder problems today. Not know how reliable this is. is not present at bedside. Per nursing staff he is doing okay today. Reason For Visit: PNEUMONIA Physical Exam Vital Signs: Temp Pulse Resp BP Pulse Ox 98.8 F 63 18 113/69 97 07/03/17 16:00 07/03/17 16:00 07/03/17 16:00 07/03/17 16:00 07/03/17 16:00 Intake & Output 07/02/17 07/03/17 07/04/17 06:59 06:59 06:59 Intake Total 910 660 Balance 910 660 Weight 106.5 kg 105.3 kg General appearance: PRESENT: no acute distress, cooperative, disheveled Eye exam: PRESENT: conjunctiva pink. ABSENT: scleral icterus Ear exam: PRESENT: normal external ear exam Respiratory exam: PRESENT: clear to auscultation charu, unlabored. ABSENT: wheezes Cardiovascular exam: PRESENT: RRR. ABSENT: systolic murmur Pulses: PRESENT: normal radial pulses GI/Abdominal exam: PRESENT: normal bowel sounds, soft. ABSENT: distended, guarding, mass, organolmegaly, rebound, tenderness Musculoskeletal exam: PRESENT: normal inspection Neurological exam: PRESENT: alert, awake, oriented to person Psychiatric exam: ABSENT: agitated, anxious Skin exam: PRESENT: dry, intact, warm Results Laboratory Results: 06/29/17 05:58 07/02/17 04:36 Impressions: Chest X-Ray 07/03/17 08:00 IMPRESSION: Minimal increased density in the left perihilar region which I cannot exclude as a minimal infiltrate. Other findings as noted above Assessment & Plan - Diagnosis (1) Pneumonia Qualifiers: Pneumonia type: due to unspecified organism Laterality: bilateral Lung location: unspecified part of lung Qualified Code(s): J18.9 - Pneumonia, unspecified organism Is this a current diagnosis for this admission?: Yes Plan: Patient was recently hospitalized and therefore on admission was placed on treatment for healthcare associated pneumonia. He continues on Levaquin and cefepime. Have stopped vancomycin as his trough was in the 30s yesterday and there is no sign of staph. Pharmacy is following troughs. (2) Atrial fibrillation Qualifiers: Atrial fibrillation type: chronic Qualified Code(s): I48.2 - Chronic atrial fibrillation Plan: Stable no changes today (3) CVA (cerebral infarction) Qualifiers: Cerebral infarction mechanism: unspecified mechanism Qualified Code(s): I63.9 - Cerebral infarction, unspecified Is this a current diagnosis for this admission?: Yes Plan: Stable, patient is reliant upon others for all ADLs (4) Diastolic CHF Qualifiers: Congestive heart failure chronicity: acute on chronic Qualified Code(s): I50.33 - Acute on chronic diastolic (congestive) heart failure Is this a current diagnosis for this admission?: Yes Plan: Stable, no changes today (5) Hemiparesis, left Is this a current diagnosis for this admission?: Yes - Time Time Spent with patient: 25-34 minutes - Chest x-ray today showed minimal change in the left lung which could be new infiltrate. We will continue to watch patient slowly on the current antibiotic regimen. If he improves hopefully we can transition him to orals soon and discharge him. If he worsens we will have to reassess antibiotic regimen.
[2017-07-04] MEDS: NORMAL SALINE INJ/PF 0.9% 10 ML SDV IV PRN (06:13)
[2017-07-04 06:52] LABS: ANION GAP 6 (5-19); BLOOD UREA NITROGEN 29 mg/dL (7-20); CALCIUM 9.2 mg/dL (8.4-10.2); CARBON DIOXIDE 37 mmol/L (22-30); CHLORIDE 95 mmol/L (98-107); CREATININE RESULT 0.86 mg/dL (0.52-1.25); GLUCOSE 113 mg/dL (75-110); SODIUM 137.7 mmol/L (137-145)
[2017-07-04] MEDS: IPRATROPIUM/ALBUTEROL 0.5-2.5 MG/3 ML AMPUL NEB SCH ×3 (07:31→20:15)
[2017-07-04] MEDS: ENOXAPARIN SODIUM INJ 40 MG/0.4 ML DISP.SYRIN SUBCUT SCH (11:26)
[2017-07-04] MEDS: FUROSEMIDE 20 MG TABLET PO SCH ×2 (11:26→17:26)
[2017-07-04] MEDS: GUAIFENESIN 600 MG TABLET.SA PO SCH ×2 (11:27→23:36)
[2017-07-04] MEDS: POTASSIUM CHLORIDE 10 MEQ TABLET.SA PO SCH ×2 (11:27→23:37)
[2017-07-04] MEDS: DOCUSATE SODIUM 100 MG CAPSULE PO SCH ×2 (11:29→23:36)
[2017-07-04] MEDS: POLYVINYL ALCOHOL 1.4% OPH SOLN 15 ML OU SCH ×2 (11:31→23:36)
--- NOTE | 2017-07-04 17:55 | PDOC PROGRESS REPORT ---
Subjective Progress Note for:: 07/04/17 Subjective:: No complaints ROS All organ systems evaluated and negative All laboratories and significant diagnostics have been reviewed Reason For Visit: PNEUMONIA Physical Exam Vital Signs: Temp Pulse Resp BP Pulse Ox 98.7 F 75 16 154/52 H 92 07/04/17 00:04 07/04/17 07:31 07/04/17 07:31 07/04/17 00:04 07/04/17 07:31 Intake & Output 07/03/17 07/04/17 07/05/17 06:59 06:59 06:59 Intake Total 660 360 Balance 660 360 Weight 105.3 kg 106.2 kg General appearance: PRESENT: no acute distress, cooperative, obese Head exam: PRESENT: atraumatic, normocephalic Eye exam: PRESENT: EOMI, PERRLA Ear exam: PRESENT: normal external ear exam Mouth exam: PRESENT: moist, neck supple Neck exam: PRESENT: full ROM. ABSENT: JVD, tenderness Respiratory exam: PRESENT: clear to auscultation charu. ABSENT: crackles, rhonchi Cardiovascular exam: PRESENT: irregular rhythm. ABSENT: diastolic murmur, RRR, systolic murmur GI/Abdominal exam: PRESENT: normal bowel sounds, soft. ABSENT: tenderness Neurological exam: PRESENT: alert, oriented to person, oriented to place Psychiatric exam: PRESENT: appropriate affect Results Laboratory Results: 06/29/17 05:58 07/04/17 06:10 07/04/17 06:10 Sodium 137.7 Potassium 4.0 Chloride 95 L Carbon Dioxide 37 H Anion Gap 6 BUN 29 H Creatinine 0.86 Est GFR ( Amer) > 60 Est GFR (Non-Af Amer) > 60 Glucose 113 H Calcium 9.2 Impressions: Chest X-Ray 07/03/17 08:00 IMPRESSION: Minimal increased density in the left perihilar region which I cannot exclude as a minimal infiltrate. Other findings as noted above Assessment & Plan - Diagnosis (1) Debility Is this a current diagnosis for this admission?: Yes Plan: Patient may benefit from physical therapy (2) Pneumonia Qualifiers: Pneumonia type: due to unspecified organism Laterality: bilateral Lung location: unspecified part of lung Qualified Code(s): J18.9 - Pneumonia, unspecified organism Is this a current diagnosis for this admission?: Yes Plan: Continue present management (3) Atrial fibrillation Qualifiers: Atrial fibrillation type: chronic Qualified Code(s): I48.2 - Chronic atrial fibrillation Plan: Stable - Time Time Spent with patient: 15-24 minutes Medications reviewed and adjusted accordingly: Yes Anticipated discharge: Home Within: within 24 hours - Inpatient Certification Based on my medical assessment, after consideration of the patient's comorbidities, presenting symptoms, or acuity I expect that the services needed warrant INPATIENT care.: Yes I certify that my determination is in accordance with my understanding of Medicare's requirements for reasonable and necessary INPATIENT services [42 CFR 412.3e].: Yes Medical Necessity: Need for Neurological Checks, Need for IV Antibiotics
[2017-07-05 06:48] LABS: ANION GAP 7 (5-19); BLOOD UREA NITROGEN 30 mg/dL (7-20); CALCIUM 9.4 mg/dL (8.4-10.2); CARBON DIOXIDE 37 mmol/L (22-30); CHLORIDE 94 mmol/L (98-107); CREATININE RESULT 0.93 mg/dL (0.52-1.25); GLUCOSE 105 mg/dL (75-110); MAGNESIUM 1.9 mg/dL (1.6-2.3); POTASSIUM 4.1 mmol/L (3.6-5.0); SODIUM 137.9 mmol/L (137-145)
[2017-07-05] MEDS: IPRATROPIUM/ALBUTEROL 0.5-2.5 MG/3 ML AMPUL NEB SCH ×3 (07:56→20:16)
[2017-07-05] MEDS: DOCUSATE SODIUM 100 MG CAPSULE PO SCH ×2 (10:25→22:16)
[2017-07-05] MEDS: FUROSEMIDE 20 MG TABLET PO SCH ×2 (10:25→17:52)
[2017-07-05] MEDS: POLYVINYL ALCOHOL 1.4% OPH SOLN 15 ML OU SCH ×2 (10:25→22:16)
[2017-07-05] MEDS: GUAIFENESIN 600 MG TABLET.SA PO SCH ×2 (10:25→22:17)
[2017-07-05] MEDS: POTASSIUM CHLORIDE 10 MEQ TABLET.SA PO SCH ×2 (10:26→22:17)
[2017-07-05] MEDS: ENOXAPARIN SODIUM INJ 40 MG/0.4 ML DISP.SYRIN SUBCUT SCH (10:26)
[2017-07-05] MEDS: PREDNISONE 20 MG TABLET PO SCH (11:55)
[2017-07-05] MEDS: LEVETIRACETAM ORAL SOLN 500 MG/5 ML UDCUP PO SCH (22:17)
[2017-07-05] MEDS: FLUTICASONE/SALMETEROL DISKUS 250-50 MCG/DOSE IH SCH (22:17)
--- NOTE | 2017-07-06 03:41 | PDOC PROGRESS REPORT ---
Subjective Progress Note for:: 07/05/17 Subjective:: No complaints. Daughter to bedsdie and updated about his medical condition ROS All organ systems evaluated and negative All laboratories and significant diagnostics have been reviewed Reason For Visit: PNEUMONIA Physical Exam Vital Signs: Temp Pulse Resp BP Pulse Ox 98.4 F 76 16 138/70 H 95 07/04/17 19:29 07/04/17 20:15 07/04/17 20:15 07/04/17 19:29 07/05/17 04:24 Intake & Output 07/03/17 07/04/17 07/05/17 06:59 06:59 06:59 Intake Total 660 360 240 Balance 660 360 240 Weight 105.3 kg 106.2 kg General appearance: PRESENT: no acute distress, cooperative, morbidly obese Head exam: PRESENT: atraumatic, normocephalic Eye exam: PRESENT: EOMI, PERRLA Mouth exam: PRESENT: moist, neck supple Neck exam: PRESENT: full ROM. ABSENT: JVD Respiratory exam: PRESENT: clear to auscultation charu Cardiovascular exam: PRESENT: irregular rhythm. ABSENT: diastolic murmur, systolic murmur Vascular exam: PRESENT: normal capillary refill GI/Abdominal exam: PRESENT: normal bowel sounds, soft. ABSENT: tenderness Extremities exam: PRESENT: pedal edema Neurological exam: PRESENT: alert, oriented to person, oriented to place, oriented to time Psychiatric exam: PRESENT: appropriate affect, normal mood Results Laboratory Results: 06/29/17 05:58 07/04/17 06:10 07/04/17 06:10 Sodium 137.7 Potassium 4.0 Chloride 95 L Carbon Dioxide 37 H Anion Gap 6 BUN 29 H Creatinine 0.86 Est GFR ( Amer) > 60 Est GFR (Non-Af Amer) > 60 Glucose 113 H Calcium 9.2 Impressions: Chest X-Ray 07/03/17 08:00 IMPRESSION: Minimal increased density in the left perihilar region which I cannot exclude as a minimal infiltrate. Other findings as noted above Assessment & Plan - Diagnosis (1) Debility Is this a current diagnosis for this admission?: Yes Plan: Patient mostly wheelchair bound. Daughter relates has painful bad back (2) Pneumonia Qualifiers: Pneumonia type: due to unspecified organism Laterality: bilateral Lung location: unspecified part of lung Qualified Code(s): J18.9 - Pneumonia, unspecified organism Is this a current diagnosis for this admission?: Yes Plan: Treated and resolved (3) Atrial fibrillation Qualifiers: Atrial fibrillation type: chronic Qualified Code(s): I48.2 - Chronic atrial fibrillation Is this a current diagnosis for this admission?: Yes Plan: Stable (4) CHF (congestive heart failure) Qualifiers: Congestive heart failure type: unspecified congestive heart failure type Congestive heart failure chronicity: acute Qualified Code(s): I50.9 - Heart failure, unspecified Is this a current diagnosis for this admission?: Yes Plan: Order echocardiogram to determine systolic vs diastolic. Continue present treatment - Time Time Spent with patient: 15-24 minutes Medications reviewed and adjusted accordingly: Yes Anticipated discharge: Home Within: within 48 hours - Inpatient Certification Based on my medical assessment, after consideration of the patient's comorbidities, presenting symptoms, or acuity I expect that the services needed warrant INPATIENT care.: Yes I certify that my determination is in accordance with my understanding of Medicare's requirements for reasonable and necessary INPATIENT services [42 CFR 412.3e].: Yes Medical Necessity: Need Close Monitoring Due to Risk of Patient Decompensation, Need For Continuous Telemetry Monitoring
[2017-07-06] MEDS: IPRATROPIUM/ALBUTEROL 0.5-2.5 MG/3 ML AMPUL NEB SCH ×3 (08:00→20:24)
[2017-07-06] MEDS: FLUTICASONE/SALMETEROL DISKUS 250-50 MCG/DOSE IH SCH ×2 (09:25→22:40)
[2017-07-06] MEDS: FUROSEMIDE 20 MG TABLET PO SCH ×2 (09:25→17:13)
[2017-07-06] MEDS: POTASSIUM CHLORIDE 10 MEQ TABLET.SA PO SCH ×2 (09:26→22:40)
[2017-07-06] MEDS: LEVETIRACETAM ORAL SOLN 500 MG/5 ML UDCUP PO SCH ×2 (09:26→22:40)
[2017-07-06] MEDS: POLYVINYL ALCOHOL 1.4% OPH SOLN 15 ML OU SCH ×2 (09:26→22:40)
[2017-07-06] MEDS: GUAIFENESIN 600 MG TABLET.SA PO SCH ×2 (09:26→22:40)
[2017-07-06] MEDS: DOCUSATE SODIUM 100 MG CAPSULE PO SCH ×2 (09:26→22:40)
[2017-07-06] MEDS: ENOXAPARIN SODIUM INJ 40 MG/0.4 ML DISP.SYRIN SUBCUT SCH (09:27)
[2017-07-06] MEDS: PREDNISONE 20 MG TABLET PO SCH (11:30)
--- NOTE | 2017-07-06 16:40 | PDOC PROGRESS REPORT ---
Subjective Progress Note for:: 07/06/17 Subjective:: No complaints. ROS All organ systems evaluated and negative All laboratories and significant diagnostics have been reviewed Reason For Visit: PNEUMONIA Physical Exam Vital Signs: Temp Pulse Resp BP Pulse Ox 98.9 F 90 18 135/67 H 95 07/06/17 00:16 07/06/17 00:16 07/06/17 00:16 07/06/17 00:16 07/06/17 00:16 Intake & Output 07/05/17 07/06/17 07/07/17 06:59 06:59 06:59 Intake Total 531 540 Balance 531 540 Weight 99.3 kg General appearance: PRESENT: no acute distress, cooperative, morbidly obese Head exam: PRESENT: atraumatic, normocephalic Eye exam: PRESENT: EOMI, PERRLA Ear exam: PRESENT: normal external ear exam Mouth exam: PRESENT: moist, neck supple Neck exam: PRESENT: full ROM. ABSENT: JVD, meningismus, tenderness Respiratory exam: PRESENT: clear to auscultation charu. ABSENT: crackles, rhonchi Cardiovascular exam: PRESENT: irregular rhythm. ABSENT: diastolic murmur, systolic murmur Vascular exam: PRESENT: normal capillary refill GI/Abdominal exam: PRESENT: normal bowel sounds, soft. ABSENT: distended, tenderness Neurological exam: PRESENT: alert, awake, oriented to person, oriented to place Psychiatric exam: PRESENT: appropriate affect, normal mood Results Laboratory Results: 06/29/17 05:58 07/05/17 06:00 07/05/17 06:00 NT-Pro-B Natriuret Pep 419 Impressions: Chest X-Ray 07/03/17 08:00 IMPRESSION: Minimal increased density in the left perihilar region which I cannot exclude as a minimal infiltrate. Other findings as noted above Assessment & Plan - Diagnosis (1) Debility Is this a current diagnosis for this admission?: Yes Plan: Patient mostly wheelchair bound due painful bad back (2) Pneumonia Qualifiers: Pneumonia type: due to unspecified organism Laterality: bilateral Lung location: unspecified part of lung Qualified Code(s): J18.9 - Pneumonia, unspecified organism Is this a current diagnosis for this admission?: Yes Plan: Treated and resolved (3) Atrial fibrillation Qualifiers: Atrial fibrillation type: chronic Qualified Code(s): I48.2 - Chronic atrial fibrillation Is this a current diagnosis for this admission?: Yes Plan: Stable (4) CHF (congestive heart failure) Qualifiers: Congestive heart failure type: unspecified congestive heart failure type Congestive heart failure chronicity: acute Qualified Code(s): I50.9 - Heart failure, unspecified Is this a current diagnosis for this admission?: Yes Plan: Echocardiogram ordered to determine systolic vs diastolic. Continue present treatment - Time Time Spent with patient: Less than 15 minutes Medications reviewed and adjusted accordingly: Yes Anticipated discharge: Home Within: within 48 hours - Inpatient Certification Based on my medical assessment, after consideration of the patient's comorbidities, presenting symptoms, or acuity I expect that the services needed warrant INPATIENT care.: Yes I certify that my determination is in accordance with my understanding of Medicare's requirements for reasonable and necessary INPATIENT services [42 CFR 412.3e].: Yes Medical Necessity: Significant Comorbidiites Make Outpatient Treatment Too Risky
[2017-07-07] MEDS: IPRATROPIUM/ALBUTEROL 0.5-2.5 MG/3 ML AMPUL NEB SCH ×3 (07:42→21:00)
[2017-07-07] MEDS: POTASSIUM CHLORIDE 10 MEQ TABLET.SA PO SCH ×2 (10:02→22:19)
[2017-07-07] MEDS: DOCUSATE SODIUM 100 MG CAPSULE PO SCH ×2 (10:04→22:19)
[2017-07-07] MEDS: FUROSEMIDE 20 MG TABLET PO SCH ×2 (10:04→18:36)
[2017-07-07] MEDS: GUAIFENESIN 600 MG TABLET.SA PO SCH ×2 (10:04→22:19)
[2017-07-07] MEDS: ENOXAPARIN SODIUM INJ 40 MG/0.4 ML DISP.SYRIN SUBCUT SCH (10:04)
[2017-07-07] MEDS: LEVETIRACETAM ORAL SOLN 500 MG/5 ML UDCUP PO SCH ×2 (10:04→22:19)
[2017-07-07] MEDS: POLYVINYL ALCOHOL 1.4% OPH SOLN 15 ML OU SCH ×2 (10:05→22:19)
[2017-07-07] MEDS: FLUTICASONE/SALMETEROL DISKUS 250-50 MCG/DOSE IH SCH ×2 (10:05→22:19)
[2017-07-07] MEDS ORDERED: LISINOPRIL 10 MG TABLET PO ONE (11:30)
[2017-07-07] MEDS ORDERED: METOPROLOL SUCCINATE 25 MG TAB.SR.24H PO ONE (11:30)
[2017-07-07] MEDS: NORMAL SALINE INJ/PF 0.9% 10 ML SDV IV PRN ×2 (16:35→22:19)
--- NOTE | 2017-07-07 19:01 | PDOC PROGRESS REPORT ---
Subjective Progress Note for:: 07/07/17 Subjective:: No complaints. ROS All organ systems evaluated and negative All laboratories and significant diagnostics have been reviewed Reason For Visit: PNEUMONIA Physical Exam Vital Signs: Temp Pulse Resp BP Pulse Ox 98.7 F 86 17 112/68 94 07/06/17 23:56 07/06/17 23:56 07/06/17 23:56 07/06/17 23:56 07/06/17 23:56 Intake & Output 07/05/17 07/06/17 07/07/17 06:59 06:59 06:59 Intake Total 335 393 4242 Balance 994 786 4580 Weight 99.3 kg General appearance: PRESENT: no acute distress, cooperative, morbidly obese Head exam: PRESENT: atraumatic, normocephalic Eye exam: PRESENT: EOMI, PERRLA Ear exam: PRESENT: normal external ear exam Mouth exam: PRESENT: moist, neck supple Neck exam: PRESENT: full ROM. ABSENT: JVD, meningismus, tenderness Respiratory exam: PRESENT: clear to auscultation charu. ABSENT: crackles, rhonchi Cardiovascular exam: PRESENT: irregular rhythm. ABSENT: diastolic murmur, systolic murmur Vascular exam: PRESENT: normal capillary refill GI/Abdominal exam: PRESENT: normal bowel sounds, soft. ABSENT: tenderness Extremities exam: PRESENT: pedal edema. ABSENT: joint swelling Neurological exam: PRESENT: alert, oriented to person, oriented to place, oriented to time Psychiatric exam: PRESENT: appropriate affect, normal mood Skin exam: PRESENT: normal color Results Laboratory Results: 06/29/17 05:58 07/05/17 06:00 07/05/17 06:00 NT-Pro-B Natriuret Pep 419 Impressions: Chest X-Ray 07/03/17 08:00 IMPRESSION: Minimal increased density in the left perihilar region which I cannot exclude as a minimal infiltrate. Other findings as noted above Assessment & Plan - Diagnosis (1) Debility Is this a current diagnosis for this admission?: Yes Plan: Patient mostly wheelchair bound due painful bad back (2) Pneumonia Qualifiers: Pneumonia type: due to unspecified organism Laterality: bilateral Lung location: unspecified part of lung Qualified Code(s): J18.9 - Pneumonia, unspecified organism Is this a current diagnosis for this admission?: Yes Plan: Treated and resolved (3) Atrial fibrillation Qualifiers: Atrial fibrillation type: chronic Qualified Code(s): I48.2 - Chronic atrial fibrillation Is this a current diagnosis for this admission?: Yes Plan: Stable (4) CHF (congestive heart failure) Qualifiers: Congestive heart failure type: unspecified congestive heart failure type Congestive heart failure chronicity: acute Qualified Code(s): I50.9 - Heart failure, unspecified Is this a current diagnosis for this admission?: Yes Plan: Echocardiogram ordered to determine systolic vs diastolic. Add low dose lisinopril and beta-birgit - Time Time Spent with patient: Less than 15 minutes Medications reviewed and adjusted accordingly: Yes Anticipated discharge: Home Within: within 24 hours - Inpatient Certification Based on my medical assessment, after consideration of the patient's comorbidities, presenting symptoms, or acuity I expect that the services needed warrant INPATIENT care.: Yes I certify that my determination is in accordance with my understanding of Medicare's requirements for reasonable and necessary INPATIENT services [42 CFR 412.3e].: Yes Medical Necessity: Need Close Monitoring Due to Risk of Patient Decompensation
[2017-07-08] MEDS: NORMAL SALINE INJ/PF 0.9% 10 ML SDV IV PRN ×2 (05:18→22:50)
[2017-07-08 06:02] LABS: ALANINE AMINOTRANSFERASE 47 U/L (21-72); ALKALINE PHOSPHATASE 94 U/L (38-126); ANION GAP 10 (5-19); ASPARTATE AMINO TRANSFERASE 36 U/L (17-59); BILIRUBIN,DIRECT 0.3 mg/dL (0.0-0.4); BILIRUBIN,TOTAL 0.4 mg/dL (0.2-1.3); BLOOD UREA NITROGEN 57 mg/dL (7-20); CALCIUM 9.4 mg/dL (8.4-10.2); CARBON DIOXIDE 34 mmol/L (22-30); CHLORIDE 99 mmol/L (98-107); CREATININE RESULT 1.33 mg/dL (0.52-1.25); GLUCOSE 115 mg/dL (75-110); POTASSIUM 4.3 mmol/L (3.6-5.0); SODIUM 142.9 mmol/L (137-145); TOTAL PROTEIN 4.9 g/dL (6.3-8.2)
[2017-07-08 06:12] LABS: HEMATOCRIT 30.9 % (37.9-51.0); HEMOGLOBIN 10.3 g/dL (13.5-17.0); MEAN CORPUSCULAR HEMOGLOBIN 29.9 pg (27.0-33.4); MEAN CORPUSCULAR HGB CONC 33.5 g/dL (32.0-36.0); MEAN CORPUSCULAR VOLUME 89 fl (80-97); RED BLOOD COUNT 3.46 10^6/uL (4.35-5.55); WHITE BLOOD COUNT 13.9 10^3/uL (4.0-10.5)
[2017-07-08 06:57] LABS: BAND NEUTROPHILS % (MANUAL) 2 % (3-5); BASOPHILS % (MANUAL) 0 % (0-2); EOSINOPHILS % (MANUAL) 0 % (0-6); LYMPHOCYTES % (MANUAL) 10 % (13-45); TOTAL CELLS COUNTED 100
[2017-07-08 06:59] LABS: ANISOCYTOSIS 1+; HYPOCHROMASIA SLIGHT; OVALOCYTES SLIGHT; POIKILOCYTOSIS 1+; POLYCHROMASIA SLIGHT; TEAR DROP CELLS SLIGHT; TOXIC GRANULATION SLIGHT
[2017-07-08] MEDS: IPRATROPIUM/ALBUTEROL 0.5-2.5 MG/3 ML AMPUL NEB SCH ×3 (07:56→20:11)
[2017-07-08] MEDS ORDERED: LISINOPRIL 10 MG TABLET PO SCH (10:00)
--- NOTE | 2017-07-08 10:48 | PDOC PROGRESS REPORT ---
Subjective Progress Note for:: 07/08/17 Subjective:: Complaints of cough and chest congestion ROS All organ systems evaluated and negative All laboratories and significant diagnostics have been reviewed Reason For Visit: PNEUMONIA Physical Exam Vital Signs: Temp Pulse Resp BP Pulse Ox 98.1 F 67 18 107/50 L 94 07/08/17 08:00 07/08/17 08:00 07/08/17 08:00 07/08/17 08:00 07/08/17 08:00 Intake & Output 07/07/17 07/08/17 07/09/17 06:59 06:59 06:59 Intake Total 1664 480 Output Total 1 Balance 1664 479 Weight 100.1 kg 101.7 kg General appearance: PRESENT: no acute distress, morbidly obese Head exam: PRESENT: atraumatic, normocephalic Eye exam: PRESENT: EOMI, PERRLA Ear exam: PRESENT: normal external ear exam, TM's normal bilaterally Mouth exam: PRESENT: moist Neck exam: PRESENT: full ROM. ABSENT: JVD, tenderness, thyromegaly Respiratory exam: PRESENT: decreased breath sounds, rhonchi Cardiovascular exam: PRESENT: irregular rhythm. ABSENT: diastolic murmur, systolic murmur Vascular exam: PRESENT: normal capillary refill GI/Abdominal exam: PRESENT: normal bowel sounds, soft. ABSENT: tenderness Extremities exam: PRESENT: pedal edema. ABSENT: joint swelling Neurological exam: PRESENT: alert, awake, oriented to person, oriented to place Psychiatric exam: PRESENT: appropriate affect, normal mood Results Laboratory Results: 07/08/17 05:13 07/08/17 05:13 07/08/17 07/08/17 05:13 05:13 WBC 13.9 H RBC 3.46 L Hgb 10.3 L Hct 30.9 L MCV 89 MCH 29.9 MCHC 33.5 RDW 16.0 H Plt Count 230 Seg Neutrophils % Not Reportable Lymphocytes % Not Reportable Monocytes % Not Reportable Eosinophils % Not Reportable Basophils % Not Reportable Absolute Neutrophils Not Reportable Absolute Lymphocytes Not Reportable Absolute Monocytes Not Reportable Absolute Eosinophils Not Reportable Absolute Basophils Not Reportable Sodium 142.9 Potassium 4.3 Chloride 99 Carbon Dioxide 34 H Anion Gap 10 BUN 57 H Creatinine 1.33 H Est GFR ( Amer) > 60 Est GFR (Non-Af Amer) 51 L Glucose 115 H Calcium 9.4 Magnesium 2.0 Total Bilirubin 0.4 AST 36 ALT 47 Alkaline Phosphatase 94 Total Protein 4.9 L Albumin 3.0 L 07/05/17 06:00 NT-Pro-B Natriuret Pep 419 Impressions: Chest X-Ray 07/03/17 08:00 IMPRESSION: Minimal increased density in the left perihilar region which I cannot exclude as a minimal infiltrate. Other findings as noted above Assessment & Plan - Diagnosis (1) Debility Is this a current diagnosis for this admission?: Yes Plan: Patient mostly wheelchair bound due painful bad back (2) Pneumonia Qualifiers: Pneumonia type: due to unspecified organism Laterality: bilateral Lung location: unspecified part of lung Qualified Code(s): J18.9 - Pneumonia, unspecified organism Is this a current diagnosis for this admission?: Yes Plan: Repeat chest x-ray since complaining of chest congestion (3) Atrial fibrillation Qualifiers: Atrial fibrillation type: chronic Qualified Code(s): I48.2 - Chronic atrial fibrillation Is this a current diagnosis for this admission?: Yes Plan: Stable (4) CHF (congestive heart failure) Qualifiers: Congestive heart failure type: unspecified congestive heart failure type Congestive heart failure chronicity: acute Qualified Code(s): I50.9 - Heart failure, unspecified Is this a current diagnosis for this admission?: Yes Plan: Echocardiogram Result still pending. Continue present management (5) COPD exacerbation Is this a current diagnosis for this admission?: Yes Plan: Add Singulair and will place on oral steroids. Repeat chest x-ray - Time Time Spent with patient: 15-24 minutes Medications reviewed and adjusted accordingly: Yes Anticipated discharge: Home with Homehealth Within: within 48 hours - Inpatient Certification Based on my medical assessment, after consideration of the patient's comorbidities, presenting symptoms, or acuity I expect that the services needed warrant INPATIENT care.: Yes I certify that my determination is in accordance with my understanding of Medicare's requirements for reasonable and necessary INPATIENT services [42 CFR 412.3e].: Yes Medical Necessity: Need Close Monitoring Due to Risk of Patient Decompensation
[2017-07-08] MEDS: FUROSEMIDE 20 MG TABLET PO SCH ×2 (11:14→17:56)
[2017-07-08] MEDS: POTASSIUM CHLORIDE 10 MEQ TABLET.SA PO SCH ×2 (11:15→22:49)
[2017-07-08] MEDS: METOPROLOL SUCCINATE 25 MG TAB.SR.24H PO SCH (11:15)
[2017-07-08] MEDS: GUAIFENESIN 600 MG TABLET.SA PO SCH ×2 (11:15→22:49)
[2017-07-08] MEDS: DOCUSATE SODIUM 100 MG CAPSULE PO SCH ×2 (11:15→22:49)
[2017-07-08] MEDS ORDERED: PREDNISONE 20 MG TABLET PO ONE (11:15)
[2017-07-08] MEDS: LEVETIRACETAM ORAL SOLN 500 MG/5 ML UDCUP PO SCH ×2 (11:16→22:49)
[2017-07-08] MEDS: FLUTICASONE/SALMETEROL DISKUS 250-50 MCG/DOSE IH SCH ×2 (11:16→22:49)
[2017-07-08] MEDS: POLYVINYL ALCOHOL 1.4% OPH SOLN 15 ML OU SCH ×2 (11:17→22:49)
[2017-07-08] MEDS: ENOXAPARIN SODIUM INJ 40 MG/0.4 ML DISP.SYRIN SUBCUT SCH (11:19)
--- NOTE | 2017-07-08 15:18 | RADIOLOGY REPORT (SQ) ---
EXAM DESCRIPTION: CHEST SINGLE VIEW COMPLETED DATE/TIME: 07/08/2017 2:00 pm REASON FOR STUDY: chest congestion COMPARISON: 07/03/2017 EXAM PARAMETERS: NUMBER OF VIEWS: One view. TECHNIQUE: Single frontal radiographic view of the chest acquired. RADIATION DOSE: NA LIMITATIONS: None. FINDINGS: LUNGS AND PLEURA: Low lung volumes. Chronic interstitial changes. Slightly increased opa cification left base. The left hemidiaphragm remains well-defined, however. MEDIASTINUM AND HILAR STRUCTURES: No masses. Contour normal. HEART AND VASCULAR STRUCTURES: Heart normal in size. Normal vasculature. BONES: No acute findings. HARDWARE: Right internal jugular catheter with tip in superior vena cava. Sternotomy wires and graft markers OTHER: No other significant finding. IMPRESSION: Cannot exclude limited infiltrate in the left base. TECHNICAL DOCUMENTATION: JOB ID: [id number] [employer]- All Rights Reserved
[2017-07-08] MEDS: MONTELUKAST SODIUM 10 MG TABLET PO SCH (22:49)
[2017-07-09] MEDS: NORMAL SALINE INJ/PF 0.9% 10 ML SDV IV PRN (06:16)
[2017-07-09] MEDS: IPRATROPIUM/ALBUTEROL 0.5-2.5 MG/3 ML AMPUL NEB SCH ×3 (08:23→20:31)
[2017-07-09] MEDS ORDERED: LEVOFLOXACIN 750 MG TABLET PO SCH ×2 (10:00→13:00)
[2017-07-09] MEDS ORDERED: PREDNISONE 20 MG TABLET PO SCH (10:00)
[2017-07-09] MEDS: POLYVINYL ALCOHOL 1.4% OPH SOLN 15 ML OU SCH ×2 (11:03→22:32)
[2017-07-09] MEDS: ENOXAPARIN SODIUM INJ 40 MG/0.4 ML DISP.SYRIN SUBCUT SCH (11:03)
[2017-07-09] MEDS: METOPROLOL SUCCINATE 25 MG TAB.SR.24H PO SCH (11:04)
[2017-07-09] MEDS: FLUTICASONE/SALMETEROL DISKUS 250-50 MCG/DOSE IH SCH ×2 (11:04→22:33)
[2017-07-09] MEDS: GUAIFENESIN 600 MG TABLET.SA PO SCH ×2 (11:04→22:32)
[2017-07-09] MEDS: DOCUSATE SODIUM 100 MG CAPSULE PO SCH ×2 (11:05→22:33)
[2017-07-09] MEDS: LEVETIRACETAM ORAL SOLN 500 MG/5 ML UDCUP PO SCH ×2 (11:07→22:33)
[2017-07-09] MEDS ORDERED: LEVOFLOXACIN 500 MG TABLET PO ONE (11:30)
[2017-07-09] MEDS ORDERED: BISACODYL 10 MG SUPP.RECT PR ONE (11:45)
[2017-07-09] MEDS: NYSTATIN TOPICAL POWDER 15 GM TP SCH (19:17)
[2017-07-09] MEDS: MONTELUKAST SODIUM 10 MG TABLET PO SCH (22:32)
--- NOTE | 2017-07-10 04:08 | PDOC PROGRESS REPORT ---
Subjective Progress Note for:: 07/09/17 Subjective:: Still with cough and chest congestion ROS All organ systems evaluated and negative All laboratories and significant diagnostics have been reviewed Reason For Visit: PNEUMONIA Physical Exam Vital Signs: Temp Pulse Resp BP Pulse Ox 97.5 F 72 18 118/69 96 07/09/17 20:10 07/09/17 20:30 07/09/17 20:30 07/09/17 20:10 07/09/17 20:10 Intake & Output 07/08/17 07/09/17 07/10/17 06:59 06:59 06:59 Intake Total 480 386 0 Output Total 1 Balance 479 386 0 Weight 101.7 kg 99.2 kg General appearance: PRESENT: no acute distress, cooperative, obese Head exam: PRESENT: atraumatic, normocephalic Eye exam: PRESENT: EOMI, PERRLA Ear exam: PRESENT: TM's normal bilaterally Mouth exam: PRESENT: moist, neck supple Neck exam: PRESENT: full ROM. ABSENT: JVD Respiratory exam: PRESENT: clear to auscultation charu Cardiovascular exam: PRESENT: irregular rhythm. ABSENT: diastolic murmur, systolic murmur Vascular exam: PRESENT: normal capillary refill GI/Abdominal exam: PRESENT: normal bowel sounds, soft. ABSENT: guarding Extremities exam: PRESENT: pedal edema, tenderness. ABSENT: joint swelling Musculoskeletal exam: PRESENT: other - bed bound Neurological exam: PRESENT: alert, awake, oriented to person, oriented to place Psychiatric exam: PRESENT: normal mood Skin exam: PRESENT: normal color Results Laboratory Results: 07/08/17 05:13 07/08/17 05:13 07/05/17 06:00 NT-Pro-B Natriuret Pep 419 Impressions: Chest X-Ray 07/08/17 00:00 IMPRESSION: Cannot exclude limited infiltrate in the left base. Assessment & Plan - Diagnosis (1) Debility Is this a current diagnosis for this admission?: Yes Plan: Patient mostly wheelchair bound due painful bad back (2) Pneumonia Qualifiers: Pneumonia type: due to unspecified organism Laterality: bilateral Lung location: unspecified part of lung Qualified Code(s): J18.9 - Pneumonia, unspecified organism Is this a current diagnosis for this admission?: Yes Plan: WBC elevated. Noted cxr result. To place on levaquin (3) Atrial fibrillation Qualifiers: Atrial fibrillation type: chronic Qualified Code(s): I48.2 - Chronic atrial fibrillation Is this a current diagnosis for this admission?: Yes Plan: Stable (4) CHF (congestive heart failure) Qualifiers: Congestive heart failure type: unspecified congestive heart failure type Congestive heart failure chronicity: acute Qualified Code(s): I50.9 - Heart failure, unspecified Is this a current diagnosis for this admission?: Yes Plan: Echocardiogram result still pending. Adjust beta birgit and lisinopril (5) COPD exacerbation Is this a current diagnosis for this admission?: Yes Plan: Continue present treatment. - Time Time Spent with patient: 15-24 minutes Medications reviewed and adjusted accordingly: Yes Anticipated discharge: Home with Homehealth Within: within 48 hours - Inpatient Certification Based on my medical assessment, after consideration of the patient's comorbidities, presenting symptoms, or acuity I expect that the services needed warrant INPATIENT care.: Yes I certify that my determination is in accordance with my understanding of Medicare's requirements for reasonable and necessary INPATIENT services [42 CFR 412.3e].: Yes Medical Necessity: Need Close Monitoring Due to Risk of Patient Decompensation
[2017-07-10] MEDS ORDERED: BENZONATATE 100 MG CAPSULE PO ONE (04:15)
[2017-07-10 06:38] LABS: HEMATOCRIT 31.5 % (37.9-51.0); HEMOGLOBIN 10.5 g/dL (13.5-17.0); MEAN CORPUSCULAR HEMOGLOBIN 29.8 pg (27.0-33.4); MEAN CORPUSCULAR HGB CONC 33.2 g/dL (32.0-36.0); MEAN CORPUSCULAR VOLUME 90 fl (80-97); RED BLOOD COUNT 3.51 10^6/uL (4.35-5.55); RED CELL DISTRIBUTION WIDTH 16.1 % (11.5-14.0); WHITE BLOOD COUNT 11.4 10^3/uL (4.0-10.5)
[2017-07-10 06:54] LABS: ANION GAP 7 (5-19); BLOOD UREA NITROGEN 60 mg/dL (7-20); CALCIUM 9.6 mg/dL (8.4-10.2); CARBON DIOXIDE 31 mmol/L (22-30); CHLORIDE 102 mmol/L (98-107); CREATININE RESULT 0.91 mg/dL (0.52-1.25); GLUCOSE 90 mg/dL (75-110); POTASSIUM 4.1 mmol/L (3.6-5.0); SODIUM 139.9 mmol/L (137-145)
[2017-07-10 07:32] LABS: ABSOLUTE EOSINOPHILS# (MANUAL) 0.1 10^3/uL (0.0-0.6); BASOPHILS % (MANUAL) 0 % (0-2); EOSINOPHILS % (MANUAL) 1 % (0-6); LYMPHOCYTES % (MANUAL) 10 % (13-45); TOTAL CELLS COUNTED 100
[2017-07-10 07:34] LABS: OVALOCYTES SLIGHT; POIKILOCYTOSIS SLIGHT; POLYCHROMASIA SLIGHT
[2017-07-10] MEDS: IPRATROPIUM/ALBUTEROL 0.5-2.5 MG/3 ML AMPUL NEB SCH ×2 (08:01→13:40)
[2017-07-10] MEDS ORDERED: LEVOFLOXACIN 250 MG TABLET PO SCH (10:00)
[2017-07-10] MEDS: METOPROLOL SUCCINATE 25 MG TAB.SR.24H PO SCH (10:49)
[2017-07-10] MEDS: GUAIFENESIN 600 MG TABLET.SA PO SCH (10:50)
[2017-07-10] MEDS: FLUTICASONE/SALMETEROL DISKUS 250-50 MCG/DOSE IH SCH (10:50)
[2017-07-10] MEDS: LEVETIRACETAM ORAL SOLN 500 MG/5 ML UDCUP PO SCH (10:50)
[2017-07-10] MEDS: POLYVINYL ALCOHOL 1.4% OPH SOLN 15 ML OU SCH (10:50)
[2017-07-10] MEDS: DOCUSATE SODIUM 100 MG CAPSULE PO SCH (10:50)
[2017-07-10] MEDS: ENOXAPARIN SODIUM INJ 40 MG/0.4 ML DISP.SYRIN SUBCUT SCH (10:51)
[2017-07-10] MEDS: NYSTATIN TOPICAL POWDER 15 GM TP SCH ×2 (10:52→17:19)
[2017-07-10] MEDS ORDERED: BENZONATATE 100 MG CAPSULE PO SCH (14:00)
[2017-07-10 14:26] VITALS: BP 129/47
--- NOTE | 2017-07-12 13:28 | XCELERA REPORT ---
[address] [address] Transthoracic Echocardiogram Report Name: MARISSA DAVID Age: 86 yrs Gender: Male : 1930 Patient Status: Inpatient Patient Location: [address] [place] [address] Study Date: 07/07/2017 10:36 AM Height: 67 in Weight: 218 lb BSA: 2.1 m2 Procedure: A two-dimensional transthoracic echocardiogram with color flow and Doppler was performed. Study Quality: Technically suboptimal. The study was technically difficult with many images being suboptimal in quality. Images were not obtained from all of the standard acoustic windows due to the limited scope of the study. Reason For Study: chf History: CHF. Ordering Physician: BROWN TOMLINSON Performed By: Wilma Keita Interpretation Summary The left ventricle is grossly normal size. There is mild concentric left ventricular hypertrophy. No True 2 chamber apical views obtained.Hence cannot comment on the apical and basal anterior castaneda, and the apical and basal inferior castaneda.The mid anterior and the mid inferior and the rest of the castaneda contract normally.LVEF 60%. Doppler measurements suggest impaired left ventricular relaxation, which is associated with grade I/IV or mild diastolic dysfunction The right ventricle is not well visualized secondary to technical limitations The left atrial size is normal. There is no evidence of mitral valve prolapse. There is no aortic valvular vegetation. There is no LVOT obstruction. There is no aortic valve stenosis No aortic regurgitation is present. There is no tricuspid stenosis. There is a mild amount of tricuspid regurgitation There is mild to moderate pulmonary hypertension by echo RVSP is 48 mm of Hg , with RA mean of 10. There is no pericardial effusion. MMode/2D Measurements & Calculations RVDd: 3.8 cm LVIDd: 2.8 cm FS: 35.5 % Ao root diam: 2.8 cm IVSd: 1.2 cm LVIDs: 1.8 cm EDV(Teich): 30.2 ml LVPWd: 1.2 cm ESV(Teich): 10.0 ml Ao root area: 6.2 cm2 EF(Teich): 66.8 % LA dimension: 3.7 cm Doppler Measurements & Calculations MV E max gabrielle: MV P1/2t max gabrielle: Ao V2 max: LV V1 max P.9 cm/sec 50.8 cm/sec 129.0 cm/sec 1.7 mmHg MV A max gabrielle: MV P1/2t: 85.0 msec Ao max PG: LV V1 max: 75.0 cm/sec 6.7 mmHg 65.6 cm/sec MV E/A: 0.66 MVA(P1/2t): 2.6 cm2 MV dec slope: 175.2 cm/sec2 PA V2 max: TR max gabrielle: 87.9 cm/sec 308.1 cm/sec PA max PG: TR max P.0 mmHg 3.1 mmHg Left Ventricle The left ventricle is grossly normal size. There is mild concentric left ventricular hypertrophy. No True 2 chamber apical views obtained.Hence cannot comment on the apical and basal anterior castaneda, and the apical and basal inferior castaneda.The mid anterior and the mid inferior and the rest of the castaneda contract normally.LVEF 60%. Doppler measurements suggest impaired left ventricular relaxation, which is associated with grade I/IV or mild diastolic dysfunction. There is no thrombus. Right Ventricle The right ventricle is not well visualized secondary to technical limitations. Atria Right atrium not well visualized secondary to technical limitations. The left atrial size is normal. Mitral Valve There is no evidence of mitral valve prolapse. There is no vegetation seen on the mitral valve. There is no mitral valve stenosis. There is no mitral regurgitation noted. Aortic Valve There is no aortic valvular vegetation. There is no aortic valve stenosis. There is no LVOT obstruction. No aortic regurgitation is present. Tricuspid Valve There is no tricuspid stenosis. There is a mild amount of tricuspid regurgitation. There is mild to moderate pulmonary hypertension by echo. RVSP is 48 mm of Hg , with RA mean of 10. Pulmonic Valve There is no pulmonic valvular stenosis. There is no pulmonic valvular regurgitation. Great Vessels The aortic root is not well visualized but is probably normal size. Effusions There is no pericardial effusion. : BROWN TOMLINSON > Princess Jackman
--- NOTE | 2017-07-12 19:08 | PDOC DISCHARGE SUMMARY ---
General - Admit/Disc Date/PCP Admission Date/Primary Care Provider: 06/25/17 17:48 ARON FRAUSTO, DO Discharge Date: 07/10/17 - Discharge Diagnosis (1) Pneumonia Is this a current diagnosis for this admission?: Yes (2) CHF (congestive heart failure) Is this a current diagnosis for this admission?: Yes (3) Debility Is this a current diagnosis for this admission?: Yes (4) Atrial fibrillation Is this a current diagnosis for this admission?: Yes (5) COPD exacerbation Is this a current diagnosis for this admission?: Yes (6) History of CVA with residual deficit Is this a current diagnosis for this admission?: Yes (7) Sleep apnea Is this a current diagnosis for this admission?: Yes - Additional Information Resuscitation Status: Do Not Resuscitate Discharge Activity: Activity As Tolerated, Balance Activity w/Rest, Weigh Daily Home Medications: Albuterol Sulfate [Albuterol Sulfate 2.5mg/3 mL] 1 vial IH RTTIDP PRN 06/25/17 Aspirin [Ecotrin 325 mg EC Tablet] 325 mg PO DAILY 06/25/17 Cetirizine HCl [Zyrtec 10 mg Tablet] 1 tab PO DAILY 06/25/17 Cholecalciferol (Vitamin D3) [Vitamin D3 5000 unit Capsule] 5,000 unit PO DAILY 06/25/17 Clopidogrel Bisulfate [Plavix 75 mg Tablet] 75 mg PO DAILY 06/25/17 Esomeprazole Magnesium [Nexium] 20 mg PO Q6AM 06/25/17 Fluticasone/Salmeterol [Advair 250-50 Diskus 28 dose] 1 inh IH Q12 06/25/17 Latanoprost [Xalatan 0.005% Oph Soln 2.5 ml] 1 drop OU QHS 06/25/17 Levetiracetam [Keppra] 750 mg PO Q12 06/25/17 Montelukast Sodium [Singulair 10 mg Tablet] 10 mg PO QHS 06/25/17 Polyvinyl Alcohol/Povidone/Pf [Refresh Classic Eye Drops] 1 each OU BID Rosuvastatin Calcium [Crestor 10 mg Tablet] 10 mg PO DAILY 06/25/17 Tamsulosin HCl [Flomax] 0.4 mg PO DAILY 06/25/17 Benzonatate [Tessalon Perles 100 mg Capsule] 100 mg PO Q8 #60 capsule 07/10/17 Fluticasone/Salmeterol [Advair 250-50 Diskus 14 Dose/Diskus] 1 inh IH Q12 #60 inhaler 07/10/17 Guaifenesin [Mucinex Sr 600 mg Tablet.sa] 600 mg PO Q12 #60 tablet.sa 07/10/17 Levofloxacin [Levaquin 750 mg Tablet] 750 mg PO Q2D@1300 #7 tablet 07/10/17 Metoprolol Succinate [Toprol Xl 25 mg Tab.sr] 25 mg PO DAILY 30 Days tab.sr.24h 07/10/17 Montelukast Sodium [Singulair 10 mg Tablet] 10 mg PO QHS tablet 07/10/17 Tiotropium [place] [Spiriva] 18 mcg IH DAILY #30 cap.w.dev 07/10/17 History of Present Illness History of Present Illness: SANTANA DAVID is a 86 year old male with past medical history of coronary artery disease, previous CVA with left hemiparesis, prior brain tumor with resection, seizure disorder, atrial fibrillation paroxysmal, hypertension, hyperlipidemia, COPD, obstructive sleep apnea on CPAP who presented to the emergency department with a one-week history of difficulty breathing. The history was obtained from the emergency department physician. Due to his cognitive impairment, he is not a very good historian. He reported having a cough, and what sounds like an upper respiratory tract infection. Patient was referred to the hospitalist service since chest xray was concerning about a pneumonic process. Hospital Course Hospital Course: Patient was placed on IV antibiotic with further clearing of the chest x-ray. Since had an upward trend of leukocytes opted to place patient on Levaquin and on discharge he is to take Levaquin 750 mg 1 p.o. daily for 5 days. We followed through and there was trending downward. Recommend primary care provider to follow-up in this regard. BNP was elevated and he was deemed that patient was undergoing acute on chronic diastolic congestive heart failure. On discharge Lasix, Toprol-XL and lisinopril have been added to his outpatient regimen. An issue of concern is that patient suffers from sleep apnea however he does not use CPAP. Daughter stated that he gets claustrophobic. Permanent atrial fibrillation remained stable while hospitalized. Patient was discharged on Advair and Spiriva. Patient suffers from cough and I am concerned that he may be having laryngo-esophageal reflux. Recommend primary care provider if deemed needed to refer patient to ENT to evaluate in this regard Patient does have a history of CVA and since then has been debilitated. He is discharged on Plavix. This medication has been listed as outpatient recommend primary care provider to verify if this medication belongs to patient's outpatient regimen Patient had improvement and had achieved maximum benefit of hospitalization stay and prompted to discharge under stable condition. Physical Exam Vital Signs: Temp Pulse Resp BP Pulse Ox 97.5 F 72 18 118/69 96 07/09/17 20:10 07/09/17 20:30 07/09/17 20:30 07/09/17 20:10 07/09/17 20:10 Intake & Output 07/08/17 07/09/17 07/10/17 06:59 06:59 06:59 Intake Total 480 386 0 Output Total 1 Balance 479 386 0 Weight 101.7 kg 99.2 kg General appearance: PRESENT: no acute distress, cooperative, morbidly obese Head exam: PRESENT: atraumatic, normocephalic Eye exam: PRESENT: EOMI, PERRLA Ear exam: PRESENT: normal external ear exam, TM's normal bilaterally Mouth exam: PRESENT: moist, neck supple Neck exam: PRESENT: full ROM. ABSENT: JVD, tenderness Respiratory exam: PRESENT: clear to auscultation charu Cardiovascular exam: PRESENT: irregular rhythm. ABSENT: diastolic murmur, systolic murmur Vascular exam: PRESENT: normal capillary refill GI/Abdominal exam: PRESENT: normal bowel sounds, soft. ABSENT: ascites, distended, tenderness Extremities exam: PRESENT: pedal edema Musculoskeletal exam: PRESENT: other - Bedbound Neurological exam: PRESENT: alert, oriented to person, oriented to place Psychiatric exam: PRESENT: appropriate affect, normal mood Skin exam: PRESENT: normal color Results Laboratory Results: 07/08/17 05:13 07/08/17 05:13 07/05/17 06:00 NT-Pro-B Natriuret Pep 419 Impressions: Chest X-Ray 07/08/17 00:00 IMPRESSION: Cannot exclude limited infiltrate in the left base. Plan Discharge Plan: Discharge home with home health Time Spent: Greater than 30 Minutes
== END 2017-07-10 17:15 | disposition home health service (06) | DRG 193 ==
LOC: ER 15:00 → EH 17:48 → UNDOADMIN 17:48 → 4S 21:04
PROVIDERS: ADMIT Internal Medicine; ATTEND Internal Medicine
PROC: 5A09557 Assistance with Respiratory Ventilation, Greater than 96 Consecutive Hours, Continuous Positive Airway Pressure (ICD-10-PCS; 2017-06-25)
PROC: 02HV33Z Insertion of Infusion Device into Superior Vena Cava, Percutaneous Approach (ICD-10-PCS; principal; 2017-06-28)
PROC: B548ZZA Ultrasonography of Superior Vena Cava, Guidance (ICD-10-PCS; 2017-06-28)
DX: J18.9 Pneumonia, unspecified organism (principal); J96.21 Acute and chronic respiratory failure with hypoxia; I50.33 Acute on chronic diastolic (congestive) heart failure; J44.0 Chronic obstructive pulmonary disease with (acute) lower respiratory infection; J44.1 Chronic obstructive pulmonary disease with (acute) exacerbation; I69.354 Hemiplegia and hemiparesis following cerebral infarction affecting left non-dominant side; I48.2 Chronic atrial fibrillation; I25.10 Atherosclerotic heart disease of native coronary artery without angina pectoris; M19.90 Unspecified osteoarthritis, unspecified site; E78.5 Hyperlipidemia, unspecified; G47.33 Obstructive sleep apnea (adult) (pediatric); F03.90 Unspecified dementia, unspecified severity, without behavioral disturbance, psychotic disturbance, mood disturbance, and anxiety; Z66 Do not resuscitate; I11.0 Hypertensive heart disease with heart failure; G40.909 Epilepsy, unspecified, not intractable, without status epilepticus; E86.0 Dehydration; M54.9 Dorsalgia, unspecified; I87.2 Venous insufficiency (chronic) (peripheral); E87.6 Hypokalemia; Z86.14 Personal history of Methicillin resistant Staphylococcus aureus infection; Z79.82 Long term (current) use of aspirin; I25.2 Old myocardial infarction; Z95.1 Presence of aortocoronary bypass graft; Z87.891 Personal history of nicotine dependence; Z85.841 Personal history of malignant neoplasm of brain; I69.311 Memory deficit following cerebral infarction; Z99.3 Dependence on wheelchair; Z79.02 Long term (current) use of antithrombotics/antiplatelets; Z79.899 Other long term (current) drug therapy
CPT/HCPCS: 36415; 71010; 71020; 80048; 80053; 80069; 80202; 81001; 82565; 82803; 82962; 83605; 83735; 83880; 84100; 85025; 85027; 85610; 87040; 87086; 87804; 93005; 93010; 93306; 94640; 94660; 96361; 96365; 99285; C1751; J0692; J1642; J1650; J1940; J1956; J3370; J3475; J3490; J7030; J7060; J7512; J7620

== ENCOUNTER 2017-08-14 15:39 | Inpatient (IN) | payer OTHER, MEDICARE ==
--- NOTE | 2017-08-14 16:20 | ER Document Report ---
ED General - General Chief Complaint: Cough Stated Complaint: COUGH Time Seen by Provider: 08/14/17 16:19 Notes: 87-year-old male past medical history COPD here with daughter who states that he has had a progressively worsening cough over the past 5-7 days. The cough was initially dry however over the past day or 2 he is bringing up yellow sputum. Daughter denies any fevers chills. states he does not wear oxygen at home. He has a history of pneumonia and was admitted to the hospital June for pneumonia. TRAVEL OUTSIDE OF THE [place] IN LAST 30 DAYS: No - Related Data Allergies/Adverse Reactions: No Known Allergies Allergy (Verified 08/14/17 17:04) Home Medications: Current Home Medications Aspirin [Aspirin 325 mg Tablet] 325 mg PO DAILY 08/14/17 [History] Cetirizine HCl [Zyrtec 10 mg Tablet] 10 mg PO DAILY 08/14/17 [History] Cholecalciferol (Vitamin D3) [Vitamin D3] 5,000 unit PO DAILY 08/14/17 [History] Ipratropium [place] [Atrovent 0.02% Neb 0.5 mg/2.5 ml Ampul] 0.5 mg NEB RTQ6HP PRN 08/14/17 [History] Latanoprost [Xalatan 0.005% Oph Soln 2.5 ml] 1 drop OU QHS 08/14/17 [History] Metoprolol Succinate [Toprol Xl 25 mg Tab.sr] 25 mg PO DAILY 08/14/17 [History] Montelukast Sodium [Singulair 10 mg Tablet] 10 mg PO QHS 08/14/17 [History] Polyvinyl Alcohol/Povidone/Pf [Refresh Classic Eye Drops] 1 each OU DAILY [History] Rosuvastatin Calcium [Crestor 10 mg Tablet] 10 mg PO QHS 08/14/17 [History] Tamsulosin HCl [Flomax 0.4 mg Cap.sr] 0.4 mg PO DAILY 08/14/17 [History] Tiotropium [place] [Spiriva Handihaler 18 mcg/dose (30 Dose)] 1 cap IH DAILY 06/21 [History] Past Medical History - Social History Smoking Status: Smoker,Current Status Unk Family History: Reviewed & Not Pertinent - Past Medical History Cardiac Medical History: Reports: Hx Atrial Fibrillation, Hx Congestive Heart Failure, Hx Coronary Artery Disease, Hx Heart Attack, Hx Hypercholesterolemia, Hx Hypertension Pulmonary Medical History: Reports: Hx COPD - no o2, Bipap at night, Hx Sleep Apnea Neurological Medical History: Reports: Hx Seizures Renal/ Medical History: Denies: Hx Peritoneal Dialysis Malignancy Medical History: Reports Hx Brain Cancer Musculoskeltal Medical History: Reports Hx Arthritis Psychiatric Medical History: Reports: Hx Dementia Denies: Hx Depression Past Surgical History: Reports: Hx Cardiac Surgery - Triple Bypass 1999, Hx Coronary Artery Bypass Graft - Three-vessel, 1999., Other - Brain surgery, 2005. - Immunizations Hx Diphtheria, Pertussis, Tetanus Vaccination: Yes Hx Pneumococcal Vaccination: 05/04/09 Review of Systems - Review of Systems Notes: See history of present illness for pertinent positive review of systems; otherwise all review of systems have been reviewed and are negative Physical Exam - Vital signs Vitals: Temp Pulse BP Pulse Ox 98.3 F 124 H 127/65 H 92 08/14/17 15:48 08/14/17 15:48 08/14/17 15:48 08/14/17 15:48 - Notes Notes: PHYSICAL EXAMINATION: GENERAL: Nontoxic-appearing s. HEAD: Atraumatic, normocephalic. EYES: Pupils equal round and reactive to light, extraocular movements intact, sclera anicteric, conjunctiva are normal. ENT: nares patent, oropharynx clear without exudates. Moist mucous membranes. NECK: Normal range of motion, supple without lymphadenopathy LUNGS: Minimal and expiratory wheezes with normal aeration HEART: Regular rate and irregularly irregular rhythm without murmurs ABDOMEN: Soft, no tenderness. No guarding, no rebound EXTREMITIES: Normal range of motion, no pitting edema. No cyanosis. NEUROLOGICAL: Left-sided hemiplegia (from prior stroke) PSYCH: Normal mood, normal affect. SKIN: Warm, Dry, normal turgor, no rashes or lesions noted Course - Re-evaluation Re-evalutation: 08/14/17 16:37 MEDICAL DECISION MAKING: Concern for pneumonia versus bronchitis versus upper respiratory infection Will obtain workup and go from there Patient understands and agrees to the plan of care 08/14/17 19:04 Results reviewed there is no leukocytosis hemoglobin is minimally decreased normal lactic acid chest x-ray does show left basilar opacity concerning for pneumonia; vancomycin and Zosyn has been ordered for the patient and since patient has a new oxygen requirement and was just hospitalized recently for pneumonia, I will be calling the hospitalist for admission 08/14/17 19:32 I have spoken to Dr. Peters of the hospitalist service who has accepted the patient for admission I have informed the patient of his impending admission however family has left - Vital Signs Vital signs: Temp Pulse Resp BP Pulse Ox 98.3 F 124 H 24 H 118/57 L 97 08/14/17 15:48 08/14/17 15:48 08/14/17 23:41 08/14/17 23:41 08/14/17 23:41 - Laboratory Result Diagrams: 08/14/17 17:20 08/14/17 17:20 Laboratory results interpreted by me: 08/14/17 08/14/17 17:20 17:20 RBC 3.91 L Hgb 11.7 L Hct 34.5 L RDW 16.3 H Carbon Dioxide 31 H Discharge - Discharge Clinical Impression: HCAP (healthcare-associated pneumonia) Condition: Fair Disposition: ADMITTED INPATIENT Admitting Provider: Hospitalist - Dr Peters Unit Admitted: Telemetry
[2017-08-14 17:47] LABS: ABSOLUTE EOSINOPHILS # (AUTO) 0.1 10^3/uL (0.0-0.6); ABSOLUTE LYMPHOCYTES (AUTO) 0.9 10^3/uL (0.5-4.7); ABSOLUTE MONOCYTES (AUTO) 0.7 10^3/uL (0.1-1.4); ABSOLUTE NEUT (AUTO) 4.3 10^3/uL (1.7-8.2); BASOPHILS % (AUTO) 0.4 % (0-2); EOSINOPHILS % (AUTO) 2.3 % (0-6); HEMATOCRIT 34.5 % (37.9-51.0); HEMOGLOBIN 11.7 g/dL (13.5-17.0); LYMPHOCYTES % (AUTO) 15.4 % (13-45); MEAN CORPUSCULAR HEMOGLOBIN 29.8 pg (27.0-33.4); MEAN CORPUSCULAR HGB CONC 33.8 g/dL (32.0-36.0); MEAN CORPUSCULAR VOLUME 88 fl (80-97); MONOCYTES % (AUTO) 11.8 % (3-13); PLATELET COUNT 179 10^3/uL (150-450); RED BLOOD COUNT 3.91 10^6/uL (4.35-5.55); RED CELL DISTRIBUTION WIDTH 16.3 % (11.5-14.0); SEGMENTED NEUTROPHILS % (AUTO) 70.1 % (42-78); TOTAL CELLS COUNTED % (AUTO) 100 %; WHITE BLOOD COUNT 6.1 10^3/uL (4.0-10.5)
--- NOTE | 2017-08-14 17:58 | RADIOLOGY REPORT (SQ) ---
EXAM DESCRIPTION: CHEST PA/LAT COMPLETED DATE/TIME: 08/14/2017 5:48 pm REASON FOR STUDY: cough; eval for pneumonia COMPARISON: 07/08/2017 EXAM PARAMETERS: NUMBER OF VIEWS: two views TECHNIQUE: Digital Frontal and Lateral radiographic views of the chest acquired. RADIATION DOSE: NA LIMITATIONS: none FINDINGS: LUNGS AND PLEURA: Slight increased opacity at the left base. Right lung is clear. MEDIASTINUM AND HILAR STRUCTURES: No masses or contour abnormalities. HEART AND VASCULAR STRUCTURES: CABG hardware. BONES: No acute findings. HARDWARE: None in the chest. OTHER: No other significant finding. IMPRESSION: Left basilar pneumonitis. TECHNICAL DOCUMENTATION: JOB ID: [id number] [employer]- All Rights Reserved
[2017-08-14 18:10] LABS: ANION GAP 9 (5-19); BLOOD UREA NITROGEN 18 mg/dL (7-20); CALCIUM 8.8 mg/dL (8.4-10.2); CARBON DIOXIDE 31 mmol/L (22-30); CHLORIDE 102 mmol/L (98-107); GLUCOSE 99 mg/dL (75-110); POTASSIUM 3.6 mmol/L (3.6-5.0); SODIUM 141.7 mmol/L (137-145)
--- NOTE | 2017-08-14 18:50 | EKG REPORT ---
SEVERITY:- ABNORMAL ECG - SINUS TACHYCARDIA MULTIFORM VENTRICULAR PREMATURE COMPLEXES FIRST DEGREE AV BLOCK BORDERLINE LEFT AXIS DEVIATION : Confirmed by: Ramakrishna Chavez MD 14-Aug-2017 18:49:14
[2017-08-14] MEDS ORDERED: PIPERACILLIN/TAZOBACTAM 3.375 GM VIAL IV ONE (18:59)
[2017-08-14] MEDS ORDERED: VANCOMYCIN HCL INJ 1000 MG VIAL IV ONE (18:59)
[2017-08-14] MEDS ORDERED: IPRATROPIUM/ALBUTEROL 0.5-2.5 MG/3 ML AMPUL NEB ONE (19:02)
[2017-08-14] MEDS ORDERED: ACETAMINOPHEN 325 MG TABLET PO PRN (19:42)
[2017-08-14] MEDS ORDERED: LEVALBUTEROL HCL NEB 1.25 MG/3 ML AMPUL NEB PRN (19:42)
[2017-08-14] MEDS ORDERED: GUAIFENESIN SYRP 200 MG/10 ML UDC PO PRN (19:42)
[2017-08-14] MEDS ORDERED: NORMAL SALINE 1000 ML 1,000 ML IV PRN ×2 (19:42→21:04)
[2017-08-14] MEDS ORDERED: VANCOMYCIN HCL 0 MG in DEXTROSE 5%-WATER 250 ML IV NR (19:45)
[2017-08-14] MEDS ORDERED: PHARMACY COMMUNICATION ORDER MC NR (20:00)
[2017-08-14] MEDS: IPRATROPIUM/ALBUTEROL 0.5-2.5 MG/3 ML AMPUL NEB SCH (20:32)
[2017-08-14] MEDS ORDERED: METOPROLOL TARTRATE PF/INJ 5 MG/5 ML SDV IV ONE ×2 (20:46→21:30)
[2017-08-14] MEDS ORDERED: POTASSIUM CHLORIDE 10 MEQ TABLET.SA PO ONE (20:46)
[2017-08-14] MEDS ORDERED: POLYETHYLENE GLYCOL 3350 POWDER 17 GM/1 PACKET PO PRN (20:59)
[2017-08-14] MEDS ORDERED: MONTELUKAST SODIUM 10 MG TABLET PO SCH (22:00)
[2017-08-14] MEDS: FLUTICASONE/SALMETEROL DISKUS 250-50 MCG/DOSE IH SCH (23:02)
[2017-08-14] MEDS: GUAIFENESIN 600 MG TABLET.SA PO SCH (23:02)
[2017-08-14] MEDS: LEVETIRACETAM 500 MG TABLET PO SCH (23:03)
[2017-08-14] MEDS: METHYLPREDNISOLONE INJ 40 MG/1 ML SDV IV SCH (23:04)
[2017-08-14] MEDS: SENNOSIDES/DOCUSATE 8.6-50 MG 1 EACH TABLET PO SCH (23:04)
[2017-08-14] MEDS: HEPARIN SOD (PORCINE) 5,000 UNIT/ML 1 ML SYRINGE SUBCUT SCH (23:06)
[2017-08-15] MEDS ORDERED: VANCOMYCIN HCL 1,000 MG in DEXTROSE 5%-WATER 250 ML IV ONE (01:00)
[2017-08-15] MEDS: PIPERACILLIN SODIUM/TAZOBACTAM 4.5 GM in NORMAL SALINE 100 ML IV SCH ×4 (01:05→18:34)
[2017-08-15] MEDS ORDERED: VANCOMYCIN HCL INJ 1000 MG VIAL ONE (02:04)
[2017-08-15 05:32] LABS: ABSOLUTE LYMPHOCYTES (AUTO) 0.7 10^3/uL (0.5-4.7); ABSOLUTE MONOCYTES (AUTO) 0.1 10^3/uL (0.1-1.4); ABSOLUTE NEUT (AUTO) 7.9 10^3/uL (1.7-8.2); BASOPHILS % (AUTO) 0.2 % (0-2); EOSINOPHILS % (AUTO) 0.1 % (0-6); HEMATOCRIT 33.4 % (37.9-51.0); HEMOGLOBIN 11.1 g/dL (13.5-17.0); LYMPHOCYTES % (AUTO) 8.5 % (13-45); MEAN CORPUSCULAR HEMOGLOBIN 29.5 pg (27.0-33.4); MEAN CORPUSCULAR HGB CONC 33.3 g/dL (32.0-36.0); MEAN CORPUSCULAR VOLUME 89 fl (80-97); MONOCYTES % (AUTO) 1.7 % (3-13); PLATELET COUNT 163 10^3/uL (150-450); RED BLOOD COUNT 3.76 10^6/uL (4.35-5.55); RED CELL DISTRIBUTION WIDTH 16.2 % (11.5-14.0); SEGMENTED NEUTROPHILS % (AUTO) 89.5 % (42-78); TOTAL CELLS COUNTED % (AUTO) 100 %; WHITE BLOOD COUNT 8.8 10^3/uL (4.0-10.5)
[2017-08-15 05:50] LABS: ANION GAP 11 (5-19); BLOOD UREA NITROGEN 21 mg/dL (7-20); CALCIUM 8.6 mg/dL (8.4-10.2); CARBON DIOXIDE 25 mmol/L (22-30); CHLORIDE 105 mmol/L (98-107); GLUCOSE 145 mg/dL (75-110); SODIUM 140.9 mmol/L (137-145)
[2017-08-15 06:00] LABS: POTASSIUM 4.7 mmol/L (3.6-5.0)
[2017-08-15] MEDS: HEPARIN SOD (PORCINE) 5,000 UNIT/ML 1 ML SYRINGE SUBCUT SCH ×3 (06:33→22:34)
[2017-08-15] MEDS: METHYLPREDNISOLONE INJ 40 MG/1 ML SDV IV SCH (06:34)
--- NOTE | 2017-08-15 07:52 | PDOC H&P ---
History of Present Illness Admission Date/PCP: 08/14/17 19:35 ARON FRAUSTO DO History of Present Illness: MARISSA DAVID is a 87 year old male with past medical history of CAD, prior CVA with left-sided hemiparesis, prior brain tumor with resection, seizure disorder, paroxysmal atrial fibrillation, hypertension, hyperlipidemia, COPD, obstructive sleep apnea, bilateral carotid stenosis who presents to the emergency department with cough and shortness of breath. Patient is found on chest x-ray to have pneumonia and he is admitted to the hospital service for healthcare associated pneumonia. In the emergency department, patient developed several minutes of stable V. tach which improved with the administration of IV metoprolol. Past Medical History Cardiac Medical History: Reports: Atrial Fibrillation, Congestive Heart Failure , Coronary Artery Disease, Myocardial Infarction, Hyperlipidema, Hypertension Pulmonary Medical History: Reports: Chronic Obstructive Pulmonary Disease (COPD ) - no o2, Bipap at night, Sleep Apnea Neurological Medical History: Reports: Seizures Malignancy Medical History: Reports: Brain Cancer Musculoskeltal Medical History: Reports: Arthritis Psychiatric Medical History: Reports: Dementia Denies: Depression Hematology: Reports: Anemia Past Surgical History Past Surgical History: Reports: Coronary Artery Bypass Graft - Three-vessel, 1999., Other - Brain surgery, 2005. Social History Smoking Status: Former Smoker Frequency of Alcohol Use: None Hx Recreational Drug Use: No Drugs: None Hx Prescription Drug Abuse: No - Advance Directive Resuscitation Status: Do Not Resuscitate Surrogate healthcare decision maker:: Family History Family History: Reviewed & Not Pertinent Parental Family History Reviewed: No Children Family History Reviewed: No Sibling(s) Family History Reviewed.: No Medication/Allergy Home Medications: Aspirin [Aspirin 325 mg Tablet] 325 mg PO DAILY 08/14/17 Cetirizine HCl [Zyrtec 10 mg Tablet] 10 mg PO DAILY 08/14/17 Cholecalciferol (Vitamin D3) [Vitamin D3] 5,000 unit PO DAILY 08/14/17 Ipratropium [place] [Atrovent 0.02% Neb 0.5 mg/2.5 ml Ampul] 0.5 mg NEB RTQ6HP PRN 08/14/17 Latanoprost [Xalatan 0.005% Oph Soln 2.5 ml] 1 drop OU QHS 08/14/17 Metoprolol Succinate [Toprol Xl 25 mg Tab.sr] 25 mg PO DAILY 08/14/17 Montelukast Sodium [Singulair 10 mg Tablet] 10 mg PO QHS 08/14/17 Polyvinyl Alcohol/Povidone/Pf [Refresh Classic Eye Drops] 1 each OU DAILY Rosuvastatin Calcium [Crestor 10 mg Tablet] 10 mg PO QHS 08/14/17 Tamsulosin HCl [Flomax 0.4 mg Cap.sr] 0.4 mg PO DAILY 08/14/17 Tiotropium [place] [Spiriva Handihaler 18 mcg/dose (30 Dose)] 1 cap IH DAILY 06/21 Allergies/Adverse Reactions: No Known Allergies Allergy (Verified 08/14/17 17:04) Review of Systems ROS unobtainable: Due to mental status Physical Exam Vital Signs: Temp Pulse Resp BP Pulse Ox 98.3 F 124 H 25 H 132/58 H 88 L 08/14/17 15:48 08/14/17 15:48 08/14/17 18:03 08/14/17 17:23 08/14/17 18:03 General appearance: PRESENT: mild distress - Tachypnea, mild confusion, morbidly obese, well-developed, well-nourished Head exam: PRESENT: atraumatic Eye exam: PRESENT: conjunctiva pink, EOMI, PERRLA. ABSENT: scleral icterus Ear exam: PRESENT: normal external ear exam Mouth exam: PRESENT: moist, tongue midline Neck exam: ABSENT: JVD, lymphadenopathy, thyromegaly, tracheal deviation Respiratory exam: PRESENT: rhonchi, symmetrical, tachypnea, wheezes. ABSENT: accessory muscle use, rales Cardiovascular exam: PRESENT: +S1, +S2, systolic murmur. ABSENT: diastolic murmur, rubs Pulses: PRESENT: normal radial pulses Vascular exam: PRESENT: normal capillary refill GI/Abdominal exam: PRESENT: hypoactive bowel sounds, soft. ABSENT: distended, guarding, mass, organolmegaly, rebound, tenderness Rectal exam: PRESENT: deferred Extremities exam: PRESENT: clubbing, full ROM, pedal edema. ABSENT: calf tenderness Neurological exam: PRESENT: alert, altered, awake, oriented to person, motor sensory deficit - Left-sided hemiparesis. ABSENT: oriented to place, oriented to time, oriented to situation Skin exam: PRESENT: dry, intact, warm. ABSENT: cyanosis, rash Results Impressions: Chest X-Ray 08/14/17 16:32 IMPRESSION: Left basilar pneumonitis. Assessment & Plan - Diagnosis (1) HCAP (healthcare-associated pneumonia) Is this a current diagnosis for this admission?: Yes Plan: Place patient on scheduled nebulized treatments and re-evaluate for improvement. PRN Xopenex Place patient on IV Solu-Medrol Obtain sputum culture Place patient on vancomycin and Zosyn for healthcare associated pneumonia (2) Atrial fibrillation Qualifiers: Atrial fibrillation type: chronic Qualified Code(s): I48.2 - Chronic atrial fibrillation Is this a current diagnosis for this admission?: Yes (3) CHF (congestive heart failure) Qualifiers: Congestive heart failure type: diastolic Congestive heart failure chronicity: chronic Qualified Code(s): I50.32 - Chronic diastolic (congestive ) heart failure Is this a current diagnosis for this admission?: Yes Plan: Judicious with fluid administration (4) COPD (chronic obstructive pulmonary disease) Qualifiers: COPD type: unspecified COPD Qualified Code(s): J44.9 - Chronic obstructive pulmonary disease, unspecified Is this a current diagnosis for this admission?: Yes (5) Carotid stenosis Qualifiers: Laterality: bilateral Qualified Code(s): I65.23 - Occlusion and stenosis of bilateral carotid arteries Is this a current diagnosis for this admission?: Yes (6) Chronic kidney disease, stage II (mild) Is this a current diagnosis for this admission?: Yes (7) DNR (do not resuscitate) Is this a current diagnosis for this admission?: Yes (8) History of CVA with residual deficit Is this a current diagnosis for this admission?: Yes (9) Paroxysmal atrial fibrillation Is this a current diagnosis for this admission?: Yes (10) Seizure Is this a current diagnosis for this admission?: Yes (11) Sleep apnea Is this a current diagnosis for this admission?: Yes (12) H/O craniotomy Is this a current diagnosis for this admission?: Yes (13) Hemiparesis, left Is this a current diagnosis for this admission?: Yes (14) SHARON (obstructive sleep apnea) Is this a current diagnosis for this admission?: Yes (15) Nonsustained ventricular tachycardia Is this a current diagnosis for this admission?: Yes Plan: Maximize electrolytes patient is a DNR/DNI
[2017-08-15] MEDS: IPRATROPIUM/ALBUTEROL 0.5-2.5 MG/3 ML AMPUL NEB SCH (08:33)
[2017-08-15] MEDS ORDERED: IPRATROPIUM BROMIDE 0.02% NEB 0.5 MG/2.5 ML AMPUL NEB PRN (10:21)
[2017-08-15] MEDS: DOCUSATE SODIUM 100 MG CAPSULE PO SCH ×2 (10:22→18:34)
[2017-08-15] MEDS: LEVETIRACETAM 500 MG TABLET PO SCH ×2 (10:23→22:34)
[2017-08-15] MEDS: GUAIFENESIN 600 MG TABLET.SA PO SCH ×2 (10:24→22:34)
[2017-08-15] MEDS: VANCOMYCIN HCL 1,250 MG in DEXTROSE 5%-WATER 250 ML IV SCH ×2 (10:24→22:35)
[2017-08-15] MEDS: FLUTICASONE/SALMETEROL DISKUS 250-50 MCG/DOSE IH SCH ×2 (10:24→22:34)
[2017-08-15] MEDS ORDERED: LEVALBUTEROL HCL NEB 1.25 MG/3 ML AMPUL NEB PRN (10:28)
[2017-08-15] MEDS ORDERED: TAMSULOSIN HCL 0.4 MG CAP.SR.24H PO SCH ×2 (11:00→18:00)
--- NOTE | 2017-08-15 11:18 | PROGRESS NOTE E ---
Progress Note NAME: MARISSA DAVID : 1930 AGE: 87Y DATE: 08/15/2017 ROOM: 527 SUBJECTIVE: The patient is currently lying in bed. He states he feels better than when he came in yesterday. The patient denies any nausea, vomiting, or diarrhea. No dizziness or chest pain. The patient does admit to some shortness of breath with activity. The patient has been afebrile. His blood pressures have been in a good range, and the patient does not voice any specific concerns at this time. The patient does have a strong cough but is unable to produce any sputum. REVIEW OF SYSTEMS: Rest of the review of systems negative. MEDICATIONS: Have been reviewed. OBJECTIVE: GENERAL: The patient is an 87-year-old male who is awake, alert, and oriented to person, place, time, and situation. He is verbal and conversational, just hard of hearing. He does not appear to be distressed. VITAL SIGNS: Temperature 98.2, pulse 55, respirations 16, blood pressure is 119/53, oxygen saturation is 95% on 1.5 L nasal cannula. SKIN: Warm and dry. No rash. He is not diaphoretic. He is quite pale. HEENT: The patient does have conjunctival irritation, symmetrical though. No evidence of JVP. CARDIOVASCULAR: Heart is regular. There is no murmur or rub. CHEST: Diminished, symmetrical, unlabored. ABDOMEN: Soft, nontender, nontender. BACK: No CVA tenderness or sacral edema. EXTREMITIES: No clubbing, cyanosis, or edema. DIAGNOSTICS: Lab values are as follows: Hematology obtained on 08/15/2017: WBCs are 8.8, hemoglobin is 11.1, hematocrit is 34.4, platelet count is 163,000. Chemistry obtained on 08/15/2017: Sodium is 140, potassium 4.7, chloride is 105, carbon dioxide 25, BUN 21, creatinine is 0.79, glucose 145, calcium is 8.6, magnesium is 1.5. IMPRESSION AND PLAN: 1. HEALTHCARE-ASSOCIATED PNEUMONIA. The patient is on day 1 of 5 of antibiotic therapy. Will continue to follow. Will add flutter valve and decrease nebs as the patient is not wheezy. 2. VENTRICULAR TACHYCARDIA. This did self-limit. The patient was given a dose of IV metoprolol. Will resume today's dose and also decrease nebulizers. 3. CHRONIC DIASTOLIC DYSFUNCTION. The patient has no evidence of failure. Will continue his home medicines and monitor. 4. CHRONIC OBSTRUCTIVE PULMONARY DISEASE. The patient overall appears much improved. Will continue home inhalers. 5. BILATERAL CAROTID STENOSIS. 6. CHRONIC KIDNEY DISEASE STAGE II. The patient appears to be at baseline. 7. CEREBROVASCULAR DISEASE WITH LEFT HEMIPARESIS. Will follow. 8. PAROXYSMAL ATRIAL FIBRILLATION. The patient is currently in sinus rhythm. 9. HISTORY OF SEIZURE DISORDER. Continue the patient's Keppra. 10. OBSTRUCTIVE SLEEP APNEA. DISPOSITION: The patient is a DO NOT RESUSCITATE/DO NOT INTUBATE. Pending patient's symptomatology and diagnostic findings, will reevaluate as needed. The patient can be downgraded to a medical bed. Time spent on this followup including assessment, plan, physical examination, patient education, and review of records is 25 minutes. DICTATING PHYSICIAN: CHRISTOPHER KAUFMAN NP [id number] PHY#: [id number] ID: [id number] JOB#: [id number] ACCT: [id number] cc: >
[2017-08-15] MEDS ORDERED: METOPROLOL SUCCINATE 25 MG TAB.SR.24H PO ONE (12:00)
[2017-08-15] MEDS ORDERED: CETIRIZINE 10 MG TABLET PO ONE (12:00)
[2017-08-15] MEDS ORDERED: TIOTROPIUM BROMIDE DPI 5 CAP/KIT (18 MCG/CAP) IH ONE (12:00)
[2017-08-15] MEDS ORDERED: TAMSULOSIN HCL 0.4 MG CAP.SR.24H PO ONE (12:00)
[2017-08-15] MEDS ORDERED: ASPIRIN 325 MG TABLET PO ONE (12:00)
[2017-08-15] MEDS: CHOLECALCIFEROL (D3) 1,000 UNIT TABLET PO SCH (15:49)
[2017-08-15] MEDS: ASPIRIN 325 MG TABLET PO SCH (15:50)
[2017-08-15] MEDS ORDERED: MONTELUKAST SODIUM 10 MG TABLET PO SCH (22:00)
[2017-08-15] MEDS: ATORVASTATIN CALCIUM 20 MG TABLET PO SCH (22:34)
[2017-08-15] MEDS: LATANOPROST 0.005% OPH SOLN 2.5 ML OU SCH (22:34)
[2017-08-15] MEDS: MONTELUKAST SODIUM 10 MG TABLET PO SCH (22:34)
[2017-08-15] MEDS: SENNOSIDES/DOCUSATE 8.6-50 MG 1 EACH TABLET PO SCH (22:34)
[2017-08-15 23:36] LABS: A TYPE INFLUENZA AG NEGATIVE (NEGATIVE); B INFLUENZA AG NEGATIVE (NEGATIVE)
[2017-08-16] MEDS: PIPERACILLIN SODIUM/TAZOBACTAM 4.5 GM in NORMAL SALINE 100 ML IV SCH ×4 (03:37→17:32)
[2017-08-16] MEDS: HEPARIN SOD (PORCINE) 5,000 UNIT/ML 1 ML SYRINGE SUBCUT SCH ×3 (05:18→22:43)
[2017-08-16] MEDS ORDERED: [UNRECOGNIZED DRUG - OTHER] OU SCH (10:00)
[2017-08-16] MEDS ORDERED: (PENDING PHARMACY ID) (Cholecalciferol (Vitamin D3) [Vitamin D3] 5,000 UNIT) PO SCH (10:00)
[2017-08-16] MEDS ORDERED: POLYVINYL ALCOHOL OU SCH (10:00)
[2017-08-16] MEDS ORDERED: CARBOXYMETHYLCELLULOSE SOD 0.5% 0.4 ML DROPERETTE OU SCH (10:00)
[2017-08-16] MEDS ORDERED: POVIDONE OU SCH (10:00)
[2017-08-16] MEDS: LEVETIRACETAM 500 MG TABLET PO SCH ×2 (10:17→22:42)
[2017-08-16] MEDS: TAMSULOSIN HCL 0.4 MG CAP.SR.24H PO SCH (10:18)
[2017-08-16] MEDS: CETIRIZINE 10 MG TABLET PO SCH (10:18)
[2017-08-16] MEDS: DOCUSATE SODIUM 100 MG CAPSULE PO SCH ×2 (10:19→17:31)
[2017-08-16] MEDS: METOPROLOL SUCCINATE 25 MG TAB.SR.24H PO SCH (10:19)
[2017-08-16] MEDS: GUAIFENESIN 600 MG TABLET.SA PO SCH ×2 (10:19→22:42)
[2017-08-16] MEDS: TIOTROPIUM BROMIDE DPI 5 CAP/KIT (18 MCG/CAP) IH SCH (10:20)
[2017-08-16] MEDS: FLUTICASONE/SALMETEROL DISKUS 250-50 MCG/DOSE IH SCH ×2 (10:20→22:43)
[2017-08-16] MEDS: VANCOMYCIN HCL 1,250 MG in DEXTROSE 5%-WATER 250 ML IV SCH (10:27)
[2017-08-16] MEDS: CARBOXYMETHYLCELLULOSE SOD 0.5% 0.4 ML DROPERETTE OU SCH (11:19)
--- NOTE | 2017-08-16 11:29 | PROGRESS NOTE E ---
Progress Note NAME: MARISSA GUPTA : 1930 AGE: 87Y DATE: 08/16/2017 ROOM: 527 SUBJECTIVE: Mr. Gupta is currently lying in bed. He states that he feels okay today, however, the patient does not remember me from yesterday. The patient denies any nausea, vomiting, or diarrhea. No dizziness or chest pain. No fever or chills. The patient admits to a strong cough and has been producing a little sputum. The patient has been afebrile. Blood pressure has been in a good range, and the patient does not voice any other concerns at this time. REVIEW OF SYSTEMS: Rest of the review of systems negative. MEDICATIONS: Have been reviewed. OBJECTIVE: GENERAL: The patient is an 87-year-old male who is awake, alert, and oriented to person, place, time, and situation. He is quite confused with details though. He is not appear to be distressed. VITAL SIGNS: Temperature is 98.2, pulse 77, respirations 18, blood pressure 122/83, oxygen saturation is 93% on 3 L nasal cannula. SKIN: Warm and dry. No rash. He is not diaphoretic. HEENT: Pupils equal, round, reactive to light and accommodation. Conjunctivae are red. There is no evidence of JVP. CARDIOVASCULAR: Heart is regular. There is no murmur or rub. CHEST: Clear, symmetrical, unlabored, just very diminished. ABDOMEN: Soft, nontender, nondistended. BACK: No CVA tenderness or sacral edema. EXTREMITIES: No clubbing, cyanosis, or edema. PSYCHIATRIC: Pleasant. DIAGNOSTICS: Lab values are as follow: Hematology obtained on 08/15/2017: WBCs are 8.8, hemoglobin is 11.1, hematocrit is 34.4, platelet count is 163,000. Chemistry obtained on 08/15/2017: Sodium is 140, potassium 4.7, chloride is 105, carbon dioxide 25, BUN 21, creatinine is 0.79, glucose 145, lactic acid is 1, calcium is 8.6, magnesium is 1.5. IMPRESSION AND PLAN: 1. HEALTHCARE-ASSOCIATED PNEUMONIA. The patient is on day 3 of 5 of antibiotic therapy. Will continue to follow. Encourage flutter valve and p.r.n. nebs. 2. VENTRICULAR TACHYCARDIA. This was self-limited. The patient was given a dose of IV metoprolol though. Have increased his overall metoprolol dose and decreased nebulizers. 3. CHRONIC DIASTOLIC DYSFUNCTION. The patient has no evidence of overt failure. Continue to monitor. 4. CHRONIC OBSTRUCTIVE PULMONARY DISEASE. Overall much improved. Continue inhalers. 5. BILATERAL CAROTID STENOSIS. 6. CHRONIC KIDNEY DISEASE STAGE II. The patient is at baseline. 7. CEREBROVASCULAR DISEASE WITH LEFT HEMIPARESIS. Stable. 8. PAROXYSMAL ATRIAL FIBRILLATION. The patient is currently in sinus rhythm. 9. HISTORY OF SEIZURE DISORDER. Will continue Keppra. 10. OBSTRUCTIVE SLEEP APNEA. DISPOSITION: The patient is a DNR/DNI. Pending patient's symptomatology and diagnostic findings, will reevaluate in the a.m. Time spent on this followup including assessment, plan, physical examination, patient education, and review of records is 25 minutes. DICTATING PHYSICIAN: CHRISTOPHER KAUFMAN NP [id number] PHY#: [id number] ID: [id number] JOB#: [id number] ACCT: [id number] cc: >
[2017-08-16] MEDS: CHOLECALCIFEROL (D3) 1,000 UNIT TABLET PO SCH (12:07)
[2017-08-16] MEDS: ASPIRIN 325 MG TABLET PO SCH (12:07)
[2017-08-16] MEDS: ATORVASTATIN CALCIUM 20 MG TABLET PO SCH (22:42)
[2017-08-16] MEDS: AMOXICILLIN TR/POT CLAVULANATE 500-125 MG TAB PO SCH (22:42)
[2017-08-16] MEDS: LATANOPROST 0.005% OPH SOLN 2.5 ML OU SCH (22:43)
[2017-08-16] MEDS: SENNOSIDES/DOCUSATE 8.6-50 MG 1 EACH TABLET PO SCH (22:43)
[2017-08-16] MEDS: MONTELUKAST SODIUM 10 MG TABLET PO SCH (22:43)
[2017-08-17] MEDS: AMOXICILLIN TR/POT CLAVULANATE 500-125 MG TAB PO SCH ×3 (06:10→23:04)
[2017-08-17] MEDS: HEPARIN SOD (PORCINE) 5,000 UNIT/ML 1 ML SYRINGE SUBCUT SCH ×3 (06:11→23:09)
[2017-08-17] MEDS ORDERED: BUMETANIDE 1 MG TABLET PO ONE (09:52)
[2017-08-17] MEDS: LEVETIRACETAM 500 MG TABLET PO SCH ×2 (09:57→23:05)
[2017-08-17] MEDS: TIOTROPIUM BROMIDE DPI 5 CAP/KIT (18 MCG/CAP) IH SCH (09:58)
[2017-08-17] MEDS: CETIRIZINE 10 MG TABLET PO SCH (09:58)
[2017-08-17] MEDS: GUAIFENESIN 600 MG TABLET.SA PO SCH ×2 (09:58→23:05)
[2017-08-17] MEDS: DOCUSATE SODIUM 100 MG CAPSULE PO SCH ×2 (09:58→17:49)
[2017-08-17] MEDS: TAMSULOSIN HCL 0.4 MG CAP.SR.24H PO SCH (09:58)
[2017-08-17] MEDS: METOPROLOL SUCCINATE 25 MG TAB.SR.24H PO SCH (09:58)
[2017-08-17] MEDS: FLUTICASONE/SALMETEROL DISKUS 250-50 MCG/DOSE IH SCH ×2 (09:59→23:06)
[2017-08-17] MEDS ORDERED: (PENDING PHARMACY ID) (Brimonidine Tartrate/Timolol [Combigan 0.2%-0.5% Eye Drops] 5 ML) OP SCH (10:00)
[2017-08-17] MEDS: CARBOXYMETHYLCELLULOSE SOD 0.5% 0.4 ML DROPERETTE OU SCH (10:41)
[2017-08-17 11:09] LABS: ANION GAP 7 (5-19); BLOOD UREA NITROGEN 28 mg/dL (7-20); CALCIUM 8.7 mg/dL (8.4-10.2); CARBON DIOXIDE 29 mmol/L (22-30); CHLORIDE 104 mmol/L (98-107); GLUCOSE 89 mg/dL (75-110); MAGNESIUM 1.3 mg/dL (1.6-2.3); POTASSIUM 3.7 mmol/L (3.6-5.0); SODIUM 140.2 mmol/L (137-145)
[2017-08-17 11:11] LABS: VANCOMYCIN,TROUGH 11.4 ug/mL (5.0-20.0)
[2017-08-17] MEDS: ASPIRIN 325 MG TABLET PO SCH (11:55)
[2017-08-17] MEDS: CHOLECALCIFEROL (D3) 1,000 UNIT TABLET PO SCH (11:55)
--- NOTE | 2017-08-17 14:14 | RADIOLOGY REPORT (SQ) ---
EXAM DESCRIPTION: CT CHEST WITHOUT COMPLETED DATE/TIME: 08/17/2017 12:50 pm REASON FOR STUDY: Reocurring PNA COMPARISON: Chest x-ray 08/14/2017. CT abdomen and pelvis 08/09/2016. TECHNIQUE: CT scan performed of the chest without intravenous contrast. Images reviewed with lung, soft tissue and bone windows. Reconstructed coronal and sagittal MPR images reviewed. All images st ored on PACS. All CT scanners at this facility use dose modulation, iterative reconstruction, and/or weight based d osing when appropriate to reduce radiation dose to as low as reasonably achievable (ALARA). [facility]: Dose Right [facility]: CareDose [facility]: Dose Right [facility]: Teradose 4D [facility]: [employer] RADIATION DOSE: CT Rad equipment meets quality standard of care and radiation dose reduction techniq ues were employed. CTDIvol: 20.2 - 21.1 mGy. DLP: 1064 mGy-cm. mGy. LIMITATIONS: There is motion artifact. FINDINGS: LUNGS AND PLEURA: The evaluation of the lungs is degraded by motion artifact. Small area of consolidation with air bronchograms at the left lower lobe. No pleural effusion or pneumothorax. HILAR AND MEDIASTINAL STRUCTURES: Mild mediastinal adenopathy with a precarinal lymph node measuring 12 mm in short axis. Limited evaluation for hilar adenopathy in the absence of intravenous contrast. HEART AND VASCULAR STRUCTURES: Ectatic thoracic aorta with scattered atherosclerotic calcifications. No pericardial effusion. The patient is status post open heart surgery. UPPER ABDOMEN: No significant findings. Limited exam. BONES: Degenerative changes in the spine. HARDWARE: None in the chest. IMPRESSION: Motion artifact. Small area of consolidation with air bronchograms at the left lower lo be. Mild hilar adenopathy. TECHNICAL DOCUMENTATION: JOB ID: [id number] NC-64 Quality ID # [id number]: Final reports with documentation of one or more dose reduction techniques (e.g., Au tomated exposure control, adjustment of the mA and/or kV according to patient size, use of iterative reconstruction technique) 2010 [employer]- All Rights Reserved
[2017-08-17] MEDS: MAGNESIUM OXIDE 400 MG TABLET PO SCH (17:49)
[2017-08-17] MEDS ORDERED: BUMETANIDE 1 MG TABLET PO SCH (18:00)
--- NOTE | 2017-08-17 18:43 | PROGRESS NOTE E ---
Progress Note NAME: MARISSA DAVID : 1930 AGE: 87Y DATE: 08/17/2017 ROOM: 527 SUBJECTIVE: The patient is seen earlier today on rounds. The patient was confused, which is not far from baseline. The patient has been afebrile. His blood pressure is in a decent range. The patient has had no reported episode of nausea or vomiting or diarrhea. The patient has been afebrile, for which he has been during the entire stay, and blood pressures have been in decent range, and the patient does not voice any other concerns at this time. The patient is an 87-year-old male who is well-known to the hospitalist service. The patient presented to the emergency department due to shortness of breath. The patient has had 6 inpatient stays in the last calendar year. The patient has had ongoing decline. Four of the patient's visits have been for chronic obstructive pulmonary disease or pneumonia. The patient was last on our service 06/25/2017 through 07/10/2017. At that time the patient was treated for pneumonia. The patient subsequently represented on 08/14/2017 and was admitted for coverage of HCAP. The patient has, unfortunately, been unable to produce any other sputum specimen except for a specimen back in May of this year which grew staph. The patient's symptoms overall have improved since admission and he has remained afebrile with good blood pressures. The patient was effectively covered for HCAP for 3 days; however, IV access was lost; however, a bedside evaluation of the patient appeared that, at times, he possibly chokes on his food; therefore, a swallowing evaluation has been ordered as well as a CT of the chest, and the patient was transitioned to oral Augmentin for now, and have watched. REVIEW OF SYSTEMS: A full review of systems cannot be appreciated given the patient's mental status. MEDICATIONS: Medications have been reviewed. OBJECTIVE: The patient is an 87-year-old male who is awake, alert. He is oriented to place but not fully oriented to situation. He does not appear to be in any distress. VITAL SIGNS: Temperature is 98.4, pulse 54, respirations 16, blood pressure 126/66, oxygen saturation is 96% on 3 L nasal cannula. SKIN: Warm and dry. No rash. Not diaphoretic. HEENT: Pupils are reactive. Conjunctivae is reddened. Mucous membranes moist. There is no evidence of JVP. CARDIOVASCULAR SYSTEM: Heart is regular. LUNGS: The patient does have rancorous breath sounds in upper lung manzano, symmetrical, unlabored. ABDOMEN: Soft. Nontender. Nondistended. BACK: There is no sacral edema. EXTREMITIES: No cyanosis, clubbing or edema. DIAGNOSTICS/LAB VALUES: Hematology obtained 08/15/2017: WBCs are 8.8, hemoglobin 12.1, hematocrit is 33.4, platelet count is 163,000. Chemistry obtained on 08/17/2013: Sodium is 140, potassium 2.7, chloride 104, carbon dioxide 29, BUN 28, creatinine is 0.88, glucose 89, calcium is 8.7, magnesium is 1.5. ASSESSMENT/PLAN: 1. Health care associated pneumonia. The patient received 3 days of adequate IV antibiotic therapy; however, did lose IV access. Discussed a central line with the patient, and he did not want to proceed with this. Therefore, did transition over to Augmentin because I do have suspicion for possible aspiration. We will obtain CT imaging of the chest as well as Speech Therapy consultation. Encourage flutter value and p.r.n. nebs. 2. Ventricular tachycardia. This was self-limiting. The patient was given a dose of IV metoprolol and has been resumed on metoprolol. We will continue to monitor magnesium as well and have kept nebulizers to a minimum. 3. Hypomagnesemia. This is relatively mild and was replaced. We will continue aggressive oral supplementation due to poor IV access. 4. Chronic diastolic dysfunction. The patient has no evidence of overt failure but will give an oral dose of diuretic today and follow. He is not on chronic diuretic at home. 5. Chronic obstructive pulmonary disease. Overall, much improved. Continue home inhalers. 6. Chronic kidney disease stage 2. Creatinine is at baseline. 7. Cerebrovascular disease with subsequent left hemiparesis, stable. 8. Paroxysmal atrial fibrillation. The patient is currently in sinus rhythm. 9. History of seizure disorder. Continue Keppra. 10. Obstructive sleep apnea. The patient refuses CPAP. 11. Bilateral carotid stenosis. 12. Vascular dementia. The patient has been at his baseline. DISPOSITION: The patient is a [id number], [id number]. Depending on patient's symptomatology and diagnostic findings, we will reevaluate in the a.m. Time spent on this followup including assessment, plan, physical examination, patient education, review of records is 25 minutes. DICTATING PHYSICIAN: CHRISTOPHER KAUFMAN NP [id number] PHY#: [id number] ID: [id number] JOB#: [id number] ACCT: [id number] cc: >
[2017-08-17] MEDS: ATORVASTATIN CALCIUM 20 MG TABLET PO SCH (23:04)
[2017-08-17] MEDS: SENNOSIDES/DOCUSATE 8.6-50 MG 1 EACH TABLET PO SCH (23:05)
[2017-08-17] MEDS: MONTELUKAST SODIUM 10 MG TABLET PO SCH (23:05)
[2017-08-17] MEDS: LATANOPROST 0.005% OPH SOLN 2.5 ML OU SCH (23:09)
[2017-08-18] MEDS: HEPARIN SOD (PORCINE) 5,000 UNIT/ML 1 ML SYRINGE SUBCUT SCH ×3 (06:05→22:20)
[2017-08-18] MEDS: AMOXICILLIN TR/POT CLAVULANATE 500-125 MG TAB PO SCH ×3 (06:05→22:20)
[2017-08-18 06:44] LABS: ABSOLUTE EOSINOPHILS # (AUTO) 0.1 10^3/uL (0.0-0.6); ABSOLUTE LYMPHOCYTES (AUTO) 1.3 10^3/uL (0.5-4.7); ABSOLUTE MONOCYTES (AUTO) 0.8 10^3/uL (0.1-1.4); ABSOLUTE NEUT (AUTO) 4.1 10^3/uL (1.7-8.2); BASOPHILS % (AUTO) 0.5 % (0-2); HEMATOCRIT 32.4 % (37.9-51.0); HEMOGLOBIN 10.9 g/dL (13.5-17.0); LYMPHOCYTES % (AUTO) 19.9 % (13-45); MEAN CORPUSCULAR HEMOGLOBIN 29.6 pg (27.0-33.4); MEAN CORPUSCULAR HGB CONC 33.8 g/dL (32.0-36.0); MEAN CORPUSCULAR VOLUME 88 fl (80-97); PLATELET COUNT 146 10^3/uL (150-450); RED CELL DISTRIBUTION WIDTH 15.7 % (11.5-14.0); SEGMENTED NEUTROPHILS % (AUTO) 64.6 % (42-78); TOTAL CELLS COUNTED % (AUTO) 100 %; WHITE BLOOD COUNT 6.4 10^3/uL (4.0-10.5)
[2017-08-18 07:11] LABS: ALANINE AMINOTRANSFERASE 26 U/L (21-72); ALBUMIN 2.9 g/dL (3.5-5.0); ALKALINE PHOSPHATASE 55 U/L (38-126); ANION GAP 9 (5-19); ASPARTATE AMINO TRANSFERASE 17 U/L (17-59); BILIRUBIN,DIRECT 0.2 mg/dL (0.0-0.4); BILIRUBIN,TOTAL 0.4 mg/dL (0.2-1.3); BLOOD UREA NITROGEN 25 mg/dL (7-20); CALCIUM 8.7 mg/dL (8.4-10.2); CARBON DIOXIDE 30 mmol/L (22-30); CHLORIDE 100 mmol/L (98-107); GLUCOSE 109 mg/dL (75-110); MAGNESIUM 1.5 mg/dL (1.6-2.3); POTASSIUM 3.6 mmol/L (3.6-5.0); TOTAL PROTEIN 4.9 g/dL (6.3-8.2)
[2017-08-18] MEDS: LEVETIRACETAM 500 MG TABLET PO SCH ×2 (10:57→22:20)
[2017-08-18] MEDS: GUAIFENESIN 600 MG TABLET.SA PO SCH ×2 (10:57→22:20)
[2017-08-18] MEDS: TAMSULOSIN HCL 0.4 MG CAP.SR.24H PO SCH (10:57)
[2017-08-18] MEDS: CETIRIZINE 10 MG TABLET PO SCH (10:57)
[2017-08-18] MEDS: METOPROLOL SUCCINATE 25 MG TAB.SR.24H PO SCH (10:57)
[2017-08-18] MEDS: MAGNESIUM OXIDE 400 MG TABLET PO SCH ×3 (10:58→17:11)
[2017-08-18] MEDS: FLUTICASONE/SALMETEROL DISKUS 250-50 MCG/DOSE IH SCH ×2 (10:58→22:20)
[2017-08-18] MEDS: TIOTROPIUM BROMIDE DPI 5 CAP/KIT (18 MCG/CAP) IH SCH (10:58)
[2017-08-18] MEDS: CARBOXYMETHYLCELLULOSE SOD 0.5% 0.4 ML DROPERETTE OU SCH (10:58)
[2017-08-18] MEDS: DOCUSATE SODIUM 100 MG CAPSULE PO SCH ×2 (10:59→17:11)
[2017-08-18] MEDS: CHOLECALCIFEROL (D3) 1,000 UNIT TABLET PO SCH (11:23)
[2017-08-18] MEDS: ASPIRIN 325 MG TABLET PO SCH (11:23)
--- NOTE | 2017-08-18 15:53 | PDOC PROGRESS REPORT ---
Subjective Progress Note for:: 08/18/17 Subjective:: Patient is pleasantly confused and resting comfortably. He denies any issues today. He states his breathing is doing better. He would like to go home. He denies any fever or chills, nausea or vomiting, diarrhea, chest pain or increased work of breathing. He also feels that he is able to ambulate to the bathroom when he is pretty much bed-confined. [facility] Ex[facility] Vital Signs: Temp Pulse Resp BP Pulse Ox 98.7 F 96 18 140/65 H 100 08/18/17 11:58 08/18/17 11:58 08/18/17 11:58 08/18/17 11:58 08/18/17 11:58 Intake & Output 08/17/17 08/18/17 08/19/17 06:59 06:59 06:59 Intake Total 191 1200 Balance 191 1200 Weight 99.8 kg 99.8 kg General appearance: PRESENT: cooperative, mild distress, morbidly obese Head exam: PRESENT: normocephalic Mouth exam: PRESENT: moist Throat exam: ABSENT: tonsillogmegaly Neck exam: PRESENT: full ROM. ABSENT: carotid bruit, JVD, lymphadenopathy, tenderness, thyromegaly, tracheal deviation Respiratory exam: PRESENT: rhonchi, wheezes. ABSENT: accessory muscle use, chest wall tenderness Cardiovascular exam: PRESENT: RRR. ABSENT: gallop, rubs Pulses: ABSENT: normal carotid pulses GI/Abdominal exam: PRESENT: normal bowel sounds, soft. ABSENT: ascites, guarding, organolmegaly, tenderness Extremities exam: PRESENT: +1 edema. ABSENT: clubbing, tenderness Neurological exam: PRESENT: alert, oriented to person, oriented to place. ABSENT: oriented to time, oriented to situation Psychiatric exam: ABSENT: agitated, anxious Skin exam: PRESENT: normal color. ABSENT: rash Results Laboratory Results: 08/18/17 06:30 08/18/17 06:30 08/18/17 08/18/17 06:30 06:30 WBC 6.4 RBC 3.70 L Hgb 10.9 L Hct 32.4 L MCV 88 MCH 29.6 MCHC 33.8 RDW 15.7 H Plt Count 146 L Seg Neutrophils % 64.6 Lymphocytes % 19.9 Monocytes % 13.0 Eosinophils % 2.0 Basophils % 0.5 Absolute Neutrophils 4.1 Absolute Lymphocytes 1.3 Absolute Monocytes 0.8 Absolute Eosinophils 0.1 Absolute Basophils 0.0 Sodium 139.0 Potassium 3.6 Chloride 100 Carbon Dioxide 30 Anion Gap 9 BUN 25 H Creatinine 0.87 Est GFR ( Amer) > 60 Est GFR (Non-Af Amer) > 60 Glucose 109 Calcium 8.7 Magnesium 1.5 L Total Bilirubin 0.4 AST 17 ALT 26 Alkaline Phosphatase 55 Total Protein 4.9 L Albumin 2.9 L Impressions: Chest X-Ray 08/14/17 16:32 IMPRESSION: Left basilar pneumonitis. Chest CT 08/17/17 00:00 IMPRESSION: Motion artifact. Small area of consolidation with air bronchograms at the left lower lobe. Mild hilar adenopathy. Assessment & Plan - Diagnosis (1) HCAP (healthcare-associated pneumonia) Is this a current diagnosis for this admission?: Yes Plan: continue current antibiotics. had a swallow eval with speech today and scheduled for modified barium swallow in the morning. Family also to meet with palliative care team this afternoon. That may adjust our approach. He continues to have significant coughing following swallowing liquids (2) Atrial fibrillation Qualifiers: Atrial fibrillation type: chronic Qualified Code(s): I48.2 - Chronic atrial fibrillation Is this a current diagnosis for this admission?: Yes Plan: currently rate controlled, will continue to monitor (3) CO2 retention Plan: has refused to wear cpap in the past, would benefit from use. will continue to monitor (4) COPD (chronic obstructive pulmonary disease) Qualifiers: COPD type: unspecified COPD Qualified Code(s): J44.9 - Chronic obstructive pulmonary disease, unspecified Is this a current diagnosis for this admission?: Yes Plan: continue current medications. (5) Hypomagnesemia Plan: has no IV access and has refused central line. changed to oral mag three times a day yesterday. will see how his mag level is in the AM - Time Time Spent with patient: 15-24 minutes Anticipated discharge: Home Within: within 24 hours
[2017-08-18] MEDS: MONTELUKAST SODIUM 10 MG TABLET PO SCH (22:20)
[2017-08-18] MEDS: LATANOPROST 0.005% OPH SOLN 2.5 ML OU SCH (22:20)
[2017-08-18] MEDS: ATORVASTATIN CALCIUM 20 MG TABLET PO SCH (22:20)
[2017-08-18] MEDS: SENNOSIDES/DOCUSATE 8.6-50 MG 1 EACH TABLET PO SCH (22:22)
[2017-08-19 05:26] LABS: ALANINE AMINOTRANSFERASE 26 U/L (21-72); ALBUMIN 2.8 g/dL (3.5-5.0); ALKALINE PHOSPHATASE 61 U/L (38-126); ANION GAP 7 (5-19); ASPARTATE AMINO TRANSFERASE 20 U/L (17-59); BILIRUBIN,DIRECT 0.2 mg/dL (0.0-0.4); BILIRUBIN,TOTAL 0.2 mg/dL (0.2-1.3); BLOOD UREA NITROGEN 25 mg/dL (7-20); CALCIUM 8.9 mg/dL (8.4-10.2); CARBON DIOXIDE 32 mmol/L (22-30); CHLORIDE 100 mmol/L (98-107); GLUCOSE 130 mg/dL (75-110); MAGNESIUM 1.8 mg/dL (1.6-2.3); POTASSIUM 3.8 mmol/L (3.6-5.0); SODIUM 138.7 mmol/L (137-145); TOTAL PROTEIN 4.5 g/dL (6.3-8.2)
[2017-08-19] MEDS: AMOXICILLIN TR/POT CLAVULANATE 500-125 MG TAB PO SCH ×3 (05:44→23:07)
[2017-08-19] MEDS: HEPARIN SOD (PORCINE) 5,000 UNIT/ML 1 ML SYRINGE SUBCUT SCH ×3 (05:44→23:06)
[2017-08-19] MEDS: CETIRIZINE 10 MG TABLET PO SCH (10:51)
[2017-08-19] MEDS: GUAIFENESIN 600 MG TABLET.SA PO SCH ×2 (10:51→23:07)
[2017-08-19] MEDS: TAMSULOSIN HCL 0.4 MG CAP.SR.24H PO SCH (10:51)
[2017-08-19] MEDS: LEVETIRACETAM 500 MG TABLET PO SCH ×2 (10:51→23:06)
[2017-08-19] MEDS: METOPROLOL SUCCINATE 25 MG TAB.SR.24H PO SCH (10:52)
[2017-08-19] MEDS: FLUTICASONE/SALMETEROL DISKUS 250-50 MCG/DOSE IH SCH ×2 (10:53→23:08)
[2017-08-19] MEDS: MAGNESIUM OXIDE 400 MG TABLET PO SCH ×3 (10:53→17:53)
[2017-08-19] MEDS: PREDNISONE 20 MG TABLET PO SCH (10:54)
[2017-08-19] MEDS: DOCUSATE SODIUM 100 MG CAPSULE PO SCH ×2 (10:55→17:51)
[2017-08-19] MEDS: CARBOXYMETHYLCELLULOSE SOD 0.5% 0.4 ML DROPERETTE OU SCH (11:32)
[2017-08-19] MEDS: TIOTROPIUM BROMIDE DPI 5 CAP/KIT (18 MCG/CAP) IH SCH (11:32)
--- NOTE | 2017-08-19 12:52 | PDOC PROGRESS REPORT ---
Subjective Progress Note for:: 08/19/17 Subjective:: The patient is seen on morning rounds. He is found resting in bed comfortably on supplemental oxygen via nasal cannula. He is noted to be very hard of hearing. He is oriented to himself, initially did not understand my questions with regard to location but was able to self-correct to [facility]. He is disoriented with regard to time and situation. He states that he has been up out of bed and ambulating independently to the bathroom despite him being bedbound throughout this admission; I am unsure of his baseline mobility. He is requesting that he be allowed to return to home today. Reason For Visit: HCAP Physical Exam Vital Signs: Temp Pulse Resp BP Pulse Ox 98.0 F 55 L 16 134/55 H 97 08/19/17 07:36 08/19/17 07:36 08/19/17 07:36 08/19/17 07:36 08/19/17 07:36 Intake & Output 08/18/17 08/19/17 08/20/17 06:59 06:59 06:59 Intake Total 1200 1510 Balance 1200 1510 Weight 99.8 kg 99.8 kg General appearance: PRESENT: no acute distress, hard of hearing, obese, well- developed, well-nourished Head exam: PRESENT: atraumatic, normocephalic Eye exam: PRESENT: conjunctiva pink, EOMI, PERRLA. ABSENT: scleral icterus Ear exam: PRESENT: normal external ear exam Mouth exam: PRESENT: moist, tongue midline Neck exam: ABSENT: carotid bruit, JVD, lymphadenopathy, thyromegaly Respiratory exam: PRESENT: rhonchi, symmetrical, unlabored, wheezes, other - supplemental oxygen via nasal cannula. ABSENT: rales Cardiovascular exam: PRESENT: RRR, +S1, +S2. ABSENT: diastolic murmur, rubs, systolic murmur Pulses: PRESENT: normal dorsalis pedis pul Vascular exam: PRESENT: normal capillary refill GI/Abdominal exam: PRESENT: normal bowel sounds, soft. ABSENT: distended, guarding, mass, organolmegaly, rebound, tenderness Rectal exam: PRESENT: deferred Extremities exam: PRESENT: full ROM. ABSENT: calf tenderness, clubbing, pedal edema Neurological exam: PRESENT: alert, awake, oriented to person, oriented to place. ABSENT: oriented to time, oriented to situation, motor sensory deficit Psychiatric exam: PRESENT: appropriate affect, normal mood. ABSENT: homicidal ideation, suicidal ideation Skin exam: PRESENT: dry, intact, warm. ABSENT: cyanosis, rash Results Laboratory Results: 08/18/17 06:30 08/19/17 03:52 08/19/17 03:52 Sodium 138.7 Potassium 3.8 Chloride 100 Carbon Dioxide 32 H Anion Gap 7 BUN 25 H Creatinine 0.76 Est GFR ( Amer) > 60 Est GFR (Non-Af Amer) > 60 Glucose 130 H Calcium 8.9 Magnesium 1.8 Total Bilirubin 0.2 AST 20 ALT 26 Alkaline Phosphatase 61 Total Protein 4.5 L Albumin 2.8 L Impressions: Chest X-Ray 08/14/17 16:32 IMPRESSION: Left basilar pneumonitis. Chest CT 08/17/17 00:00 IMPRESSION: Motion artifact. Small area of consolidation with air bronchograms at the left lower lobe. Mild hilar adenopathy. Assessment & Plan - Diagnosis (1) HCAP (healthcare-associated pneumonia) Is this a current diagnosis for this admission?: Yes Plan: The patient was initially treated with vancomycin and Zosyn for healthcare associated pneumonia. He has since been transitioned to p.o. Augmentin. Blood cultures: No growth at 4 days. Sputum and urine cultures remain uncollected at this time. A Chest CT on 08/17/17 demonstrated consolidation to the left lower lobe with mild hilar adenopathy. The patient was noted to have penetration of thin liquids on MBSS. Speech therapy recommends a nectar thick diet. He will continue on p.o. Augmentin. Will continue supportive care with Xopenex and Atrovent as needed, mucinex bid, singulair daily, insentive spirometry and flutter valve with supplemental oxygen to keep saturations greater than 91%. (2) Atrial fibrillation Qualifiers: Atrial fibrillation type: chronic Qualified Code(s): I48.2 - Chronic atrial fibrillation Is this a current diagnosis for this admission?: Yes Plan: The patient is rate controlled on metoprolol 25 mg daily. He is on full dose aspirin. (3) CHF (congestive heart failure) Qualifiers: Congestive heart failure type: diastolic Congestive heart failure chronicity: chronic Qualified Code(s): I50.32 - Chronic diastolic (congestive ) heart failure Is this a current diagnosis for this admission?: Yes Plan: Echocardiogram from 07/07/17 demonstrated a normal ejection fraction of 60% with mild systolic dysfunction. Continue his home medications: Metoprolol, atorvastatin, full dose aspirin. He is placed on a cardiac diet. Will monitor I's and O's and daily weights. (4) CO2 retention Is this a current diagnosis for this admission?: Yes Plan: The patient remains resistant to CPAP use. Will continue to monitor and encourage use qHS and as needed. (5) COPD (chronic obstructive pulmonary disease) Qualifiers: COPD type: unspecified COPD Qualified Code(s): J44.9 - Chronic obstructive pulmonary disease, unspecified Is this a current diagnosis for this admission?: Yes Plan: We will continue as needed Xopenex and Atrovent. Patient to continue his home medications: Advair and Spiriva. Incentive spirometry and flutter valve to bedside. Supplemental oxygen as needed to keep saturations greater than 91%. (6) Debility Plan: The patient has a history of coronary artery disease with prior CVA and left- sided hemiparesis, brain tumor with resection, and seizure disorder. He tells me that he has been ambulating independently, however, nursing indicates that the patient has essentially been bedbound throughout this admission. Considering his medical history, advanced age, and multiple admissions over the last year, I have concerns about his ability to care for himself independently at home. Further, I am concerned that his family is no longer capable of providing the care he requires. Will ask physical therapy to make a formal evaluation and recommendations. Anticipate that recommendations will include SNF for possible residential care. Palliative care has also been consulted; I appreciate their evaluation and recommendations. (7) Dysphagia, unspecified Is this a current diagnosis for this admission?: Yes Plan: Pt was noted to have aspiration of thin liquids during MBSS today. Will place pt on nectar-thick liquids and aspiration precautions. (8) Hypomagnesemia Plan: Replete. Continue Mag-OX 800 mg TID. (9) Nonsustained ventricular tachycardia Is this a current diagnosis for this admission?: Yes Plan: Noted in the ED and treated with metoprolol. Pt now in underlying atrial fibrillation. Electrolytes will be monitored and corrected as needed. The pt remains on continuous cardiac telemetry. (10) DNR (do not resuscitate) Is this a current diagnosis for this admission?: Yes (11) Dementia Qualifiers: Qualified Code(s): F01.50 - Vascular dementia without behavioral disturbance Is this a current diagnosis for this admission?: Yes - Time Time Spent with patient: 25-34 minutes Medications reviewed and adjusted accordingly: Yes
[2017-08-19] MEDS: CHOLECALCIFEROL (D3) 1,000 UNIT TABLET PO SCH (12:53)
[2017-08-19] MEDS: ASPIRIN 325 MG TABLET PO SCH (12:53)
--- NOTE | 2017-08-19 14:04 | ST Inp Modified Barium Swallow ---
Medical Diagnosis - Medical Diagnoses Medical Diagnosis Description & ICD-10 Code(s): pneumonia, possible aspiration ST Inpatient [facility] [place] - General Date: 08/19/17 - History History Obtained From: Other - EMR -: Medical - per EMR: CAD, CVA with left side hemiparesis, prior brain tumor with resection, seizure disorder, paroxysmal atrial fibrillation. Patient has had multiple prior pneumonias, suspected aspiration of liquids at bedside swallow evaluation. Medications: Medications Reviewed Allergies: No known allergies - Subjective Current Nutritional Means: PO Current PO Diet: Regular Current Symptoms: Coughing, Pneumonia Pain: denies pain - Objective Assessment: Upright, Left Lateral - Food Trials Food Trials Used: Thin liquids, [place]be[place] thick liquids, Pureed, Regular The Patient: Required Assist, fed by ST - Assessment Labial Function: Within Normal Limits Lingual Function: Within Normal Limits Mandibular Function: Within Normal Limits - Pharyngeal Stage Initiation of Pharyngeal Stage: Normal Decreased Laryngeal Elevation: No Reduced Pressure Generation: No Reduced Tongue Base Retraction: No Pre-Swallowing Pooling in Valleculae: Mild Pre-Swallowing Pooling in Pyriforms: Mild Reduced Thyro-Hyiod Approximation: No Reduced Epiglottic Excursion: No Reduced Pharyngeal Peristalsis: No Post Swallow Residuals in Valleculae: None Post Swallow Residuals in Pyriforms: None - Impression/Summary Laryngeal Penetration: Yes - on thin liquid consistently, on nectar x1 Tracheal Aspiration: yes - with thin liquids, cough, during swallow Effective Compensatory Strategies: chin down Patient Presents With: Pharyngeal stage dysph., Mild-Moderate Risk of Aspiration: Moderate - Recommendations Solid Diet Recommendations: Regular Liquid Diet Recommendations: [place]-Thick Strict Aspitarion Precautions: Yes Dysphagia Therapy with CAPTAIN WAITER/WAITRESS: No Recommended Techniques: Fully Upright During Meal, Small Bites and Sips - Time Total Time: 20 Total Timed Minutes: 20
--- NOTE | 2017-08-19 17:59 | RADIOLOGY REPORT (SQ) ---
EXAM DESCRIPTION: COOKIE SWALLOW COMPLETED DATE/TIME: 08/19/2017 8:37 am REASON FOR STUDY: possible aspiration COMPARISON: Modified barium swallow 05/26/2017 TECHNIQUE: Videofluoroscopic swallowing examination was performed in conjunction with speech patholo gy. Videofluoroscopic imaging was obtained and reviewed and these are the findings: RADIATION DOSE: 2.5 minutes of fluoroscopy was used. 1 images saved to PACS. LIMITATIONS: None FINDINGS: The patient was brought into the fluoro room and placed upright on a modified barium swall ow chair. The patient was then given multiple consistencies mixed with barium to swallow under live fluoroscopic video guidance. According to the Speech Pathologist there was laryngeal penetration wit h thin and nectar thick liquids. There was trace aspiration of thin liquids. IMPRESSION: LARYNGEAL PENETRATION AND TRACE ASPIRATION DESCRIBED.PLEASE SEE SPEECH PATHOLOGIST RE PORT FOR OTHER FINDINGS AND RECOMMENDATIONS. COMMENT: Quality ID [id number]: Final reports for procedures using fluoroscopy that document radiation exp osure indices, or exposure time and number of fluorographic images (if radiation exposure indices are not available) TECHNICAL DOCUMENTATION: JOB ID: [id number] [employer]- All Rights Reserved
--- NOTE | 2017-08-19 22:51 | Palliative Consultation Report ---
Consultation From:: VIN MAYER - [facility] HPI: Palliative Care Consult Visit 08/19/17 1:20- 145 PM Appreciate palliative care consult request for this 87 year old man who is cared for at home by his and daughter. He has had multiple hospitalizations in the last six months. This time he is admitted with pneumonia , possibly due to aspiration. He has history of brain tumor with craniotomy in 2005, CAD with 3 vessel CABG in 1999. He has seizure disorder following his yoana surgery, dementia and has had CVA. He is a large man but cannot care for himself and is total care. He has frequent episodes of pneumonia. Patient is resting in bed and talked with me for a long while. He is able to answer questions appropriately and carry on conversation for several minutes before it is noted that he is confused and has some memory loss. he is calm and denies pain, states he is feeling better but doesn't know where he is. He does have audible wheeze and rhonchi at rest, before eating. He is a large man and cannot help with position change or movement in bed. Onset: Last week Onset/Duration: Gradual Quality of Pain: No pain Severity: None Pain Level: Denies Associated Symptoms: Shortness of breath, Weakness Past Medical History(Consults) - General Information Source: Patient, Relative, [facility] Records Home Medications: Aspirin [Aspirin 325 mg Tablet] 325 mg PO DAILY 08/14/17 Cetirizine HCl [Zyrtec 10 mg Tablet] 10 mg PO DAILY 08/14/17 Cholecalciferol (Vitamin D3) [Vitamin D3] 5,000 unit PO DAILY 08/14/17 Ipratropium [place] [Atrovent 0.02% Neb 0.5 mg/2.5 ml Ampul] 0.5 mg NEB [id number] PRN 08/14/17 Latanoprost [Xalatan 0.005% Oph Soln 2.5 ml] 1 drop OU QHS 08/14/17 Metoprolol Succinate [Toprol Xl 25 mg Tab.sr] 25 mg PO DAILY 08/14/17 Montelukast Sodium [Singulair 10 mg Tablet] 10 mg PO QHS 08/14/17 Polyvinyl Alcohol/Povidone/Pf [Refresh Classic Eye Drops] 1 each OU DAILY Rosuvastatin Calcium [Crestor 10 mg Tablet] 10 mg PO QHS 08/14/17 Tamsulosin HCl [Flomax 0.4 mg Cap.sr] 0.4 mg PO DAILY 08/14/17 Tiotropium [place] [Spiriva Handihaler 18 mcg/dose (30 Dose)] 1 cap IH DAILY 06/21 Brimonidine Tartrate/Timolol [Combigan 0.2%-0.5% Eye Drops] 5 ml OP DAILY Latanoprost [Xalatan 0.005% Oph Soln 2.5 ml] 1 drop OP QHS 08/16/17 Allergies/Adverse Reactions: No Known Allergies Allergy (Verified 08/14/17 17:04) - Social History Lives with: Family Family History: Reviewed & Not Pertinent Parental Family History Reviewed: No Children Family History Reviewed: No Sibling(s) Family History Reviewed.: No Smoking Status: Former Smoker Hx Recreational Drug Use: No Drugs: None Hx Prescription Drug Abuse: No - Past Medical History Cardiac Medical History: Reports: Hx Atrial Fibrillation, Hx Congestive Heart Failure, Hx Coronary Artery Disease, Hx Heart Attack, Hx Hypercholesterolemia, Hx Hypertension Pulmonary Medical History: Reports: Hx COPD - no o2, Bipap at night, Hx Sleep Apnea Neurological Medical History: Reports: Hx Seizures Renal/ Medical History: Denies: Hx Peritoneal Dialysis Malignancy Medical History: Reports Hx Brain Cancer Musculoskeltal Medical History: Reports Hx Arthritis Psychiatric Medical History: Reports: Hx Dementia Denies: Hx Depression Hematology: Reports: Anemia - Surgical History Past Surgical History: Reports: Hx Cardiac Surgery - Triple Bypass 1999, Hx Coronary Artery Bypass Graft - Three-vessel, 1999., Other - Brain surgery, 2005. Review of systems Constitutional: No symptoms reported, Weakness Cardiovascular: No symptoms reported Respiratory: Cough, Short of breath, Wheezing Neurological/Psychological: Dementia Ojective:Exam Vital Signs: Temp Pulse Resp BP Pulse Ox 97.9 F 81 20 135/64 H 94 08/19/17 15:22 08/19/17 15:22 08/19/17 15:22 08/19/17 15:22 08/19/17 15:22 Intake & Output 08/18/17 08/19/17 08/20/17 06:59 06:59 06:59 Intake Total 1200 1510 490 Balance 1200 1510 490 Weight 99.8 kg 99.8 kg 99.8 kg - General General Appearance: Alert In distress: None - Respiratory Respiratory Status: Labored Breath sounds: Rhonchi, Wheezing - Cardiovascular Rhythm: Regular - Neurological Orientation: Alert, Oriented to person, Disoriented to place - Psychological Associated symptoms: Normal affect Objective-Diagnostic Laboratory: 08/18/17 06:30 08/19/17 03:52 08/19/17 03:52 Sodium 138.7 Potassium 3.8 Chloride 100 Carbon Dioxide 32 H Anion Gap 7 BUN 25 H Creatinine 0.76 Est GFR ( Amer) > 60 Est GFR (Non-Af Amer) > 60 Glucose 130 H Calcium 8.9 Magnesium 1.8 Total Bilirubin 0.2 AST 20 ALT 26 Alkaline Phosphatase 61 Total Protein 4.5 L Albumin 2.8 L 08/14/17 20:55 Blood Blood Culture - Final NO GROWTH IN 5 DAYS Plan and Recommendation Plan and Recommendation: I spoke with patients daughter who lives with patient and his . We discussed his frequent pneumonia and she is aware that he is very weak and may still aspirate. She says they are planning to take him home and have multiple caregivers per home health and private pay. She says they are not going to consider placement in [place] [facility]. She was very upset about the skin condition after his last hospitalization and wants to show me pictures when I meet her. I told her I would try to meet them tomorrow afternoon at the hospital. Will try to talk with them about SNF placement, although with patients condition, I would expect frequent hospitalizations even from SNF. Will try to support and possibly check with PCP to see if I can follow with PC visits at home. Thank you for referral. - Time Spent with Patient Time spent with patient: 15 to 30 Minutes Time: 25 min visit and chart review in adition to conversation with daughter.
[2017-08-19] MEDS: MONTELUKAST SODIUM 10 MG TABLET PO SCH (23:07)
[2017-08-19] MEDS: ATORVASTATIN CALCIUM 20 MG TABLET PO SCH (23:07)
[2017-08-19] MEDS: SENNOSIDES/DOCUSATE 8.6-50 MG 1 EACH TABLET PO SCH (23:13)
[2017-08-19] MEDS: LATANOPROST 0.005% OPH SOLN 2.5 ML OU SCH (23:13)
[2017-08-20] MEDS: HEPARIN SOD (PORCINE) 5,000 UNIT/ML 1 ML SYRINGE SUBCUT SCH ×3 (05:58→23:05)
[2017-08-20] MEDS: AMOXICILLIN TR/POT CLAVULANATE 500-125 MG TAB PO SCH ×3 (05:59→23:02)
[2017-08-20] MEDS: FLUTICASONE/SALMETEROL DISKUS 250-50 MCG/DOSE IH SCH ×2 (11:03→23:03)
[2017-08-20] MEDS: LEVETIRACETAM 500 MG TABLET PO SCH ×2 (11:04→23:02)
[2017-08-20] MEDS: PREDNISONE 20 MG TABLET PO SCH (11:04)
[2017-08-20] MEDS: CARBOXYMETHYLCELLULOSE SOD 0.5% 0.4 ML DROPERETTE OU SCH (11:04)
[2017-08-20] MEDS: TIOTROPIUM BROMIDE DPI 5 CAP/KIT (18 MCG/CAP) IH SCH (11:04)
[2017-08-20] MEDS: CETIRIZINE 10 MG TABLET PO SCH (11:05)
[2017-08-20] MEDS: MAGNESIUM OXIDE 400 MG TABLET PO SCH ×3 (11:05→17:54)
[2017-08-20] MEDS: TAMSULOSIN HCL 0.4 MG CAP.SR.24H PO SCH (11:05)
[2017-08-20] MEDS: GUAIFENESIN 600 MG TABLET.SA PO SCH ×2 (11:05→23:01)
[2017-08-20] MEDS: DOCUSATE SODIUM 100 MG CAPSULE PO SCH ×2 (11:05→17:49)
[2017-08-20] MEDS: METOPROLOL SUCCINATE 25 MG TAB.SR.24H PO SCH (11:06)
[2017-08-20] MEDS: CHOLECALCIFEROL (D3) 1,000 UNIT TABLET PO SCH (11:59)
[2017-08-20] MEDS: ASPIRIN 325 MG TABLET PO SCH (11:59)
--- NOTE | 2017-08-20 15:49 | PDOC PROGRESS REPORT ---
Subjective Progress Note for:: 08/20/17 Subjective:: The patient is an 87-year-old male with a past medical history of CAD, prior CVA with left-sided hemiparesis, prior brain tumor with resection, seizure disorder, proximal atrial fibrillation, hypertension, hyperlipidemia, COPD, obstructive sleep apnea, bilateral carotid stenosis who was admitted on 08/14/17 for healthcare associated pneumonia. He was initially placed on vancomycin and Zosyn; he has since been transitioned to p.o. Augmentin. A modified barium swallow study was completed demonstrating penetration of thin liquids. Patient is seen on morning rounds resting in bed comfortably on supplemental oxygen via nasal cannula at 3 L/min. He states that he is feeling well today and has no questions or concerns. He states that he is hopeful to return home where he lives with his and daughter. Reason For Visit: [facility] Physical Exam Vital Signs: Temp Pulse Resp BP Pulse Ox 98.0 F 59 L 18 110/87 H 90 L 08/20/17 11:48 08/20/17 11:48 08/20/17 11:48 08/20/17 11:48 08/20/17 11:48 Intake & Output 08/19/17 08/20/17 08/21/17 06:59 06:59 06:59 Intake Total 1510 730 Output Total 400 Balance 1510 330 Weight 99.8 kg 99.8 kg General appearance: PRESENT: no acute distress, well-developed, well-nourished, other - Overweight Head exam: PRESENT: atraumatic, normocephalic Eye exam: PRESENT: conjunctiva pink, EOMI, PERRLA. ABSENT: scleral icterus Ear exam: PRESENT: normal external ear exam Mouth exam: PRESENT: moist, tongue midline Neck exam: ABSENT: carotid bruit, JVD, lymphadenopathy, thyromegaly Respiratory exam: PRESENT: clear to auscultation charu, symmetrical, unlabored. ABSENT: rales, rhonchi, wheezes Cardiovascular exam: PRESENT: RRR, +S1, +S2. ABSENT: diastolic murmur, rubs, systolic murmur Pulses: PRESENT: normal dorsalis pedis pul Vascular exam: PRESENT: normal capillary refill GI/Abdominal exam: PRESENT: normal bowel sounds, soft. ABSENT: distended, guarding, mass, organolmegaly, rebound, tenderness Rectal exam: PRESENT: deferred Extremities exam: PRESENT: full ROM. ABSENT: calf tenderness, clubbing, pedal edema Neurological exam: PRESENT: alert, awake, oriented to person, oriented to place , CN II-XII grossly intact, other - Pleasantly confused and forgetful. ABSENT: oriented to time, oriented to situation, motor sensory deficit Psychiatric exam: PRESENT: appropriate affect, normal mood. ABSENT: homicidal ideation, suicidal ideation Skin exam: PRESENT: dry, intact, warm. ABSENT: cyanosis, rash Results Laboratory Results: 08/18/17 06:30 08/19/17 03:52 08/14/17 20:55 Blood Blood Culture - Final NO GROWTH IN 5 DAYS Impressions: Chest X-Ray 08/14/17 16:32 IMPRESSION: Left basilar pneumonitis. Chest CT 08/17/17 00:00 IMPRESSION: Motion artifact. Small area of consolidation with air bronchograms at the left lower lobe. Mild hilar adenopathy. Modified Barium Swallow 08/19/17 00:00 IMPRESSION: LARYNGEAL PENETRATION AND TRACE ASPIRATION DESCRIBED.PLEASE SEE SPEECH PATHOLOGIST REPORT FOR OTHER FINDINGS AND RECOMMENDATIONS. Assessment & Plan - Diagnosis (1) HCAP (healthcare-associated pneumonia) Is this a current diagnosis for this admission?: Yes Plan: The patient was initially treated with vancomycin and Zosyn for healthcare associated pneumonia. He has since been transitioned to p.o. Augmentin. Blood cultures: No growth at 5 days. Sputum and urine cultures remain uncollected at this time. A Chest CT on 08/17/17 demonstrated consolidation to the left lower lobe with mild hilar adenopathy. The patient was noted to have penetration of thin liquids on MBSS. Speech therapy recommends a nectar thick diet. He will continue on p.o. Augmentin. Will continue supportive care with Xopenex and Atrovent as needed, mucinex bid, singulair daily, insentive spirometry and flutter valve with supplemental oxygen to keep saturations greater than 88%. Will ask nursing to begin weaning oxygen and obtain room air saturation assess qualification for home O2. (2) Atrial fibrillation Qualifiers: Atrial fibrillation type: chronic Qualified Code(s): I48.2 - Chronic atrial fibrillation Is this a current diagnosis for this admission?: Yes Plan: The patient is rate controlled on metoprolol 25 mg daily. He is on full dose aspirin. (3) CHF (congestive heart failure) Qualifiers: Congestive heart failure type: diastolic Congestive heart failure chronicity: chronic Qualified Code(s): I50.32 - Chronic diastolic (congestive ) heart failure Is this a current diagnosis for this admission?: Yes Plan: Echocardiogram from 07/07/17 demonstrated a normal ejection fraction of 60% with mild systolic dysfunction. Continue his home medications: Metoprolol, atorvastatin, full dose aspirin. He is placed on a cardiac diet. Will monitor I's and O's and daily weights. (4) CO2 retention Is this a current diagnosis for this admission?: Yes Plan: The patient remains resistant to CPAP use. Will continue to monitor and encourage use qHS and as needed. (5) COPD (chronic obstructive pulmonary disease) Qualifiers: COPD type: unspecified COPD Qualified Code(s): J44.9 - Chronic obstructive pulmonary disease, unspecified Is this a current diagnosis for this admission?: Yes Plan: We will continue as needed Xopenex and Atrovent. Patient to continue his home medications: Advair and Spiriva. Incentive spirometry and flutter valve to bedside. Supplemental oxygen as needed to keep saturations greater than 88%. (6) Debility Plan: The patient has a history of coronary artery disease with prior CVA and left- sided hemiparesis, brain tumor with resection, and seizure disorder. He tells me that he has been ambulating independently, however, nursing indicates that the patient has essentially been bedbound throughout this admission. Considering his medical history, advanced age, and multiple admissions over the last year, I have concerns about his ability to care for himself independently at home. Further, I am concerned that his family is no longer capable of providing the care he requires. Palliative Care did speak with the yesterday; she would like the patient to return to home where they have home health nursing and home health aides. She is agreeable to having Ms. Ray follow the patient at home visits after discharge. I spoke with the patient's daughter today who confirms this plan. They asked that I hold the discharge until tomorrow morning so that they can contact their private paid home health aide to ensure that they will be available when the patient arrives home. (7) Dysphagia, unspecified Is this a current diagnosis for this admission?: Yes Plan: Pt was noted to have aspiration of thin liquids during MBSS. Will place pt on nectar-thick liquids and aspiration precautions. (8) Hypomagnesemia Plan: Replete. Continue Mag-OX 800 mg TID. (9) Nonsustained ventricular tachycardia Is this a current diagnosis for this admission?: Yes Plan: Noted in the ED and treated with metoprolol. Pt now in underlying atrial fibrillation. Electrolytes will be monitored and corrected as needed. The pt remains on continuous cardiac telemetry. (10) DNR (do not resuscitate) Is this a current diagnosis for this admission?: Yes (11) Dementia Qualifiers: Is this a current diagnosis for this admission?: Yes - Time Time Spent with patient: 25-34 minutes Anticipated discharge: Home with Homehealth Within: within 24 hours - D/c to home tomorrow; family requests pt to be discharged in AM so that arrangements for home health/aid/private sitter can be made.
[2017-08-20] MEDS: ATORVASTATIN CALCIUM 20 MG TABLET PO SCH (23:01)
[2017-08-20] MEDS: SENNOSIDES/DOCUSATE 8.6-50 MG 1 EACH TABLET PO SCH (23:01)
[2017-08-20] MEDS: MONTELUKAST SODIUM 10 MG TABLET PO SCH (23:03)
[2017-08-20] MEDS: LATANOPROST 0.005% OPH SOLN 2.5 ML OU SCH (23:03)
--- NOTE | 2017-08-20 23:57 | Progress Note ---
Provider Note Provider Note: Palliative Care follow up visit . 3:10- 3:25 PM Patient awake and alert in bed. No complaints pain or dyspnea. Speech clear and today he knows he is in the hospital. Was going to discuss care with his and daughter this afternoon, but they may have gone home early due to inclement weather. No new problems noted. Patient probably will be discharged soon. Will contact patient's PCP, Dr. Sanchez after he is discharged and see if he agrees to home palliative care visits. Hopefully we can keep him at home with fewer admissions, and support his family and caregivers.
[2017-08-21 00:09] VITALS: BP 143/64
[2017-08-21] MEDS: HEPARIN SOD (PORCINE) 5,000 UNIT/ML 1 ML SYRINGE SUBCUT SCH (06:01)
[2017-08-21] MEDS: AMOXICILLIN TR/POT CLAVULANATE 500-125 MG TAB PO SCH (06:01)
[2017-08-21] MEDS: CARBOXYMETHYLCELLULOSE SOD 0.5% 0.4 ML DROPERETTE OU SCH (10:04)
[2017-08-21] MEDS: CETIRIZINE 10 MG TABLET PO SCH (10:04)
[2017-08-21] MEDS: LEVETIRACETAM 500 MG TABLET PO SCH (10:04)
[2017-08-21] MEDS: MAGNESIUM OXIDE 400 MG TABLET PO SCH (10:04)
[2017-08-21] MEDS: FLUTICASONE/SALMETEROL DISKUS 250-50 MCG/DOSE IH SCH (10:04)
[2017-08-21] MEDS: METOPROLOL SUCCINATE 25 MG TAB.SR.24H PO SCH (10:04)
[2017-08-21] MEDS: TIOTROPIUM BROMIDE DPI 5 CAP/KIT (18 MCG/CAP) IH SCH (10:04)
[2017-08-21] MEDS: TAMSULOSIN HCL 0.4 MG CAP.SR.24H PO SCH (10:04)
[2017-08-21] MEDS: PREDNISONE 20 MG TABLET PO SCH (10:04)
[2017-08-21] MEDS: GUAIFENESIN 600 MG TABLET.SA PO SCH (10:04)
[2017-08-21] MEDS: DOCUSATE SODIUM 100 MG CAPSULE PO SCH (10:05)
--- NOTE | 2017-08-21 11:48 | PDOC DISCHARGE SUMMARY ---
General - Admit/Disc Date/PCP Admission Date/Primary Care Provider: 08/14/17 19:35 ARON FRAUSTO, Discharge Date: 08/21/17 - Discharge Diagnosis (1) HCAP (healthcare-associated pneumonia) Is this a current diagnosis for this admission?: Yes Summary: Final blood cultures no growth at 5 days. The patient was unable to participate in obtaining a sputum culture. He was initially treated with vancomycin and Zosyn for coverage of healthcare associated pneumonia. He has since been transitioned to p.o. Augmentin. Has remained afebrile throughout his admission. Modified barium swallow study was conducted and found silent penetration of thin liquids. He was placed on a regular diet with nectar thick liquids. His family was instructed on the importance of aspiration precautions and use of thickening powder with his liquids at home. Has been found to qualify for home oxygen secondary to COPD and pneumonia. (2) Atrial fibrillation Is this a current diagnosis for this admission?: Yes Summary: The patient has remained rate controlled in atrial fibrillation with home dosed metoprolol. He is on full dose aspirin, but otherwise is not chronically anticoagulated. (3) CHF (congestive heart failure) Is this a current diagnosis for this admission?: Yes Summary: Echocardiogram was completed during his last admission on 07/07/17. This demonstrated a LVEF of 60% with mild diastolic dysfunction. The patient's weight has remained stable throughout the admission and he appears to be euvolemic. (4) CO2 retention Is this a current diagnosis for this admission?: Yes Summary: The patient would benefit from CPAP use nightly secondary to COPD and sleep apnea. However, the patient refuses this due to poor tolerance of the mask. (5) COPD (chronic obstructive pulmonary disease) Is this a current diagnosis for this admission?: Yes (7) Dysphagia, unspecified Is this a current diagnosis for this admission?: Yes Summary: Modified barium swallow study demonstrated penetration of thin liquids. He has been placed on aspiration precautions and a nectar thick diet. Aspiration precautions and use of thickening powder was discussed with the family members prior to his discharge. (8) Hypomagnesemia Is this a current diagnosis for this admission?: Yes Summary: Replete. The patient is discharged with a prescription for Mag-Ox. (9) Nonsustained ventricular tachycardia Is this a current diagnosis for this admission?: Yes Summary: The patient was noted to have several minutes of sustained ventricular tachycardia which resolved following IV metoprolol. Otherwise, he has remained in his underlying rhythm of atrial fibrillation. (10) DNR (do not resuscitate) Is this a current diagnosis for this admission?: Yes (11) Dementia Is this a current diagnosis for this admission?: Yes - Additional Information Resuscitation Status: Do Not Resuscitate Discharge Diet: As Tolerated, Other (Comments) - [place] thick liquids Discharge Activity: Activity As Tolerated, Other - Out of bed daily Prescriptions: Amox Tr/Potassium Clavulanate [Augmentin "500" Tablet] 1 tab PO Q8 #27 tablet Fluticasone/Salmeterol [Advair 250-50 Diskus 14 Dose/Diskus] 1 inh IH Q12 #1 inhaler Guaifenesin [Mucinex Sr 600 mg Tablet.sa] 600 mg PO Q12 #30 tablet.sa Magnesium Oxide [Mag-Ox 400 mg Tablet] 800 mg PO TID #90 tablet Prednisone [Deltasone 20 mg Tablet] 60 mg PO DAILY #12 tablet Home Medications: Aspirin [Aspirin 325 mg Tablet] 325 mg PO DAILY 08/14/17 Cetirizine HCl [Zyrtec 10 mg Tablet] 10 mg PO DAILY 08/14/17 Cholecalciferol (Vitamin D3) [Vitamin D3] 5,000 unit PO DAILY 08/14/17 Ipratropium [place] [Atrovent 0.02% Neb 0.5 mg/2.5 ml Ampul] 0.5 mg NEB [id number] PRN 08/14/17 Latanoprost [Xalatan 0.005% Oph Soln 2.5 ml] 1 drop OU QHS 08/14/17 Metoprolol Succinate [Toprol Xl 25 mg Tab.sr] 25 mg PO DAILY 08/14/17 Montelukast Sodium [Singulair 10 mg Tablet] 10 mg PO QHS 08/14/17 Polyvinyl Alcohol/Povidone/Pf [Refresh Classic Eye Drops] 1 each OU DAILY Rosuvastatin Calcium [Crestor 10 mg Tablet] 10 mg PO QHS 08/14/17 Tamsulosin HCl [Flomax 0.4 mg Cap.sr] 0.4 mg PO DAILY 08/14/17 Tiotropium [place] [Spiriva Handihaler 18 mcg/dose (30 Dose)] 1 cap IH DAILY 06/21 Brimonidine Tartrate/Timolol [Combigan 0.2%-0.5% Eye Drops] 5 ml OP DAILY Latanoprost [Xalatan 0.005% Oph Soln 2.5 ml] 1 drop OP QHS 08/16/17 Acetaminophen [Tylenol 325 mg Tablet] 650 mg PO Q4HP PRN tablet 08/21/17 Amox Tr/Potassium Clavulanate [Augmentin "500" Tablet] 1 tab PO Q8 #27 tablet 08/21/17 Fluticasone/Salmeterol [Advair 250-50 Diskus 14 Dose/Diskus] 1 inh IH Q12 #1 inhaler 08/21/17 Guaifenesin [Mucinex Sr 600 mg Tablet.sa] 600 mg PO Q12 #30 tablet.sa 08/21/17 Magnesium Oxide [Mag-Ox 400 mg Tablet] 800 mg PO TID #90 tablet 08/21/17 Prednisone [Deltasone 20 mg Tablet] 60 mg PO DAILY #12 tablet 08/21/17 History of Present Illness History of Present Illness: Per H&P by Dr. Peters: MARISSA DAVID is a 87 year old male with a past medical history of CAD, prior CVA with left-sided hemiparesis, prior brain tumor with resection, seizure disorder, proximal atrial fibrillation, hypertension, hyperlipidemia, COPD, obstructive sleep apnea, bilateral carotid stenosis who presents to the emergency department with cough and shortness of breath. The patient is found on chest x-ray to have pneumonia and he is admitted to the hospital service for healthcare associated pneumonia. In the emergency department, patient felt several minutes of stable V. tach which improved with the administration of IV metoprolol. Hospital Course Hospital Course: The patient was admitted with a healthcare associated pneumonia. He was initially treated with Vancomycin and Zosyn. Blood cultures are negative and he has been transitioned to p.o. Augmentin. A modified barium swallow study demonstrated penetration of thin liquids. He has been placed on a nectar thick diet with aspiration precautions. These modifications were discussed in detail with family so that they may continue them at home. The patient and family were met with by Palliative Care services. They are agreeable to, and have requested, that Palliative Care continue to follow the patient at home. They were offered assistance in placing the patient in a long- term care facility which was declined. They state that they have home health services and private duty aides to care for him at home. The patient supplemental oxygen requirement was weaned down to 3 Lpm via [place]. However, he does continue to require oxygen for home use. He is discharged to home in stable condition with home health nursing services, home oxygen, and prescriptions for Augmentin, Advair, Mucinex, Mag-Ox, and prednisone. He will benefit from continued Palliative Care services as an outpatient with hospice bridge in the near future. Physical Exam Vital Signs: Temp Pulse Resp BP Pulse Ox 98.0 F 71 16 143/64 H 88 L 08/21/17 00:00 08/21/17 00:00 08/21/17 00:00 08/21/17 00:00 08/21/17 08:46 Intake & Output 08/20/17 08/21/17 08/22/17 06:59 06:59 06:59 Intake Total 730 400 Output Total 400 Balance 330 400 Weight 99.8 kg 99.8 kg General appearance: PRESENT: no acute distress, hard of hearing, well-developed , well-nourished, other - overweight Head exam: PRESENT: atraumatic, normocephalic Eye exam: PRESENT: conjunctiva pink, EOMI, PERRLA. ABSENT: scleral icterus Ear exam: PRESENT: normal external ear exam Mouth exam: PRESENT: moist, tongue midline Neck exam: ABSENT: carotid bruit, JVD, lymphadenopathy, thyromegaly Respiratory exam: PRESENT: clear to auscultation charu, symmetrical, unlabored. ABSENT: rales, rhonchi, wheezes Cardiovascular exam: PRESENT: irregular rhythm, +S1, +S2. ABSENT: diastolic murmur, rubs, systolic murmur Pulses: PRESENT: normal dorsalis pedis pul Vascular exam: PRESENT: normal capillary refill GI/Abdominal exam: PRESENT: normal bowel sounds, soft. ABSENT: distended, guarding, mass, organolmegaly, rebound, tenderness Rectal exam: PRESENT: deferred Extremities exam: PRESENT: full ROM. ABSENT: calf tenderness, clubbing, pedal edema Neurological exam: PRESENT: alert, awake, oriented to person, oriented to place , oriented to time, oriented to situation, CN II-XII grossly intact. ABSENT: motor sensory deficit Psychiatric exam: PRESENT: appropriate affect, normal mood. ABSENT: homicidal ideation, suicidal ideation Skin exam: PRESENT: dry, intact, warm. ABSENT: cyanosis, rash Results Laboratory Results: 08/18/17 06:30 08/19/17 03:52 Impressions: Chest X-Ray 08/14/17 16:32 IMPRESSION: Left basilar pneumonitis. Chest CT 08/17/17 00:00 IMPRESSION: Motion artifact. Small area of consolidation with air bronchograms at the left lower lobe. Mild hilar adenopathy. Modified Barium Swallow 08/19/17 00:00 IMPRESSION: LARYNGEAL PENETRATION AND TRACE ASPIRATION DESCRIBED.PLEASE SEE SPEECH PATHOLOGIST REPORT FOR OTHER FINDINGS AND RECOMMENDATIONS. Qualifiers PATEINT BEING DISCHARGED WITH ANY OF THE FOLLOWING DIAGNOSIS?: No
== END 2017-08-21 12:47 | disposition home health service (06) | DRG 194 ==
LOC: ER 15:39 → EH 19:35 → 5 08-15 00:30
PROVIDERS: ADMIT Family Medicine; ATTEND Family Medicine
PROC: 3E0F73Z Introduction of Anti-inflammatory into Respiratory Tract, Via Natural or Artificial Opening (ICD-10-PCS; principal; 2017-08-14)
DX: J18.9 Pneumonia, unspecified organism (principal); J44.0 Chronic obstructive pulmonary disease with (acute) lower respiratory infection; I69.354 Hemiplegia and hemiparesis following cerebral infarction affecting left non-dominant side; I13.0 Hypertensive heart and chronic kidney disease with heart failure and stage 1 through stage 4 chronic kidney disease, or unspecified chronic kidney disease; I50.32 Chronic diastolic (congestive) heart failure; E87.2 Acidosis; J44.9 Chronic obstructive pulmonary disease, unspecified; I48.0 Paroxysmal atrial fibrillation; E78.5 Hyperlipidemia, unspecified; D64.9 Anemia, unspecified; N18.2 Chronic kidney disease, stage 2 (mild); G40.909 Epilepsy, unspecified, not intractable, without status epilepticus; G47.33 Obstructive sleep apnea (adult) (pediatric); I65.23 Occlusion and stenosis of bilateral carotid arteries; E83.42 Hypomagnesemia; F01.50 Vascular dementia, unspecified severity, without behavioral disturbance, psychotic disturbance, mood disturbance, and anxiety; R13.10 Dysphagia, unspecified; Z99.81 Dependence on supplemental oxygen; Z51.5 Encounter for palliative care; Z66 Do not resuscitate; Z79.899 Other long term (current) drug therapy; Z85.841 Personal history of malignant neoplasm of brain; Z87.891 Personal history of nicotine dependence; Z95.1 Presence of aortocoronary bypass graft; I25.2 Old myocardial infarction; Z79.82 Long term (current) use of aspirin
CPT/HCPCS: 36415; 71046; 71250; 74230; 80048; 80053; 80202; 83605; 83735; 85025; 87040; 87804; 93005; 93010; 94667; 94668; 94799; 99285; G8996-GN; G8997-GN; G8998-GN; J1644; J2543; J2920; J3370; J3490; J7030; J7060; J7512; J7620

== ENCOUNTER 2017-09-07 04:26 | Observation (INO) | payer OTHER, MEDICARE ==
--- NOTE | 2017-09-07 04:39 | ER Document Report ---
ED NIH Stroke Scale - NIH Stroke Scale *: 1. NIH scale should be completed with appropriate accompanying assessment tools. *: 2. The NIH should reflect what the patient is capable of doing and should not be coached by the clinician. 1a. Level of Consciousness: 0=Alert;keenly responsive -: 1=Drowsy -: 2=Obtunded -: 3=Coma/unresponsive or reflex to noxious stimuli. 1a. Responses: 1 1b. Orientation Questions: a. What month is it? -: b. How old are you? -: 0=Answers both questions correctly. -: 1=Answers one question correctly or patient is intubated or has orotracheal trauma. -: 2=Answers neither question correctly. 1b. Responses: 1 1c. Response to commands: a. Open and close eyes? -: b. Death Claim Clerk and release hand? -: Credit is given despite weakness. Demonstration of task is permitted. Substitute command if hands cannot be used. -: 0=Performs both tasks correctly -: 1=Performs one task correctly -: 2=Performs neither task correctly 1c. Responses: 0 2. Gaze: Establish eye contact and instruct patient to "Follow my finger" -: 0=Normal -: 1=Partial gaze palsy. Gaze is abnormal in one or both eyes, but where forced deviation or total gaze paresis is not present. -: 2=Forced deviation or total gaze paresis. 2. Responses: 0 3. Visual [place]: Sees fingers in all four quadrants. -: 0=No visual loss. -: 1=Partial hemianopsia. -: 2=Complete hemianopsia. -: 3=Bilateral hemianopsia (including Cortical blindness) 3. Responses: 0 4. Facial Movement: Instruct patient to: -: a. Show me your teeth -: b. Raise your eyebrows -: c. Close your eyes -: d. Smile -: 0=Normal symmetrical movement -: 1=Minor paralysis (flattened nasolabial fold, asymmetry on smiling). -: 2=Partial paralysis (total or near total paralysis of lower face). -: 3=Complete paralysis of upper and lower face 4. Responses: 0 5. Motor functions (left arm): Alternate sides and extend each arm with palms down (90 degrees if sitting or 45 degrees for supine). -: 0=No drift;limb holds for full 10 seconds. -: 1=Drift; limb holds but drifts down before full 10 seconds, but does not hit bed. -: 2=Some effort against gravity; limb cannot get to or maintain position. -: 3=No effort against gravity; limb falls. -: 4=No movement. -: UN=Amputation, joint fusion, explain in comments. 5. Responses (left arm): 3 5. Motor Functions (right arm): Alternate sides and extend each arm with palms down (90 degrees if sitting or 45 degrees for supine). -: 0=No drift;limb holds for full 10 seconds. -: 1=Drift; limb holds but drifts down before full 10 seconds, but does not hit bed. -: 2=Some effort against gravity; limb cannot get to or maintain position. -: 3=No effort against gravity; limb falls. -: 4=No movement. -: UN=Amputation, joint fusion, explain in comments. 5. Responses (right arm): 0 6. Motor Functions (left leg): With patient lying supine, alternate sides and extend each leg (30 degrees always while supine). -: 0=No drift, leg holds position for full 5 seconds -: 1=Drift; leg falls before full 5 seconds but does not hit bed. -: 2=Some effort against gravity, leg falls to bed but some effort against gravity. -: 3=No effort against gravity, leg falls to bed immediately. -: 4=No movement. -: UN=Amputation, joint fusion; explain in comments. 6. Responses (left leg): 3 6. Motor Functions (right leg): With patient lying supine, alternate sides and extend each leg (30 degrees always while supine). -: 0=No drift, leg holds position for full 5 seconds -: 1=Drift; leg falls before full 5 seconds but does not hit bed. -: 2=Some effort against gravity, leg falls to bed but some effort against gravity. -: 3=No effort against gravity, leg falls to bed immediately. -: 4=No movement. -: UN=Amputation, joint fusion; explain in comments. 6. Responses (right leg): 2 7. Limb Ataxia: With eyes open instruct patient to: -: a. "Touch your finger to your nose". -: b. "Touch your heel to your whelan" -: 0=Absent -: 1=Present in one limb. -: 2=Present in two limbs. -: UN=Amputation or joint fusion; explain in comments. 7. Responses: 1 7. If ataxia present choose as appropriate: Left arm 8. Sensory: Test sensation using pinprick or noxious stimuli. Test as many body parts as possible. -: 0=Normal;no sensory loss -: 1=Mile to moderate sensory loss (patient feels pin prick but is less sharp on affected side). -: 2=Severe or total sensory loss. 8. Responses: 1 9. Best Language: Instruct patient to: -: a. "Describe what you see in this picture." -: b. "Name the items in this picture." -: c. "Read these sentences." -: 0=No aphasia, normal -: 1=Mild to moderate aphasia. -: 2=Severe aphasia -: 3=Mute, global aphasia, no usable speech or auditory comprehension. 9. Responses: 1 10. Articulation, Dysarthia: Instruct patient to: -: "Read these words" or "Repeat these words" -: 0=Normal -: 1=Mild to moderate; patient may slur some words but can be understood without difficulty. -: 2=Severe; patients speech so slurred as to be unintelligible in the absence of dysphasia. -: UN=Intubated or other physical barrier, explain in comments. 10. Responses: 1 11. Extinction or inattention: 0=No abnormality -: 1= Visual, tactile, auditory, spatial, or personal inattention or extinction to bilateral simulation in one or the sensory modalities. -: 2=Profound paola-inattention or paola-inattention to more than one modality; does not recognize own hand. 11. Responses: 0 Total Score: 14
--- NOTE | 2017-09-07 04:41 | ER Document Report ---
Doctor's Note Notes: 09/07/17 04:39 Patient is a 87-year-old male is brought in by EMS because of concern for possible stroke. He was found to have slurred speech around 3:45 AM by his broker associate. History is time speech was slurred per the paramedics. Paramedics were called. Paramedics arrived of slurred speech and resolved. Patient does have a history of strokes. 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 He typically will use his right arm but is unable to walk due to weakness in his legs. He stays in bed. He is a DNR. It is unclear what time the patient went to bed. Patient is able answer some questions appropriately but he does have some hives confusion. Patient's said that he went to bed after watching football game however there was no football game on last night. Patient knows where he is at. He knows his name. He is not clear on that date. Patient denies any recent infections. The patient himself says that he feels that his new stroke symptoms are now gone. I did call the patient's . She says she is on her way in. I did describe symptoms I am seeing now when she says those are all his older or chronic symptoms. Last time he was seen normal was around 11 PM. I think his new onset stroke symptoms have since resolved and also he is well outside the window for thrombolytics and therefore thrombolytics will not be considered were given. I informed the that we will continue further workup looking for other signs of potential altered mental status such as infection. She is agreeable to this. CT scan has also been ordered to rule out brain bleed. Dictation of this chart was performed using voice recognition software; therefore, there may be some unintended grammatical errors. 09/07/17 04:43
--- NOTE | 2017-09-07 05:02 | RADIOLOGY REPORT (SQ) ---
EXAM DESCRIPTION: CT HEAD WITHOUT COMPLETED DATE/TIME: 09/07/2017 4:50 am REASON FOR STUDY: altered mental status COMPARISON: CT brain and MRI brain 04/02/2017, CT brain 03/13/2016 TECHNIQUE: Axial images acquired through the brain without intravenous contrast. Images reviewed wi th bone, brain and subdural windows. Images stored on PACS. All CT scanners at this facility use dose modulation, iterative reconstruction, and/or weight based d osing when appropriate to reduce radiation dose to as low as reasonably achievable (ALARA). [facility]: Dose Right [facility]: CareDose [facility]: Dose Right [facility]: Teradose 4D [facility]: [employer] RADIATION DOSE: CT Rad equipment meets quality standard of care and radiation dose reduction techniq ues were employed. CTDIvol: 64.6 mGy. DLP: 1397 mGy-cm.mGy. LIMITATIONS: Motion. FINDINGS: VENTRICLES: Prominent. CEREBRUM: No mass effect. No hemorrhage. No midline shift. Low attenuation area at the right front al and parietal lobe lobes, may be due to remote infarcts or postsurgical changes. Areas of low dens ity in the white matter most likely due to chronic micro-vascular ischemic change. No evidence for a cute territorial infarction. CEREBELLUM: No hemorrhage. No alteration of density. No evidence for acute infarction. EXTRAAXIAL SPACES: Age-related involutional change. No fluid collections. ORBITS AND GLOBE: Symmetrical contour of the globes. CALVARIUM: No depressed fracture. Status post right-sided craniotomy. PARANASAL SINUSES: Mucosal thickening at the right sphenoid sinus and left maxillary sinus. No air-f luid levels. SOFT TISSUES: No hematoma. IMPRESSION: No acute intracranial hemorrhage or acute territorial infarct. Chronic changes of atrop hy and microvascular ischemia. EVIDENCE OF ACUTE STROKE: NO. TECHNICAL DOCUMENTATION: JOB ID: [id number] [facility] Quality ID # [id number]: Final reports with documentation of one or more dose reduction techniques (e.g., Au tomated exposure control, adjustment of the mA and/or kV according to patient size, use of iterative reconstruction technique) 2010 [employer]- All Rights Reserved
--- NOTE | 2017-09-07 05:04 | RADIOLOGY REPORT (SQ) ---
EXAM DESCRIPTION: CHEST SINGLE VIEW COMPLETED DATE/TIME: 09/07/2017 4:54 am REASON FOR STUDY: altered mental status COMPARISON: Chest x-ray 08/14/2017 EXAM PARAMETERS: NUMBER OF VIEWS: One view. TECHNIQUE: Single frontal radiographic view of the chest acquired. RADIATION DOSE: NA LIMITATIONS: The patient is rotated. FINDINGS: LUNGS AND PLEURA: Airspace opacity at the left lung base. No sizable pleural effusion or pneumothorax. MEDIASTINUM AND HILAR STRUCTURES: No masses. Contour normal. HEART AND VASCULAR STRUCTURES: Heart normal in size. Normal vasculature. BONES: Degenerative changes in the spine. HARDWARE: Sternotomy wires are noted. IMPRESSION: Airspace opacity at the left lung base, may represent atelectasis or pneumonia. TECHNICAL DOCUMENTATION: JOB ID: [id number] 2010 [employer]- All Rights Reserved
[2017-09-07 05:39] LABS: ABSOLUTE BASOPHILS # (AUTO) 0.1 10^3/uL (0.0-0.2); ABSOLUTE EOSINOPHILS # (AUTO) 0.4 10^3/uL (0.0-0.6); ABSOLUTE LYMPHOCYTES (AUTO) 1.2 10^3/uL (0.5-4.7); ABSOLUTE MONOCYTES (AUTO) 0.6 10^3/uL (0.1-1.4); ABSOLUTE NEUT (AUTO) 5.7 10^3/uL (1.7-8.2); BASOPHILS % (AUTO) 0.8 % (0-2); EOSINOPHILS % (AUTO) 5.4 % (0-6); HEMOGLOBIN 10.3 g/dL (13.5-17.0); LYMPHOCYTES % (AUTO) 14.8 % (13-45); MEAN CORPUSCULAR HEMOGLOBIN 29.8 pg (27.0-33.4); MEAN CORPUSCULAR HGB CONC 34.2 g/dL (32.0-36.0); MEAN CORPUSCULAR VOLUME 87 fl (80-97); MONOCYTES % (AUTO) 7.1 % (3-13); PLATELET COUNT 154 10^3/uL (150-450); RED BLOOD COUNT 3.44 10^6/uL (4.35-5.55); RED CELL DISTRIBUTION WIDTH 15.6 % (11.5-14.0); SEGMENTED NEUTROPHILS % (AUTO) 71.9 % (42-78); TOTAL CELLS COUNTED % (AUTO) 100 %; WHITE BLOOD COUNT 7.9 10^3/uL (4.0-10.5)
[2017-09-07 06:05] LABS: ALANINE AMINOTRANSFERASE 30 U/L (21-72); ALBUMIN 2.9 g/dL (3.5-5.0); ALKALINE PHOSPHATASE 75 U/L (38-126); ANION GAP 5 (5-19); ASPARTATE AMINO TRANSFERASE 14 U/L (17-59); BILIRUBIN,DIRECT 0.4 mg/dL (0.0-0.4); BILIRUBIN,TOTAL 0.4 mg/dL (0.2-1.3); BLOOD UREA NITROGEN 36 mg/dL (7-20); CALCIUM 9.4 mg/dL (8.4-10.2); CARBON DIOXIDE 32 mmol/L (22-30); CHLORIDE 102 mmol/L (98-107); GLUCOSE 126 mg/dL (75-110); POTASSIUM 4.5 mmol/L (3.6-5.0); SODIUM 139.1 mmol/L (137-145)
[2017-09-07 06:07] LABS: INTERNATIONAL RATION (INR) 0.98; PARTIAL THROMBOPLASTIN TIME 28.1 SEC (23.5-35.8); PROTHROMBIN TIME 13.7 SEC (11.4-15.4)
[2017-09-07 06:13] LABS: APPEARANCE,URINE CLEAR; BILIRUBIN,URINE NEGATIVE (NEGATIVE); COLOR,URINE YELLOW; GLUCOSE, URINE NEGATIVE (NEGATIVE); KETONES,URINE NEGATIVE (NEGATIVE); LEUKOCYTE ESTERASE,URINE NEGATIVE (NEGATIVE); NITRITE,URINE NEGATIVE (NEGATIVE); PROTEIN,URINE NEGATIVE (NEGATIVE); URINE SPECIFIC GRAVITY 1.025; UROBILINOGEN,URINE NEGATIVE mg/dL (<2.0)
[2017-09-07] MEDS ORDERED: ASPIRIN 325 MG TABLET PO ONE (07:52)
--- NOTE | 2017-09-07 07:54 | ER Document Report ---
ED General - General Chief Complaint: Altered Mental Status Stated Complaint: ALTERED MENTAL STATUS Time Seen by Provider: 09/07/17 04:34 Mode of Arrival: Medic Information source: Outside Facility Records Cannot obtain history due to: Altered mental status Notes: 87-year-old male history of CVA left-sided hemiparesis the presents with complaints of altered mental status this morning per caregivers. It is noted that the patient's altered mental status improved prior to his arrival, there is concern for slurred speech further weakness. TRAVEL OUTSIDE OF THE [place] IN LAST 30 DAYS: No - HPI Onset: Just prior to arrival Onset/Duration: Sudden Quality of pain: No pain Severity: Mild Pain Level: Denies Associated symptoms: Weakness, Other Exacerbated by: Denies Relieved by: Denies Similar symptoms previously: Yes Recently seen / treated by doctor: Yes - Related Data Allergies/Adverse Reactions: No Known Allergies Allergy (Verified 08/14/17 17:04) Past Medical History - General Information source: Outside Facility Records - Social History Smoking Status: Former Smoker Cigarette use (# per day): No Chew tobacco use (# tins/day): No Smoking Education Provided: No Family History: Reviewed & Not Pertinent Patient has suicidal ideation: No Patient has homicidal ideation: No - Past Medical History Cardiac Medical History: Reports: Hx Atrial Fibrillation, Hx Congestive Heart Failure, Hx Coronary Artery Disease, Hx Heart Attack, Hx Hypercholesterolemia, Hx Hypertension Pulmonary Medical History: Reports: Hx COPD - no o2, Bipap at night, Hx Sleep Apnea Neurological Medical History: Reports: Hx Seizures Renal/ Medical History: Denies: Hx Peritoneal Dialysis Malignancy Medical History: Reports Hx Brain Cancer Musculoskeltal Medical History: Reports Hx Arthritis Psychiatric Medical History: Reports: Hx Dementia Denies: Hx Depression Past Surgical History: Reports: Hx Cardiac Surgery - Triple Bypass 1999, Hx Coronary Artery Bypass Graft - Three-vessel, 1999., Other - Brain surgery, 2005. - Immunizations Hx Diphtheria, Pertussis, Tetanus Vaccination: Yes Hx Pneumococcal Vaccination: 05/04/09 Review of Systems - Review of Systems Notes: PHYSICAL EXAMINATION: GENERAL: Elderly male chronically ill-appearing HEAD: Atraumatic, normocephalic. EYES: Pupils equal round and reactive to light, extraocular movements intact, sclera anicteric, conjunctiva are normal. ENT: Nares patent, oropharynx clear without exudates. Moist mucous membranes. NECK: Normal range of motion, supple without lymphadenopathy LUNGS: Coarse wheezing all throughout on 2 L nasal cannula baseline satting 100% HEART: Regular rate and rhythm without murmurs ABDOMEN: Soft, nontender, nondistended abdomen. No guarding, no rebound. No masses appreciated. Musculoskeletal: Normal range of motion, no pitting or edema. No cyanosis. NEUROLOGICAL: Patient responds "Oh man" when asked any question, he has left- sided chronic paralysis good strength on the right PSYCH: Normal mood, normal affect. SKIN: Warm, Dry, normal turgor, no rashes or lesions noted. -: Yes ROS unobtainable due to patient's medical condition Physical Exam - Vital signs Vitals: Pulse Ox 99 09/07/17 04:30 Course - Re-evaluation Re-evalutation: 09/07/17 08:03 I believe patient had another TIA versus CVA, aspirin has been given lab work CT head otherwise are benign patient will be admitted for further evaluation care - Vital Signs Vital signs: Temp Pulse Resp BP Pulse Ox 97.6 F 65 16 118/83 100 09/07/17 04:35 09/07/17 06:00 09/07/17 07:01 09/07/17 07:01 09/07/17 07:01 - Laboratory Result Diagrams: 09/07/17 05:25 09/07/17 05:25 Laboratory results interpreted by me: 09/07/17 09/07/17 05:25 05:25 RBC 3.44 L Hgb 10.3 L Hct 30.0 L RDW 15.6 H Carbon Dioxide 32 H BUN 36 H Glucose 126 H AST 14 L Total Protein 5.0 L Albumin 2.9 L - Diagnostic Test Radiology reviewed: Image reviewed, Reports reviewed - EKG Interpretation by Me EKG shows normal: Sinus rhythm, [place], Intervals, QRS Complexes Discharge - Discharge Clinical Impression: Hemiparesis, left, COPD exacerbation TIA (transient ischemic attack) Qualifiers: Transient cerebral ischemia type: unspecified Qualified Code(s): G45.9 - Transient cerebral ischemic attack, unspecified Condition: Stable Disposition: ADMITTED INPATIENT Admitting Provider: Hospitalist Unit Admitted: [facility]
[2017-09-07] MEDS ORDERED: IPRATROPIUM BROMIDE 0.02% NEB 0.5 MG/2.5 ML AMPUL NEB PRN (09:43)
[2017-09-07] MEDS ORDERED: ACETAMINOPHEN 325 MG TABLET PO PRN (09:43)
[2017-09-07] MEDS ORDERED: POVIDONE OU SCH (10:00)
[2017-09-07] MEDS ORDERED: POLYVINYL ALCOHOL OU SCH (10:00)
[2017-09-07] MEDS ORDERED: [UNRECOGNIZED DRUG - OTHER] OU SCH (10:00)
[2017-09-07] MEDS ORDERED: (PENDING PHARMACY ID) (Brimonidine Tartrate/Timolol [Combigan 0.2%-0.5% Eye Drops] 5 ML) OP SCH (10:00)
[2017-09-07] MEDS ORDERED: TIOTROPIUM BROMIDE DPI 5 CAP/KIT (18 MCG/CAP) IH SCH (10:00)
[2017-09-07] MEDS: TAMSULOSIN HCL 0.4 MG CAP.SR.24H PO SCH (13:35)
[2017-09-07] MEDS: CETIRIZINE 10 MG TABLET PO SCH (13:35)
[2017-09-07] MEDS: METOPROLOL SUCCINATE 25 MG TAB.SR.24H PO SCH (13:35)
[2017-09-07] MEDS: FLUTICASONE/SALMETEROL DISKUS 250-50 MCG/DOSE IH SCH ×2 (13:36→23:44)
[2017-09-07] MEDS: ENOXAPARIN SODIUM INJ 40 MG/0.4 ML DISP.SYRIN SUBCUT SCH (13:38)
[2017-09-07] MEDS ORDERED: CLOPIDOGREL BISULFATE 75 MG TABLET PO ONE (16:00)
--- NOTE | 2017-09-07 17:20 | PDOC H&P ---
History of Present Illness Admission Date/PCP: 09/07/17 08:14 Patient complains of: Altered speech History of Present Illness: MARISSA DAVID is a 87 year old male with history of CVA in 2001 with known left side weakness, multiple TIAs, CAD, HLD, BPH, and seizures who presents with altered speech. Patient's noticed that his speech was different this morning around 4AM. Was brought to the ED, however by the time he reached to [facility] speech was back at baseline. History obtained by patient's and friend as not provided by patient. States that he has no recent illnesses or sick contacts. He does have multiple TIAs over the past few months-years. Denies fevers, chills, CP, SOB, abdominal pain, NV. Left sided weakness unchanged from previous. Hospitalist service to admit patient for observation. Past Medical History Cardiac Medical History: Reports: Atrial Fibrillation, Congestive Heart Failure , Coronary Artery Disease, Myocardial Infarction, Hyperlipidema, Hypertension Pulmonary Medical History: Reports: Chronic Obstructive Pulmonary Disease (COPD ) - no o2, Bipap at night, Sleep Apnea Neurological Medical History: Reports: Seizures Malignancy Medical History: Reports: Brain Cancer Musculoskeltal Medical History: Reports: Arthritis Psychiatric Medical History: Reports: Dementia Denies: Depression Hematology: Reports: Anemia Past Surgical History Past Surgical History: Reports: Coronary Artery Bypass Graft - Three-vessel, 1999., Other - Brain surgery, 2005. Social History Information Source: Friend Lives with: Family Smoking Status: Former Smoker Frequency of Alcohol Use: None Hx Recreational Drug Use: No Drugs: None Hx Prescription Drug Abuse: No - Advance Directive Resuscitation Status: Do Not Resuscitate Family History Family History: Reviewed & Not Pertinent Parental Family History Reviewed: No - Unable to obtain Children Family History Reviewed: No - Unable to obtain Sibling(s) Family History Reviewed.: No - Unable to obtain Medication/Allergy Home Medications: Aspirin [Aspirin 325 mg Tablet] 325 mg PO DAILY 09/07/17 Benzonatate [Tessalon Perle 100 mg Capsule] 100 mg PO Q8 09/07/17 Cetirizine HCl [Zyrtec 10 mg Tablet] 10 mg PO DAILY 09/07/17 Cholecalciferol (Vitamin D3) [Vitamin D3 5000 unit Capsule] 5,000 tab PO DAILY 09/07/17 Clopidogrel Bisulfate [Plavix 75 mg Tablet] 75 mg PO DAILY 09/07/17 Esomeprazole Magnesium [Nexium] 20 mg PO DAILY 09/07/17 Fluticasone/Salmeterol [Advair 250-50 Diskus 28 dose] 1 inh IH Q12 09/07/17 Guaifenesin [Mucinex] 600 mg PO Q12 09/07/17 Ipratropium [place] [Atrovent 0.02% Neb 0.5 mg/2.5 ml Ampul] 0.5 mg NEB RTQ6 11/19 Levetiracetam [Keppra] 750 mg PO Q12 09/07/17 Magnesium Oxide [Mag-Ox 400 mg Tablet] 800 mg PO TID 09/07/17 Metoprolol Succinate [Toprol Xl 25 mg Tab.sr] 25 mg PO DAILY 09/07/17 Mirabegron [Myrbetriq] 50 mg PO Q12 09/07/17 Montelukast Sodium [Singulair 10 mg Tablet] 10 mg PO QHS 09/07/17 Polyvinyl Alcohol/Povidone/Pf [Refresh Classic Eye Drops] 1 each OU DAILY Ranolazine [Ranexa] 500 mg PO BID 09/07/17 Rosuvastatin Calcium [Crestor 10 mg Tablet] 10 mg PO DAILY 09/07/17 Tamsulosin HCl [Flomax 0.4 mg Cap.sr] 0.4 mg PO DAILY 09/07/17 Tiotropium [place] [Spiriva Handihaler 5 Cap/Kit (18 Mcg/Cap)] 1 cap IH DAILY Allergies/Adverse Reactions: No Known Allergies Allergy (Verified 08/14/17 17:04) Review of Systems ROS unobtainable: Other - Unable to obtain as patient no cooperative and wanted to sleep. ROS discussed with patient's and friend on phone. Physical Exam Vital Signs: Temp Pulse Resp BP Pulse Ox 98.6 F 60 16 113/86 H 96 09/07/17 16:14 09/07/17 16:14 09/07/17 16:14 09/07/17 16:14 09/07/17 16:14 Intake & Output 09/06/17 09/07/17 09/08/17 06:59 06:59 06:59 Intake Total 10 Balance 10 Weight 93.3 kg General appearance: PRESENT: no acute distress, obese, other - Resting in bed Head exam: PRESENT: atraumatic, normocephalic Teeth exam: PRESENT: poor dentation Respiratory exam: PRESENT: decreased breath sounds, unlabored Cardiovascular exam: PRESENT: RRR. ABSENT: tachycardia GI/Abdominal exam: PRESENT: soft. ABSENT: distended, tenderness Neurological exam: PRESENT: awake, other - Difficult exam. Patient not cooperative with exam. Speech did not seem altered when prompted question.. ABSENT: oriented to person, oriented to place, oriented to time, oriented to situation Skin exam: PRESENT: warm Results Laboratory Results: 09/07/17 05:25 09/07/17 05:25 MCV 87 fl (80-97) 09/07/17 05:25 MCH 29.8 pg (27.0-33.4) 09/07/17 05:25 MCHC 34.2 g/dL (32.0-36.0) 09/07/17 05:25 RDW 15.6 % (11.5-14.0) H 09/07/17 05:25 Seg Neutrophils % 71.9 % (42-78) 09/07/17 05:25 Lymphocytes % 14.8 % (13-45) 09/07/17 05:25 Monocytes % 7.1 % (3-13) 09/07/17 05:25 Eosinophils % 5.4 % (0-6) 09/07/17 05:25 Basophils % 0.8 % (0-2) 09/07/17 05:25 Absolute Neutrophils 5.7 10^3/uL (1.7-8.2) 09/07/17 05:25 Absolute Lymphocytes 1.2 10^3/uL (0.5-4.7) 09/07/17 05:25 Absolute Monocytes 0.6 10^3/uL (0.1-1.4) 09/07/17 05:25 Absolute Eosinophils 0.4 10^3/uL (0.0-0.6) 09/07/17 05:25 Absolute Basophils 0.1 10^3/uL (0.0-0.2) 09/07/17 05:25 Chloride 102 mmol/L (98-107) 09/07/17 05:25 Carbon Dioxide 32 mmol/L (22-30) H 09/07/17 05:25 Anion Gap 5 (5-19) 09/07/17 05:25 Est GFR ( Amer) > 60 (>60) 09/07/17 05:25 Est GFR (Non-Af Amer) > 60 (>60) 09/07/17 05:25 Glucose 126 mg/dL (75-110) H 09/07/17 05:25 Calcium 9.4 mg/dL (8.4-10.2) 09/07/17 05:25 Total Bilirubin 0.4 mg/dL (0.2-1.3) 09/07/17 05:25 AST 14 U/L (17-59) L 09/07/17 05:25 ALT 30 U/L (21-72) 09/07/17 05:25 Alkaline Phosphatase 75 U/L (38-126) 09/07/17 05:25 Total Protein 5.0 g/dL (6.3-8.2) L 09/07/17 05:25 Albumin 2.9 g/dL (3.5-5.0) L 09/07/17 05:25 Urine Color YELLOW 09/07/17 06:00 Urine Appearance CLEAR 09/07/17 06:00 Urine pH 5.0 (5.0-9.0) 09/07/17 06:00 Ur Specific [place] 1.025 09/07/17 06:00 Urine Protein NEGATIVE mg/dL (NEGATIVE) 09/07/17 06:00 Urine Glucose (UA) NEGATIVE mg/dL (NEGATIVE) 09/07/17 06:00 Urine Ketones NEGATIVE mg/dL (NEGATIVE) 09/07/17 06:00 Urine Blood NEGATIVE (NEGATIVE) 09/07/17 06:00 Urine Nitrite NEGATIVE (NEGATIVE) 09/07/17 06:00 Ur Leukocyte Esterase NEGATIVE (NEGATIVE) 09/07/17 06:00 Urine WBC (Auto) 1 /HPF 09/07/17 06:00 Urine RBC (Auto) 1 /HPF 09/07/17 06:00 Impressions: Head CT 09/07/17 04:34 IMPRESSION: No acute intracranial hemorrhage or acute territorial infarct. Chronic changes of atrophy and microvascular ischemia. EVIDENCE OF ACUTE STROKE: NO. Chest X-Ray 09/07/17 04:35 IMPRESSION: Airspace opacity at the left lung base, may represent atelectasis or pneumonia. Assessment & Plan - Diagnosis (1) TIA (transient ischemic attack) Qualifiers: Transient cerebral ischemia type: unspecified Qualified Code(s): G45.9 - Transient cerebral ischemic attack, unspecified Is this a current diagnosis for this admission?: Yes Plan: This is most likely TIA given acute neuro changes (altered speech) with prompt resolution of symptoms. Patient has known history of CVA and has multiple TIA - CT Head in ED negative for acute bleed - Patient is medically optomized on ASA 81mg, metoprolol, Liptor 80mg (changed at admission) - Given improvement will not obtain MRI brain. - Pt has recent TTE in July and Carotid dopplers in 03/2017 so will not repeat. - Admit as observation, will discharge back to home on 09/08 per family request (2) Hemiparesis, left Plan: Previous history of CVA, unchanged (3) Seizure Is this a current diagnosis for this admission?: Yes Plan: Continue home Keppra (4) CAD (coronary artery disease) Qualifiers: Coronary Disease-Associated Artery/Lesion type: [place] artery [place] vs. transplanted heart: [place] heart Associated angina: without angina Qualified Code(s): I25.10 - Atherosclerotic heart disease of [place] coronary artery without angina pectoris Plan: Continue home medications - Time Time Spent: 30 to 50 Minutes Critical Time spent with patient: Less than 15 minutes Anticipated discharge: Home, Home with Homehealth Within: within 24 hours
[2017-09-07] MEDS ORDERED: ATORVASTATIN CALCIUM 80 MG TABLET PO ONE (17:30)
[2017-09-07] MEDS: ALBUTEROL SULFATE 0.083% NEB 2.5 MG/3 ML AMPUL NEB SCH (19:34)
[2017-09-07] MEDS ORDERED: MONTELUKAST SODIUM 10 MG TABLET PO SCH (22:00)
[2017-09-07] MEDS ORDERED: ATORVASTATIN CALCIUM 20 MG TABLET PO SCH (22:00)
[2017-09-07] MEDS ORDERED: LATANOPROST 0.005% OPH SOLN 2.5 ML OP SCH (22:00)
[2017-09-07] MEDS ORDERED: LATANOPROST 0.005% OPH SOLN 2.5 ML OU SCH (22:00)
[2017-09-07] MEDS: RANOLAZINE 500 MG TAB.SR.12H PO SCH (23:44)
[2017-09-07] MEDS: LEVETIRACETAM 500 MG TABLET PO SCH (23:44)
[2017-09-08 05:29] LABS: HEMATOCRIT 30.6 % (37.9-51.0); HEMOGLOBIN 10.4 g/dL (13.5-17.0); MEAN CORPUSCULAR HEMOGLOBIN 29.6 pg (27.0-33.4); MEAN CORPUSCULAR VOLUME 87 fl (80-97); PLATELET COUNT 143 10^3/uL (150-450); RED BLOOD COUNT 3.52 10^6/uL (4.35-5.55); RED CELL DISTRIBUTION WIDTH 15.6 % (11.5-14.0); WHITE BLOOD COUNT 6.6 10^3/uL (4.0-10.5)
[2017-09-08 05:51] LABS: ANION GAP 6 (5-19); BLOOD UREA NITROGEN 33 mg/dL (7-20); CALCIUM 9.2 mg/dL (8.4-10.2); CARBON DIOXIDE 34 mmol/L (22-30); CHLORIDE 99 mmol/L (98-107); GLUCOSE 129 mg/dL (75-110); POTASSIUM 4.4 mmol/L (3.6-5.0); SODIUM 139.2 mmol/L (137-145)
[2017-09-08] MEDS: ALBUTEROL SULFATE 0.083% NEB 2.5 MG/3 ML AMPUL NEB SCH (08:12)
[2017-09-08] MEDS ORDERED: BRIMONIDINE TARTRATE 0.2% OPH SOLN 5 ML OU SCH (10:00)
[2017-09-08] MEDS ORDERED: ASPIRIN 81 MG TABLET, CHEWABLE PO SCH (10:00)
[2017-09-08] MEDS ORDERED: CARBOXYMETHYLCELLULOSE SOD 0.5% 0.4 ML DROPERETTE OU SCH (10:00)
[2017-09-08] MEDS ORDERED: TIMOLOL MALEATE 0.5% OPH SOLN 5 ML OU SCH (10:00)
[2017-09-08] MEDS ORDERED: CLOPIDOGREL BISULFATE 75 MG TABLET PO SCH (10:00)
[2017-09-08] MEDS: LEVETIRACETAM 500 MG TABLET PO SCH (10:38)
[2017-09-08] MEDS: FLUTICASONE/SALMETEROL DISKUS 250-50 MCG/DOSE IH SCH (10:38)
[2017-09-08] MEDS: CETIRIZINE 10 MG TABLET PO SCH (10:39)
[2017-09-08] MEDS: RANOLAZINE 500 MG TAB.SR.12H PO SCH (10:39)
[2017-09-08] MEDS: METOPROLOL SUCCINATE 25 MG TAB.SR.24H PO SCH (10:39)
[2017-09-08] MEDS: TAMSULOSIN HCL 0.4 MG CAP.SR.24H PO SCH (10:40)
[2017-09-08] MEDS: ENOXAPARIN SODIUM INJ 40 MG/0.4 ML DISP.SYRIN SUBCUT SCH (10:41)
[2017-09-08 10:54] VITALS: BP 109/47
--- NOTE | 2017-09-08 15:43 | PDOC DISCHARGE SUMMARY ---
General - Admit/Disc Date/PCP Admission Date/Primary Care Provider: 09/07/17 08:14 Discharge Date: 09/08/17 - Discharge Diagnosis (1) Acute focal neurological deficit Is this a current diagnosis for this admission?: Yes (2) Atrial fibrillation Is this a current diagnosis for this admission?: Yes (3) History of CVA with residual deficit Is this a current diagnosis for this admission?: Yes - Additional Information Resuscitation Status: Do Not Resuscitate Home Medications: Aspirin [Aspirin 325 mg Tablet] 325 mg PO DAILY 09/07/17 Benzonatate [Tessalon Perle 100 mg Capsule] 100 mg PO Q8 09/07/17 Cetirizine HCl [Zyrtec 10 mg Tablet] 10 mg PO DAILY 09/07/17 Cholecalciferol (Vitamin D3) [Vitamin D3 5000 unit Capsule] 5,000 tab PO DAILY 09/07/17 Clopidogrel Bisulfate [Plavix 75 mg Tablet] 75 mg PO DAILY 09/07/17 Esomeprazole Magnesium [Nexium] 20 mg PO DAILY 09/07/17 Fluticasone/Salmeterol [Advair 250-50 Diskus 28 dose] 1 inh IH Q12 09/07/17 Guaifenesin [Mucinex] 600 mg PO Q12 09/07/17 Ipratropium [place] [Atrovent 0.02% Neb 0.5 mg/2.5 ml Ampul] 0.5 mg NEB RTQ6 11/19 Levetiracetam [Keppra] 750 mg PO Q12 09/07/17 Magnesium Oxide [Mag-Ox 400 mg Tablet] 800 mg PO TID 09/07/17 Metoprolol Succinate [Toprol Xl 25 mg Tab.sr] 25 mg PO DAILY 09/07/17 Mirabegron [Myrbetriq] 50 mg PO Q12 09/07/17 Montelukast Sodium [Singulair 10 mg Tablet] 10 mg PO QHS 09/07/17 Polyvinyl Alcohol/Povidone/Pf [Refresh Classic Eye Drops] 1 each OU DAILY Ranolazine [Ranexa] 500 mg PO BID 09/07/17 Rosuvastatin Calcium [Crestor 10 mg Tablet] 10 mg PO DAILY 09/07/17 Tamsulosin HCl [Flomax 0.4 mg Cap.sr] 0.4 mg PO DAILY 09/07/17 Tiotropium [place] [Spiriva Handihaler 5 Cap/Kit (18 Mcg/Cap)] 1 cap IH DAILY History of Present Illness History of Present Illness: MARISSA DAVID is a 87 year old male with history of CVA in 2001 with known left sided weakness, multiple TIAs, CAD, HLD, BPH, and seizures who presented with altered speech. Patient's noticed that his speech was different this morning around 4AM. Was brought to the ED, however by the time he reached to [facility] speech was back at baseline. History was obtained by patient's and friend. States that he has no recent illnesses or sick contacts. He does have multiple TIAs over the past few months-years. He denied fevers, chills, CP, SOB , abdominal pain, NV. Left sided weakness was unchanged. Hospitalist service was consulted to admit patient for observation purpose. Hospital Course Hospital Course: Was admitted under the hospitalist service for observation to telemetry unit. Patient's symptoms improved shortly after being admitted to emergency room. On the day of discharge patient's related that patient was back to baseline. It is noteworthy to mention that patient has a history of atrial fibrillation on no anticoagulation since had been deemed high risk for bleeding in the past. It appears to that patient had been left with a new telephone operator who was not well familiarized with this patient.. Since patient has remained stable prompted to discharge Physical Exam Vital Signs: Temp Pulse Resp BP Pulse Ox 97.8 F 110 H 16 137/54 H 100 09/08/17 00:16 09/08/17 04:16 09/08/17 04:16 09/08/17 04:16 09/08/17 04:16 Intake & Output 09/07/17 09/08/17 09/09/17 06:59 06:59 06:59 Intake Total 731 Balance 731 Weight 96.8 kg General appearance: PRESENT: cooperative, obese Head exam: PRESENT: atraumatic, normocephalic Eye exam: PRESENT: conjunctiva pink, EOMI, PERRLA Ear exam: PRESENT: normal external ear exam Mouth exam: PRESENT: moist, neck supple Neck exam: PRESENT: full ROM. ABSENT: JVD, lymphadenopathy, tenderness Respiratory exam: PRESENT: clear to auscultation charu Cardiovascular exam: PRESENT: irregular rhythm. ABSENT: diastolic murmur, systolic murmur Vascular exam: PRESENT: normal capillary refill GI/Abdominal exam: PRESENT: normal bowel sounds, soft. ABSENT: tenderness Extremities exam: PRESENT: pedal edema Musculoskeletal exam: ABSENT: ambulatory Neurological exam: PRESENT: alert, altered, oriented to person, oriented to place, oriented to time, oriented to situation, other - chronically bed bound Psychiatric exam: PRESENT: appropriate affect, normal mood Skin exam: PRESENT: intact, normal color Results Laboratory Results: 09/08/17 05:07 09/08/17 05:07 09/08/17 09/08/17 05:07 05:07 WBC 6.6 RBC 3.52 L Hgb 10.4 L Hct 30.6 L MCV 87 MCH 29.6 MCHC 34.0 RDW 15.6 H Plt Count 143 L Sodium 139.2 Potassium 4.4 Chloride 99 Carbon Dioxide 34 H Anion Gap 6 BUN 33 H Creatinine 0.94 Est GFR ( Amer) > 60 Est GFR (Non-Af Amer) > 60 Glucose 129 H Calcium 9.2 Impressions: Head CT 09/07/17 04:34 IMPRESSION: No acute intracranial hemorrhage or acute territorial infarct. Chronic changes of atrophy and microvascular ischemia. EVIDENCE OF ACUTE STROKE: NO. Chest X-Ray 09/07/17 04:35 IMPRESSION: Airspace opacity at the left lung base, may represent atelectasis or pneumonia. Plan Discharge Plan: Discharge home Time Spent: Less than 30 Minutes
[2017-09-08] MEDS ORDERED: ATORVASTATIN CALCIUM 80 MG TABLET PO SCH (22:00)
== END 2017-09-08 12:15 | disposition home or self-care (01) ==
LOC: ER 04:26 → INTOOBSV 08:14 → EH 08:14 → 3W 10:50
PROVIDERS: ADMIT Student in an Organized Health Care Education/Training Program; ATTEND Student in an Organized Health Care Education/Training Program
DX: R47.81 Slurred speech (principal); I48.91 Unspecified atrial fibrillation; I69.354 Hemiplegia and hemiparesis following cerebral infarction affecting left non-dominant side; N40.0 Benign prostatic hyperplasia without lower urinary tract symptoms; E78.5 Hyperlipidemia, unspecified; I25.10 Atherosclerotic heart disease of native coronary artery without angina pectoris; R56.9 Unspecified convulsions; F03.90 Unspecified dementia, unspecified severity, without behavioral disturbance, psychotic disturbance, mood disturbance, and anxiety; G47.30 Sleep apnea, unspecified; Z66 Do not resuscitate; J44.1 Chronic obstructive pulmonary disease with (acute) exacerbation; E66.9 Obesity, unspecified; I11.0 Hypertensive heart disease with heart failure; I50.9 Heart failure, unspecified; I25.2 Old myocardial infarction; Z68.31 Body mass index [BMI] 31.0-31.9, adult; Z79.02 Long term (current) use of antithrombotics/antiplatelets; Z74.01 Bed confinement status; Z85.841 Personal history of malignant neoplasm of brain; Z95.1 Presence of aortocoronary bypass graft; Z98.890 Other specified postprocedural states; Z79.899 Other long term (current) drug therapy; Z87.891 Personal history of nicotine dependence
CPT/HCPCS: 99285; 36415 ×2; 85025; 85027; 85610; 85730; 80048; 80053; 81001; 71045; 70450; 94640 ×2; 92610; G0378 ×3; J3490 ×5; J1650; G8996; G8997; G8998

== ENCOUNTER 2018-04-10 15:53 | Emergency (ER) | payer OTHER, MEDICARE ==
[2018-04-10] MEDS ORDERED: IPRATROPIUM/ALBUTEROL 0.5-2.5 MG/3 ML AMPUL NEB ONE (16:48)
--- NOTE | 2018-04-10 16:49 | ER Document Report ---
ED Medical Screen (RME) - General Chief Complaint: Chest Congestion Stated Complaint: COUGH Time Seen by Provider: 04/10/18 16:12 Mode of Arrival: Ambulatory Information source: Patient Notes: Patient is an 87-year-old male who presents today with chief complaint of productive cough and nasal congestion. [facility] and was referred here for evaluation for pneumonia. Patient denies any fevers. Exam: Wheezing noted bilaterally on auscultation. I have greeted and performed a rapid initial assessment of this patient. A comprehensive ED assessment and evaluation of the patient, analysis of test results and completion of the medical decision making process will be conducted by additional ED providers. Dictation of this chart was performed using voice recognition software; therefore, there may be some unintended grammatical errors. TRAVEL OUTSIDE OF THE [place] IN LAST 30 DAYS: No - Related Data Allergies/Adverse Reactions: No Known Allergies Allergy (Verified 08/14/17 17:04) Past Medical History - Social History Chew tobacco use (# tins/day): No Frequency of alcohol use: None Drug Abuse: None - Past Medical History Cardiac Medical History: Reports: Hx Atrial Fibrillation, Hx Congestive Heart Failure, Hx Coronary Artery Disease, Hx Heart Attack, Hx Hypercholesterolemia, Hx Hypertension Pulmonary Medical History: Reports: Hx COPD - no o2, Bipap at night, Hx Sleep Apnea Neurological Medical History: Reports: Hx Seizures Renal/ Medical History: Denies: Hx Peritoneal Dialysis Malignancy Medical History: Reports Hx Brain Cancer Musculoskeltal Medical History: Reports Hx Arthritis Psychiatric Medical History: Reports: Hx Dementia Denies: Hx Depression Past Surgical History: Reports: Hx Cardiac Surgery - Triple Bypass 1999, Hx Coronary Artery Bypass Graft - Three-vessel, 1999., Other - Brain surgery, 2005. - Immunizations Hx Diphtheria, Pertussis, Tetanus Vaccination: Yes History of Influenza Vaccine for 05/2017 - 10/2017 Season: Yes Influenza Administration Date for 05/2017 - 10/2017 Season: 05/04/17 Physical Exam - Vital signs Vitals: Temp Pulse Resp BP Pulse Ox 98.1 F 57 L 14 149/67 H 95 04/10/18 15:58 04/10/18 15:58 04/10/18 15:58 04/10/18 15:58 04/10/18 15:58 Course - Vital Signs Vital signs: Temp Pulse Resp BP Pulse Ox 98.1 F 57 L 14 149/67 H 95 04/10/18 15:58 04/10/18 15:58 04/10/18 15:58 04/10/18 15:58 04/10/18 15:58
[2018-04-10 17:12] LABS: ABSOLUTE EOSINOPHILS # (AUTO) 0.5 10^3/uL (0.0-0.6); ABSOLUTE LYMPHOCYTES (AUTO) 1.4 10^3/uL (0.5-4.7); ABSOLUTE MONOCYTES (AUTO) 0.7 10^3/uL (0.1-1.4); ABSOLUTE NEUT (AUTO) 6.4 10^3/uL (1.7-8.2); BASOPHILS % (AUTO) 0.5 % (0-2); EOSINOPHILS % (AUTO) 5.9 % (0-6); HEMATOCRIT 42.4 % (37.9-51.0); HEMOGLOBIN 14.2 g/dL (13.5-17.0); LYMPHOCYTES % (AUTO) 15.1 % (13-45); MEAN CORPUSCULAR HEMOGLOBIN 30.5 pg (27.0-33.4); MEAN CORPUSCULAR HGB CONC 33.6 g/dL (32.0-36.0); MEAN CORPUSCULAR VOLUME 91 fl (80-97); PLATELET COUNT 203 10^3/uL (150-450); RED BLOOD COUNT 4.68 10^6/uL (4.35-5.55); RED CELL DISTRIBUTION WIDTH 15.2 % (11.5-14.0); SEGMENTED NEUTROPHILS % (AUTO) 70.5 % (42-78); TOTAL CELLS COUNTED % (AUTO) 100 %; WHITE BLOOD COUNT 9.1 10^3/uL (4.0-10.5)
--- NOTE | 2018-04-10 17:23 | RADIOLOGY REPORT (SQ) ---
EXAM DESCRIPTION: CHEST 2 VIEWS COMPLETED DATE/TIME: 04/10/2018 5:10 pm REASON FOR STUDY: productive cough COMPARISON: June 2017 EXAM PARAMETERS: NUMBER OF VIEWS: two views TECHNIQUE: Digital Frontal and Lateral radiographic views of the chest acquired. RADIATION DOSE: NA LIMITATIONS: Patient has made a shallow inspiration. FINDINGS: LUNGS AND PLEURA: No opacities, masses or pneumothorax. No pleural effusion. MEDIASTINUM AND HILAR STRUCTURES: No masses or contour abnormalities. HEART AND VASCULAR STRUCTURES: The configuration of the heart mediastinal structures is unchanged BONES: No acute findings. HARDWARE: Patient is status post median sternotomy with coronary bypass surgery. OTHER: No other significant finding. IMPRESSION: NO ACUTE RADIOGRAPHIC FINDING IN THE CHEST. TECHNICAL DOCUMENTATION: JOB ID: [id number] [employer]- All Rights Reserved Reading location - IP/workstation name: [email or web address]
[2018-04-10 17:28] LABS: ALANINE AMINOTRANSFERASE 25 U/L (21-72); ALBUMIN 3.9 g/dL (3.5-5.0); ALKALINE PHOSPHATASE 85 U/L (38-126); ANION GAP 8 (5-19); ASPARTATE AMINO TRANSFERASE 19 U/L (17-59); BILIRUBIN,DIRECT 0.3 mg/dL (0.0-0.4); BILIRUBIN,TOTAL 0.5 mg/dL (0.2-1.3); BLOOD UREA NITROGEN 33 mg/dL (7-20); CALCIUM 9.4 mg/dL (8.4-10.2); CARBON DIOXIDE 32 mmol/L (22-30); CHLORIDE 103 mmol/L (98-107); GLUCOSE 141 mg/dL (75-110); POTASSIUM 4.2 mmol/L (3.6-5.0); SODIUM 142.6 mmol/L (137-145); TOTAL PROTEIN 6.4 g/dL (6.3-8.2)
[2018-04-10 20:48] LABS: VENOUS BLOOD BASE EXCESS 5.7 mmol/L; VENOUS BLOOD HCO3 33.9 mmol/L (20-32); VENOUS BLOOD PH 7.32 (7.30-7.42)
[2018-04-10 20:52] LABS: VENOUS BLOOD PCO2 66.8 mmHg (35-63)
[2018-04-10 21:15] LABS: NT PRO BNP 550 pg/mL (<450)
--- NOTE | 2018-04-10 21:16 | ER Document Report ---
ED Respiratory Problem - General Chief Complaint: Chest Congestion Stated Complaint: COUGH Time Seen by Provider: 04/10/18 16:12 Mode of Arrival: Ambulatory Information source: Patient, Relative Notes: Patient is an 87-year-old male presenting to the emergency department complaining of cough. Per patient's patient was at a routine visit at the [place] doctor today who told them that the Pt. needed to go to the ER due to "fluid on his lungs." stated that the pt. has been "acting fine to me." The Pt. has a history of a brain mass, CVA and sz. stated the pt is currently at his baseline mentally. He is able to tell you his name and denies CP, SOB, or abd pain, but is unable to tell you the date, again this is Pts baseline per and neighbor in the room with Pt. Pt is on 02 at home 24 hours a day per and also uses CPAP at night. Pt currently denies any pain to include CP, ABD pain, or shortness of breath. Pt can speak in full sentences without difficulty and although does not know the date (which is his baseline per ) is joking with staff. stated Pt has had a slight cough the last few days, denied fever, vomiting, diarrhea. TRAVEL OUTSIDE OF THE [place] IN LAST 30 DAYS: No - Related Data Allergies/Adverse Reactions: No Known Allergies Allergy (Verified 08/14/17 17:04) Past Medical History - General Information source: Patient - Social History Smoking Status: Unknown if Ever Smoked Chew tobacco use (# tins/day): No Frequency of alcohol use: None Drug Abuse: None Lives with: Family Family History: Reviewed & Not Pertinent Patient has suicidal ideation: No Patient has homicidal ideation: No - Past Medical History Cardiac Medical History: Reports: Hx Atrial Fibrillation, Hx Congestive Heart Failure, Hx Coronary Artery Disease, Hx Heart Attack, Hx Hypercholesterolemia, Hx Hypertension Pulmonary Medical History: Reports: Hx COPD - no o2, Bipap at night, Hx Sleep Apnea Neurological Medical History: Reports: Hx Seizures Renal/ Medical History: Denies: Hx Peritoneal Dialysis Malignancy Medical History: Reports Hx Brain Cancer Musculoskeletal Medical History: Reports Hx Arthritis Psychiatric Medical History: Reports: Hx Dementia Denies: Hx Depression Past Surgical History: Reports: Hx Cardiac Surgery - Triple Bypass 1999, Hx Coronary Artery Bypass Graft - Three-vessel, 1999., Other - Brain surgery, 2005. - Immunizations Hx Diphtheria, Pertussis, Tetanus Vaccination: Yes Hx Pneumococcal Vaccination: 05/04/09 Review of Systems - Review of Systems Constitutional: See HPI EENT: No symptoms reported Cardiovascular: See HPI Respiratory: See HPI Gastrointestinal: See HPI Genitourinary: No symptoms reported Male Genitourinary: No symptoms reported Musculoskeletal: No symptoms reported Skin: No symptoms reported Hematologic/Lymphatic: No symptoms reported Neurological/Psychological: See HPI Physical Exam - Vital signs Vitals: Temp Pulse Resp BP Pulse Ox 98.1 F 57 L 14 149/67 H 95 04/10/18 15:58 04/10/18 15:58 04/10/18 15:58 04/10/18 15:58 04/10/18 15:58 - Notes Notes: GENERAL: Alert, interacts well. No acute distress. HEAD: Normocephalic, atraumatic. EYES: Pupils equal, round, and reactive to light. Extraocular movements intact. ENT: Oral mucosa moist, tongue midline. NECK: Full range of motion. Supple. Trachea midline. LUNGS: Minor rhonchi BL lower lobes with No respiratory distress. HEART: Regular rate and rhythm. ABDOMEN: Soft, non-tender. Non-distended. Bowel sounds present in all 4 quadrants. Adult diaper in place. EXTREMITIES: Moves all 4 extremities spontaneously. No edema, normal radial and dorsalis pedis pulses bilaterally. No cyanosis. weakness left side d/t CVA, pt unable to walk, but has very limited movement left UE and LE. BACK: no cervical, thoracic, lumbar midline tenderness. NEUROLOGICAL: Alert and oriented to person and place. Normal speech. PSYCH: Normal affect, normal mood. SKIN: Warm, dry, normal turgor. No rashes or lesions noted. Course - Re-evaluation Re-evalutation: 04/10/18 21:55 Talk to patient's daughter on the phone. Patient apparently has home health care from 9-5 during the day and then someone comes at 10 PM and stays overnight with the patient. Pt. continued to deny SOB, CP, dizziness, or lightheadedness. Reviewed lab results with Pt, and daughter on the phone. Pc02 elevated, looking back at past labs, seems to be pts normal with no signs of acidosis. CXR shows no PNA or fluid. Discussed case with Dr. Perez, agrees with presentation and disposition. Pt ok for d/c. F/U with PCP. - Vital Signs Vital signs: Temp Pulse Resp BP Pulse Ox 98.6 F 57 L 15 144/127 H 95 04/10/18 23:46 04/10/18 15:58 04/10/18 23:46 04/10/18 23:46 04/10/18 23:46 - Laboratory Result Diagrams: 04/10/18 16:50 04/10/18 16:50 Laboratory results interpreted by me: 04/10/18 04/10/18 04/10/18 16:50 16:50 20:20 RDW 15.2 H VBG pCO2 VBG HCO3 Carbon Dioxide 32 H BUN 33 H Glucose 141 H NT-Pro-B Natriuret Pep 550 H 04/10/18 20:20 RDW VBG pCO2 66.8 H* VBG HCO3 33.9 H Carbon Dioxide BUN Glucose NT-Pro-B Natriuret Pep Discharge - Discharge Clinical Impression: CO2 retention, Hypercarbia Condition: Stable Disposition: HOME, SELF-CARE Additional Instructions: You have been seen in the emergency department for reported respiratory distress. Your chest x-ray does not show signs of infection and your labs show no signs of infection. You are to follow up with your PCP in the next 24-48 hours. Return to ED should you develop shortness of breath, chest pains, dizziness or pass out. Referrals: JULIAN FRAUSTO MD [Primary Care Provider] - Follow up as needed
[2018-04-10 21:18] LABS: TROPONIN I < 0.012 ng/mL
[2018-04-10 23:48] VITALS: BP 144/127
--- NOTE | 2018-04-11 10:08 | EKG REPORT ---
SEVERITY:- ABNORMAL ECG - SINUS RHYTHM PAIRED VENTRICULAR PREMATURE COMPLEXES BORDERLINE LEFT AXIS DEVIATION BORDERLINE T ABNORMALITIES, DIFFUSE LEADS : Confirmed by: Ramakrishna Chavez MD 11-Apr-2018 10:08:21
== END 2018-04-10 23:55 | disposition home or self-care (01) ==
LOC: ER 15:53
DX: R06.89 Other abnormalities of breathing (principal); J44.9 Chronic obstructive pulmonary disease, unspecified; R05 Cough; I69.354 Hemiplegia and hemiparesis following cerebral infarction affecting left non-dominant side; I25.10 Atherosclerotic heart disease of native coronary artery without angina pectoris; I10 Essential (primary) hypertension; I25.2 Old myocardial infarction; Z99.81 Dependence on supplemental oxygen; Z95.1 Presence of aortocoronary bypass graft; Z85.841 Personal history of malignant neoplasm of brain
CPT/HCPCS: 93005; 94640; 99284; 36415; 87040; 85025; 80053; 84484; 82803; 83880; 71046; 93010; J7620

== ENCOUNTER 2018-07-30 17:25 | Observation (INO) | payer OTHER, MEDICARE ==
[2018-07-30 18:10] LABS: ABSOLUTE BASOPHILS # (AUTO) 0.1 10^3/uL (0.0-0.2); ABSOLUTE EOSINOPHILS # (AUTO) 0.5 10^3/uL (0.0-0.6); ABSOLUTE LYMPHOCYTES (AUTO) 1.6 10^3/uL (0.5-4.7); ABSOLUTE MONOCYTES (AUTO) 0.8 10^3/uL (0.1-1.4); ABSOLUTE NEUT (AUTO) 5.1 10^3/uL (1.7-8.2); BASOPHILS % (AUTO) 0.7 % (0-2); EOSINOPHILS % (AUTO) 5.8 % (0-6); HEMATOCRIT 37.7 % (37.9-51.0); HEMOGLOBIN 12.9 g/dL (13.5-17.0); MEAN CORPUSCULAR HEMOGLOBIN 30.9 pg (27.0-33.4); MEAN CORPUSCULAR HGB CONC 34.1 g/dL (32.0-36.0); MEAN CORPUSCULAR VOLUME 91 fl (80-97); MONOCYTES % (AUTO) 9.8 % (3-13); PLATELET COUNT 176 10^3/uL (150-450); RED BLOOD COUNT 4.16 10^6/uL (4.35-5.55); RED CELL DISTRIBUTION WIDTH 14.5 % (11.5-14.0); SEGMENTED NEUTROPHILS % (AUTO) 63.7 % (42-78); TOTAL CELLS COUNTED % (AUTO) 100 %
[2018-07-30 18:37] LABS: ALANINE AMINOTRANSFERASE 16 U/L (21-72); ALBUMIN 3.4 g/dL (3.5-5.0); ALKALINE PHOSPHATASE 96 U/L (38-126); ANION GAP 6 (5-19); ASPARTATE AMINO TRANSFERASE 15 U/L (17-59); BILIRUBIN,DIRECT 0.2 mg/dL (0.0-0.4); BILIRUBIN,TOTAL 0.4 mg/dL (0.2-1.3); BLOOD UREA NITROGEN 26 mg/dL (7-20); CALCIUM 9.1 mg/dL (8.4-10.2); CARBON DIOXIDE 36 mmol/L (22-30); CHLORIDE 100 mmol/L (98-107); GLUCOSE 138 mg/dL (75-110); POTASSIUM 4.2 mmol/L (3.6-5.0); TOTAL PROTEIN 5.5 g/dL (6.3-8.2)
[2018-07-30 18:45] LABS: CREATINE KINASE < 20 U/L (55-170)
[2018-07-30 18:46] LABS: CREATINE KINASE MB 0.33 ng/mL (<4.55); TROPONIN I < 0.012 ng/mL
--- NOTE | 2018-07-30 18:52 | ER Document Report ---
ED General - General Chief Complaint: Chest Pain Stated Complaint: WEAKNESS Time Seen by Provider: 07/30/18 18:13 TRAVEL OUTSIDE OF THE [place] IN LAST 30 DAYS: No - HPI Notes: Patient is a 88-year-old male that presents to the emergency department for chief complaint of chest pain. Has Alzheimer's dementia and lives at home with his and daughter. His daughter called EMS today because he had been complaining of chest pain all day. Patient currently denies any chest pain. He does not remember complaining of chest pain. He has no complaints currently. HPI is limited because of his dementia. Family is not present at bedside. Patient does have a history of stroke, and heart disease. Past Medical History: A. fib, dementia, CHF, CKD, seizure, stroke, COPD Past Surgical History: Reviewed in chart Family History: Reviewed and noncontributory for presenting illness Allergies: Reviewed, see documented allergy list. REVIEW OF SYSTEMS: CONSTITUTIONAL : No fever No chills No diaphoresis No recent illness EENT: No vision changes No congestion No sore throat CARDIOVASCULAR: chest pain No palpitations RESPIRATORY: No shortness of breath No cough No difficulty breathing GASTROINTESTINAL: No abdominal pain No nausea No vomiting No diarrhea GENITOURINARY: No dysuria No hematuria No difficulty urinating MUSCULOSKELETAL: No back pain No leg pain No arm pain SKIN: No rashes No lesions LYMPHATIC: No swollen, enlarged glands. NEUROLOGICAL: No lightheadedness No headache No weakness No paresthesias PSYCHIATRIC: No anxiety No depression PHYSICAL EXAMINATION: Vital signs reviewed, nursing noted reviewed. GENERAL: Well-appearing, well-nourished and in no acute distress. HEAD: Atraumatic, normocephalic. EYES: Eyes appear normal, extraocular movements intact, sclera anicteric, conjunctiva are normal. ENT: nares patent, oropharynx clear without exudates. Moist mucous membranes. NECK: Normal range of motion, supple without lymphadenopathy LUNGS: Breath sounds clear to auscultation bilaterally and equal. No wheezes rales or rhonchi. HEART: Regular rate and rhythm without murmurs ABDOMEN: Soft, nontender, normoactive bowel sounds. No rebound, guarding, or rigidity. No masses appreciated. EXTREMITIES: Nontender, good range of motion, no pitting or edema. Neurological: Oriented to person and place, confused to time PSYCH: Normal mood, normal affect. SKIN: Warm, Dry, normal turgor, no rashes or lesions noted on exposed skin - Related Data Allergies/Adverse Reactions: No Known Allergies Allergy (Verified 08/14/17 17:04) Past Medical History - Social History Smoking Status: Never Smoker Family History: Reviewed & Not Pertinent - Past Medical History Cardiac Medical History: Reports: Hx Atrial Fibrillation, Hx Congestive Heart Failure, Hx Coronary Artery Disease, Hx Heart Attack, Hx Hypercholesterolemia, Hx Hypertension Pulmonary Medical History: Reports: Hx COPD - no o2, Bipap at night, Hx Sleep Apnea Neurological Medical History: Reports: Hx Seizures Renal/ Medical History: Denies: Hx Peritoneal Dialysis Malignancy Medical History: Reports Hx Brain Cancer Musculoskeletal Medical History: Reports Hx Arthritis Psychiatric Medical History: Reports: Hx Dementia Denies: Hx Depression Past Surgical History: Reports: Hx Cardiac Surgery - Triple Bypass 1999, Hx Coronary Artery Bypass Graft - Three-vessel, 1999., Other - Brain surgery, 2005. - Immunizations Hx Diphtheria, Pertussis, Tetanus Vaccination: Yes Hx Pneumococcal Vaccination: 05/04/09 Physical Exam - Vital signs Vitals: Resp 22 H 07/30/18 17:43 Course - Re-evaluation Re-evalutation: 07/30/18 18:48 Vitals reviewed. Nursing notes reviewed. Patient is in no acute distress. He currently has no complaints. When you leave the room he begins yelling for help however when you go in to evaluate him he again has no complaints. His EKG shows normal sinus rhythm with no ischemic changes. He does have multiple PVCs and PACs. There is no significant change on EKG from prior. Patient's initial workup was unremarkable. He did receive aspirin for his chest pain. He has denied chest pain while in the ER. There has not been any family present since he has been here. Because of his significant history of CHF A. fib and stroke he is at risk for ACS and will be admitted to the hospital for observation and continue telemetry monitoring. Case discussed with Dr. King who accepted admission. Laboratory 07/30/18 07/30/18 07/30/18 17:57 17:57 17:57 WBC 8.0 RBC 4.16 L Hgb 12.9 L Hct 37.7 L MCV 91 MCH 30.9 MCHC 34.1 RDW 14.5 H Plt Count 176 Seg Neutrophils % 63.7 Lymphocytes % 20.0 Monocytes % 9.8 Eosinophils % 5.8 Basophils % 0.7 Absolute Neutrophils 5.1 Absolute Lymphocytes 1.6 Absolute Monocytes 0.8 Absolute Eosinophils 0.5 Absolute Basophils 0.1 Sodium 142.0 Potassium 4.2 Chloride 100 Carbon Dioxide 36 H Anion Gap 6 BUN 26 H Creatinine 1.07 Est GFR ( Amer) > 60 Est GFR (Non-Af Amer) > 60 Glucose 138 H Calcium 9.1 Total Bilirubin 0.4 Direct Bilirubin 0.2 Neonat Total Bilirubin Not Reportable Neonat Direct Bilirubin Not Reportable Neonat Indirect Bili Not Reportable AST 15 L ALT 16 L Alkaline Phosphatase 96 Creatine Kinase < 20 L CK-MB (CK-2) 0.33 Troponin I < 0.012 Total Protein 5.5 L Albumin 3.4 L 07/30/18 19:56 Chest X-Ray 07/30/18 18:02 IMPRESSION: NO SIGNIFICANT RADIOGRAPHIC FINDING IN THE CHEST. PRIOR CABG. - Vital Signs Vital signs: Temp Pulse Resp BP Pulse Ox 23 H 125/103 H 100 07/30/18 19:00 07/30/18 17:44 07/30/18 19:00 - Laboratory Result Diagrams: 07/30/18 17:57 07/30/18 17:57 Laboratory results interpreted by me: 07/30/18 07/30/18 17:57 17:57 RBC 4.16 L Hgb 12.9 L Hct 37.7 L RDW 14.5 H Carbon Dioxide 36 H BUN 26 H Glucose 138 H AST 15 L ALT 16 L Creatine Kinase < 20 L Total Protein 5.5 L Albumin 3.4 L - EKG Interpretation by Me Additional EKG results interpreted by me: 07/30/18 18:52 Interpreted by myself Normal sinus rhythm, rate 71, normal axis, multiple PACs and PVCs, no significant change from 04/10/18 Discharge - Discharge Clinical Impression: Chest pain Qualifiers: Chest pain type: unspecified Qualified Code(s): R07.9 - Chest pain, unspecified Condition: Stable Disposition: ADMITTED OBSERVATION Admitting Provider: Hospitalist Unit Admitted: Telemetry
--- NOTE | 2018-07-30 19:02 | RADIOLOGY REPORT (SQ) ---
EXAM DESCRIPTION: CHEST SINGLE VIEW COMPLETED DATE/TIME: 07/30/2018 6:54 pm REASON FOR STUDY: cp COMPARISON: 04/10/2018 NUMBER OF VIEWS: One view. TECHNIQUE: Single frontal radiographic view of the chest acquired. LIMITATIONS: None. FINDINGS: LUNGS AND PLEURA: No opacities, masses or pneumothorax. No pleural effusion. MEDIASTINUM AND HILAR STRUCTURES: No masses. Contour normal. HEART AND VASCULAR STRUCTURES: Heart normal in size. Normal vasculature. Prior CABG. BONES: No acute findings. HARDWARE: CABG hardware. OTHER: No other significant finding. IMPRESSION: NO SIGNIFICANT RADIOGRAPHIC FINDING IN THE CHEST. PRIOR CABG. TECHNICAL DOCUMENTATION: JOB ID: [id number] [employer]- All Rights Reserved Reading location - IP/workstation name: [email or web address]
[2018-07-30] MEDS ORDERED: ASPIRIN 81 MG TABLET, CHEWABLE PO ONE (19:55)
[2018-07-30] MEDS ORDERED: MAGNESIUM HYDROXIDE SUSP 30 ML UDCUP PO PRN (19:59)
[2018-07-30] MEDS ORDERED: MAG HYDROX/AL HYDROX/SIMETH SUSP 30 ML UDCUP PO PRN (19:59)
[2018-07-30] MEDS ORDERED: ACETAMINOPHEN 325 MG TABLET PO PRN ×2 (20:11→20:20)
[2018-07-30] MEDS ORDERED: FUROSEMIDE 40 MG TABLET PO SCH (20:15)
[2018-07-30] MEDS ORDERED: ACETAMINOPHEN 650 MG SUPP.RECT PR PRN (20:20)
[2018-07-30] MEDS ORDERED: MORPHINE SULFATE 10 MG/ML INJ IV PRN ×3 (20:20)
[2018-07-30] MEDS ORDERED: NITROGLYCERIN 0.4 MG/TAB 25 TAB/BOTTLE SL PRN (20:21)
[2018-07-30] MEDS: DOCUSATE SODIUM 100 MG CAPSULE PO SCH (20:40)
[2018-07-30] MEDS ORDERED: (PENDING PHARMACY ID) (Levetiracetam [Keppra] 750 MG) PO SCH (22:00)
[2018-07-30] MEDS ORDERED: ATORVASTATIN CALCIUM 20 MG TABLET PO SCH (22:00)
[2018-07-30] MEDS ORDERED: ALBUTEROL SULFATE HFA (90 MCG/PUFF) 8 GM MDI (1 MDI/ER DISP) IH SCH (22:00)
[2018-07-30] MEDS ORDERED: MONTELUKAST SODIUM 10 MG TABLET PO SCH (22:00)
[2018-07-30] MEDS: FAMOTIDINE 20 MG TABLET PO SCH (22:41)
[2018-07-30] MEDS: ALBUTEROL SULFATE HFA (90 MCG/PUFF) 200 PUFF/8.5 GM MDI IH SCH (22:42)
[2018-07-30] MEDS: HEPARIN SOD (PORCINE) 5,000 UNIT/ML 1 ML SYRINGE SUBCUT SCH (22:43)
[2018-07-30 23:35] LABS: CREATINE KINASE MB 0.33 ng/mL (<4.55)
[2018-07-30 23:40] LABS: TROPONIN I < 0.012 ng/mL
--- NOTE | 2018-07-31 00:28 | PDOC H&P ---
History of Present Illness Admission Date/PCP: 07/30/18 20:10 JULIAN FRAUSTO MD Patient complains of: Chest pain History of Present Illness: MARISSA DAVID is a 88 year old male who was sent from his home to the emergency room via EMS by his family who indicated that he had been having chest pain all day. Family did not accompany the patient to the ER and EMS had no additional information. The patient has severe dementia and is unable to contribute to his medical history or review of systems. He is unaware of having had any pain and is not certain why he is here and for that matter is not certain where he is. In the emergency room he was found to have initial negative cardiac enzymes as well as an EKG showing no evidence of acute myocardial ischemia or injury. He is being admitted observation status for serial cardiac enzyme and EKG determinations and telemetry monitoring overnight. Past Medical History Past Medical History: Past medical history is obtained from prior records as patient has significant dementia and is unable to contribute to his past history, family history, social history or review of systems. Cardiac Medical History: Reports: Atrial Fibrillation - Paroxysmal, Congestive Heart Failure, Coronary Artery Disease, Myocardial Infarction, Hyperlipidema, Hypertension Pulmonary Medical History: Reports: Chronic Obstructive Pulmonary Disease (COPD) - no o2, Bipap at night, Sleep Apnea EENT Medical History: Reports: None Neurological Medical History: Reports: Ischemic CVA, Seizures Endocrine Medical History: Reports: Obesity Denies: Diabetes Mellitus Type 1 Renal/ Medical History: Reports: Chronic Kidney Disease Denies: Nephrolithiasis Malignancy Medical History: Reports: Brain Cancer GI Medical History: Reports: Gastroesophageal Reflux Disease Denies: Cirrhosis Musculoskeltal Medical History: Reports: Arthritis Skin Medical History: Reports: None Psychiatric Medical History: Reports: Dementia Denies: Alcohol Dependency, Depression, Substance Abuse, Tobacco Dependency Traumatic Medical History: Reports: None Hematology: Reports: Anemia Denies: Hemophilia Infectious Medical History: Reports: None Past Surgical History Past Surgical History: Past medical history is obtained from prior records as patient has significant dementia and is unable to contribute to his past surgical history, family history, social history or review of systems. Past Surgical History: Reports: Coronary Artery Bypass Graft - Three-vessel, 1999., Other - Brain surgery, 2005. Social History Information Source: [facility] Records Lives with: Family Smoking Status: Never Smoker Frequency of Alcohol Use: None Hx Recreational Drug Use: No Drugs: None Hx Prescription Drug Abuse: No - Advance Directive Resuscitation Status: Full Code Surrogate healthcare decision maker:: Jojo Jones Family History Family History: Past medical history is obtained from prior records as patient has significant dementia and is unable to contribute to his past surgical history, family history, social history or review of systems. Parental Family History Reviewed: No Children Family History Reviewed: No Sibling(s) Family History Reviewed.: No Medication/Allergy Home Medications: Aspirin [Aspirin 325 mg Tablet] 325 mg PO DAILY 09/07/17 Clopidogrel Bisulfate [Plavix 75 mg Tablet] 75 mg PO DAILY 09/07/17 Guaifenesin [Mucinex] 600 mg PO Q12 09/07/17 Ipratropium [place] [Atrovent 0.02% Neb 0.5 mg/2.5 ml Ampul] 0.5 mg NEB RTQ6 09/07/17 Levetiracetam [Keppra] 750 mg PO Q12 09/07/17 Magnesium Oxide [Mag-Ox 400 mg Tablet] 800 mg PO TID 09/07/17 Montelukast Sodium [Singulair 10 mg Tablet] 10 mg PO QHS 09/07/17 Ranolazine [Ranexa] 500 mg PO BID 09/07/17 Rosuvastatin Calcium [Crestor 10 mg Tablet] 10 mg PO DAILY 09/07/17 Tiotropium [place] [Spiriva Handihaler 5 Cap/Kit (18 Mcg/Cap)] 1 cap IH DAILY 09/07/17 Acetaminophen [Tylenol 325 mg Tablet] 325 mg PO Q6HP PRN 04/13/18 Albuterol Sulfate [Albuterol Sulfate 2.5mg/3 mL] 2.5 mg IN RTQ6 04/13/18 Albuterol Sulfate [Proair HFA] 2 puff IN QID 04/13/18 Fluticasone/Salmeterol [Advair 100-50 Diskus 14 Dose/Diskus] 1 puff IN BID 04/13/18 Furosemide [Lasix 40 mg Tablet] 40 mg PO Q2D 04/13/18 Loratadine [Claritin 10 mg Tablet] 10 mg PO DAILY 04/13/18 Pantoprazole Sodium [Protonix] 40 mg PO DAILY 04/13/18 Levofloxacin [Levaquin 500 mg Tablet] 500 mg PO DAILY 5 Days #5 tablet 04/20/18 Allergies/Adverse Reactions: No Known Allergies Allergy (Verified 08/14/17 17:04) Review of Systems ROS unobtainable: Due to mental status - Past medical history is obtained from prior records as patient has significant dementia and is unable to contribute to his past surgical history, family history, social history or review of systems. Physical Exam Vital Signs: Temp Pulse Resp BP Pulse Ox 17 125/103 H 98 07/30/18 20:08 07/30/18 17:44 07/30/18 20:08 General appearance: PRESENT: no acute distress, cooperative, morbidly obese, other - Demented Head exam: PRESENT: atraumatic, normocephalic Eye exam: PRESENT: EOMI. ABSENT: conjunctival injection, scleral icterus Ear exam: PRESENT: normal external ear exam. ABSENT: drainage Mouth exam: PRESENT: dry mucosa, neck supple Neck exam: ABSENT: thyromegaly, tracheal deviation Respiratory exam: PRESENT: decreased breath sounds - Mildly decreased breath sounds throughout all manz[place], symmetrical, unlabored Cardiovascular exam: PRESENT: RRR. ABSENT: clicks, gallop, rubs Pulses: PRESENT: normal radial pulses, normal dorsalis pedis pul Vascular exam: PRESENT: normal capillary refill. ABSENT: pallor GI/Abdominal exam: PRESENT: normal bowel sounds, soft Rectal exam: PRESENT: deferred Extremities exam: ABSENT: joint swelling, pedal edema Musculoskeletal exam: ABSENT: deformity, dislocation Neurological exam: PRESENT: other - Sleeping at the time of my exam but easily aroused although demented.. ABSENT: oriented to person, oriented to place, nathanael ented to time, oriented to situation Psychiatric exam: PRESENT: appropriate affect, normal mood, other - Demented Skin exam: PRESENT: dry, intact, warm. ABSENT: jaundice, rash, urticaria Results Laboratory Results: 07/30/18 17:57 07/30/18 17:57 07/30/18 07/30/18 17:57 17:57 WBC 8.0 RBC 4.16 L Hgb 12.9 L Hct 37.7 L MCV 91 MCH 30.9 MCHC 34.1 RDW 14.5 H Plt Count 176 Seg Neutrophils % 63.7 Lymphocytes % 20.0 Monocytes % 9.8 Eosinophils % 5.8 Basophils % 0.7 Absolute Neutrophils 5.1 Absolute Lymphocytes 1.6 Absolute Monocytes 0.8 Absolute Eosinophils 0.5 Absolute Basophils 0.1 Sodium 142.0 Potassium 4.2 Chloride 100 Carbon Dioxide 36 H Anion Gap 6 BUN 26 H Creatinine 1.07 Est GFR ( Amer) > 60 Est GFR (Non-Af Amer) > 60 Glucose 138 H Calcium 9.1 Total Bilirubin 0.4 AST 15 L ALT 16 L Alkaline Phosphatase 96 Total Protein 5.5 L Albumin 3.4 L 07/30/18 07/30/18 17:57 17:57 Creatine Kinase < 20 L CK-MB (CK-2) 0.33 Troponin I < 0.012 Impressions: Chest X-Ray 07/30/18 18:02 IMPRESSION: NO SIGNIFICANT RADIOGRAPHIC FINDING IN THE CHEST. PRIOR CABG. Assessment & Plan - Diagnosis (1) Chest pain Qualifiers: Chest pain type: unspecified Qualified Code(s): R07.9 - Chest pain, unspecified Is this a current diagnosis for this admission?: Yes Plan: Patient will be evaluated for his chest pain with serial cardiac enzymes and repeat EKG's. His chest pain will be treated if it reoccurs with nitroglycerin and if needed morphine sulfate administered intravenously on a sliding scale for pain control. (2) CAD (coronary artery disease) Qualifiers: Coronary Disease-Associated Artery/Lesion type: [place] artery [place] vs. transplanted heart: [place] heart Associated angina: without angina Qualified Code(s): I25.10 - Atherosclerotic heart disease of [place] coronary artery without angina pectoris Is this a current diagnosis for this admission?: Yes (3) Paroxysmal atrial fibrillation Is this a current diagnosis for this admission?: Yes Plan: Patient is noted to have a history of paroxysmal atrial fibrillation. He will be continued on his current home medical regimen with adjustments made as required. (4) CHF (congestive heart failure) Is this a current diagnosis for this admission?: Yes Plan: Patient has a history of congestive heart failure and will be continued on his current regimen. A BNP will be obtained to assess current therapy. (5) COPD (chronic obstructive pulmonary disease) Qualifiers: COPD type: unspecified COPD Qualified Code(s): J44.9 - Chronic obstructive pulmonary disease, unspecified Is this a current diagnosis for this admission?: Yes Plan: Patient will be continued on his usual COPD regimen with additional nebulizer therapy as needed. (6) Dementia Qualifiers: Dementia type: unspecified type Dementia behavioral disturbance: without behavioral disturbance Qualified Code(s): F03.90 - Unspecified dementia without behavioral disturbance Is this a current diagnosis for this admission?: Yes Plan: This is a chronic problem and will only be addressed on an as-needed basis during this hospital course. Long-term management of dementia is best performed by a physician who can maintain continuity of care. - Time Time Spent: 30 to 50 Minutes Critical Time spent with patient: Less than 15 minutes Medications reviewed and adjusted accordingly: Yes Anticipated discharge: Home Within: within 24 hours - Inpatient Certification Based on my medical assessment, after consideration of the patient's comorbidities, presenting symptoms, or acuity I expect that the services needed warrant INPATIENT care.: No I certify that my determination is in accordance with my understanding of Medicare's requirements for reasonable and necessary INPATIENT services [42 CFR 412.3e].: No Medical Necessity: Need Close Monitoring Due to Risk of Patient Decompensation, Need For Continuous Telemetry Monitoring
[2018-07-31] MEDS: LEVETIRACETAM ORAL SOLN 500 MG/5 ML UDCUP PO SCH ×3 (00:55→10:52)
[2018-07-31 05:05] LABS: HEMATOCRIT 37.8 % (37.9-51.0); MEAN CORPUSCULAR HGB CONC 34.5 g/dL (32.0-36.0); MEAN CORPUSCULAR VOLUME 90 fl (80-97); PLATELET COUNT 145 10^3/uL (150-450); RED CELL DISTRIBUTION WIDTH 14.4 % (11.5-14.0); WHITE BLOOD COUNT 8.1 10^3/uL (4.0-10.5)
[2018-07-31 05:51] LABS: CREATINE KINASE MB 0.48 ng/mL (<4.55); NT PRO BNP 642 pg/mL (<450)
[2018-07-31 05:57] LABS: TROPONIN I < 0.012 ng/mL
[2018-07-31 06:03] LABS: ANION GAP 7 (5-19); BLOOD UREA NITROGEN 25 mg/dL (7-20); CARBON DIOXIDE 33 mmol/L (22-30); CHLORIDE 101 mmol/L (98-107); GLUCOSE 126 mg/dL (75-110); POTASSIUM 4.4 mmol/L (3.6-5.0); SODIUM 141.2 mmol/L (137-145)
[2018-07-31] MEDS: HEPARIN SOD (PORCINE) 5,000 UNIT/ML 1 ML SYRINGE SUBCUT SCH ×2 (06:44→13:45)
[2018-07-31] MEDS ORDERED: CLOPIDOGREL BISULFATE 75 MG TABLET PO SCH (10:00)
[2018-07-31] MEDS ORDERED: TIOTROPIUM BROMIDE DPI 5 CAP/KIT (18 MCG/CAP) IH SCH (10:00)
[2018-07-31] MEDS ORDERED: ASPIRIN 325 MG TABLET PO SCH (10:00)
[2018-07-31] MEDS ORDERED: RANOLAZINE 500 MG TAB.SR.12H PO SCH (10:00)
[2018-07-31] MEDS ORDERED: FLUTICASONE/SALMETEROL DISKUS 100-50 MCG/DOSE IH SCH (10:00)
[2018-07-31] MEDS: MAGNESIUM OXIDE 400 MG TABLET PO SCH ×2 (10:52→14:19)
[2018-07-31] MEDS: DOCUSATE SODIUM 100 MG CAPSULE PO SCH (10:52)
[2018-07-31] MEDS: FAMOTIDINE 20 MG TABLET PO SCH (10:52)
[2018-07-31] MEDS: ALBUTEROL SULFATE HFA (90 MCG/PUFF) 200 PUFF/8.5 GM MDI IH SCH ×2 (10:53→14:19)
[2018-07-31 14:36] LABS: CREATINE KINASE MB 0.55 ng/mL (<4.55)
[2018-07-31 14:42] LABS: TROPONIN I < 0.012 ng/mL
--- NOTE | 2018-07-31 15:03 | EKG REPORT ---
SEVERITY:- ABNORMAL ECG - SINUS RHYTHM WITH APCS AND VPCS MULTIFORM VENTRICULAR PREMATURE COMPLEXES BORDERLINE T ABNORMALITIES, ANTERIOR LEADS : Confirmed by: Annie Lazar 31-Jul-2018 15:02:24
--- NOTE | 2018-07-31 15:03 | EKG REPORT ---
SEVERITY:- ABNORMAL ECG - SINUS RHYTHM PROBABLE INFERIOR INFARCT, OLD : Confirmed by: Annie Lazar 31-Jul-2018 15:02:30
--- NOTE | 2018-07-31 15:32 | PDOC DISCHARGE SUMMARY ---
General - Admit/Disc Date/PCP Admission Date/Primary Care Provider: 07/30/18 20:10 JULIAN FRAUSTO MD Discharge Date: 07/31/18 - Discharge Diagnosis (1) Chest pain Is this a current diagnosis for this admission?: Yes Summary: He has an extensive cardiac history, but his troponins have all been negative. His daughter did not want him to have a stress test. He has had no events on the advanced practice nurse and denies any complaints of pain at the time of discharge. - Additional Information Resuscitation Status: Full Code Discharge Diet: Cardiac Discharge Activity: Supervised Activity Home Medications: Clopidogrel Bisulfate [Plavix 75 mg Tablet] 75 mg PO DAILY 09/07/17 Guaifenesin [Mucinex] 600 mg PO Q12 09/07/17 Ipratropium [place] [Atrovent 0.02% Neb 0.5 mg/2.5 ml Ampul] 0.5 mg NEB RTQ6 09/07/17 Levetiracetam [Keppra] 750 mg PO Q12 09/07/17 Magnesium Oxide [Mag-Ox 400 mg Tablet] 400 mg PO TID 09/07/17 Montelukast Sodium [Singulair 10 mg Tablet] 10 mg PO QHS 09/07/17 Ranolazine [Ranexa] 500 mg PO BID 09/07/17 Rosuvastatin Calcium [Crestor 10 mg Tablet] 10 mg PO DAILY 09/07/17 Tiotropium [place] [Spiriva Handihaler 5 Cap/Kit (18 Mcg/Cap)] 1 cap IH DAILY 09/07/17 Acetaminophen [Tylenol 325 mg Tablet] 325 mg PO Q6HP PRN 04/13/18 Albuterol Sulfate [Albuterol Sulfate 2.5mg/3 mL] 2.5 mg IN RTQ6 04/13/18 Albuterol Sulfate [Proair HFA] 2 puff IN QID 04/13/18 Fluticasone/Salmeterol [Advair 100-50 Diskus 14 Dose/Diskus] 1 puff IN BID 04/13/18 Furosemide [Lasix 40 mg Tablet] 40 mg PO Q2D 04/13/18 Loratadine [Claritin 10 mg Tablet] 10 mg PO DAILY 04/13/18 Pantoprazole Sodium [Protonix] 40 mg PO DAILY 04/13/18 Aspirin [Adult Aspirin] 81 mg PO DAILY 07/31/18 Brimonidine Tartrate/Timolol [Combigan 0.2%-0.5% Eye Drops] 1 drop OU BID 07/31 Cetirizine HCl [Allergy] 10 mg PO DAILY 07/31/18 Latanoprost [Xalatan] 1 drop OU QHS 07/31/18 Mirabegron [Myrbetriq] 25 mg PO DAILY 07/31/18 History of Present Illness History of Present Illness: MARISSA DAVID is a 88 year old male who was sent from his home to the emergency room via EMS by his family who indicated that he had been having chest pain all day. Family did not accompany the patient to the ER and EMS had no additional information. The patient has severe dementia and is unable to contribute to his medical history or review of systems. He is unaware of having had any pain and is not certain why he is here and for that matter is not certain where he is. In the emergency room he was found to have initial negative cardiac enzymes as well as an EKG showing no evidence of acute myocardial ischemia or injury. He is being admitted observation status for serial cardiac enzyme and EKG determinations and telemetry monitoring overnight. Hospital Course Hospital Course: The patient has not had any complaints of pain while he is been here. His troponins have all been negative. His chronic conditions have been managed with his home medications. He is severely demented but his mental status seems to be at its baseline. He is been pleasant and cooperative. When I asked him why he came here to the hospital in an attempt to test his memory, he said "to save this [place]." He lives with his daughter and we contacted her, and she said she did not want him to have a stress test or any further testing seeing us how he is ruled out for an acute OK. She is planning to take him back home with her. He will go on all of his usual medications as he was on prior to admission. His labs and examination were reassuring and he was discharged today in his baseline fair condition. Physical Exam Vital Signs: Temp Pulse Resp BP Pulse Ox 97.1 F 75 22 H 147/74 H 99 07/31/18 02:38 07/31/18 14:00 07/31/18 11:33 07/31/18 11:33 07/31/18 11:33 Intake & Output 07/30/18 07/31/18 08/01/18 06:59 06:59 06:59 Weight 105.3 kg 105.3 kg General appearance: PRESENT: no acute distress, cooperative, disheveled, morbidly obese Respiratory exam: PRESENT: clear to auscultation charu, symmetrical, unlabored. ABSENT: accessory muscle use, chest wall tenderness, crackles, rhonchi, tachypnea, wheezes Cardiovascular exam: PRESENT: RRR, +S1, +S2 Vascular exam: PRESENT: normal capillary refill GI/Abdominal exam: PRESENT: normal bowel sounds, soft. ABSENT: distended, guarding, rebound, tenderness Extremities exam: ABSENT: clubbing, pedal edema Musculoskeletal exam: PRESENT: normal inspection. ABSENT: deformity Neurological exam: PRESENT: alert, awake, oriented to person. ABSENT: oriented to place, oriented to time, oriented to situation Psychiatric exam: PRESENT: appropriate affect Skin exam: PRESENT: dry, warm Results Laboratory Results: 07/31/18 04:55 07/31/18 04:55 07/30/18 07/30/18 07/31/18 17:57 17:57 04:55 WBC 8.0 8.1 RBC 4.16 L 4.20 L Hgb 12.9 L 13.0 L Hct 37.7 L 37.8 L MCV 91 90 MCH 30.9 31.0 MCHC 34.1 34.5 RDW 14.5 H 14.4 H Plt Count 176 145 L Seg Neutrophils % 63.7 Lymphocytes % 20.0 Monocytes % 9.8 Eosinophils % 5.8 Basophils % 0.7 Absolute Neutrophils 5.1 Absolute Lymphocytes 1.6 Absolute Monocytes 0.8 Absolute Eosinophils 0.5 Absolute Basophils 0.1 Sodium 142.0 Potassium 4.2 Chloride 100 Carbon Dioxide 36 H Anion Gap 6 BUN 26 H Creatinine 1.07 Est GFR ( Amer) > 60 Est GFR (Non-Af Amer) > 60 Glucose 138 H Calcium 9.1 Magnesium Total Bilirubin 0.4 AST 15 L ALT 16 L Alkaline Phosphatase 96 Total Protein 5.5 L Albumin 3.4 L 07/31/18 04:55 WBC RBC Hgb Hct MCV MCH MCHC RDW Plt Count Seg Neutrophils % Lymphocytes % Monocytes % Eosinophils % Basophils % Absolute Neutrophils Absolute Lymphocytes Absolute Monocytes Absolute Eosinophils Absolute Basophils Sodium 141.2 Potassium 4.4 Chloride 101 Carbon Dioxide 33 H Anion Gap 7 BUN 25 H Creatinine 0.98 Est GFR ( Amer) > 60 Est GFR (Non-Af Amer) > 60 Glucose 126 H Calcium 9.0 Magnesium 2.1 Total Bilirubin AST ALT Alkaline Phosphatase Total Protein Albumin 07/30/18 07/30/18 07/30/18 17:57 17:57 22:47 Creatine Kinase < 20 L < 20 L CK-MB (CK-2) 0.33 Troponin I < 0.012 NT-Pro-B Natriuret Pep 07/30/18 07/31/18 07/31/18 22:47 04:45 04:55 Creatine Kinase 25 L CK-MB (CK-2) 0.33 0.48 Troponin I < 0.012 < 0.012 NT-Pro-B Natriuret Pep 642 H 07/31/18 07/31/18 13:15 13:15 Creatine Kinase 24 L CK-MB (CK-2) 0.55 Troponin I < 0.012 NT-Pro-B Natriuret Pep Impressions: Chest X-Ray 07/30/18 18:02 IMPRESSION: NO SIGNIFICANT RADIOGRAPHIC FINDING IN THE CHEST. PRIOR CABG. Qualifiers - * PATIENT BEING DISCHARGED WITH ANY OF THE FOLLOWING DIAGNOSIS: No
[2018-07-31 16:05] VITALS: BP 128/89
== END 2018-07-31 17:19 | disposition home health service (06) ==
LOC: ER 17:25 → EH 20:10 → 3N 23:08
PROVIDERS: ADMIT Emergency Medicine; ATTEND Emergency Medicine
DX: R07.9 Chest pain, unspecified (principal); I25.10 Atherosclerotic heart disease of native coronary artery without angina pectoris; I48.0 Paroxysmal atrial fibrillation; J44.9 Chronic obstructive pulmonary disease, unspecified; I13.0 Hypertensive heart and chronic kidney disease with heart failure and stage 1 through stage 4 chronic kidney disease, or unspecified chronic kidney disease; N18.9 Chronic kidney disease, unspecified; I50.9 Heart failure, unspecified; G30.9 Alzheimer's disease, unspecified; F02.80 Dementia in other diseases classified elsewhere, unspecified severity, without behavioral disturbance, psychotic disturbance, mood disturbance, and anxiety; I25.2 Old myocardial infarction; Z79.899 Other long term (current) drug therapy; Z79.02 Long term (current) use of antithrombotics/antiplatelets; Z79.82 Long term (current) use of aspirin; Z85.841 Personal history of malignant neoplasm of brain; Z95.1 Presence of aortocoronary bypass graft; Z98.890 Other specified postprocedural states
CPT/HCPCS: 93005 ×2; 99285; 36415 ×2; 82553 ×2; 82550 ×2; 83735; 85025; 85027; 80048; 80053; 84484 ×2; 83880; 71045; 93010 ×2; J3490 ×5; J2270; G0378

== ENCOUNTER → 2018-12-16 | Outpatient (CLI) | payer MEDICARE, OTHER ==
--- NOTE | 2018-12-17 11:36 | XCELERA REPORT ---
[address] [address] Lower Extremity Arterial Evaluation Name: MARISSA DAVID Age: 88 yrs Gender: Male : 1930 Patient Status: Outpatient Patient Location: [facility] Study Date: 12/16/2018 02:15 PM Procedure: A color flow and duplex scan of the lower extremity arteries was performed bilaterally with velocity and waveform anaylsis. Reason For Study: PAD Ordering Physician: ARON VARMA Performed By: Aaron Peguero Measurements and Calculations Right Left BEAUTICIAN APPRENTICE PSV 90.5 150.9 cm/sec Prox PFA PSV -217.5 -419.0cm/sec Prox SFA PSV 99.0 139.7 cm/sec Mid SFA PSV -51.1 -82.9 cm/sec Dist SFA PSV -17.7 -42.7 cm/sec Prox Pop A PSV 63.2 25.6 cm/sec Dist Pop A PSV -15.5 cm/sec Dist JOSHUA PSV 19.4 19.8 cm/sec Dist SENIOR TECHNICAL EDITOR PSV 9.2 12.0 cm/sec Orlando Pedis PSV 15.3 10.0 cm/sec Right Side Arterial Evaluation Normal velocity and triphasic waveforms noted from the Common Femoral artery to the Popliteal. Monophasic with low velocity, spectral broadening in the infrageniculate vessels . Ankle Brachial index not obtained. Left Side Arterial Evaluation Normal velocity and triphasic waveforms noted from the Common Femoral artery to the Femoral, Biphasic with low normal flow in the Popliteal. Monophasic with low velocity, spectral broadening in the infrageniculate vessels . Ankle Brachial index not obtained. Interpretation Summary Severe hemodynamically significant lesions in the bilateral lower extremities, on duplex imaging, at rest. The arterial supply is close to normal to the Popliteal, less os on the left. The infrageniculate vessels are very severely affected, little flow distally. Clinical correlation advised. : ARON VARMA > Timo Seth
== END ==
LOC: SP 13:44
PROVIDERS: ATTEND Family Medicine
DX: I73.9 Peripheral vascular disease, unspecified (principal)
CPT/HCPCS: 93925

== ENCOUNTER 2019-04-05 14:18 | Emergency (ER) | payer MEDICARE, OTHER ==
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
--- NOTE | 2019-04-05 15:16 | PDOC CONSULTATION ---
Consultation Consult Date: 04/05/19 Provider Consulted: SHELLEY MARMOLEJO Consult reason:: dry gangreen right distal 2nd toe and left midfoot plantar surface History of Present Illness Admission Date/PCP: MARIA LUISA WESLEY MD History of Present Illness: MARISSA DAVID is a 88 year old male brought to the emergency room by his family with a dry gangrenous distal second right toe and with an area of dry gangrene of the left plantar surface. The patient reports that both dry gangrene areas been present for the past 4 to 5 months. He denies any pain, fever, nausea and vomiting, he denies any medical history. He also denies to take any medications. Past Medical History Cardiac Medical History: Reports: Atrial Fibrillation - Paroxysmal, Congestive Heart Failure, Coronary Artery Disease, Myocardial Infarction, Hyperlipidema, Hypertension Pulmonary Medical History: Reports: Chronic Obstructive Pulmonary Disease (COPD) - no o2, Bipap at night, Sleep Apnea Neurological Medical History: Reports: Seizures Endocrine Medical History: Denies: Diabetes Mellitus Type 1 Malignancy Medical History: Reports: Brain Cancer GI Medical History: Reports: Gastroesophageal Reflux Disease Denies: Cirrhosis Musculoskeltal Medical History: Reports: Arthritis Psychiatric Medical History: Reports: Dementia Denies: Depression Hematology: Reports: Anemia Denies: Hemophilia Past Surgical History Past Surgical History: Reports: Coronary Artery Bypass Graft - Three-vessel, 1999., Other - Brain surgery, 2005. Social History Smoking Status: Smoker,Current Status Unk Frequency of Alcohol Use: None Hx Recreational Drug Use: No Drugs: None Hx Prescription Drug Abuse: No Family History Family History: Reviewed & Not Pertinent Parental Family History Reviewed: No Children Family History Reviewed: No Sibling(s) Family History Reviewed.: No Medication/Allergy Home Medications: Clopidogrel Bisulfate [Plavix 75 mg Tablet] 75 mg PO DAILY 09/07/17 Guaifenesin [Mucinex] 600 mg PO Q12 09/07/17 Ipratropium [place] [Atrovent 0.02% Neb 0.5 mg/2.5 ml Ampul] 0.5 mg NEB RTQ6 09/07/17 Levetiracetam [Keppra] 750 mg PO Q12 09/07/17 Magnesium Oxide [Mag-Ox 400 mg Tablet] 400 mg PO TID 09/07/17 Montelukast Sodium [Singulair 10 mg Tablet] 10 mg PO QHS 09/07/17 Ranolazine [Ranexa] 500 mg PO BID 09/07/17 Rosuvastatin Calcium [Crestor 10 mg Tablet] 10 mg PO DAILY 09/07/17 Tiotropium [place] [Spiriva Handihaler 5 Cap/Kit (18 Mcg/Cap)] 1 cap IH DAILY 09/07/17 Acetaminophen [Tylenol 325 mg Tablet] 325 mg PO Q6HP PRN 04/13/18 Albuterol Sulfate [Albuterol Sulfate 2.5mg/3 mL] 2.5 mg IN RTQ6 04/13/18 Albuterol Sulfate [Proair HFA] 2 puff IN QID 04/13/18 Fluticasone/Salmeterol [Advair 100-50 Diskus 14 Dose/Diskus] 1 puff IN BID 04/13/18 Furosemide [Lasix 40 mg Tablet] 40 mg PO Q2D 04/13/18 Loratadine [Claritin 10 mg Tablet] 10 mg PO DAILY 04/13/18 Pantoprazole Sodium [Protonix] 40 mg PO DAILY 04/13/18 Aspirin [Adult Aspirin] 81 mg PO DAILY 07/31/18 Brimonidine Tartrate/Timolol [Combigan 0.2%-0.5% Eye Drops] 1 drop OU BID 07/31/18 Cetirizine HCl [Allergy] 10 mg PO DAILY 07/31/18 Latanoprost [Xalatan] 1 drop OU QHS 07/31/18 Mirabegron [Myrbetriq] 25 mg PO DAILY 07/31/18 Allergies/Adverse Reactions: No Known Allergies Allergy (Verified 08/14/17 17:04) Physical Exam General appearance: PRESENT: no acute distress, obese Eye exam: PRESENT: conjunctival injection, EOMI Mouth exam: PRESENT: moist, neck supple Neck exam: PRESENT: full ROM Respiratory exam: PRESENT: clear to auscultation charu, other - midsternal surgical scar Cardiovascular exam: PRESENT: RRR GI/Abdominal exam: PRESENT: hypoactive bowel sounds, soft Rectal exam: PRESENT: deferred Extremities exam: PRESENT: +1 edema, other - Right foot= dry gangrene distal half 2nd toe; Left foot= 2 inch dry gangrene circular area of mid plantart surface Left leg= surgical scar along medial aspect calf down to ankle Neurological exam: PRESENT: alert, awake, oriented to situation Psychiatric exam: PRESENT: appropriate affect Skin exam: PRESENT: other - see above Assessment & Plan - Diagnosis (1) dry gangrene right toe and left plantar Is this a current diagnosis for this admission?: Yes - Plan Summary Plan Summary: Assessment: 88-year-old male with a 4 to 5-month history of dry gangrene right distal second toe and 2 inch area of the left mid plantar surface No past medical history available However, his physical exam reveals possible past CABG as well as left leg vascular surgery procedure Exam of the right inguinal areas reveales minimal edema and reactive hyperemia a date of the gangrenous dry toe Plan: Both areas of gangrene (left plantar surface as well as right distal second toe) do not appear to be infected and/or to require any surgical intervention at this time. Most likely, the right distal second toe will self amputate in the next few months well as the left plantar surface gangrenous area will fall off on its own during similar time frame. I am recommending to the patient could be discharged to home by the general surgery viewpoint Follow-up with Dr. Maria Luisa Vo in the office in 2 weeks No wound care needed except for the use of the dry sponges on each dry gangrenous area. No tub bath or water immersion of both feet is recommended at this time. I will sign off.
--- NOTE | 2019-04-05 15:33 | RADIOLOGY REPORT (SQ) ---
EXAM DESCRIPTION: FOOT BILATERAL 3 VIEWS COMPLETED DATE/TIME: 04/05/2019 3:21 pm REASON FOR STUDY: DM ulcers with likely osteo COMPARISON: None. FINDINGS: Three views right foot: Severe osteopenia. No aggressive bone destruction or displaced f racture. Three views left foot: Severe osteopenia. No aggressive bone destruction or displaced fracture. TECHNICAL DOCUMENTATION: JOB ID: [id number] Reading location - IP/workstation name: [email or web address]
[2019-04-05 15:58] LABS: ABSOLUTE BASOPHILS # (AUTO) 0.1 10^3/uL (0.0-0.2); ABSOLUTE EOSINOPHILS # (AUTO) 0.5 10^3/uL (0.0-0.6); ABSOLUTE MONOCYTES (AUTO) 0.8 10^3/uL (0.1-1.4); ABSOLUTE NEUT (AUTO) 4.2 10^3/uL (1.7-8.2); BASOPHILS % (AUTO) 0.8 % (0-2); EOSINOPHILS % (AUTO) 8.1 % (0-6); HEMATOCRIT 35.7 % (37.9-51.0); HEMOGLOBIN 12.1 g/dL (13.5-17.0); LYMPHOCYTES % (AUTO) 15.4 % (13-45); MEAN CORPUSCULAR HEMOGLOBIN 29.6 pg (27.0-33.4); MEAN CORPUSCULAR HGB CONC 33.8 g/dL (32.0-36.0); MEAN CORPUSCULAR VOLUME 87 fl (80-97); MONOCYTES % (AUTO) 12.7 % (3-13); PLATELET COUNT 191 10^3/uL (150-450); RED BLOOD COUNT 4.08 10^6/uL (4.35-5.55); RED CELL DISTRIBUTION WIDTH 14.6 % (11.5-14.0); TOTAL CELLS COUNTED % (AUTO) 100 %; WHITE BLOOD COUNT 6.7 10^3/uL (4.0-10.5)
[2019-04-05 16:24] LABS: ALBUMIN 3.3 g/dL (3.5-5.0); ALKALINE PHOSPHATASE 97 U/L (38-126); ASPARTATE AMINO TRANSFERASE 20 U/L (17-59); BILIRUBIN,DIRECT 0.3 mg/dL (0.0-0.4); BILIRUBIN,TOTAL 0.5 mg/dL (0.2-1.3); BLOOD UREA NITROGEN 22 mg/dL (7-20); C-REACTIVE PROTEIN 38.2 mg/L (<10.0); CALCIUM 8.9 mg/dL (8.4-10.2); GLUCOSE 125 mg/dL (75-110); POTASSIUM 3.9 mmol/L (3.6-5.0); TOTAL PROTEIN 5.5 g/dL (6.3-8.2)
[2019-04-05 16:34] LABS: ERYTHROCYTE SEDIMENTATION RATE 49 mm/hr (0-20)
[2019-04-05 16:37] LABS: ANION GAP 5 (5-19); CARBON DIOXIDE 34 mmol/L (22-30); CHLORIDE 98 mmol/L (98-107)
[2019-04-05 18:20] VITALS: BP 150/99
== END 2019-04-05 18:20 | disposition home or self-care (01) ==
LOC: ER 14:18
DX: I96 Gangrene, not elsewhere classified (principal); L97.519 Non-pressure chronic ulcer of other part of right foot with unspecified severity; I48.91 Unspecified atrial fibrillation; I50.9 Heart failure, unspecified; I25.10 Atherosclerotic heart disease of native coronary artery without angina pectoris; I11.0 Hypertensive heart disease with heart failure; J44.9 Chronic obstructive pulmonary disease, unspecified
CPT/HCPCS: 36415; 80053; 85025; 85652; 86140; 99284

== ENCOUNTER 2019-05-27 13:26 | Inpatient (IN) | payer MEDICARE, OTHER ==
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
[2019-05-27 13:52] LABS: HEMATOCRIT 42.9 % (37.9-51.0); MEAN CORPUSCULAR HEMOGLOBIN 27.1 pg (27.0-33.4); MEAN CORPUSCULAR HGB CONC 30.3 g/dL (32.0-36.0); MEAN CORPUSCULAR VOLUME 89 fl (80-97); PLATELET COUNT 247 10^3/uL (150-450); RED CELL DISTRIBUTION WIDTH 18.5 % (11.5-14.0); WHITE BLOOD COUNT 25.7 10^3/uL (4.0-10.5)
[2019-05-27 14:00] LABS: APPEARANCE,URINE SLIGHTLY-CLOUDY; BILIRUBIN,URINE NEGATIVE (NEGATIVE); COLOR,URINE YELLOW; GLUCOSE, URINE NEGATIVE (NEGATIVE); KETONES,URINE NEGATIVE (NEGATIVE); LEUKOCYTE ESTERASE,URINE NEGATIVE (NEGATIVE); NITRITE,URINE NEGATIVE (NEGATIVE); PROTEIN,URINE NEGATIVE (NEGATIVE); URINE SPECIFIC GRAVITY 1.018; UROBILINOGEN,URINE NEGATIVE mg/dL (<2.0)
[2019-05-27 14:10] LABS: ALBUMIN 3.4 g/dL (3.5-5.0); ALKALINE PHOSPHATASE 102 U/L (38-126); ANION GAP 9 (5-19); ASPARTATE AMINO TRANSFERASE 33 U/L (17-59); BILIRUBIN,DIRECT 0.4 mg/dL (0.0-0.4); BILIRUBIN,TOTAL 1.1 mg/dL (0.2-1.3); BLOOD UREA NITROGEN 68 mg/dL (7-20); CALCIUM 9.4 mg/dL (8.4-10.2); CARBON DIOXIDE 31 mmol/L (22-30); CHLORIDE 123 mmol/L (98-107); CREATINE KINASE 23 U/L (55-170); GLUCOSE 167 mg/dL (75-110); TOTAL PROTEIN 6.1 g/dL (6.3-8.2)
[2019-05-27 14:19] LABS: ABSOLUTE LYMPHOCYTES# (MANUAL) 1.5 10^3/uL (0.5-4.7); BASOPHILS % (MANUAL) 0 % (0-2); EOSINOPHILS % (MANUAL) 0 % (0-6); LYMPHOCYTES % (MANUAL) 6 % (13-45); MONOCYTES % (MANUAL) 4 % (3-13); SEGMENTED NEUTROPHILS % (MAN) 90 % (42-78); TOTAL CELLS COUNTED 100
[2019-05-27 14:20] LABS: ANISOCYTOSIS 1+; PLATELET COMMENT ADEQUATE; POLYCHROMASIA SLIGHT
[2019-05-27] MEDS ORDERED: NORMAL SALINE 1000 ML 1,000 ML IV ONE (14:20)
[2019-05-27 14:21] LABS: ARTERIAL BLOOD BASE EXCESS 1.9 mmol/L; ARTERIAL BLOOD H2CO3 1.48 mmol/L (1.05-1.35); ARTERIAL BLOOD HCO3 27.9 mmol/L (20-24); ARTERIAL BLOOD O2 SATURATION 90.6 % (94-98); ARTERIAL BLOOD PCO2 49.1 mmHg (35-45); ARTERIAL BLOOD PH 7.37 (7.35-7.45); ARTERIAL BLOOD PO2 61.2 mmHg (80-100); ARTERIAL BLOOD TOTAL CO2 29.4 mmol/L (23-27)
[2019-05-27 14:22] LABS: ARTERIAL BLOOD FIO2 15
[2019-05-27] MEDS ORDERED: ACETAMINOPHEN 650 MG SUPP.RECT PR ONE (14:23)
--- NOTE | 2019-05-27 14:28 | RADIOLOGY REPORT (SQ) ---
EXAM DESCRIPTION: CHEST SINGLE VIEW COMPLETED DATE/TIME: 05/27/2019 2:01 pm REASON FOR STUDY: Unresponsive, hypoxic, rhonchi COMPARISON: None. EXAM PARAMETERS: NUMBER OF VIEWS: One view. TECHNIQUE: Single frontal radiographic view of the chest acquired. RADIATION DOSE: NA LIMITATIONS: None. FINDINGS: LUNGS AND PLEURA: The left hemidiaphragm appears to be slightly elevated. There is retroc ardiac opacification on the left. The left diaphragm is somewhat indistinct medially. MEDIASTINUM AND HILAR STRUCTURES: No masses. Contour normal. HEART AND VASCULAR STRUCTURES: Heart normal in size. Normal vasculature. BONES: No acute findings. HARDWARE: Sternotomy wires. Graft markers. OTHER: No other significant finding. IMPRESSION: Cannot exclude left lower lobe pneumonia. TECHNICAL DOCUMENTATION: JOB ID: [id number] [employer]- All Rights Reserved Reading location - IP/workstation name: [email or web address]
[2019-05-27] MEDS ORDERED: LEVOFLOXACIN 750 MG/D5W RTU 750 MG/150 ML RTUPB IV ONE (14:29)
--- NOTE | 2019-05-27 14:29 | RADIOLOGY REPORT (SQ) ---
EXAM DESCRIPTION: KUB/ABDOMEN (SINGLE VIEW) COMPLETED DATE/TIME: 05/27/2019 2:01 pm REASON FOR STUDY: Unresponsive, hypoxic, rhonchi, abdominal pain COMPARISON: None. NUMBER OF VIEWS: One view. TECHNIQUE: Supine radiographic image of the abdomen acquired. LIMITATIONS: None. FINDINGS: BOWEL GAS PATTERN: Nonobstructive gas pattern. Considerable retained stool, dense stool i n the rectum. CALCIFICATIONS: No suspicious calcifications. SOFT TISSUES: No gross mass or suggestion of organomegaly. HARDWARE: None in the abdomen. BONES: No acute fracture. No worrisome bone lesions. OTHER: No other significant finding. IMPRESSION: Constipation. Possible fecal impaction. No other significant finding. TECHNICAL DOCUMENTATION: JOB ID: [id number] [employer]- All Rights Reserved Reading location - IP/workstation name: [email or web address]
[2019-05-27] MEDS ORDERED: DEXTROSE 50%-WATER 25 GM/50 ML DISP.SYRIN IV PRN ×2 (16:23)
[2019-05-27] MEDS ORDERED: GLUCAGON,HUMAN RECOMB 1 MG INJ SUBCUT PRN (16:23)
[2019-05-27] MEDS ORDERED: DEXTROSE 40% GEL 15 GM TUBE PO PRN ×2 (16:23)
--- NOTE | 2019-05-27 16:23 | PDOC H&P ---
History of Present Illness Admission Date/PCP: 05/27/19 15:09 ARON VARMA DO Patient complains of: Altered mental status, hypoxia History of Present Illness: MARISSA GUPTA is a 88 year old male with a history of dementia, atrial fibrillation, ischemic stroke with residual hemiplegia, coronary artery disease and open heart surgery, hypertension, hyperlipidemia, documented congestive heart failure, sleep apnea, seizures, documentation and prior notes of brain cancer. Patient presents after being found obtunded this morning. Most of the history obtained from patient's at bedside as patient is currently unable to participate in the interview. Last night patient was conversational and awake and alert. He was given dinner as well as some pills and went to bed. This morning patient's was informed by 1 of the home aides that patient was no waking up. They called the ambulance. On arrival of EMS patient was noted to be hypoxic with SPO2 in the 80s. Patient was placed on nonrebreather. Patient's notes she found food particles and pills from yesterday coming out of his mouth at the time of this incidence. Patient was subsequently brought to the hospital. In the ER patient was satting in the 80s on 4 L nasal cannula per ER nurse. Patient was subsequently placed on a nonrebreather. Patient's is unaware of any trauma to the head, denies any recent diarrhea, any wounds on the back, any other significant complaints from her recently. Of note patient has gangrene of the right second toe as well as gangrene on the left sole which patient's states that have been evaluated by surgery without need for amputation. Thorough conversation was had with patient's asked to plan of care. Patient's expresses that patient is DNR DNI and does not want any aggressive measures such as central line placement for pressors or other invasive measures if needed. Otherwise she would like to continue with t reatments such as antibiotics and IV fluids and other medications. Past Medical History Cardiac Medical History: Reports: Atrial Fibrillation - Paroxysmal, Congestive Heart Failure, Coronary Artery Disease, Myocardial Infarction, Hyperlipidema, Hypertension Pulmonary Medical History: Reports: Chronic Obstructive Pulmonary Disease (COPD) - no o2, Bipap at night, Sleep Apnea Neurological Medical History: Reports: Seizures Malignancy Medical History: Reports: Brain Cancer GI Medical History: Reports: Gastroesophageal Reflux Disease Denies: Cirrhosis Musculoskeltal Medical History: Reports: Arthritis Psychiatric Medical History: Reports: Dementia Denies: Depression Hematology: Reports: Anemia Denies: Hemophilia Past Surgical History Past Surgical History: Reports: Coronary Artery Bypass Graft - Three-vessel, 2000., Other - Brain surgery, 2006. Social History Information Source: Relative, Friend Lives with: Family Smoking Status: Unknown if Ever Smoked Electronic Cigarette use?: No Frequency of Alcohol Use: None Hx Recreational Drug Use: No Drugs: None Hx Prescription Drug Abuse: No - Advance Directive Resuscitation Status: Do Not Resuscitate - DNR/DNI. Surrogate healthcare decision maker:: Advanced directive visualized. Wishes confirmed with patient's Eleonora Gupta. Family History Family History: Reviewed & Not Pertinent Parental Family History Reviewed: Yes Children Family History Reviewed: NA Sibling(s) Family History Reviewed.: NA Medication/Allergy Allergies/Adverse Reactions: No Known Allergies Allergy (Verified 05/27/19 15:07) Review of Systems ROS unobtainable: Due to mental status Physical Exam Vital Signs: Temp Pulse Resp BP Pulse Ox 101.8 F H 25 H 147/49 H 89 L 05/27/19 15:01 05/27/19 15:01 05/27/19 15:01 05/27/19 14:01 Intake & Output 05/26/19 05/27/19 05/28/19 06:59 06:59 06:59 Intake Total 1000 Balance 1000 Weight 86.8 kg General appearance: PRESENT: other - Laying down with eyes closed and not communicating and not participating in interview Head exam: PRESENT: atraumatic Eye exam: PRESENT: conjunctiva pink Mouth exam: ABSENT: laceration Neck exam: ABSENT: JVD, tracheal deviation Respiratory exam: PRESENT: rhonchi - Bilateral with poor air movement. ABSENT: crackles, wheezes Cardiovascular exam: PRESENT: RRR, +S1. ABSENT: diastolic murmur, systolic murmur Vascular exam: ABSENT: pallor GI/Abdominal exam: PRESENT: normal bowel sounds, soft, tenderness. ABSENT: ascites, guarding, rebound, rigid Rectal exam: PRESENT: deferred Extremities exam: PRESENT: +1 edema. ABSENT: calf tenderness Musculoskeletal exam: ABSENT: ambulatory Neurological exam: PRESENT: altered, other - Patient is currently stuporous. GCS T7 E1 V2 M4. 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 and the left plantar surface of the foot with mild nonpurulent drainage Results Laboratory Results: 05/27/19 13:37 05/27/19 13:37 05/27/19 05/27/19 05/27/19 11:37 13:37 13:37 WBC 25.7 H RBC 4.80 Hgb 13.0 L Hct 42.9 MCV 89 MCH 27.1 MCHC 30.3 L RDW 18.5 H Plt Count 247 Seg Neutrophils % Not Reportable Carbonic Acid HCO3/H2CO3 Ratio ABG pH ABG pCO2 ABG pO2 ABG HCO3 ABG O2 Saturation ABG Base Excess FiO2 Sodium 162.6 H Potassium 4.0 Chloride 123 H Carbon Dioxide 31 H Anion Gap 9 BUN 68 H Creatinine 2.49 H Est GFR ( Amer) 30 L Glucose 167 H Lactic Acid Calcium 9.4 Total Bilirubin 1.1 AST 33 Alkaline Phosphatase 102 Total Protein 6.1 L Albumin 3.4 L Urine Color YELLOW Urine Appearance SLIGHTLY-CLOUDY Urine pH 5.0 Ur Specific [place] 1.018 Urine Protein NEGATIVE Urine Glucose (UA) NEGATIVE Urine Ketones NEGATIVE Urine Blood NEGATIVE Urine Nitrite NEGATIVE Ur Leukocyte Esterase NEGATIVE Urine WBC (Auto) 2 Urine RBC (Auto) 2 05/27/19 05/27/19 13:37 14:07 WBC RBC Hgb Hct MCV MCH MCHC RDW Plt Count Seg Neutrophils % Carbonic Acid 1.48 H HCO3/H2CO3 Ratio 18:1 ABG pH 7.37 ABG pCO2 49.1 H ABG pO2 61.2 L ABG HCO3 27.9 H ABG O2 Saturation 90.6 L ABG Base Excess 1.9 FiO2 15 Sodium Potassium Chloride Carbon Dioxide Anion Gap BUN Creatinine Est GFR ( Amer) Glucose Lactic Acid 3.0 H Calcium Total Bilirubin AST Alkaline Phosphatase Total Protein Albumin Urine Color Urine Appearance Urine pH Ur Specific [place] Urine Protein Urine Glucose (UA) Urine Ketones Urine Blood Urine Nitrite Ur Leukocyte Esterase Urine WBC (Auto) Urine RBC (Auto) 05/27/19 05/27/19 13:37 13:37 Creatine Kinase 23 L Troponin I 0.106 Impressions: Chest X-Ray 05/27/19 13:38 IMPRESSION: Cannot exclude left lower lobe pneumonia. KUB X-Ray 05/27/19 13:38 IMPRESSION: Constipation. Possible fecal impaction. No other significant finding. Assessment and Plan - Diagnosis (1) Acute respiratory failure with hypoxia and hypercarbia Is this a current diagnosis for this admission?: Yes Plan: Likely secondary to aspiration pneumonia versus pneumonitis. Patient was hypoxic on 4 to 6 L nasal cannula. Currently on nonrebreather satting in the high 90s. Will attempt to put patient on Ventimask. Patient is DNR/DNI which was confirmed on the admission Not a candidate for BiPAP given encephalopathy (2) Aspiration pneumonia due to food (regurgitated) Is this a current diagnosis for this admission?: Yes Plan: Chest x-ray showing new developing opacity in the left lower lobe. Suspect this is a developing pneumonia or pneumonitis from aspiration of food last night. Repeat chest x-ray tomorrow. This started on vancomycin and Zosyn Obtain sputum cultures if possible & MRSA swab (3) Acute metabolic encephalopathy Is this a current diagnosis for this admission?: Yes Plan: Encephalopathy likely secondary to prolonged period of hypoxia vs current sepsis versus hypernatremia Check head CT to investigate structural brain etiology (4) Severe sepsis Is this a current diagnosis for this admission?: Yes Plan: Sepsis suspected to be secondary to pneumonia. Urinalysis is negative. Gangrene on foot appears to be dry without any copious drainage. Will start on antibiotics. IV fluids. Lactic acidosis noted - we will repeat Monitor vitals (5) Dehydration with hypernatremia Is this a current diagnosis for this admission?: Yes Plan: Severe hypernatremia secondary to dehydration. Free water deficit 6.8 L Give Bolus of ivf given sepsis Start on D5 1/2 normal saline at 210 cc/hour given his severe volume depletion Check BMP every 6h Goal sodium correction only of less than 10 mEq per 24 hours (6) Acute kidney injury Is this a current diagnosis for this admission?: Yes Plan: Prerenal azotemia secondary to dehydrated state Monitor response to IV fluids (7) Constipation Qualifiers: Constipation type: unspecified constipation type Qualified Code(s): K59.00 - Constipation, unspecified Is this a current diagnosis for this admission?: Yes Plan: Fecal impaction noted on KUB We will give rectal suppository (8) Atrial fibrillation Qualifiers: Atrial fibrillation type: unspecified Qualified Code(s): I48.91 - Unspecified atrial fibrillation Is this a current diagnosis for this admission?: Yes Plan: Continue with home regimen (9) Dry gangrene Is this a current diagnosis for this admission?: Yes Plan: Surgery consulted for wound evaluation. (10) CAD (coronary artery disease) Qualifiers: Coronary Disease-Associated Artery/Lesion type: [place] artery [place] vs. transplanted heart: [place] heart Associated angina: without angina Qualified Code(s): I25.10 - Atherosclerotic heart disease of [place] coronary artery without angina pectoris Is this a current diagnosis for this admission?: Yes Plan: Continue with home regimen (11) Elevated troponin Is this a current diagnosis for this admission?: Yes Plan: Likely due to demand ischemia from hypoxia and sepsis Repeat troponin EKG - Time Time Spent with patient: 35 or more minutes
[2019-05-27] MEDS ORDERED: VANCOMYCIN HCL INJ 1000 MG VIAL IV SCH (16:37)
[2019-05-27] MEDS ORDERED: 1/2 NORMAL SALINE 1,000 ML IV ONE (16:38)
[2019-05-27] MEDS ORDERED: BISACODYL 10 MG SUPP.RECT PR PRN (17:00)
[2019-05-27] MEDS ORDERED: INFLUENZA QUAD (6MOS+) 2019-20 VAC 0.5 ML SYR IM ONE (17:19)
[2019-05-27] MEDS ORDERED: PIPERACILLIN/TAZOBACTAM 3.375 GM VIAL IV SCH (18:00)
--- NOTE | 2019-05-27 19:14 | RADIOLOGY REPORT (SQ) ---
EXAM DESCRIPTION: CT HEAD WITHOUT COMPLETED DATE/TIME: 05/27/2019 6:52 pm REASON FOR STUDY: Stuporous COMPARISON: 04/13/2018 TECHNIQUE: Axial images acquired through the brain without intravenous contrast. Images reviewed wi th bone, brain and subdural windows. Additional sagittal and coronal reconstructions were generated. Images stored on PACS. All CT scanners at this facility use dose modulation, iterative reconstruction, and/or weight based d osing when appropriate to reduce radiation dose to as low as reasonably achievable (ALARA). [facility]: Dose Right [facility]: CareDose [facility]: Dose Right [facility]: Teradose 4D [facility]: EVault RADIATION DOSE: mGy. LIMITATIONS: None. FINDINGS: VENTRICLES: Prominent ventricles secondary to involutional atrophy. CEREBRUM: No masses. No hemorrhage. No midline shift. Ostial malacia in the right parietal lobe. No evidence for acute infarction. Areas of low density in the white matter most likely chronic small vessel ischemic changes. CEREBELLUM: No masses. No hemorrhage. No alteration of density. No evidence for acute infarction. EXTRAAXIAL SPACES: No fluid collections. No masses. ORBITS AND GLOBE: No intra- or extraconal masses. Normal contour of globe without masses. CALVARIUM: Craniotomy changes in the right parietal area. PARANASAL SINUSES: No fluid or mucosal thickening. SOFT TISSUES: No mass or hematoma. OTHER: No other significant finding. IMPRESSION: Surgical changes. Involutional changes with chronic microvascular ischemia. No acute i ntracranial imaging findings. EVIDENCE OF ACUTE STROKE: NO. COMMENT: Quality ID # [id number]: Final reports with documentation of one or more dose reduction techniques (e.g., Automated exposure control, adjustment of the mA and/or kV according to patient size, use of iterative reconstruction technique) TECHNICAL DOCUMENTATION: JOB ID: [id number] [employer]- All Rights Reserved Reading location - IP/workstation name: [email or web address]
[2019-05-27] MEDS ORDERED: VANCOMYCIN HCL 1,500 MG in DEXTROSE 5%-WATER 250 ML IV ONE (20:00)
[2019-05-27 21:38] LABS: ANION GAP 8 (5-19); BLOOD UREA NITROGEN 75 mg/dL (7-20); CALCIUM 8.6 mg/dL (8.4-10.2); CARBON DIOXIDE 27 mmol/L (22-30); CHLORIDE 125 mmol/L (98-107); GLUCOSE 124 mg/dL (75-110); POTASSIUM 4.3 mmol/L (3.6-5.0)
[2019-05-27] MEDS: DEXTROSE 5%-1/2 NORMAL SALINE 1,000 ML IV PRN (21:45)
[2019-05-27] MEDS: PIPERACILLIN SODIUM/TAZOBACTAM 3.375 GM in NORMAL SALINE 100 ML IV SCH (21:45)
--- NOTE | 2019-05-27 23:11 | PDOC CONSULTATION ---
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 Patient is a DNR/DNI. Past Medical History Cardiac Medical History: Reports: Atrial Fibrillation - Paroxysmal, Congestive Heart Failure, Coronary Artery Disease, Myocardial Infarction, Hyperlipidema, Hypertension Pulmonary Medical History: Reports: Chronic Obstructive Pulmonary Disease (COPD) - no o2, Bipap at night, Sleep Apnea Neurological Medical History: Reports: Seizures Malignancy Medical History: Reports: Brain Cancer GI Medical History: Reports: Gastroesophageal Reflux Disease Denies: Cirrhosis Musculoskeltal Medical History: Reports: Arthritis Psychiatric Medical History: Reports: Dementia Denies: Depression Hematology: Reports: Anemia Denies: Hemophilia Past Surgical History Past Surgical History: Reports: Coronary Artery Bypass Graft - Three-vessel, 1999., Other - Brain surgery, 2005. Social History Lives with: Family Smoking Status: Former Smoker Electronic Cigarette use?: No Frequency of Alcohol Use: None Hx Recreational Drug Use: No Drugs: None Hx Prescription Drug Abuse: No - Advance Directive Resuscitation Status: Do Not Resuscitate - DNR/DNI. Family History Family History: Reviewed & Not Pertinent Parental Family History Reviewed: Yes Children Family History Reviewed: No Sibling(s) Family History Reviewed.: No Medication/Allergy Home Medications: Acetaminophen [Tylenol 325 mg Tablet] 325 mg Q6HP PRN 05/27/19 Brimonidine Tartrate/Timolol [Combigan 0.2%-0.5% Eye Drops] 1 drop DAILY 05/27/19 Cetirizine HCl [Zyrtec 10 mg Tablet] 10 mg DAILY 05/27/19 Clopidogrel Bisulfate [Plavix 75 mg Tablet] 75 mg DAILY 05/27/19 Furosemide [Lasix 40 mg Tablet] 40 mg Q2DAYS 05/27/19 Gabapentin [Neurontin] 2 ml PO BID 05/27/19 Latanoprost [Xalatan 0.005% Oph Soln 2.5 ml] 1 drop BTH_EYE DAILY 05/27/19 Levetiracetam 750 mg Q12 05/27/19 Loratadine [Claritin 10 mg Tablet] 10 mg PO DAILY 05/27/19 Magnesium Oxide 400 mg DAILY 05/27/19 Montelukast Sodium [Singulair] 10 mg QHS 05/27/19 Pantoprazole Sodium 40 mg DAILY 05/27/19 Ranolazine [Ranolazine ER] 500 mg Q12 05/27/19 Tiotropium [place] [Spiriva Handihaler 5 Cap/Kit (18 Mcg/Cap)] 1 inh DAILY 05/27/19 Allergies/Adverse Reactions: No Known Allergies Allergy (Verified 05/27/19 15:07) Review of Systems ROS unobtainable: Due to mental status Physical Exam Vital Signs: Temp Pulse Resp BP Pulse Ox 98.4 F 86 24 H 117/54 L 97 05/27/19 17:33 05/27/19 17:33 05/27/19 17:33 05/27/19 17:33 05/27/19 17:33 Intake & Output 05/26/19 05/27/19 05/28/19 06:59 06:59 06:59 Intake Total 1000 Balance 1000 Weight 87.9 kg Extremities exam: PRESENT: other - Left second toe has dry gangrene. No obvious evidence of infection. This is nontender no edema. Patient has faint left posterior tibial artery pulse. Results Laboratory Results: 05/27/19 13:37 05/27/19 21:06 05/27/19 05/27/19 05/27/19 11:37 13:37 13:37 WBC 25.7 H RBC 4.80 Hgb 13.0 L Hct 42.9 MCV 89 MCH 27.1 MCHC 30.3 L RDW 18.5 H Plt Count 247 Seg Neutrophils % Not Reportable Carbonic Acid HCO3/H2CO3 Ratio ABG pH ABG pCO2 ABG pO2 ABG HCO3 ABG O2 Saturation ABG Base Excess FiO2 Sodium 162.6 H Potassium 4.0 Chloride 123 H Carbon Dioxide 31 H Anion Gap 9 BUN 68 H Creatinine 2.49 H Est GFR ( Amer) 30 L Glucose 167 H Lactic Acid Calcium 9.4 Total Bilirubin 1.1 AST 33 Alkaline Phosphatase 102 Total Protein 6.1 L Albumin 3.4 L Urine Color YELLOW Urine Appearance SLIGHTLY-CLOUDY Urine pH 5.0 Ur Specific [place] 1.018 Urine Protein NEGATIVE Urine Glucose (UA) NEGATIVE Urine Ketones NEGATIVE Urine Blood NEGATIVE Urine Nitrite NEGATIVE Ur Leukocyte Esterase NEGATIVE Urine WBC (Auto) 2 Urine RBC (Auto) 2 05/27/19 05/27/19 05/27/19 13:37 14:07 17:50 WBC RBC Hgb Hct MCV MCH MCHC RDW Plt Count Seg Neutrophils % Carbonic Acid 1.48 H HCO3/H2CO3 Ratio 18:1 ABG pH 7.37 ABG pCO2 49.1 H ABG pO2 61.2 L ABG HCO3 27.9 H ABG O2 Saturation 90.6 L ABG Base Excess 1.9 FiO2 15 Sodium Potassium Chloride Carbon Dioxide Anion Gap BUN Creatinine Est GFR ( Amer) Glucose Lactic Acid 3.0 H 1.6 Calcium Total Bilirubin AST Alkaline Phosphatase Total Protein Albumin Urine Color Urine Appearance Urine pH Ur Specific [place] Urine Protein Urine Glucose (UA) Urine Ketones Urine Blood Urine Nitrite Ur Leukocyte Esterase Urine WBC (Auto) Urine RBC (Auto) 05/27/19 21:06 WBC RBC Hgb Hct MCV MCH MCHC RDW Plt Count Seg Neutrophils % Carbonic Acid HCO3/H2CO3 Ratio ABG pH ABG pCO2 ABG pO2 ABG HCO3 ABG O2 Saturation ABG Base Excess FiO2 Sodium 160.4 H Potassium 4.3 Chloride 125 H Carbon Dioxide 27 Anion Gap 8 BUN 75 H Creatinine 2.27 H Est GFR ( Amer) 33 L Glucose 124 H Lactic Acid Calcium 8.6 Total Bilirubin AST Alkaline Phosphatase Total Protein Albumin Urine Color Urine Appearance Urine pH Ur Specific [place] Urine Protein Urine Glucose (UA) Urine Ketones Urine Blood Urine Nitrite Ur Leukocyte Esterase Urine WBC (Auto) Urine RBC (Auto) 05/27/19 05/27/19 05/27/19 13:37 13:37 17:50 Creatine Kinase 23 L Troponin I 0.106 0.234 Impressions: Head CT 05/27/19 00:00 IMPRESSION: Surgical changes. Involutional changes with chronic microvascular ischemia. No acute intracranial imaging findings. EVIDENCE OF ACUTE STROKE: NO. Chest X-Ray 05/27/19 13:38 IMPRESSION: Cannot exclude left lower lobe pneumonia. KUB X-Ray 05/27/19 13:38 IMPRESSION: Constipation. Possible fecal impaction. No other significant finding. Assessment & Plan - Diagnosis (1) Acute respiratory failure with hypoxia and hypercarbia Is this a current diagnosis for this admission?: Yes (2) DNR (do not resuscitate) Is this a current diagnosis for this admission?: Yes (3) Dry gangrene Is this a current diagnosis for this admission?: Yes - Time Time Spent: 30 to 50 Minutes - Plan Summary Plan Summary: 88-year-old male admitted for hypoxia and altered mental status. Patient has been a DNR/DNI known to have a dry gangrene of the right second toe. Surgeries been consulted for this toe. Recommendation: The toe itself is dry and no evidence of infection and therefore there is no evidence for need of amputation. Patient is DNR and DNI and family will not consent to any amputation or any invasive procedure at this time. We will then sign off. Call for any questions.
[2019-05-27] MEDS: ASPIRIN 300 MG SUPP, RECTAL PR SCH (23:40)
[2019-05-28] MEDS: HEPARIN SOD (PORCINE) 5,000 UNIT/ML 1 ML VIAL SUBCUT SCH ×4 (00:33→21:29)
[2019-05-28] MEDS: PIPERACILLIN SODIUM/TAZOBACTAM 3.375 GM in NORMAL SALINE 100 ML IV SCH ×5 (00:37→21:28)
[2019-05-28 03:20] LABS: HEMATOCRIT 36.2 % (37.9-51.0); MEAN CORPUSCULAR HEMOGLOBIN 26.7 pg (27.0-33.4); MEAN CORPUSCULAR HGB CONC 30.3 g/dL (32.0-36.0); MEAN CORPUSCULAR VOLUME 88 fl (80-97); PLATELET COUNT 171 10^3/uL (150-450); RED BLOOD COUNT 4.11 10^6/uL (4.35-5.55); RED CELL DISTRIBUTION WIDTH 17.6 % (11.5-14.0); WHITE BLOOD COUNT 20.6 10^3/uL (4.0-10.5)
[2019-05-28 03:36] LABS: ALBUMIN 2.6 g/dL (3.5-5.0); ALKALINE PHOSPHATASE 79 U/L (38-126); ANION GAP 9 (5-19); ASPARTATE AMINO TRANSFERASE 29 U/L (17-59); BILIRUBIN,DIRECT 0.4 mg/dL (0.0-0.4); BILIRUBIN,TOTAL 0.9 mg/dL (0.2-1.3); BLOOD UREA NITROGEN 75 mg/dL (7-20); CALCIUM 8.5 mg/dL (8.4-10.2); CARBON DIOXIDE 28 mmol/L (22-30); CHLORIDE 124 mmol/L (98-107); GLUCOSE 207 mg/dL (75-110); POTASSIUM 3.8 mmol/L (3.6-5.0)
[2019-05-28 03:41] LABS: ABSOLUTE LYMPHOCYTES# (MANUAL) 1.4 10^3/uL (0.5-4.7); ABSOLUTE MONOCYTES # (MANUAL) 0.8 10^3/uL (0.1-1.4); ANISOCYTOSIS 1+; BAND NEUTROPHILS % (MANUAL) 7 % (3-5); BASOPHILS % (MANUAL) 0 % (0-2); EOSINOPHILS % (MANUAL) 0 % (0-6); LYMPHOCYTES % (MANUAL) 7 % (13-45); MONOCYTES % (MANUAL) 4 % (3-13); SEGMENTED NEUTROPHILS % (MAN) 82 % (42-78); TOTAL CELLS COUNTED 100
[2019-05-28 03:42] LABS: PLATELET COMMENT ADEQUATE
[2019-05-28] MEDS: DEXTROSE 5%-1/2 NORMAL SALINE 1,000 ML IV PRN (06:19)
[2019-05-28] MEDS: PANTOPRAZOLE SODIUM 40 MG VIAL IV SCH (09:21)
--- NOTE | 2019-05-28 09:29 | RADIOLOGY REPORT (SQ) ---
EXAM DESCRIPTION: CHEST SINGLE VIEW COMPLETED DATE/TIME: 05/28/2019 9:17 am REASON FOR STUDY: Hypoxia, Aspiration COMPARISON: AP view of the chest from 05/27/2019. EXAM PARAMETERS: NUMBER OF VIEWS: One view. TECHNIQUE: Single frontal radiographic view of the chest acquired. RADIATION DOSE: NA LIMITATIONS: None. FINDINGS: LUNGS AND PLEURA: Increased dense opacity in the left base that obscures the contour of th e left hemidiaphragm and blunts the costophrenic sulcus. The contralateral costophrenic sulcus is al so blunted and there are curvilinear opacities in the adjacent base that could represent strands of a telectasis. There is no pneumothorax MEDIASTINUM AND HILAR STRUCTURES: Stable mediastinal and hilar contours. HEART AND VASCULAR STRUCTURES: Stable cardiomegaly. BONES: No acute findings. HARDWARE: Median sternotomy wires and mediastinal surgical clips. OTHER: No other finding. IMPRESSION: 1. Increased dense opacity in the left base that screws the contour of the left hemidiap hragm and blunts the costophrenic sulcus. The opacity could represent a combination of pleural fluid , atelectasis, and/or consolidation. 2. Right pleural effusion and basilar atelectasis. TECHNICAL DOCUMENTATION: JOB ID: [id number] [employer]- All Rights Reserved Reading location - IP/workstation name: [email or web address]
[2019-05-28] MEDS: DEXTROSE 5%-WATER 1000 ML 1,000 ML IV PRN ×2 (10:38→20:35)
--- NOTE | 2019-05-28 13:08 | PDOC PROGRESS REPORT ---
Subjective Progress Note for:: 05/28/19 Subjective:: On examination this morning patient still obtunded was not able to participate in interview. Reason For Visit: PNEUMONIA, ENCEPHALOPATHY Physical Exam Vital Signs: Temp Pulse Resp BP Pulse Ox 98.1 F 84 18 130/51 H 92 05/28/19 07:48 05/28/19 07:48 05/28/19 07:48 05/28/19 07:48 05/28/19 12:17 Pulse Oximeter Continuous Start: 05/27/19 16:25 Freq: RTQ4 Status: Active Protocol: Document 05/28/19 12:17 HCR (Rec: 05/28/19 12:18 HCR [id number]) Pulse Oximetry Assessment Oxygen Saturation (92-100) 92 Oxygen Flow Rate (L/min) 15 Oxygen Delivery Method Non-Rebreather Fraction of Inspired Oxygen (FIO2) 100 Equipment Usage Equipment in Use Continuous SpO2 Machine # 4 Intake & Output 05/27/19 05/28/19 05/29/19 06:59 06:59 06:59 Intake Total 3450 250 Output Total 200 Balance 3250 250 Weight 92.7 kg General appearance: PRESENT: other - Laying comfortably with nonrebreather Head exam: PRESENT: atraumatic Eye exam: PRESENT: conjunctiva pink Mouth exam: ABSENT: laceration Neck exam: ABSENT: JVD Respiratory exam: PRESENT: rhonchi - Expiratory rhonchi worse on left lung with poor air movement in the left lung. ABSENT: stridor, wheezes Cardiovascular exam: PRESENT: +S1. ABSENT: tachycardia Vascular exam: ABSENT: pallor GI/Abdominal exam: PRESENT: distended, normal bowel sounds, soft. ABSENT: tenderness Rectal exam: PRESENT: deferred Neurological exam: PRESENT: altered, other - GCS T10 E3 V2 and M5 Results Laboratory Results: 05/28/19 03:06 05/28/19 03:06 05/27/19 05/27/19 05/27/19 11:37 13:37 13:37 WBC 25.7 H RBC 4.80 Hgb 13.0 L Hct 42.9 MCV 89 MCH 27.1 MCHC 30.3 L RDW 18.5 H Plt Count 247 Seg Neutrophils % Not Reportable Carbonic Acid HCO3/H2CO3 Ratio ABG pH ABG pCO2 ABG pO2 ABG HCO3 ABG O2 Saturation ABG Base Excess FiO2 Sodium 162.6 H Potassium 4.0 Chloride 123 H Carbon Dioxide 31 H Anion Gap 9 BUN 68 H Creatinine 2.49 H Est GFR ( Amer) 30 L Glucose 167 H Lactic Acid Calcium 9.4 Total Bilirubin 1.1 AST 33 Alkaline Phosphatase 102 Total Protein 6.1 L Albumin 3.4 L Urine Color YELLOW Urine Appearance SLIGHTLY-CLOUDY Urine pH 5.0 Ur Specific [place] 1.018 Urine Protein NEGATIVE Urine Glucose (UA) NEGATIVE Urine Ketones NEGATIVE Urine Blood NEGATIVE Urine Nitrite NEGATIVE Ur Leukocyte Esterase NEGATIVE Urine WBC (Auto) 2 Urine RBC (Auto) 2 05/27/19 05/27/19 05/27/19 13:37 14:07 17:50 WBC RBC Hgb Hct MCV MCH MCHC RDW Plt Count Seg Neutrophils % Carbonic Acid 1.48 H HCO3/H2CO3 Ratio 18:1 ABG pH 7.37 ABG pCO2 49.1 H ABG pO2 61.2 L ABG HCO3 27.9 H ABG O2 Saturation 90.6 L ABG Base Excess 1.9 FiO2 15 Sodium Potassium Chloride Carbon Dioxide Anion Gap BUN Creatinine Est GFR ( Amer) Glucose Lactic Acid 3.0 H 1.6 Calcium Total Bilirubin AST Alkaline Phosphatase Total Protein Albumin Urine Color Urine Appearance Urine pH Ur Specific [place] Urine Protein Urine Glucose (UA) Urine Ketones Urine Blood Urine Nitrite Ur Leukocyte Esterase Urine WBC (Auto) Urine RBC (Auto) 05/27/19 05/28/19 05/28/19 21:06 03:06 03:06 WBC 20.6 H RBC 4.11 L Hgb 11.0 L Hct 36.2 L MCV 88 MCH 26.7 L MCHC 30.3 L RDW 17.6 H Plt Count 171 Seg Neutrophils % Not Reportable Carbonic Acid HCO3/H2CO3 Ratio ABG pH ABG pCO2 ABG pO2 ABG HCO3 ABG O2 Saturation ABG Base Excess FiO2 Sodium 160.4 H 160.8 H Potassium 4.3 3.8 Chloride 125 H 124 H Carbon Dioxide 27 28 Anion Gap 8 9 BUN 75 H 75 H Creatinine 2.27 H 2.36 H Est GFR ( Amer) 33 L 32 L Glucose 124 H 207 H Lactic Acid Calcium 8.6 8.5 Total Bilirubin 0.9 AST 29 Alkaline Phosphatase 79 Total Protein 5.0 L Albumin 2.6 L Urine Color Urine Appearance Urine pH Ur Specific [place] Urine Protein Urine Glucose (UA) Urine Ketones Urine Blood Urine Nitrite Ur Leukocyte Esterase Urine WBC (Auto) Urine RBC (Auto) 05/27/19 05/27/19 05/27/19 13:37 13:37 17:50 Creatine Kinase 23 L Troponin I 0.106 0.234 05/28/19 03:06 Creatine Kinase Troponin I 0.211 Impressions: Head CT 05/27/19 00:00 IMPRESSION: Surgical changes. Involutional changes with chronic microvascular ischemia. No acute intracranial imaging findings. EVIDENCE OF ACUTE STROKE: NO. KUB X-Ray 05/27/19 13:38 IMPRESSION: Constipation. Possible fecal impaction. No other significant finding. Chest X-Ray 05/28/19 06:00 IMPRESSION: 1. Increased dense opacity in the left base that screws the contour of the left hemidiaphragm and blunts the costophrenic sulcus. The opacity could represent a combination of pleural fluid, atelectasis, and/or consolidation. 2. Right pleural effusion and basilar atelectasis. Assessment and Plan - Diagnosis (1) Acute respiratory failure with hypoxia and hypercarbia Is this a current diagnosis for this admission?: Yes Plan: Likely secondary to aspiration pneumonia versus pneumonitis. Patient is still very hypoxic. Attempted to wean from nonrebreather to Ventimask FiO2 of 50 but patient desatted to 80%. We will maintain on on nonrebreather. Continue to attempt to wean. Patient not candidate for BiPAP given encephalopathy Patient is DNR/DNI which was confirmed on the admission (2) Aspiration pneumonia due to food (regurgitated) Is this a current diagnosis for this admission?: Yes Plan: Repeat chest x-ray this morning showing worsening left lower lobe opacity which confirms suspicion of developing aspiration pneumonia or pneumonitis Continue with vancomycin and Zosyn We will DC vancomycin if MRSA swab negative Obtain sputum cultures if possible & MRSA swab (3) Acute metabolic encephalopathy Is this a current diagnosis for this admission?: Yes Plan: Encephalopathy likely secondary to prolonged period of hypoxia vs current sepsis versus hypernatremia CT head showing no new changes (4) Severe sepsis Is this a current diagnosis for this admission?: Yes Plan: Sepsis suspected to be secondary to pneumonia. Urinalysis is negative. Gangrene on foot appears to be dry without any copious drainage likely not source of infection. Lactic acidosis resolved (5) Dehydration with hypernatremia Is this a current diagnosis for this admission?: Yes Plan: Severe hypernatremia secondary to dehydration. Free water deficit on admission of 6.8 L Change to D5W at 130 cc/h Check BMP every 6h Goal sodium correction only of less than 10 mEq per 24 hours (6) Acute kidney injury Is this a current diagnosis for this admission?: Yes Plan: Prerenal azotemia secondary to dehydrated state Monitor response to IV fluids (7) Constipation Qualifiers: Constipation type: unspecified constipation type Qualified Code(s): K59.00 - Constipation, unspecified Is this a current diagnosis for this admission?: Yes Plan: Fecal impaction noted on KUB No improvement with suppository. Will give enema (8) Atrial fibrillation Qualifiers: Atrial fibrillation type: unspecified Qualified Code(s): I48.91 - Unspecified atrial fibrillation Is this a current diagnosis for this admission?: Yes Plan: Continue with home regimen (9) Dry gangrene Is this a current diagnosis for this admission?: Yes Plan: Evaluated by surgery. No evidence of being infected. No Intervention needed at this time. (10) Elevated troponin Is this a current diagnosis for this admission?: Yes Plan: Likely due to demand ischemia from hypoxia and sepsis flat trend and no new ekg changes - Time Time Spent with patient: 25-34 minutes
[2019-05-28] MEDS: ACETAMINOPHEN 650 MG SUPP.RECT PR PRN (13:55)
[2019-05-28 14:00] LABS: ANION GAP 5 (5-19); BLOOD UREA NITROGEN 68 mg/dL (7-20); CALCIUM 8.4 mg/dL (8.4-10.2); CARBON DIOXIDE 30 mmol/L (22-30); CHLORIDE 119 mmol/L (98-107); GLUCOSE 129 mg/dL (75-110)
[2019-05-28] MEDS: POTASSI CL 20 MEQ/50 ML RIDER 20 MEQ/50 ML RTUPB IV SCH ×2 (16:25→18:31)
[2019-05-28] MEDS: ASPIRIN 300 MG SUPP, RECTAL PR SCH (17:26)
--- NOTE | 2019-05-28 19:08 | EKG REPORT ---
SEVERITY:- ABNORMAL ECG - SINUS TACHYCARDIA MULTIFORM VENTRICULAR PREMATURE COMPLEXES BORDERLINE LEFT AXIS DEVIATION : Confirmed by: Princess Jackman MD 28-May-2019 19:08:04
[2019-05-28 20:46] LABS: BLOOD UREA NITROGEN 59 mg/dL (7-20); CALCIUM 8.7 mg/dL (8.4-10.2); CHLORIDE 121 mmol/L (98-107); GLUCOSE 97 mg/dL (75-110); POTASSIUM 3.5 mmol/L (3.6-5.0)
[2019-05-28 20:51] LABS: ANION GAP 5 (5-19); CARBON DIOXIDE 28 mmol/L (22-30)
[2019-05-29] MEDS: PIPERACILLIN SODIUM/TAZOBACTAM 3.375 GM in NORMAL SALINE 100 ML IV SCH ×4 (02:14→20:41)
[2019-05-29 05:15] LABS: HEMATOCRIT 31.4 % (37.9-51.0); HEMOGLOBIN 9.6 g/dL (13.5-17.0); MEAN CORPUSCULAR HEMOGLOBIN 26.8 pg (27.0-33.4); MEAN CORPUSCULAR HGB CONC 30.5 g/dL (32.0-36.0); MEAN CORPUSCULAR VOLUME 88 fl (80-97); PLATELET COUNT 134 10^3/uL (150-450); RED BLOOD COUNT 3.58 10^6/uL (4.35-5.55); RED CELL DISTRIBUTION WIDTH 17.4 % (11.5-14.0); WHITE BLOOD COUNT 15.9 10^3/uL (4.0-10.5)
[2019-05-29 05:32] LABS: BLOOD UREA NITROGEN 52 mg/dL (7-20); CALCIUM 8.7 mg/dL (8.4-10.2); GLUCOSE 129 mg/dL (75-110); POTASSIUM 3.2 mmol/L (3.6-5.0)
[2019-05-29] MEDS: HEPARIN SOD (PORCINE) 5,000 UNIT/ML 1 ML VIAL SUBCUT SCH ×3 (05:34→21:20)
[2019-05-29 05:38] LABS: CARBON DIOXIDE 31 mmol/L (22-30); CHLORIDE 123 mmol/L (98-107)
[2019-05-29 06:01] LABS: ANION GAP 3 (5-19)
[2019-05-29 06:02] LABS: ABSOLUTE LYMPHOCYTES# (MANUAL) 1.1 10^3/uL (0.5-4.7); ABSOLUTE MONOCYTES # (MANUAL) 0.2 10^3/uL (0.1-1.4); ANISOCYTOSIS 1+; BAND NEUTROPHILS % (MANUAL) 2 % (3-5); BASOPHILS % (MANUAL) 0 % (0-2); EOSINOPHILS % (MANUAL) 1 % (0-6); HYPOCHROMASIA 1+; LYMPHOCYTES % (MANUAL) 7 % (13-45); MONOCYTES % (MANUAL) 1 % (3-13); PLATELET COMMENT DECREASED; SEGMENTED NEUTROPHILS % (MAN) 89 % (42-78); TOTAL CELLS COUNTED 100
[2019-05-29] MEDS: POTASSI CL 20 MEQ/50 ML RIDER 20 MEQ/50 ML RTUPB IV SCH ×2 (09:33→12:25)
[2019-05-29] MEDS: PANTOPRAZOLE SODIUM 40 MG VIAL IV SCH (09:40)
[2019-05-29] MEDS ORDERED: VANCOMYCIN HCL 1,000 MG in DEXTROSE 5%-WATER 250 ML IV SCH (12:00)
[2019-05-29] MEDS: LEVETIRACETAM 750 MG in NORMAL SALINE 100 ML IV SCH ×2 (12:32→21:20)
--- NOTE | 2019-05-29 13:08 | EKG REPORT ---
SEVERITY:- ABNORMAL ECG - SINUS TACHYCARDIA WITH IRREGULAR RATE 98-152 BORDERLINE LEFT AXIS DEVIATION REPOL ABNRM SUGGESTS ISCHEMIA, ANT-LAT LEADS BORDERLINE PROLONGED QT INTERVAL : Confirmed by: Princess Jackman MD 29-May-2019 13:07:25
--- NOTE | 2019-05-29 13:13 | PDOC PROGRESS REPORT ---
Subjective Progress Note for:: 05/29/19 Subjective:: Patient is awake today and engages slightly in the interview still very disoriented and not following all commands. Patient currently denies pain but grunts frequently. Reason For Visit: PNEUMONIA, ENCEPHALOPATHY Physical Exam Vital Signs: Temp Pulse Resp BP Pulse Ox 100.0 F 72 20 90/63 L 97 05/29/19 10:48 05/29/19 10:48 05/29/19 10:48 05/29/19 10:48 05/29/19 10:48 Pulse Oximeter Continuous Start: 05/27/19 16:25 Freq: RTQ4 Status: Active Protocol: Document 05/29/19 09:54 [facility] (Rec: 05/29/19 09:56 [facility] [email or web address]) Pulse Oximetry Assessment Oxygen Saturation (92-100) 92 Oxygen Flow Rate (L/min) 11 Oxygen Delivery Method Partial-Rebreather Equipment Usage Equipment in Use Continuous SpO2 Machine # 4 Additional RT Notes Other Patient was placed on V/M 50% at 6lpm with 02 saturation decreasing to 84%. Patient was placed back on partial rebreather. Intake & Output 05/28/19 05/29/19 05/30/19 06:59 06:59 06:59 Intake Total 3450 2650 688 Output Total 200 900 30 Balance 3250 1750 658 Weight 92.7 kg 97.2 kg General appearance: PRESENT: mild distress Head exam: PRESENT: atraumatic Eye exam: PRESENT: conjunctiva pink Neck exam: ABSENT: JVD, tracheal deviation Respiratory exam: PRESENT: rhonchi. ABSENT: accessory muscle use, chest wall tenderness, wheezes Cardiovascular exam: PRESENT: +S1, +S2. ABSENT: tachycardia GI/Abdominal exam: PRESENT: normal bowel sounds, soft. ABSENT: guarding, rebound, rigid Rectal exam: PRESENT: deferred Neurological exam: PRESENT: awake, other - Does not follow commands fully with physical exam instructions. ABSENT: alert, oriented to person, oriented to place, oriented to time, oriented to situation Results Laboratory Results: 05/29/19 04:41 05/29/19 04:41 05/28/19 05/28/19 05/29/19 12:43 20:15 04:41 WBC RBC Hgb Hct MCV MCH MCHC RDW Plt Count Seg Neutrophils % Sodium 154.2 H 154.1 H 156.9 H Potassium 3.0 L* 3.5 L 3.2 L Chloride 119 H 121 H 123 H Carbon Dioxide 30 28 31 H Anion Gap 5 5 3 L BUN 68 H 59 H 52 H Creatinine 2.05 H 1.93 H 1.81 H Est GFR ( Amer) 37 L 40 L 43 L Glucose 129 H 97 129 H Calcium 8.4 8.7 8.7 05/29/19 04:41 WBC 15.9 H RBC 3.58 L Hgb 9.6 L Hct 31.4 L MCV 88 MCH 26.8 L MCHC 30.5 L RDW 17.4 H Plt Count 134 L Seg Neutrophils % Not Reportable Sodium Potassium Chloride Carbon Dioxide Anion Gap BUN Creatinine Est GFR ( Amer) Glucose Calcium 05/27/19 18:10 Nasophary (Mrsa Only) MRSA Culture - Final NO MRSA RECOVERED 05/27/19 05/27/19 05/27/19 13:37 13:37 17:50 Creatine Kinase 23 L Troponin I 0.106 0.234 05/28/19 03:06 Creatine Kinase Troponin I 0.211 Impressions: Head CT 05/27/19 00:00 IMPRESSION: Surgical changes. Involutional changes with chronic microvascular ischemia. No acute intracranial imaging findings. EVIDENCE OF ACUTE STROKE: NO. KUB X-Ray 05/27/19 13:38 IMPRESSION: Constipation. Possible fecal impaction. No other significant finding. Chest X-Ray 05/28/19 06:00 IMPRESSION: 1. Increased dense opacity in the left base that screws the contour of the left hemidiaphragm and blunts the costophrenic sulcus. The opacity could represent a combination of pleural fluid, atelectasis, and/or consolidation. 2. Right pleural effusion and basilar atelectasis. Assessment and Plan - Diagnosis (1) Acute respiratory failure with hypoxia and hypercarbia Is this a current diagnosis for this admission?: Yes Plan: Likely secondary to aspiration pneumonia. Patient is still very hypoxic requiring nonrebreather. Will attempt to wean to Ventimask again today. Patient not candidate for BiPAP given encephalopathy Patient is DNR/DNI which was confirmed on the admission (2) Aspiration pneumonia due to food (regurgitated) Is this a current diagnosis for this admission?: Yes Plan: Continue with Zosyn day 3 of antibiotics Vancomycin discontinued as MRSA swab negative (3) Acute metabolic encephalopathy Is this a current diagnosis for this admission?: Yes Plan: Encephalopathy likely secondary to prolonged period of hypoxia vs sepsis versus hypernatremia CT head showing no new changes (4) Severe sepsis Is this a current diagnosis for this admission?: Yes Plan: Improved. Sepsis suspected to be secondary to pneumonia. Urinalysis is negative. Gangrene on foot appears to be dry without any copious drainage likely not source of infection. Lactic acidosis resolved (5) Dehydration with hypernatremia Is this a current diagnosis for this admission?: Yes Plan: Severe hypernatremia secondary to dehydration. Free water deficit on admission of 6.8 L D5W changed to 100 cc/h Check BMP every 6h Goal sodium correction only of less than 10 mEq per 24 hours (6) Acute kidney injury Is this a current diagnosis for this admission?: Yes Plan: Prerenal azotemia secondary to dehydrated state Monitor response to IV fluids (7) Constipation Qualifiers: Constipation type: unspecified constipation type Qualified Code(s): K59.00 - Constipation, unspecified Is this a current diagnosis for this admission?: Yes Plan: Fecal impaction noted on KUB Resolved. Patient had bowel movement. (8) Dry gangrene Is this a current diagnosis for this admission?: Yes Plan: Evaluated by surgery. No evidence of being infected. No Intervention needed at this time. (9) Elevated troponin Is this a current diagnosis for this admission?: Yes - Time Time Spent with patient: 25-34 minutes
[2019-05-29 13:29] LABS: BLOOD UREA NITROGEN 49 mg/dL (7-20); CALCIUM 8.6 mg/dL (8.4-10.2); GLUCOSE 113 mg/dL (75-110); POTASSIUM 3.5 mmol/L (3.6-5.0)
[2019-05-29 13:43] LABS: ANION GAP 3 (5-19); CARBON DIOXIDE 30 mmol/L (22-30); CHLORIDE 124 mmol/L (98-107)
[2019-05-29] MEDS ORDERED: POTASSI CL 20 MEQ/50 ML RIDER 20 MEQ/50 ML RTUPB IV ONE (16:32)
[2019-05-29] MEDS: ACETAMINOPHEN 650 MG SUPP.RECT PR PRN (16:53)
[2019-05-29] MEDS: DEXTROSE 5%-WATER 1000 ML 1,000 ML IV PRN (17:06)
[2019-05-29] MEDS: ASPIRIN 300 MG SUPP, RECTAL PR SCH (17:53)
[2019-05-29] MEDS ORDERED: VANCOMYCIN HCL 1,500 MG in DEXTROSE 5%-WATER 250 ML IV SCH (18:00)
[2019-05-29 21:42] LABS: BLOOD UREA NITROGEN 43 mg/dL (7-20); CALCIUM 8.2 mg/dL (8.4-10.2); GLUCOSE 118 mg/dL (75-110); POTASSIUM 3.6 mmol/L (3.6-5.0)
[2019-05-29 21:48] LABS: CARBON DIOXIDE 26 mmol/L (22-30); CHLORIDE 129 mmol/L (98-107)
[2019-05-29 21:53] LABS: ANION GAP 3 (5-19)
[2019-05-29] MEDS ORDERED: 1/2 NORMAL SALINE 500 ML IV ONE (22:00)
[2019-05-29] MEDS: POTASSIUM CHLORIDE 20 MEQ/50 ML RTU IV SCH (22:56)
[2019-05-30] MEDS: POTASSIUM CHLORIDE 20 MEQ/50 ML RTU IV SCH (01:19)
[2019-05-30] MEDS: PIPERACILLIN SODIUM/TAZOBACTAM 3.375 GM in NORMAL SALINE 100 ML IV SCH ×4 (03:29→21:30)
[2019-05-30] MEDS: HEPARIN SOD (PORCINE) 5,000 UNIT/ML 1 ML VIAL SUBCUT SCH ×3 (05:18→21:04)
[2019-05-30 08:07] LABS: HEMATOCRIT 32.6 % (37.9-51.0); HEMOGLOBIN 9.9 g/dL (13.5-17.0); MEAN CORPUSCULAR HEMOGLOBIN 26.7 pg (27.0-33.4); MEAN CORPUSCULAR HGB CONC 30.3 g/dL (32.0-36.0); MEAN CORPUSCULAR VOLUME 88 fl (80-97); PLATELET COUNT 138 10^3/uL (150-450); RED CELL DISTRIBUTION WIDTH 17.3 % (11.5-14.0); WHITE BLOOD COUNT 16.6 10^3/uL (4.0-10.5)
[2019-05-30 08:23] LABS: ANION GAP 7 (5-19); BLOOD UREA NITROGEN 36 mg/dL (7-20); CALCIUM 8.4 mg/dL (8.4-10.2); CARBON DIOXIDE 21 mmol/L (22-30); CHLORIDE 128 mmol/L (98-107); GLUCOSE 179 mg/dL (75-110); PHOSPHORUS 2.5 mg/dL (2.5-4.5)
[2019-05-30 08:26] LABS: ABSOLUTE LYMPHOCYTES# (MANUAL) 0.3 10^3/uL (0.5-4.7); ABSOLUTE MONOCYTES # (MANUAL) 0.3 10^3/uL (0.1-1.4); BASOPHILS % (MANUAL) 0 % (0-2); EOSINOPHILS % (MANUAL) 0 % (0-6); LYMPHOCYTES % (MANUAL) 2 % (13-45); MONOCYTES % (MANUAL) 2 % (3-13); SEGMENTED NEUTROPHILS % (MAN) 96 % (42-78); TOTAL CELLS COUNTED 100
[2019-05-30 08:27] LABS: ANISOCYTOSIS 1+; PLATELET COMMENT DECREASED
[2019-05-30] MEDS: PANTOPRAZOLE SODIUM 40 MG VIAL IV SCH (09:17)
--- NOTE | 2019-05-30 09:22 | RADIOLOGY REPORT (SQ) ---
EXAM DESCRIPTION: CHEST SINGLE VIEW COMPLETED DATE/TIME: 05/30/2019 7:48 am REASON FOR STUDY: ARDS COMPARISON: 05/28/2019 EXAM PARAMETERS: NUMBER OF VIEWS: One view. TECHNIQUE: Single frontal radiographic view of the chest acquired. RADIATION DOSE: NA LIMITATIONS: None. FINDINGS: LUNGS AND PLEURA: Persistent left lung opacity. Possibly masslike. Slight improved aerat ion. Left pleural effusion. Minimal right pleural reaction. MEDIASTINUM AND HILAR STRUCTURES: No masses. Contour normal. HEART AND VASCULAR STRUCTURES: Heart normal in size. Normal vasculature. BONES: Sternal wires. HARDWARE: CABG hardware. OTHER: No other significant finding. IMPRESSION: Mild improved aeration of the lungs. Possibly masslike opacity on the left. Continue f ollow-up. TECHNICAL DOCUMENTATION: JOB ID: [id number] [employer]- All Rights Reserved Reading location - IP/workstation name: [email or web address]
[2019-05-30] MEDS: LEVETIRACETAM 750 MG in NORMAL SALINE 100 ML IV SCH ×2 (10:01→22:22)
[2019-05-30] MEDS: ACETAMINOPHEN 650 MG SUPP.RECT PR PRN (11:10)
[2019-05-30] MEDS: DEXTROSE 5%-WATER 1000 ML 1,000 ML IV PRN ×2 (11:10→22:50)
[2019-05-30] MEDS ORDERED: DEXTROSE 5%-WATER 1000 ML 1,000 ML IV PRN (11:56)
--- NOTE | 2019-05-30 12:46 | PDOC PROGRESS REPORT ---
Subjective Progress Note for:: 05/30/19 Subjective:: Patient is is more drowsy today. Does not engage in interview. Occasionally grunts. Reason For Visit: PNEUMONIA, ENCEPHALOPATHY Physical Exam Vital Signs: Temp Pulse Resp BP Pulse Ox 99.3 F 97 32 H 152/78 H 93 05/30/19 08:38 05/30/19 08:38 05/30/19 08:38 05/30/19 08:38 05/30/19 08:38 Pulse Oximeter Continuous Start: 05/27/19 16:25 Freq: RTQ4 Status: Active Protocol: Document 05/30/19 07:54 [facility] (Rec: 05/30/19 07:55 [facility] [email or web address]) Pulse Oximetry Assessment Oxygen Saturation (92-100) 94 Oxygen Flow Rate (L/min) 6 Oxygen Delivery Method Venturi Mask Fraction of Inspired Oxygen (FIO2) 50 Equipment Usage Equipment in Use Continuous SpO2 Machine # 4 Intake & Output 05/29/19 05/30/19 05/31/19 06:59 06:59 06:59 Intake Total 2650 2279.0 685.5 Output Total 900 180 Balance 1750 2099.0 685.5 Weight 97.2 kg 97.7 kg General appearance: PRESENT: mild distress Head exam: PRESENT: atraumatic Neck exam: ABSENT: tracheal deviation Respiratory exam: PRESENT: rhonchi - Scattered expiratory rhonchi throughout both lung manzano. Poor air movement Cardiovascular exam: PRESENT: irregular rhythm - Mostly regular but some occasional ectopies, +S1, +S2 GI/Abdominal exam: PRESENT: normal bowel sounds, soft. ABSENT: tenderness Rectal exam: PRESENT: deferred Musculoskeletal exam: ABSENT: ambulatory Neurological exam: PRESENT: altered, other - GCS T11 E4 V2 M5. ABSENT: alert, awake Results Laboratory Results: 05/30/19 07:33 05/30/19 07:33 05/29/19 05/29/19 05/29/19 13:04 21:05 21:05 WBC RBC Hgb Hct MCV MCH MCHC RDW Plt Count Seg Neutrophils % Sodium 156.7 H 158.3 H Potassium 3.5 L 3.6 Chloride 124 H 129 H Carbon Dioxide 30 26 Anion Gap 3 L 3 L BUN 49 H 43 H Creatinine 1.55 H 1.37 H Est GFR ( Amer) 51 L 59 L Glucose 113 H 118 H Calcium 8.6 8.2 L Phosphorus Magnesium 2.7 H 05/30/19 05/30/19 07:33 07:33 WBC 16.6 H RBC 3.70 L Hgb 9.9 L Hct 32.6 L MCV 88 MCH 26.7 L MCHC 30.3 L RDW 17.3 H Plt Count 138 L Seg Neutrophils % Not Reportable Sodium 155.6 H Potassium 4.0 Chloride 128 H Carbon Dioxide 21 L Anion Gap 7 BUN 36 H Creatinine 1.24 Est GFR ( Amer) > 60 Glucose 179 H Calcium 8.4 Phosphorus 2.5 Magnesium 2.5 H 05/27/19 18:10 Nasophary (Mrsa Only) MRSA Culture - Final NO MRSA RECOVERED 05/27/19 05/27/19 05/27/19 13:37 13:37 17:50 Creatine Kinase 23 L Troponin I 0.106 0.234 05/28/19 03:06 Creatine Kinase Troponin I 0.211 Impressions: Head CT 05/27/19 00:00 IMPRESSION: Surgical changes. Involutional changes with chronic microvascular ischemia. No acute intracranial imaging findings. EVIDENCE OF ACUTE STROKE: NO. KUB X-Ray 05/27/19 13:38 IMPRESSION: Constipation. Possible fecal impaction. No other significant finding. Chest X-Ray 05/30/19 06:00 IMPRESSION: Mild improved aeration of the lungs. Possibly masslike opacity on the left. Continue follow-up. Assessment and Plan - Diagnosis (1) Acute respiratory failure with hypoxia and hypercarbia Is this a current diagnosis for this admission?: Yes Plan: Likely secondary to aspiration pneumonia. I suspect moderate to severe ARDS. Was able to wean down from nonrebreather to Ventimask 50% FiO2. Currently SPO2 of [address] PE to rule out PE as cause of profound hypoxia Patient not candidate for BiPAP given encephalopathy Patient is DNR/DNI which was confirmed on the admission (2) Aspiration pneumonia due to food (regurgitated) Is this a current diagnosis for this admission?: Yes Plan: Continue with Zosyn day 4 of antibiotics Initially got vancomycin for 2 days but discontinued as MRSA swab negative Sputum culture sent. Blood culture negative. (3) Acute metabolic encephalopathy Is this a current diagnosis for this admission?: Yes Plan: Encephalopathy likely secondary to prolonged period of hypoxia vs sepsis versus hypernatremia CT head showing no new changes We will proceed with discussion with family regarding means of nutrition as patient is still too altered to eat. Would have to decide between enteral nutrition via [place] or TPN or watchful waiting with continued D5W (4) Dehydration with hypernatremia Is this a current diagnosis for this admission?: Yes Plan: Severe hypernatremia secondary to dehydration. Free water deficit on admission of 6.8 L D5W changed to 150 cc/h Check BMP every 6h Goal sodium correction only of less than 10 mEq per 24 hours (5) Severe sepsis Is this a current diagnosis for this admission?: Yes Plan: Improved. Sepsis suspected to be secondary to pneumonia. Urinalysis is negative. Gangrene on foot appears to be dry without any copious drainage likely not source of infection. Lactic acidosis resolved (6) Acute kidney injury Is this a current diagnosis for this admission?: Yes Plan: Resolved following IV fluids (7) Constipation Qualifiers: Constipation type: unspecified constipation type Qualified Code(s): K59.00 - Constipation, unspecified Is this a current diagnosis for this admission?: Yes Plan: Resolved. Patient had bowel movement. Continue bowel regimen. (8) Dry gangrene Is this a current diagnosis for this admission?: Yes Plan: Evaluated by surgery. No evidence of being infected. No Intervention needed at this time. - Time Time Spent with patient: 25-34 minutes Total Critical Time (Minutes): 30
[2019-05-30] MEDS: BISACODYL 10 MG SUPP.RECT PR SCH (14:12)
[2019-05-30 14:38] LABS: ANION GAP 6 (5-19); BLOOD UREA NITROGEN 37 mg/dL (7-20); CALCIUM 8.2 mg/dL (8.4-10.2); CARBON DIOXIDE 22 mmol/L (22-30); CHLORIDE 127 mmol/L (98-107); GLUCOSE 171 mg/dL (75-110); POTASSIUM 3.7 mmol/L (3.6-5.0)
[2019-05-30 14:39] LABS: ARTERIAL BLOOD BASE EXCESS -1.6 mmol/L; ARTERIAL BLOOD H2CO3 1.36 mmol/L (1.05-1.35); ARTERIAL BLOOD HCO3 24.2 mmol/L (20-24); ARTERIAL BLOOD PCO2 45.3 mmHg (35-45); ARTERIAL BLOOD PH 7.35 (7.35-7.45); ARTERIAL BLOOD PO2 73.6 mmHg (80-100); ARTERIAL BLOOD TOTAL CO2 25.6 mmol/L (23-27)
[2019-05-30 14:40] LABS: ARTERIAL BLOOD FIO2 50%
[2019-05-30] MEDS ORDERED: 1/2 NORMAL SALINE IV ONE (15:18)
[2019-05-30] MEDS: ASPIRIN 300 MG SUPP, RECTAL PR SCH (17:57)
[2019-05-30 21:23] LABS: BLOOD UREA NITROGEN 34 mg/dL (7-20); GLUCOSE 194 mg/dL (75-110); POTASSIUM 3.4 mmol/L (3.6-5.0)
[2019-05-30 21:29] LABS: ANION GAP 5 (5-19); CARBON DIOXIDE 22 mmol/L (22-30); CHLORIDE 120 mmol/L (98-107)
[2019-05-30] MEDS ORDERED: METHYLPREDNISOLONE INJ 40 MG/1 ML SDV IV SCH (22:00)
--- NOTE | 2019-05-31 01:15 | RADIOLOGY REPORT (SQ) ---
CT CHEST ANGIOGRAPHY WITHOUT THEN WITH IV CONTRAST EXAM DATE: 05/30/2019 12:00 AM CDT HISTORY: Shortness of breath. COMPARISON: None. TECHNIQUE: CT angiogram of the chest with IV contrast. 3-D MIP images were obtained in coronal and sagittal reconstructions. This exam was performed according to our departmental dose-optimization program, which includes automated exposure control, adjustment of the mA and/or kV according to patient size and/or use of iterative reconstruction technique. FINDINGS: There is a filling defect in the distal left main pulmonary artery extending into the upper and lower lobe segmental branches. No saddle embolus. Mild reflux of contrast in the IVC which may represent mild right heart strain. The thyroid gland is normal. No mediastinal or hilar adenopathy. The heart size is enlarged without pericardial effusion. The thoracic aorta is normal caliber. There are moderate-sized bilateral pleural effusions with adjacent compressive atelectasis. Additional areas of groundglass opacity in the lingula. The visualized upper abdomen demonstrates no acute findings. No acute osseous findings are seen. IMPRESSION: 1. Acute pulmonary embolism involving the left lung segmental branches. 2. No saddle embolus. 3. Mild reflux of contrast in the IVC suggesting mild right heart strain. 4. Pulmonary edema pattern with moderate pleural effusions.
[2019-05-31] MEDS ORDERED: ENOXAPARIN SODIUM INJ 100 MG/1 ML DISP.SYRIN SUBCUT ONE (02:15)
[2019-05-31] MEDS: PIPERACILLIN SODIUM/TAZOBACTAM 3.375 GM in NORMAL SALINE 100 ML IV SCH ×4 (02:25→21:50)
[2019-05-31] MEDS: DEXTROSE 5%-WATER 1000 ML 1,000 ML IV PRN (04:55)
[2019-05-31] MEDS: HEPARIN SOD (PORCINE) 5,000 UNIT/ML 1 ML VIAL SUBCUT SCH (05:01)
[2019-05-31 05:51] LABS: HEMATOCRIT 30.5 % (37.9-51.0); HEMOGLOBIN 9.2 g/dL (13.5-17.0); MEAN CORPUSCULAR HGB CONC 30.3 g/dL (32.0-36.0); MEAN CORPUSCULAR VOLUME 89 fl (80-97); PLATELET COUNT 106 10^3/uL (150-450); RED BLOOD COUNT 3.43 10^6/uL (4.35-5.55); RED CELL DISTRIBUTION WIDTH 17.4 % (11.5-14.0); WHITE BLOOD COUNT 13.3 10^3/uL (4.0-10.5)
[2019-05-31 06:06] LABS: ARTERIAL BLOOD BASE EXCESS -6.3 mmol/L; ARTERIAL BLOOD H2CO3 1.72 mmol/L (1.05-1.35); ARTERIAL BLOOD HCO3 21.9 mmol/L (20-24); ARTERIAL BLOOD O2 SATURATION 91.6 % (94-98); ARTERIAL BLOOD PCO2 57.2 mmHg (35-45); ARTERIAL BLOOD PO2 75.3 mmHg (80-100); ARTERIAL BLOOD TOTAL CO2 23.6 mmol/L (23-27)
[2019-05-31 06:09] LABS: ARTERIAL BLOOD FIO2 50%
[2019-05-31 06:14] LABS: ANION GAP 5 (5-19); BLOOD UREA NITROGEN 34 mg/dL (7-20); CALCIUM 7.9 mg/dL (8.4-10.2); CARBON DIOXIDE 24 mmol/L (22-30); CHLORIDE 116 mmol/L (98-107); GLUCOSE 247 mg/dL (75-110); PHOSPHORUS 3.5 mg/dL (2.5-4.5); POTASSIUM 3.7 mmol/L (3.6-5.0)
[2019-05-31 06:42] LABS: ABSOLUTE LYMPHOCYTES# (MANUAL) 0.5 10^3/uL (0.5-4.7); ABSOLUTE MONOCYTES # (MANUAL) 0.3 10^3/uL (0.1-1.4); BAND NEUTROPHILS % (MANUAL) 2 % (3-5); BASOPHILS % (MANUAL) 0 % (0-2); EOSINOPHILS % (MANUAL) 0 % (0-6); LYMPHOCYTES % (MANUAL) 4 % (13-45); MONOCYTES % (MANUAL) 2 % (3-13); SEGMENTED NEUTROPHILS % (MAN) 92 % (42-78); TOTAL CELLS COUNTED 100
[2019-05-31 06:43] LABS: ANISOCYTOSIS 1+; HYPOCHROMASIA SLIGHT; PLATELET COMMENT DECREASED
[2019-05-31] MEDS: DEXTROSE 5%-NORMAL SALINE 1,000 ML IV PRN ×2 (09:00→17:05)
[2019-05-31] MEDS: LEVETIRACETAM 750 MG in NORMAL SALINE 100 ML IV SCH ×2 (09:41→21:50)
[2019-05-31] MEDS: PANTOPRAZOLE SODIUM 40 MG VIAL IV SCH (09:43)
[2019-05-31] MEDS: BISACODYL 10 MG SUPP.RECT PR SCH (09:44)
--- NOTE | 2019-05-31 10:12 | PDOC PROGRESS REPORT ---
Subjective Progress Note for:: 05/31/19 Subjective:: Patient unable to participating in interview given encephalopathy. Patient still reported to be opening eyes and sometimes flailing arms. No meaningful communication. Reason For Visit: PNEUMONIA, ENCEPHALOPATHY Physical Exam Vital Signs: Temp Pulse Resp BP Pulse Ox 98.4 F 82 18 110/85 91 L 05/31/19 08:37 05/31/19 08:37 05/31/19 08:37 05/31/19 08:37 05/31/19 08:37 Pulse Oximeter Continuous Start: 05/27/19 16:25 Freq: RTQ4 Status: Active Protocol: Document 05/31/19 04:19 CMI (Rec: 05/31/19 04:20 CMI [id number]) Pulse Oximetry Assessment Oxygen Saturation (92-100) 90 Oxygen Flow Rate (L/min) 6 Oxygen Delivery Method Venturi Mask Fraction of Inspired Oxygen (FIO2) 50 Equipment Usage Equipment in Use Continuous SpO2 Machine # 4 Intake & Output 05/30/19 05/31/19 06/01/19 06:59 06:59 06:59 Intake Total 2279.0 3896.0 735 Output Total 180 620 Balance 2099.0 3276.0 735 Weight 97.7 kg 99.2 kg General appearance: PRESENT: other - Appears to be in some respiratory distress Head exam: PRESENT: normocephalic Mouth exam: PRESENT: dry mucosa Neck exam: ABSENT: JVD Respiratory exam: PRESENT: crackles, decreased breath sounds - Lung bases, rhonchi - Diffuse inspiratory and expiratory rhonchi Cardiovascular exam: PRESENT: RRR - With some occasional ectopies, +S1, +S2 GI/Abdominal exam: PRESENT: normal bowel sounds, soft. ABSENT: firm, guarding, mass, rebound, rigid Rectal exam: PRESENT: deferred Extremities exam: PRESENT: pedal edema Musculoskeletal exam: ABSENT: ambulatory Neurological exam: PRESENT: altered - GCS T9 E2 V2 m5. ABSENT: alert, awake Psychiatric exam: ABSENT: agitated Focused psych exam: ABSENT: catatonic Results Laboratory Results: 05/31/19 05:22 05/31/19 05:22 05/30/19 05/30/19 05/30/19 14:13 14:28 20:57 WBC RBC Hgb Hct MCV MCH MCHC RDW Plt Count Seg Neutrophils % Carbonic Acid 1.36 H HCO3/H2CO3 Ratio 17:1 ABG pH 7.35 ABG pCO2 45.3 H ABG pO2 73.6 L ABG HCO3 24.2 H ABG O2 Saturation 94.0 ABG Base Excess -1.6 FiO2 50% Sodium 154.9 H 147.0 H Potassium 3.7 3.4 L Chloride 127 H 120 H Carbon Dioxide 22 22 Anion Gap 6 5 BUN 37 H 34 H Creatinine 1.20 1.22 Est GFR ( Amer) > 60 > 60 Glucose 171 H 194 H Calcium 8.2 L 8.0 L Phosphorus Magnesium 05/31/19 05/31/19 05/31/19 05:22 05:22 05:45 WBC 13.3 H RBC 3.43 L Hgb 9.2 L Hct 30.5 L MCV 89 MCH 27.0 MCHC 30.3 L RDW 17.4 H Plt Count 106 L Seg Neutrophils % Not Reportable Carbonic Acid 1.72 H HCO3/H2CO3 Ratio 12:1 ABG pH 7.20 L* ABG pCO2 57.2 H ABG pO2 75.3 L ABG HCO3 21.9 ABG O2 Saturation 91.6 L ABG Base Excess -6.3 FiO2 50% Sodium 144.6 Potassium 3.7 Chloride 116 H Carbon Dioxide 24 Anion Gap 5 BUN 34 H Creatinine 1.33 H Est GFR ( Amer) > 60 Glucose 247 H Calcium 7.9 L Phosphorus 3.5 Magnesium 2.4 H 05/27/19 05/27/19 05/27/19 13:37 13:37 17:50 Creatine Kinase 23 L Troponin I 0.106 0.234 05/28/19 03:06 Creatine Kinase Troponin I 0.211 Impressions: Head CT 05/27/19 00:00 IMPRESSION: Surgical changes. Involutional changes with chronic microvascular ischemia. No acute intracranial imaging findings. EVIDENCE OF ACUTE STROKE: NO. KUB X-Ray 05/27/19 13:38 IMPRESSION: Constipation. Possible fecal impaction. No other significant finding. Chest/Abdomen CTA 05/30/19 00:00 IMPRESSION: 1. Acute pulmonary embolism involving the left lung segmental branches. 2. No saddle embolus. 3. Mild reflux of contrast in the IVC suggesting mild right heart strain. 4. Pulmonary edema pattern with moderate pleural effusions. Chest X-Ray 05/30/19 06:00 IMPRESSION: Mild improved aeration of the lungs. Possibly masslike opacity on the left. Continue follow-up. Assessment and Plan - Diagnosis (1) Acute respiratory failure with hypoxia and hypercarbia Is this a current diagnosis for this admission?: Yes Plan: Likely secondary to aspiration pneumonia + segmental pulmonary embolism + pleural effusions Now tolerating Ventimask 50% FiO2. Patient not candidate for BiPAP given encephalopathy Patient is DNR/DNI which was confirmed on the admission and family wishes for no invasive or aggressive measures Palliative care consulted (2) Acute pulmonary embolism Qualifiers: Pulmonary embolism type: other Is this a current diagnosis for this admission?: Yes Plan: Involving the left segmental arteries EKG showing no evidence of right heart strain On Lovenox 100 mg every 12 hours (3) Aspiration pneumonia due to food (regurgitated) Qualifiers: Laterality: bilateral Is this a current diagnosis for this admission?: Yes Plan: Continue with Zosyn day 5 of antibiotics Initially got vancomycin for 2 days but discontinued as MRSA swab negative Blood culture negative. (4) Acute metabolic encephalopathy Is this a current diagnosis for this admission?: Yes Plan: Encephalopathy likely secondary to prolonged period of hypoxia vs sepsis compounding his underlying vascular dementia. No improvement with resolution of hyponatremia. CT head showing no new changes Discussed means of nutrition with family yesterday. Family opted for TPN as opposed to enteral feeding. Dietary consulted. Awaiting recommendations for TPN. (5) Dehydration with hypernatremia Is this a current diagnosis for this admission?: Yes Plan: Hyponatremia now resolved We will discontinue D5W and start patient on D5 normal saline pending dietary recommendations for TPN (6) Dry gangrene Is this a current diagnosis for this admission?: Yes Plan: Evaluated by surgery. No evidence of being infected. No Intervention needed at this time. (7) Bilateral pleural effusion Is this a current diagnosis for this admission?: Yes Plan: Fairly large sized seen on CT yesterday likely secondary to pneumonia and/or pulmonary embolism Family opting for no invasive measures Can attempt Lasix once hydration is no longer an issue - Plan Summary Summary: Patient overall has a poor prognosis given his severe hypoxia on high O2 requirement still compounded with multiple lung problems and underlying baseline vascular dementia. Palliative care discussion is very paramount. We will maintain wishes for DNR/DNI and no aggressive measures. - Time Time Spent with patient: 25-34 minutes
--- NOTE | 2019-05-31 10:23 | EKG REPORT ---
SEVERITY:- ABNORMAL ECG - ATRIAL FIBRILLATION BORDERLINE LEFT AXIS DEVIATION NONSPECIFIC T ABNORMALITIES, ANT-LAT LEADS PVC X 1. : Confirmed by: Ramakrishna Chavez MD 31-May-2019 10:22:45
[2019-05-31 10:51] LABS: AMORPHOUS SEDIMENT,URINE TRACE /HPF; APPEARANCE,URINE SLIGHTLY-CLOUDY; BILIRUBIN,URINE NEGATIVE (NEGATIVE); COLOR,URINE YELLOW; GLUCOSE, URINE 50 mg/dL (NEGATIVE); KETONES,URINE NEGATIVE (NEGATIVE); LEUKOCYTE ESTERASE,URINE NEGATIVE (NEGATIVE); NITRITE,URINE NEGATIVE (NEGATIVE); PROTEIN,URINE 30 mg/dL (NEGATIVE); URINE SPECIFIC GRAVITY 1.029; UROBILINOGEN,URINE NEGATIVE mg/dL (<2.0)
[2019-05-31] MEDS: ENOXAPARIN SODIUM INJ 100 MG/1 ML DISP.SYRIN SUBCUT SCH ×2 (14:45→21:51)
[2019-05-31] MEDS: ASPIRIN 300 MG SUPP, RECTAL PR SCH (18:20)
[2019-06-01] MEDS: DEXTROSE 5%-NORMAL SALINE 1,000 ML IV PRN (02:47)
[2019-06-01] MEDS: PIPERACILLIN SODIUM/TAZOBACTAM 3.375 GM in NORMAL SALINE 100 ML IV SCH ×3 (02:47→16:00)
[2019-06-01 08:19] LABS: BLOOD UREA NITROGEN 30 mg/dL (7-20); GLUCOSE 140 mg/dL (75-110); PHOSPHORUS 3.9 mg/dL (2.5-4.5); POTASSIUM 3.9 mmol/L (3.6-5.0)
[2019-06-01 08:24] LABS: CARBON DIOXIDE 24 mmol/L (22-30); CHLORIDE 121 mmol/L (98-107)
[2019-06-01 08:29] LABS: ANION GAP 3 (5-19)
[2019-06-01] MEDS: LEVETIRACETAM 750 MG in NORMAL SALINE 100 ML IV SCH (09:00)
[2019-06-01 09:54] LABS: HEMATOCRIT 30.6 % (37.9-51.0); HEMOGLOBIN 9.4 g/dL (13.5-17.0); MEAN CORPUSCULAR HGB CONC 30.7 g/dL (32.0-36.0); MEAN CORPUSCULAR VOLUME 88 fl (80-97); PLATELET COUNT 128 10^3/uL (150-450); RED BLOOD COUNT 3.48 10^6/uL (4.35-5.55); RED CELL DISTRIBUTION WIDTH 16.5 % (11.5-14.0); WHITE BLOOD COUNT 14.8 10^3/uL (4.0-10.5)
--- NOTE | 2019-06-01 10:06 | PDOC PROGRESS REPORT ---
Subjective Progress Note for:: 06/01/19 Reason For Visit: PNEUMONIA, ENCEPHALOPATHY 06/01/2019 88-year-old male admitted for encephalopathy and pneumonia, and hyper natremia. She also has a pulmonary embolism and is on Lovenox.. 6 of Zosyn Physical Exam Vital Signs: Temp Pulse Resp BP Pulse Ox 97.5 F 87 14 98/33 L 99 06/01/19 07:57 06/01/19 04:00 06/01/19 07:57 06/01/19 07:57 06/01/19 08:17 Pulse Oximeter Continuous Start: 05/27/19 16:25 Freq: RTQ4 Status: Active Protocol: Document 06/01/19 08:17 HCR (Rec: 06/01/19 08:17 HCR [id number]) Pulse Oximetry Assessment Oxygen Saturation (92-100) 99 Oxygen Flow Rate (L/min) 15 Oxygen Delivery Method Non-Rebreather Fraction of Inspired Oxygen (FIO2) 100 Equipment Usage Equipment in Use Continuous SpO2 Machine # 4 Intake & Output 05/31/19 06/01/19 06/02/19 06:59 06:59 06:59 Intake Total 3896.0 3352.0 Output Total 620 1100 Balance 3276.0 2252.0 Weight 99.2 kg 102.3 kg General appearance: PRESENT: no acute distress, other - Patient is lying in bed and does not respond to verbal stimuli Respiratory exam: PRESENT: clear to auscultation charu. ABSENT: rales, rhonchi, wheezes Cardiovascular exam: PRESENT: RRR. ABSENT: diastolic murmur, rubs, systolic murmur Neurological exam: PRESENT: altered, other - Patient appears obtunded in [place] to his encephalopathy. According to the chart this is no change from yesterday Psychiatric exam: PRESENT: other Results Laboratory Results: 06/01/19 07:42 05/31/19 06/01/19 06/01/19 09:46 07:42 07:42 WBC Cancelled RBC Cancelled Hgb Cancelled Hct Cancelled MCV Cancelled MCH Cancelled MCHC Cancelled RDW Cancelled Plt Count Cancelled Seg Neutrophils % Cancelled Sodium 148.0 H Potassium 3.9 Chloride 121 H Carbon Dioxide 24 Anion Gap 3 L BUN 30 H Creatinine 1.14 Est GFR ( Amer) > 60 Glucose 140 H Calcium 8.0 L Phosphorus 3.9 Magnesium 2.4 H Urine Color YELLOW Urine Appearance SLIGHTLY-CLOUDY Urine pH 5.0 Ur Specific [place] 1.029 Urine Protein 30 H Urine Glucose (UA) 50 H Urine Ketones NEGATIVE Urine Blood LARGE H Urine Nitrite NEGATIVE Ur Leukocyte Esterase NEGATIVE Urine WBC (Auto) 14 Urine RBC (Auto) 41 05/27/19 05/27/19 05/27/19 13:37 13:37 17:50 Creatine Kinase 23 L Troponin I 0.106 0.234 05/28/19 03:06 Creatine Kinase Troponin I 0.211 Impressions: Head CT 05/27/19 00:00 IMPRESSION: Surgical changes. Involutional changes with chronic microvascular ischemia. No acute intracranial imaging findings. EVIDENCE OF ACUTE STROKE: NO. KUB X-Ray 05/27/19 13:38 IMPRESSION: Constipation. Possible fecal impaction. No other significant finding. Chest/Abdomen CTA 05/30/19 00:00 IMPRESSION: 1. Acute pulmonary embolism involving the left lung segmental branches. 2. No saddle embolus. 3. Mild reflux of contrast in the IVC suggesting mild right heart strain. 4. Pulmonary edema pattern with moderate pleural effusions. Chest X-Ray 05/30/19 06:00 IMPRESSION: Mild improved aeration of the lungs. Possibly masslike opacity on the left. Continue follow-up. Assessment and Plan - Diagnosis (1) Acute metabolic encephalopathy Is this a current diagnosis for this admission?: Yes (2) Acute pulmonary embolism Qualifiers: Pulmonary embolism type: other Is this a current diagnosis for this admission?: Yes (3) Acute renal failure Qualifiers: Acute renal failure type: unspecified Qualified Code(s): N17.9 - Acute kidney failure, unspecified Is this a current diagnosis for this admission?: Yes (4) Acute respiratory failure with hypoxia and hypercarbia Is this a current diagnosis for this admission?: Yes (5) Aspiration pneumonia due to food (regurgitated) Qualifiers: Laterality: bilateral Is this a current diagnosis for this admission?: Yes - Plan Summary Summary: Patient overall has a poor prognosis given his severe hypoxia on high O2 requirement still compounded with multiple lung problems and underlying baseline vascular dementia. Palliative care discussion is very paramount. We will maintain wishes for DNR/DNI and no aggressive measures. 06/01/2019 Patient has had no improvement since yesterday. Neurologically patient is still obtunded. Blood pressures had been running around 130/90 this morning however it was lower at 98/33. At rate is in the 80s Oxygen saturation is 100% on a nonrebreather with a flow rate of 15 and FiO2 of 100% Culture showed no growth in 4 days CTA from yesterday shows no saddle embolus, mild reflux of contrast into the IVC suggesting mild right heart strain, pulmonary edema pattern with moderate pleural effusions, and acute pulmonary embolism involving the left lung segmental branches Patient has a poor prognosis currently DNR/DNI, however patient should be made palliative care. Will discuss with daughter and discharge planning - Time Time Spent with patient: 35 or more minutes
[2019-06-01] MEDS: BISACODYL 10 MG SUPP.RECT PR SCH (10:18)
[2019-06-01] MEDS: ENOXAPARIN SODIUM INJ 100 MG/1 ML DISP.SYRIN SUBCUT SCH (10:19)
[2019-06-01] MEDS: PANTOPRAZOLE SODIUM 40 MG VIAL IV SCH (10:20)
[2019-06-01 10:28] LABS: ABSOLUTE LYMPHOCYTES# (MANUAL) 2.2 10^3/uL (0.5-4.7); ABSOLUTE MONOCYTES # (MANUAL) 0.4 10^3/uL (0.1-1.4); BASOPHILS % (MANUAL) 0 % (0-2); EOSINOPHILS % (MANUAL) 0 % (0-6); LYMPHOCYTES % (MANUAL) 15 % (13-45); MONOCYTES % (MANUAL) 3 % (3-13); SEGMENTED NEUTROPHILS % (MAN) 82 % (42-78); TOTAL CELLS COUNTED 100
[2019-06-01 10:31] LABS: ANISOCYTOSIS 1+; PLATELET COMMENT DECREASED; TOXIC GRANULATION 1+; TOXIC VACUOLATION PRESENT
[2019-06-01] MEDS: ASPIRIN 300 MG SUPP, RECTAL PR SCH (18:23)
[2019-06-01] MEDS ORDERED: LORAZEPAM 1 MG TABLET SL PRN (19:33)
[2019-06-01] MEDS ORDERED: HALOPERIDOL 2 MG TABLET PO PRN (19:33)
[2019-06-01] MEDS ORDERED: MORPHINE SULFATE 10 MG/ML INJ IM PRN (19:39)
[2019-06-01] MEDS ORDERED: MORPHINE SULFATE 10 MG/ML INJ IV PRN ×2 (19:59→20:01)
[2019-06-02] MEDS: MORPHINE SULFATE 10 MG/ML INJ IV PRN ×3 (04:55→20:35)
[2019-06-02] MEDS: BISACODYL 10 MG SUPP.RECT PR SCH (09:49)
--- NOTE | 2019-06-02 10:26 | PDOC PROGRESS REPORT ---
Subjective Progress Note for:: 06/02/19 Reason For Visit: PNEUMONIA, ENCEPHALOPATHY 06/02/2019 Patient was admitted to the hospital for hypoxia, pneumonia, encephalopathy secondary to hypoxia. His prognosis is poor, patient has failed to improve, if anything patient is worsened.. Patient is now comfort care, hospice. Family has agreed to this as of yesterday evening Physical Exam Vital Signs: Temp Pulse Resp BP Pulse Ox 97.6 F 122 H 19 138/97 H 96 06/01/19 15:45 06/02/19 02:00 06/01/19 15:45 06/01/19 15:45 06/02/19 08:23 Pulse Oximeter Continuous Start: 05/27/19 16:25 Freq: RTQ4 Status: Complete Protocol: Document 06/01/19 20:25 [facility] (Rec: 06/01/19 21:23 [facility] [id number]) Pulse Oximetry Assessment Oxygen Saturation (92-100) 100 Oxygen Flow Rate (L/min) 15 Oxygen Delivery Method Non-Rebreather Fraction of Inspired Oxygen (FIO2) 100 Equipment Usage Equipment in Use Continuous SpO2 Machine # N-4 Intake & Output 06/01/19 06/02/19 06/03/19 06:59 06:59 06:59 Intake Total 3352.0 477 Output Total 1100 875 Balance 2252.0 -398 Weight 102.3 kg 102 kg General appearance: PRESENT: mild distress, other - Patient does not respond to verbal stimuli Respiratory exam: PRESENT: rales, rhonchi Cardiovascular exam: PRESENT: RRR. ABSENT: diastolic murmur, rubs, systolic murmur Neurological exam: PRESENT: altered, other - Patient is moaning Psychiatric exam: PRESENT: other Results Laboratory Results: 06/01/19 09:44 06/01/19 07:42 05/27/19 14:28 Blood Blood Culture - Final NO GROWTH IN 5 DAYS 05/27/19 13:37 Blood Blood Culture - Final NO GROWTH IN 5 DAYS 05/27/19 05/27/19 05/27/19 13:37 13:37 17:50 Creatine Kinase 23 L Troponin I 0.106 0.234 05/28/19 03:06 Creatine Kinase Troponin I 0.211 Impressions: Head CT 05/27/19 00:00 IMPRESSION: Surgical changes. Involutional changes with chronic microvascular ischemia. No acute intracranial imaging findings. EVIDENCE OF ACUTE STROKE: NO. KUB X-Ray 05/27/19 13:38 IMPRESSION: Constipation. Possible fecal impaction. No other significant finding. Chest/Abdomen CTA 05/30/19 00:00 IMPRESSION: 1. Acute pulmonary embolism involving the left lung segmental branches. 2. No saddle embolus. 3. Mild reflux of contrast in the IVC suggesting mild right heart strain. 4. Pulmonary edema pattern with moderate pleural effusions. Chest X-Ray 05/30/19 06:00 IMPRESSION: Mild improved aeration of the lungs. Possibly masslike opacity on the left. Continue follow-up. Assessment and Plan - Diagnosis (1) Acute metabolic encephalopathy Is this a current diagnosis for this admission?: Yes (2) Acute pulmonary embolism Qualifiers: Pulmonary embolism type: other Is this a current diagnosis for this admission?: Yes (3) Acute renal failure Qualifiers: Acute renal failure type: unspecified Qualified Code(s): N17.9 - Acute k idney failure, unspecified Is this a current diagnosis for this admission?: Yes (4) Acute respiratory failure with hypoxia and hypercarbia Is this a current diagnosis for this admission?: Yes (5) Aspiration pneumonia due to food (regurgitated) Qualifiers: Laterality: bilateral Is this a current diagnosis for this admission?: Yes - Plan Summary Summary: Patient overall has a poor prognosis given his severe hypoxia on high O2 requirement still compounded with multiple lung problems and underlying baseline vascular dementia. Palliative care discussion is very paramount. We will maintain wishes for DNR/DNI and no aggressive measures. 06/01/2019 Patient has had no improvement since yesterday. Neurologically patient is still obtunded. Blood pressures had been running around 130/90 this morning however it was lower at 98/33. At rate is in the 80s Oxygen saturation is 100% on a nonrebreather with a flow rate of 15 and FiO2 of 100% Culture showed no growth in 4 days CTA from yesterday shows no saddle embolus, mild reflux of contrast into the IVC suggesting mild right heart strain, pulmonary edema pattern with moderate pleural effusions, and acute pulmonary embolism involving the left lung segmental branches Patient has a poor prognosis currently DNR/DNI, however patient should be made palliative care. Will discuss with daughter and discharge planning 06/02/2019 Patient is now comfort care. Patient needs to be transferred to inpatient hospice facility. She is maintaining an saturation in the upper 90s on 4 L of nasal cannula. No IV site access Have hospice/discharge planning reevaluate patient today for potential transfer - Time Time Spent with patient: 25-34 minutes
--- NOTE | 2019-06-02 14:26 | ADVANCED CARE ---
- Diagnosis (1) Acute metabolic encephalopathy Diagnosis Current: Yes (2) Acute pulmonary embolism Diagnosis Current: Yes (3) Acute renal failure Diagnosis Current: Yes (4) Acute respiratory failure with hypoxia and hypercarbia Diagnosis Current: Yes (5) Aspiration pneumonia due to food (regurgitated) Diagnosis Current: Yes Attendance: Daughter, grandson, patient, patient's Resuscitation Status: Do Not Resuscitate - DNR/DNI. Discussion: Due to patient's metabolic encephalopathy patient's daughter has power of estate attorney. It was discussed by multiple caretakers including discharge planning,, hospital nursing, for several hours prior to my discussing his poor prognosis family.. I have also discussed this with discharge planning as well as hospice nursing, hospital nursing, and supervising MD. Care Planning Goals: Goals are to make the patient comfortable therefore on 06/01/2019 patient was made comfort care only. Patient will be going to hospice either inpatient hospice care or at home hospice care. Document(s) Completed: Patient was already a DNR prior to this conversation Time Spent: 45 minutes total time
[2019-06-02] MEDS: ASPIRIN 300 MG SUPP, RECTAL PR SCH (17:06)
[2019-06-03] MEDS: MORPHINE SULFATE 10 MG/ML INJ IV PRN ×2 (03:17→06:09)
--- NOTE | 2019-06-03 08:47 | PDOC PROGRESS REPORT ---
Subjective Progress Note for:: 06/03/19 Reason For Visit: PNEUMONIA, ENCEPHALOPATHY 06/03/2019 After discussing the case with Dr. Schmitz, we are going to start weaning patient off of his oxygen today and increasing Ativan and morphine as needed. I discussed this with the patient's power of tableau developer, daughter, and she is in agreement Physical Exam Vital Signs: Temp Pulse Resp BP Pulse Ox 97.4 F 78 14 131/56 H 77 L 06/02/19 19:44 06/03/19 02:00 06/02/19 12:01 06/02/19 19:44 06/02/19 19:44 Pulse Oximeter Continuous Start: 05/27/19 16:25 Freq: RTQ4 Status: Complete Protocol: Document 06/01/19 20:25 [facility] (Rec: 06/01/19 21:23 [facility] [id number]) Pulse Oximetry Assessment Oxygen Saturation (92-100) 100 Oxygen Flow Rate (L/min) 15 Oxygen Delivery Method Non-Rebreather Fraction of Inspired Oxygen (FIO2) 100 Equipment Usage Equipment in Use Continuous SpO2 Machine # N-4 Intake & Output 06/02/19 06/03/19 06/04/19 06:59 06:59 06:59 Intake Total 477 Output Total 875 0 Balance -398 0 Weight 102 kg 102 kg General appearance: PRESENT: no acute distress, other - Patient does not respond to verbal stimuli Respiratory exam: PRESENT: rhonchi - Course scattered rhonchi Cardiovascular exam: PRESENT: RRR. ABSENT: diastolic murmur, rubs, systolic murmur Neurological exam: PRESENT: altered Results Laboratory Results: 06/01/19 09:44 06/01/19 07:42 05/27/19 05/27/19 05/27/19 13:37 13:37 17:50 Creatine Kinase 23 L Troponin I 0.106 0.234 05/28/19 03:06 Creatine Kinase Troponin I 0.211 Impressions: Head CT 05/27/19 00:00 IMPRESSION: Surgical changes. Involutional changes with chronic microvascular ischemia. No acute intracranial imaging findings. EVIDENCE OF ACUTE STROKE: NO. KUB X-Ray 05/27/19 13:38 IMPRESSION: Constipation. Possible fecal impaction. No other significant finding. Chest/Abdomen CTA 05/30/19 00:00 IMPRESSION: 1. Acute pulmonary embolism involving the left lung segmental branches. 2. No saddle embolus. 3. Mild reflux of contrast in the IVC suggesting mild right heart strain. 4. Pulmonary edema pattern with moderate pleural effusions. Chest X-Ray 05/30/19 06:00 IMPRESSION: Mild improved aeration of the lungs. Possibly masslike opacity on the left. Continue follow-up. Assessment and Plan - Diagnosis (1) Acute metabolic encephalopathy Is this a current diagnosis for this admission?: Yes (2) Acute pulmonary embolism Qualifiers: Pulmonary embolism type: other Is this a current diagnosis for this admission?: Yes (3) Acute renal failure Qualifiers: Acute renal failure type: unspecified Qualified Code(s): N17.9 - Acute kidney failure, unspecified Is this a current diagnosis for this admission?: Yes (4) Acute respiratory failure with hypoxia and hypercarbia Is this a current diagnosis for this admission?: Yes (5) Aspiration pneumonia due to food (regurgitated) Qualifiers: Laterality: bilateral Is this a current diagnosis for this admission?: Yes - Plan Summary Summary: Patient overall has a poor prognosis given his severe hypoxia on high O2 requirement still compounded with multiple lung problems and underlying baseline vascular dementia. Palliative care discussion is very paramount. We will maintain wishes for DNR/DNI and no aggressive measures. 06/01/2019 Patient has had no improvement since yesterday. Neurologically patient is still obtunded. Blood pressures had been running around 130/90 this morning however it was lower at 98/33. At rate is in the 80s Oxygen saturation is 100% on a nonrebreather with a flow rate of 15 and FiO2 of 100% Culture showed no growth in 4 days CTA from yesterday shows no saddle embolus, mild reflux of contrast into the IVC suggesting mild right heart strain, pulmonary edema pattern with moderate pleural effusions, and acute pulmonary embolism involving the left lung segmental branches Patient has a poor prognosis currently DNR/DNI, however patient should be made palliative care. Will discuss with daughter and discharge planning 06/02/2019 Patient is now comfort care. Patient needs to be transferred to inpatient hospice facility. She is maintaining an saturation in the upper 90s on 4 L of nasal cannula. No IV site access Have hospice/discharge planning reevaluate patient today for potential transfer 06/03/2019 Oxygen saturation dropping in the 60s and 70s at times. Patient is unresponsive We will start to wean off of nasal cannula oxygen and add Ativan and morphine as needed Daughter is in agreement to this treatment - Time Time Spent with patient: 25-34 minutes
[2019-06-03] MEDS: BISACODYL 10 MG SUPP.RECT PR SCH (09:00)
[2019-06-03] MEDS: MORPHINE SULFATE 10 MG/5 ML ORAL SOLUTION UDCUP PO PRN ×3 (10:47→20:52)
[2019-06-03] MEDS: ASPIRIN 300 MG SUPP, RECTAL PR SCH (17:02)
[2019-06-03] MEDS: ATROPINE SULFATE 1% OPH SOLN 5 ML BOTTLE SL PRN ×2 (19:52→22:57)
[2019-06-04] MEDS: ATROPINE SULFATE 1% OPH SOLN 5 ML BOTTLE SL PRN ×2 (02:19→10:46)
[2019-06-04] MEDS: MORPHINE SULFATE 10 MG/5 ML ORAL SOLUTION UDCUP PO PRN ×5 (03:04→22:16)
[2019-06-04] MEDS: BISACODYL 10 MG SUPP.RECT PR SCH (10:39)
[2019-06-04] MEDS: LORAZEPAM 1 MG TABLET PO PRN (10:46)
[2019-06-04] MEDS: ASPIRIN 300 MG SUPP, RECTAL PR SCH (18:13)
[2019-06-05] MEDS: MORPHINE SULFATE 10 MG/5 ML ORAL SOLUTION UDCUP PO PRN ×3 (00:44→08:18)
[2019-06-05 07:55] VITALS: BP 130/61
--- NOTE | 2019-06-05 10:14 | PDOC PROGRESS REPORT ---
Subjective Progress Note for:: 06/05/19 Reason For Visit: PNEUMONIA, ENCEPHALOPATHY 06/05/2019 Comfort care measures with morphine and Ativan Physical Exam Vital Signs: Temp Pulse Resp BP Pulse Ox 97.9 F 84 17 130/61 H 73 L 06/05/19 07:51 06/05/19 07:51 06/05/19 07:51 06/05/19 07:51 06/05/19 07:51 Pulse Oximeter Continuous Start: 05/27/19 16:25 Freq: RTQ4 Status: Complete Protocol: Document 06/01/19 20:25 [facility] (Rec: 06/01/19 21:23 [facility] [id number]) Pulse Oximetry Assessment Oxygen Saturation (92-100) 100 Oxygen Flow Rate (L/min) 15 Oxygen Delivery Method Non-Rebreather Fraction of Inspired Oxygen (FIO2) 100 Equipment Usage Equipment in Use Continuous SpO2 Machine # [id number] Intake & Output 06/04/19 06/05/19 06/06/19 06:59 06:59 05:59 Intake Total 0 Balance 0 Weight 99.7 kg 100.3 kg General appearance: PRESENT: no acute distress, other Respiratory exam: PRESENT: clear to auscultation charu. ABSENT: rales, rhonchi, wheezes Cardiovascular exam: PRESENT: RRR. ABSENT: diastolic murmur, rubs, systolic mu rmur Neurological exam: PRESENT: altered, other - Lethargic will sometimes open his eyes to voice command Otherwise will not follow commands Psychiatric exam: PRESENT: other - No affect at all Results Laboratory Results: 06/01/19 09:44 06/01/19 07:42 05/27/19 05/27/19 05/27/19 13:37 13:37 17:50 Creatine Kinase 23 L Troponin I 0.106 0.234 05/28/19 03:06 Creatine Kinase Troponin I 0.211 Impressions: Head CT 05/27/19 00:00 IMPRESSION: Surgical changes. Involutional changes with chronic microvascular ischemia. No acute intracranial imaging findings. EVIDENCE OF ACUTE STROKE: NO. KUB X-Ray 05/27/19 13:38 IMPRESSION: Constipation. Possible fecal impaction. No other significant finding. Chest/Abdomen CTA 05/30/19 00:00 IMPRESSION: 1. Acute pulmonary embolism involving the left lung segmental branches. 2. No saddle embolus. 3. Mild reflux of contrast in the IVC suggesting mild right heart strain. 4. Pulmonary edema pattern with moderate pleural effusions. Chest X-Ray 05/30/19 06:00 IMPRESSION: Mild improved aeration of the lungs. Possibly masslike opacity on the left. Continue follow-up. Assessment and Plan - Diagnosis (1) Acute metabolic encephalopathy Is this a current diagnosis for this admission?: Yes (2) Acute pulmonary embolism Qualifiers: Pulmonary embolism type: other Is this a current diagnosis for this admission?: Yes (3) Acute renal failure Qualifiers: Acute renal failure type: unspecified Qualified Code(s): N17.9 - Acute kidney failure, unspecified Is this a current diagnosis for this admission?: Yes (4) Acute respiratory failure with hypoxia and hypercarbia Is this a current diagnosis for this admission?: Yes (5) Aspiration pneumonia due to food (regurgitated) Qualifiers: Laterality: bilateral Is this a current diagnosis for this admission?: Yes - Plan Summary Summary: Patient overall has a poor prognosis given his severe hypoxia on high O2 requirement still compounded with multiple lung problems and underlying baseline vascular dementia. Palliative care discussion is very paramount. We will maintain wishes for DNR/DNI and no aggressive measures. 06/01/2019 Patient has had no improvement since yesterday. Neurologically patient is still obtunded. Blood pressures had been running around 130/90 this morning however it was lower at 98/33. At rate is in the 80s Oxygen saturation is 100% on a nonrebreather with a flow rate of 15 and FiO2 of 100% Culture showed no growth in 4 days CTA from yesterday shows no saddle embolus, mild reflux of contrast into the IVC suggesting mild right heart strain, pulmonary edema pattern with moderate pleural effusions, and acute pulmonary embolism involving the left lung segmental branches Patient has a poor prognosis currently DNR/DNI, however patient should be made palliative care. Will discuss with daughter and discharge planning 06/02/2019 Patient is now comfort care. Patient needs to be transferred to inpatient hospice facility. She is maintaining an saturation in the upper 90s on 4 L of nasal cannula. No IV site access Have hospice/discharge planning reevaluate patient today for potential transfer 06/03/2019 Oxygen saturation dropping in the 60s and 70s at times. Patient is unresponsive We will start to wean off of nasal cannula oxygen and add Ativan and morphine as needed Daughter is in agreement to this treatment 06/05/2019 Patient is supposed to be getting his morphine 5 mg every 2 hours pretty much [id number] even though is ordered as needed. Have discussed this with the nurses. Will reconsult discharge planning since patient appears to be surviving longer than anticipated - Time Time Spent with patient: 15-24 minutes
[2019-06-05] MEDS: BISACODYL 10 MG SUPP.RECT PR SCH (11:12)
[2019-06-05] MEDS: LORAZEPAM 1 MG TABLET PO PRN (14:36)
[2019-06-05] MEDS: ASPIRIN 300 MG SUPP, RECTAL PR SCH (17:29)
--- NOTE | 2019-06-05 18:52 | Death Summary ---
Summary Date : 06/05/19 Time of :: 17:50 Autopsy: No Resuscitation Status: Do Not Resuscitate Primary Care Provider: DO Lavonne Zepeda Final Diagnosis (1) Acute metabolic encephalopathy Is this a current diagnosis for this admission?: Yes (2) Acute pulmonary embolism Is this a current diagnosis for this admission?: Yes (3) Acute renal failure Is this a current diagnosis for this admission?: Yes (4) Acute respiratory failure with hypoxia and hypercarbia Is this a current diagnosis for this admission?: Yes (5) Aspiration pneumonia due to food (regurgitated) Is this a current diagnosis for this admission?: Yes Hospital Course:: Today's date is 06/05/2019 Patient was admitted to the hospital on 05/27/2019 for altered mental status and hypoxia. Patient has a history of dementia atrial fib CVA coronary disease hypertension hyperlipidemia CHF sleep apnea seizures and possible brain cancer patient was found at home to be lethargic and unresponsive. There were some food particles and pills coming out of the mouth of the patient at the time EMS arrived. In the emergency room patient was placed on nonrebreather. Patient was made a DNR/DNI at the time of admission. Patient's other problems also included pulmonary embolism as well as hypernatremia Due to patient's poor prognosis secondary to hypoxia patient was made comfort care/hospice on 06/02/2019 Patient became more hypoxic and his oxygen was gradually weaned on 06/03/2019. She was given Ativan and morphine as needed. Patient today at approximately 1749
== END 2019-06-05 21:53 | disposition expired | DRG 871 ==
LOC: ER 13:26 → EH 15:09 → 3W 16:57
PROVIDERS: ADMIT Internal Medicine; ATTEND Internal Medicine
PROC: B32TZZZ Computerized Tomography (CT Scan) of Left Pulmonary Artery (ICD-10-PCS; principal; 2019-05-30)
PROC: B32 Imaging, Upper Arteries, Computerized Tomography (CT Scan) (ICD-10-PCS; 2019-05-30)
DX: A41.9 Sepsis, unspecified organism (principal); J69.0 Pneumonitis due to inhalation of food and vomit; J96.01 Acute respiratory failure with hypoxia; I26.99 Other pulmonary embolism without acute cor pulmonale; G93.41 Metabolic encephalopathy; J96.02 Acute respiratory failure with hypercapnia; N17.9 Acute kidney failure, unspecified; E87.0 Hyperosmolality and hypernatremia; I96 Gangrene, not elsewhere classified; I69.359 Hemiplegia and hemiparesis following cerebral infarction affecting unspecified side; R65.20 Severe sepsis without septic shock; I11.0 Hypertensive heart disease with heart failure; I50.9 Heart failure, unspecified; R56.9 Unspecified convulsions; F01.50 Vascular dementia, unspecified severity, without behavioral disturbance, psychotic disturbance, mood disturbance, and anxiety; J44.9 Chronic obstructive pulmonary disease, unspecified; I25.10 Atherosclerotic heart disease of native coronary artery without angina pectoris; E78.5 Hyperlipidemia, unspecified; G47.30 Sleep apnea, unspecified; Z66 Do not resuscitate; I48.0 Paroxysmal atrial fibrillation; K21.9 Gastro-esophageal reflux disease without esophagitis; M19.90 Unspecified osteoarthritis, unspecified site; D64.9 Anemia, unspecified; E86.0 Dehydration; K59.00 Constipation, unspecified; R74.8 Abnormal levels of other serum enzymes; Z51.5 Encounter for palliative care; I25.2 Old myocardial infarction; Z85.841 Personal history of malignant neoplasm of brain; Z87.891 Personal history of nicotine dependence; Z95.1 Presence of aortocoronary bypass graft
CPT/HCPCS: 36415; 36600; 51702; 70450; 71045; 71275; 74018; 80048; 80053; 81001; 82550; 82803; 82962; 83605; 83735; 84100; 84484; 85025; 87040; 87070; 93005; 93010; 94762; 96365; 99291; C9113; J1644; J1650; J1953; J1956; J2270; J2543; J2920; J3370; J3480; J3490; J7030; J7042; J7050; J7060